=== PATIENT | male | born 1940 | race Caucasian/White ===

== ENCOUNTER 2018-11-29 23:09 | Emergency (ER) | payer MEDICARE, SELFPAY ==
[2018-11-29 23:10] VITALS: BP 179/97; PULSE 87; RESP 17; TEMP 35.8; O2SAT 96; BMI 23.9
--- NOTE | 2018-11-29 23:14 | CT_ITS ---
We are attempting to reach an attending provider to discuss findings. An addendum with communication details will be sent when the communication is complete. STUDY: CT BRAIN WITHOUT CONTRAST REASON FOR EXAM: Male, 78 years old. Stroke, headache, unresponsive RADIATION DOSAGE (If Supplied By Facility): CTDIvol = ( 44.99 ) mGy, DLP = ( 832.67 ) mGycm TECHNIQUE: Transaxial CT imaging of the brain was performed without administration of intravenous contrast material. Individualized dose optimization techniques were used for this CT. COMPARISON: No relevant priors. FINDINGS: Normal soft tissue structures. Normal calvarium. Normal size ventricles and extra-axial spaces for the patient's age. There are areas of decreased attenuation within the white matter tracts of the supratentorial brain, consistent with microvascular disease changes. Normal age-related changes of the basal ganglia. Normal brainstem. Normal cerebellum. There is no intracranial hemorrhage. There are no findings of an acute ischemic infarction. Normal visualized paranasal sinuses. CT/Brain/Head without Contrast IMPRESSION: No CT evidence of acute infarct or hemorrhage. If there is clinical concern for hyperacute ischemia that is not evident by CT, MRI should be considered if possible. Electronically Signed: Patricio Hickman MD at 23:30 EDT Tel , Service support ,
--- NOTE | 2018-11-29 23:14 | EKG12_ITS ---
Test Reason : Blood Pressure : / mmHG Vent. Rate : 079 BPM Atrial Rate : 079 BPM P-R Int : 260 ms QRS Dur : 094 ms QT Int : 398 ms P-R-T Axes : 059 -24 043 degrees QTc Int : 456 ms Sinus rhythm with 1st degree A-V block Otherwise normal ECG Confirmed by GENNY BACH, MAX ([id number]), writer editor JOSTIN OATES ([id number]) on 12/06/2018 11:09:18 AM Referred By: Confirmed By:FOUZIA ROYAL MD
--- NOTE | 2018-11-29 23:18 | ED.RN ---
NO OLD EKG
[2018-11-29 23:25] VITALS: BP 177/115; PULSE 88; RESP 18; O2SAT 95
[2018-11-29 23:30] VITALS: BP 194/78; PULSE 83; PULSE 87; RESP 19; RESP 21; O2SAT 96
[2018-11-29 23:32] LABS: Prothrombin Time (Protime)PT. 13.1 SECONDS (11.7-14.9)
[2018-11-29 23:33] LABS: Partial Thromboplast Time 28.4 Seconds (24.1-36.2)
[2018-11-29 23:34] VITALS: O2SAT 96
[2018-11-29 23:35] LABS: Absolute Lymphocyte Count 1.83 X10^3/uL (0.83-4.51); Absolute Neutrophil Count 3.9 X10^3/uL (2.0-7.7); Basophil# 0.03 X10^3/uL; Basophil% 0.5 % (0-1); Eosinophil# 0.16 X10^3/uL; Eosinophils% 2.4 % (0-5); Hematocrit 40.4 % (40-54); Hemoglobin 14.1 g/dL (13.0-16.5); Lymphocyte # 1.83 X10^3/ul (4.0); Lymphocyte % 27.6 % (19-41); Mean Corp Hgb Conc 34.9 g/dL (32-36); Mean Corpuscular Hgb 31.7 pg (27.0-32.0); Mean Corpuscular Volume 90.8 fL (80-94); Mean Platelet Vol. 9.6 fl (6.2-12.0); Monocyte% 10.5 % (0-10); NRBC Flagged by Analyzer 0 % (0-5); Neutrophil # 3.86 X10^3/uL (2.7-7.7); Neutrophil % 58.1 % (47-70); Platelet Count 180 K/mm3 (150-450); RBC Distribution Width CV 12.4 % (11.6-14.6); RBC Distribution Width SD 40.7 fl (35.1-43.9); Red Blood Count 4.45 M/mm3 (4.6-6.2); White Blood Count 6.6 K/mm3 (4.4-11.0)
--- NOTE | 2018-11-29 23:35 | CT_ITS ---
We are attempting to reach an attending provider to discuss findings. An addendum with communication details will be sent when the communication is complete. HISTORY: CVA, ALTERED LOC, WENT TO BED AT 10PM AND WOKE UP WITH MARTINEZ AND WENT UNRESPONSIVE TECHNIQUE: Routine carotid CT angiogram protocol was performed without and with IV contrast. In addition, images were obtained of the [place] of [place]. Nascet criteria using the distal ICAs for comparison were used for evaluation of stenoses. 3D reconstructions were reviewed. A radiation dose optimization technique was used for this scan. IV Contrast dosage and agent: 100mL Isovue-370 IV COMPARISON: Noncontrast cranial CT 2317 hrs. FINDINGS: --NECK: AORTIC ARCH AND BRANCHES: Normal anatomy, patent. RIGHT CCA/ICA: No occlusion, significant stenosis or dissection. Mild calcified plaque with 20% luminal narrowing of the right CCA bifurcation. The right ICA is widely patent LEFT CCA/ICA: No occlusion, significant stenosis or dissection. Focal calcified plaque with 30% short length narrowing of the left CCA bifurcation. The left ICA remains widely patent. RIGHT VERTEBRAL ARTERY: Dominant right vertebral artery. No occlusion, significant stenosis or dissection. 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 NECK SOFT TISSUES: Negative. No significant findings --HEAD: Hypoplastic left vertebral artery and dominant right vertebral artery. Right vertebral artery mild calcified plaque without significant stenosis. The posterior cerebral arteries fill via the basilar artery. No circulation. Mild calcified plaque of the cavernous internal carotid arteries bilaterally. No significant stenosis. Normal contrast filling and flow of the anterior, middle, and posterior cerebral arteries bilaterally. No evidence of intracranial aneurysm or vascular malformation. CT/CTA Head AND Neck W/ Contrast IMPRESSION: 1. No evidence of hemodynamically significant carotid stenosis. 2. 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 3. CTA brain and [place] is currently negative. No vascular occlusion or acute disease is seen. Individualized dose optimization techniques were used for this CT. at 0012 Reported and signed by: David Arora MD Electronically Signed: David Arora, at 0:11 EDT Tel , Service support ,
[2018-11-29 23:42] VITALS: BP 177/99; PULSE 85; RESP 17
[2018-11-29 23:42] LABS: Anion Gap 7 (5-15); BUN 16 mg/dL (7-18); BUN/Creat Ratio 18.1 RATIO (10-20); Calcium,Total 8.9 mg/dL (8.5-10.1); Chloride 103 mmol/L (98-107); Creatinine, Serum 0.88 mg/dL (0.70-1.30); EST Glomerular Filtration Rate 88 mL/min (>60); Est Glom Filt Rate - Afr Amer 107 mL/min (>60); Estimated Creatinine Clearance 74.71 ml/min; Glucose 135 mg/dL (74-106); Potassium 3.3 mmol/L (3.5-5.1); Sodium Level 138 mmol/L (136-145)
[2018-11-29 23:45] VITALS: BP 188/149; PULSE 85; RESP 14; O2SAT 98
[2018-11-29] MEDS: 0.9% Normal Saline 1,000 ML 100 ML IV (23:55)
--- NOTE | 2018-11-29 23:55 | ED.VISSUMM ---
- ER Visit Summary Date of Service: 11/29/18 Chief Complaint: Headache, dizzy, unresponsive History of Present Illness: The patient is a 78 M presenting per EMS after being found unresponsive. At 10 PM, 1 hour prior to arrival, patient started to complain of headache and dizziness. states he went to lay down. She checked on him and he was unresponsive. EMS was called. Per EMS he initially had snoring respirations. He became more alert en route to the hospital. He is now answering questions. He has slurred speech, right-sided deficit, confusion. BGT per EMS was 132. Physical Examination: Blood pressure 177/115. Patient is afebrile. Alert no acute distress. HEENT exam eyes deviated to right pupil equal round reactive to light, extraocular muscles intact Neck is supple. Lungs are clear and equal bilaterally. Heart is regular rate and rhythm. Abdomen is soft nontender nondistended. Extremities are unremarkable. Skin is warm and dry. And oriented x1, right arm and leg weakness, slurred speech, expressive aphasia Remainder of exam is unremarkable. Emergency Department Course and Treatment: Patient went taken directly to CT scan. CT head without contrast shows no evidence of bleed. [facility] neurology was consulted. Recommend TPA. He was given labetalol IV. TPA was administered. CTA head and neck were obtained and showed no large vessel occlusion. CBC, chemistries unremarkable other than potassium 3.3, glucose 135. INR 1.0. Troponin is negative. EKG is sinus rhythm rate of 79 with no acute ischemic changes. Patient and family would prefer to stay at [facility]. Discussed with the hospitalist for admission. Disposition: Admission Impression: CVA This note was generated with [employer] dictation software. It may contain incorrect words, spelling, and punctuation that were not noted in review of the chart prior to signing ED Disposition - Plan for ED Patient:
--- NOTE | 2018-11-29 23:57 | ED.RN ---
states pt takes supplements and vitamins. ED RN not able to verify meds and doses.
[2018-11-30] VITALS (23 sets, daily range): BP systolic 124–196; BP diastolic 65–122; PULSE 30–110; RESP 12–99; TEMP 36.3–36.5; O2SAT 80–100; BMI 23.9
--- NOTE | 2018-11-30 00:05 | PCM.HP.STD ---
History of Present Illness Date of Admission: 11/30/18 Chief Complaint: Altered status, R sided hemiplegia, facial droop, disconjugate gaze. The patient is a 78 y/o Catholic M w/ no PMHx on no medications who presents to the [facility] ED on 11/30/18 with history of ongoing diffuse headache starting at ~ 10 am with patient planned nap and attempted awakening per his just before 11 pm with onset decreased level of alertness noted to be only alert to self as well as slurred speech with concurrent right-sided facial paralysis, droop and right-sided hemiplegia who was found per his upon awakening with a right gaze deviation and abnormal eye movements as well as weakness with last known normal at 2200. Given patient presentation [facility] telemetry stroke consult was immediately requested and patient following evaluation was requested to be administered TPA at 2332 on day of ED presentation initially 11/29/2018. Patient upon ED presentation with noted initial NIH 14 noted to be poorly alert, forced deviation with partial hemianopsia with partial facial paralysis, right upper extremity drift, bilateral lower extremity drift, with severe aphasia and dysarthria present--> repeat NIH scoring improving level 9 with improvement of visualization, still forced deviation, minor facial paralysis, drift to the left upper extremity as well as left lower extremity with ongoing severe aphasia and improving mild to moderate dysarthria. Work-up in the ED included T 96.5, heart rate 87, BP initially 177/115 with increased 194/78, respiratory rate 18, 95% on room air, CBC with WBC 6.6, hemoglobin 14.1, platelet 180 with increased monocytes, unremarkable coags, BMP potassium 3.3, glucose 135, troponin less than 0.015, CT head with no acute evidence of infarct or hemorrhage, CTA Head and Neck with no occlusion nor acute findings per preliminary read from radiologist, EKG with sinus rhythm with no acute evidence of ischemia. In the ED patient administered labetolol 20 mg IV x 2. Past Medical History Allergies cyclobenzaprine [From Flexeril] Adverse Reaction (Verified 11/29/18 23:14) Rash Smoking Status: Unknown if ever smoked - Physical Exam Vital Signs Temp Pulse Resp BP Pulse Ox 97.4 F L 81 15 164/82 H 99 11/30/18 00:00 11/30/18 00:00 11/30/18 00:00 11/30/18 00:00 11/30/18 00:00 Oxygen Flow Rate (L/min) 2 Oxygen Delivery Method Nasal Cannula Weight: 176 lb 5.917 oz Body Mass Index (BMI) 23.9 Finger Stick Blood Glucose 132 Laboratory Tests Past 24 Hrs 11/29/18 11/29/18 11/29/18 23:15 23:15 23:15 WBC 6.6 RBC 4.45 L Hgb 14.1 Hct 40.4 MCV 90.8 MCH 31.7 MCHC 34.9 RDW Std Deviation 40.7 RDW Coeff of Dereck 12.4 Plt Count 180 MPV 9.6 Immature Gran % (Auto) 0.900 Neut % (Auto) 58.1 Lymph % (Auto) 27.6 Coos % (Auto) 10.5 H Eos % (Auto) 2.4 Baso % (Auto) 0.5 Absolute Neuts (auto) 3.9 Absolute Lymphs (auto) 1.83 Nucleated RBC % 0 PT 13.1 INR 1.0 APTT 28.4 Sodium 138 Potassium 3.3 L Chloride 103 Carbon Dioxide 28.0 Anion Gap 7 BUN 16 Creatinine 0.88 Estim Creat Clear Calc 74.71 Est GFR (MDRD) Af Amer 107 Est GFR (MDRD) Non-Af 88 BUN/Creatinine Ratio 18.1 Glucose 135 H Calcium 8.9 Troponin I < 0.015 Assessment/Plan The patient is a 78 y/o Catholic M w/ no PMHx on no medications who presents to the [facility] ED initially on 11/29/18, evaluated on 11/30/18 with history of ongoing diffuse headache starting at ~ 10 am with patient planned nap and attempted awakening per his just before 11 pm with onset decreased level of alertness noted to be only alert to self as well as slurred speech with concurrent right-sided facial paralysis, droop and right-sided hemiplegia who was found per his upon awakening with a right gaze deviation and abnormal eye movements as well as weakness with last known normal aside headache 10:30 pm 11/29/18. (1) Aphasia, dysarthria, right-sided hemiplegia, right facial droop w/ disconjugate gaze concerning for CVA status post TPA initiation in the ED: Given patient initiation of TPA following stroke alert with tele-radiology [facility] evaluation and patient decline to transfer to [facility] which was recommended per the Neurologist secondary to Catholic status and difficulty for family to travel to [facility], will proceed with admission to the ICU, Will allow permissive HTN, will plan on repeat CT head in 24 hours and if no acute findings at that time would plan on initiating aspirin therapy, will initiate statin therapy if patient passes swallow evaluation, FLP in a.m., mag pending, TSH pending, fall precautions, aspiration precautions, will obtain MRI Brain, ECHO, PT/OT/Speech/Nutrition evaluation per protocol. Will consult Neurology for evaluation. Will consult ICU physician per protocol. (2) Elevated BP with unclear HTN Dx: As noted above will maintain on permissive hypertension with initiation of regimen per protocol. (3) Hypokalemia: Admission K+ 3.3, supplementation given, repeat level in AM. Magnesium pending. (4) Hyperglycemia: Admission glucose 135, given acute presentation as noted #1, hemoglobin A1c pending. (5) DVT prophylaxis: SCDs, given recent TPA deferring chemoprophylaxis.
[2018-11-30] MEDS: Ondansetron 4 MG/2 ML Vial IV (00:25)
[2018-11-30] MEDS: Atropine Sulfate 1 MG/10 ML Syringe IV (00:28)
--- NOTE | 2018-11-30 00:51 | RAD_ITS ---
HISTORY: ET AND OG TUBE PLACEMENTS mental status change EXAMINATION/TECHNIQUE: XR Chest 1 View: Portable supine COMPARISON: None FINDINGS: EKG leads in place. LINES/DEVICES: The endotracheal tube is in good position with the tube tip 3 cm above the lenny. Enteric tube in place with the tube tip well below the GE junction and the tube tip not visualized. Normal heart size. Mild pulmonary venous congestion. No focal infiltrate. No pleural effusion or pneumothorax. RAD/Chest 1 View (Portable) IMPRESSION: 1. Good position of the endotracheal and enteric tubes. 2. Mild pulmonary venous congestion. at 0258 Reported and signed by: David Arora MD Electronically Signed: David Arora, at 2:57 EDT Tel , Service support ,
[2018-11-30] MEDS: Propofol 10MG/Ml 1,000 MG/100 ML Bottle 2.4 MG CONT INF (00:53)
[2018-11-30] MEDS: Etomidate 20 MG/10 ML Vial IV (00:56)
--- NOTE | 2018-11-30 00:56 | CT_ITS ---
We are attempting to reach an attending provider to discuss findings. An addendum with communication details will be sent when the communication is complete. HISTORY: MENTAL STATUS CHANGES, TPA RUNNING, CONCERN FOR BLEED, PT WAS INJECTED WITH 100ML ISOVUE 370 AT 2338 FOR CTA STUDY EXAMINATION: CT Head or Brain W/O IV Contrast 0106 hrs. TECHNIQUE: Multiple axial images were obtained of the head without intravenous contrast. A radiation dose optimization technique was used for this scan. IV Contrast dosage and agent: None. COMPARISON: Noncontrast cranial CT 11/29/2018 FINDINGS: Intravascular contrast related to previous CTA administration . Normal ventricles. No intracerebral hemorrhage or intraventricular hemorrhage. With comparison to previous, question of subtle low-density edema at the left centrum semiovale and subcortical left parietal lobe. No significant mass-effect. The right cerebral hemisphere appears stable. Posterior fossa structures are stable. Carotid and vertebral basilar atherosclerotic calcifications. No suspicious extra-axial fluid collection. CT/Brain/Head without Contrast IMPRESSION: 1. No intracerebral hemorrhage or significant mass-effect. 2. Question of subtle edema left centrum semiovale and adjacent subcortical left parietal lobe. Possible early, evolving nonhemorrhagic infarct. 3. If the patient is a candidate, suggest further correlation with MRI. Individualized dose optimization techniques were used for this CT. at 0210 Reported and signed by: David Arora MD Electronically Signed: David Arora, at 2:09 EDT Tel , Service support ,
--- NOTE | 2018-11-30 01:07 | PCM.HOSP.N ---
Hospitalist Note The patient is a 78 y/o Judaism M w/ no PMHx on no medications who presents to the [facility] ED on 11/30/18 with history of ongoing diffuse headache starting at ~ 10 am with patient then noted to have laid down and near immediately following was difficulty to awaken, not alert with notably decreased level of alertness, at that time only alert to self as well as slurred speech with concurrent right-sided facial paralysis, droop and right-sided hemiplegia per EMS upon arrival. Given patient presentation [facility] telemetry stroke consult was immediately requested and patient following evaluation was requested to be administered TPA at 2332 on day of ED presentation initially 11/29/2018. Patient upon ED presentation with noted initial NIH 14 noted to be poorly alert, forced deviation with partial hemianopsia with partial facial paralysis, right upper extremity drift, bilateral lower extremity drift, with severe aphasia and dysarthria present--> repeat NIH scoring improving level 9 with improvement of visualization, still forced deviation, minor facial paralysis, drift to the left upper extremity as well as left lower extremity with ongoing severe aphasia and improving mild to moderate dysarthria. Work-up in the ED included T 96.5, heart rate 87, BP initially 177/115 with increased 194/78, respiratory rate 18, 95% on room air, CBC with WBC 6.6, hemoglobin 14.1, platelet 180 with increased monocytes, unremarkable coags, BMP potassium 3.3, glucose 135, troponin less than 0.015, CT head with no acute evidence of infarct or hemorrhage, CTA Head and Neck with no occlusion nor acute findings per preliminary read from radiologist, EKG with sinus rhythm with no acute evidence of ischemia. In the ED patient administered labetolol 20 mg IV x 2. Patient evaluated in the emergency room as family had declined transfer to tertiary care facility despite recommendation from [facility] neurology however they strongly recommended that if echo demonstrated any findings in need of operative intervention that patient be transition to tertiary facility to which family and patient at that time are amenable. Patient with 8 minutes remaining on TPA began to have immediate mental status declined again as well as return to initial prior state upon presentation with elevated NIH scoring, became bradycardic initially thought secondary to labetalol administered however the heart rate then became tachycardic with respiratory decline, unable to manage airway with intubation per ED physician successfully. TPA was held at the 8-minute deyvi and [facility] neurology was re-contacted with recommendation for repeat CT of head. Family at this time requested and amenable to transition to [facility] given declining state therefore admission to the [facility] deferred. CODE status: Given patient presentation and initial plan for admission discussed CODE status with patient family given patient decline including son and as well as other family members at length including difference between FULL code, DNR-CCA and DNR-CC status. Following discussions about the differences in these status, requested full code status. Advanced Care Planning Face to Face Time: 17 minutes. Code Visit Procedures: 75909 Advncd Care Plan 30 Min
--- NOTE | 2018-11-30 01:16 | ED.RN ---
soft restraints placed. order to follow from dr. smith.
--- NOTE | 2018-11-30 01:17 | ED.RN ---
tpa in MAR not scanning. Pops up with white screen asking for infusion rate. MAR shows infused, completed, at 2252. This should be the started time. tPA was stopped at 0044, 8 minutes early as ordered from Dr. Patrick and Dr. Tirado. Tamir PharmD aware.
[2018-11-30] MEDS: fentaNYL drip 100 ML 5 MCG IV (01:42)
--- NOTE | 2018-11-30 01:50 | ED.RN ---
dr. amaury nieves started at 2.5ml/hr. titration med order placed and meds started.
[2018-11-30] MEDS: TITRATION PARAMETER CHANGE 1 EACH IV (01:53)
[2018-11-30 02:36] LABS: Base Excess 0 mmol/L (-2 to +2); Bicarbonate 25.4 mmol/L (22-26); Blood Gas Specimen Type ART; FI02 50; Mode A-C; O2 Delivery Device Vent; PEEP 5; PO2 58 mmHG (75-100); RR 24; SITE R Radial; SO2 89 % (95-99); Total Carbon Dioxide 27 mmol/L; Vt 714; pCO2 43.4 mmHg (35-45); pH 7.38 (7.35-7.45)
--- NOTE | 2018-11-30 03:31 | ED.RN ---
REPORT GIVEN TO [facility]. PT LOADED ONTO [facility] CART AND [facility] HAS HANDED OFF. PT GOING TO [facility]. FAMILY MEMBERS GIVEN DIRECTIONS TO [facility]. ALL QUESTIONS WERE ANSWERED NO FURTHER CONCERNS. DELAY IN CARE: PT HAD EPISODE OF UNRESPONSIVE, PT WAS INTUBATED WITH DR. ALEX AND DR. MURGUIA AT BEDSIDE. PT TAKEN BACK TO CT FOR 3RD SCAN. ED STAFF AND TIN ROOFER CALLED TO INQUIRE ON RESULTS, 3RD READ TOOK OVER AN HR FOR RESULTS. [facility] ETA WAS 20 MIN, ENDED UP TAKING NEARLY AN HOUR. FAMILY UPDATED AND AT BEDSIDE.
== END 2018-11-30 03:30 | disposition short-term general hospital (02) ==
LOC: ED 23:25 → ICU 11-30 01:36
PROVIDERS: Emergency Provider Emergency Medicine; Family Provider Family Medicine; PCP Family Medicine; Visit Provider Family Medicine
DX: I63.9 Cerebral infarction, unspecified (principal); G81.91 Hemiplegia, unspecified affecting right dominant side; R47.1 Dysarthria and anarthria; R47.81 Slurred speech; R29.810 Facial weakness; R47.01 Aphasia; R29.714 NIHSS score 14
CPT/HCPCS: 31500; 36600; 51702; 70450; 70496; 70498; 71045; 80048; 82803; 84484; 85025; 85610; 85730; 93005; 94002; 96365; 96367; 96375; 96376; 99251; 99285; J2997; J7030; J7050; Q9967; A4216; G0463; J2405

== ENCOUNTER 2019-01-31 15:57 | Inpatient (IN) | payer MEDICARE, SELFPAY ==
[2018-11-30 00:05] VITALS: BMI 23.9
[2019-01-31 16:01] VITALS: BP 113/67; PULSE 68; RESP 20; TEMP 36.6; O2SAT 92
[2019-01-31 18:04] VITALS: BMI 25.0
[2019-01-31 18:18] VITALS: BMI 22.3
--- NOTE | 2019-01-31 20:35 | HP.PCM_ITS ---
Problem List (1) Debility Status: Acute (2) Cerebellar stroke Status: Acute (3) Left acute arterial ischemic stroke, GEOLOGY PROFESSOR (posterior cerebral artery) Status: Acute (4) Hemorrhagic stroke Status: Acute (5) Dissecting hemorrhage of left vertebral artery Status: Acute (6) Hypertension Status: Chronic (7) Hyperlipidemia Status: Chronic (8) Muscle spasm Status: Chronic (9) Hospital-acquired pneumonia Status: Acute History of Present Illness Date of Admission: 01/31/19 Chief Complaint: Here for rehabilitation, strengthening, prior to discharge home with . The patient is a 78 year old Male with below past medical history presented to [facility] 11/29/2018 with headache, dizzy, unresponsiveness. 11/29/2018 EKG sinus rhythm with first degree AV block, otherwise normal EKG. 11/29/2018 CTA head/neck CTA head negative, Carotid negative, Dominant right vertebral artery, hypoplastic left vertebral artery. 11/30/2018 Chest X-ray ET tube, enteric tube in place. 11/30/2018 CT brain suspicious for left sided stroke. Headache, dizzy, unresponsive, snoring respirations. Slurred speech, right sided deficit, confusion. Glucose 132. [facility] recommended TPA. Labetalol IV given, TPA given. CBC okay, BMP showed K 3.3, INR 1.0. Troponin negative. Mental status improved, then declined with 8 minutes of TPA infusion remaining. Unable to maintain airway. Patient intubated. Patient helicoptered to [facility] for further care. 11/30/2018 Admit to [facility]. Bilateral cerebellar, left posterior cerebral artery stroke. Neurosurgery consulted for suboccipital craniectomy for decompression. Hemorrhagic conversion in cerebellar hemispheres left greater than right. 12/04/2018 Tracheostomy. 12/22/2018 Admit to [facility] ([facility]) in [place], [place]. Intermittent low grade fevers. Sputum grew Group F strep, Proteus Mirabilis, Enterobacter, Staph Aureus. Blood cultures negative growth to date. Meropenem, Vancomycin for hospital acquired pneumonia. 01/31/2019 Admit to TCU with debility, here for rehabilitation, strengthening, weaning of trach, weaning of tube feeding, prior to discharge home with family. Past Medical History Past Medical History (Chronic Problems): Chronic Problems Hypertension (Chronic) Hyperlipidemia (Chronic) Muscle spasm (Chronic) Allergies Penicillins Allergy (Unknown, Verified 01/31/19 16:04) Unknown cyclobenzaprine [From Flexeril] Adverse Reaction (Verified 11/29/18 23:14) Rash Home Medications: Ambulatory Orders Medication Instructions Recorded Acetaminophen Liquid [Tylenol 160 mg GT Q6H PRN PRN 01/31/19 Liquid] Amino Acids/Protein Hydrolys 30 ml GT DAILY 01/31/19 [Pro-Stat Sugar Free Liquid] Amlodipine Besylate 5 mg GT DAILY 01/31/19 Aspirin [Aspir 81] 81 mg GT DAILY 01/31/19 Atorvastatin Calcium 40 mg GT QHS 01/31/19 Bisacodyl 10 mg CO DAILY PRN 01/31/19 Carvedilol 6.25 mg GT BID 01/31/19 Docusate Sodium [Docu Liquid] 50 mg GT BID PRN PRN 01/31/19 Enoxaparin [Lovenox] 40 mg SUBCUT DAILY@0600 01/31/19 Famotidine [Pepcid] 20 mg GT BID 01/31/19 Guaifenesin/Dextromethorphan 10 ml GT Q4H PRN PRN 01/31/19 [Guaifenesin Dm Syrup] Ipratropium/Albuterol Sulfate 3 ml INHALATION Q4H PRN PRN 01/31/19 [Iprat-Albut 0.5-3(2.5) mg/3 ml] Jevity 1.5 300 ml GT Q6H 01/31/19 Melatonin 5 mg GT QHS 01/31/19 Meropenem 1 gm IV Q8 01/31/19 [place]-3 Fatty Acids/Fish Oil [Fish 1 ea GT BID 01/31/19 Oil 1,000 mg Capsule] Polyethylene Glycol 3350 [Miralax] 17 gm GT DAILY PRN 01/31/19 Quetiapine Fumarate [Seroquel] 25 mg GT BID 01/31/19 Sodium Chloride 3% 3 ml INHALATION Q4H PRN PRN 01/31/19 Terazosin HCl 2 mg GT QHS 01/31/19 Vitamin E 400 unit GT DAILY 01/31/19 Surgical History: appendectomy, herniorrhaphy, - - Tracheostomy, PEG tube, Suboccipital craniectomy, Cervical discectomy, carpal tunnel, shoulder surgery. Psychiatric History: No pertinent psych hx Lives: Spouse/ Significant Other Smoking Status: Unknown if ever smoked Tobacco Use: Non-smoker Alcohol: None Drugs: None - *Family History Maternal History Items: No pertinent history Paternal History Items: No pertinent history Review of Systems Constitutional: Denies: Chills, Fever, Weight Change HEENT: Denies: Head Aches, Sinus Congestion, Sinus Drainage Cardiovascular: Denies: Chest Pain, Palpitations Respiratory: Denies: Cough, Shortness of breath at rest, Sputum production Gastrointestinal: Denies: Abdominal Pain, Nausea, Vomiting Genitourinary: Denies: Dysuria Musculoskeletal: Denies: Joint Pain, Joint Tenderness Skin: Denies: Rash, Wounds Neurological: Denies: Numbness, Tingling, Focal weakness Psychiatric: Denies: Anxiety, Depression, Homicidal Ideations, Suicidal Id eations Hematologic/ Lymphatic: Denies: Easy Bruising, Easy Bleeding VTE Information - Inpt Only VTE Present on Admission: No VTE Mechan Device Prophylaxis: Knee High JENNIFER Hose VTE Pharm Prophylaxis ordered?: Yes Patient Problems: Active and Suspected Problems Debility (Acute) Cerebellar stroke (Acute) Left acute arterial ischemic stroke, GEOLOGY PROFESSOR (posterior cerebral artery) (Acute) Hemorrhagic stroke (Acute) Dissecting hemorrhage of left vertebral artery (Acute) Hospital-acquired pneumonia (Acute) - Physical Exam Vitals/I&O's: Vital Signs Temp Pulse Resp BP Pulse Ox 97.8 F 68 20 H 113/67 92 01/31/19 16:01 01/31/19 16:01 01/31/19 16:01 01/31/19 16:01 01/31/19 16:01 Oxygen Flow Rate (L/min) 1 Oxygen Delivery Method Nasal Cannula Weight: 64.637 kg Body Mass Index (BMI) 22.3 Finger Stick Blood Glucose 132 Intake and Output for Last 24 Hours 01/29/19 01/30/19 01/31/19 23:59 23:59 23:59 Output Total 480 / 480 Balance -480 / -480 General: Alert, Oriented x3, Cooperative HEENT: Atraumatic, PERRLA, EOMI, Normocephalic Neck: Supple, No JVD, Negative Carotid Bruits, - - Tracheostomy capped. Lungs: Clear to auscultation, Normal air movement Cardiovascular: Regular rate, No murmurs Abdomen: Bowel Sounds Present, Soft, Non Tender, - - PEG tube. Extremities: No edema, Capillary Refill Less than 3 Seconds Skin: No rashes, No breakdown Musculoskeletal: No Tenderness to Palpation of Joints or Extremities Neurological: Cranial nerves II-XII grossly intact, - - Right hemiparesis. Psych/Mental Status: Normal Affect, Appropriate Current Medications Acetaminophen (Tylenol Liquid) 160 mg GT Q6H PRN PRN PRN Reason: Pain Score 1-10/10 OR FEVER Albuterol/Ipratropium (Duoneb) 3 ml INHALATION Q4H.RT [facility] Amlodipine Besylate (Norvasc) 5 mg GT DAILY [facility] Atorvastatin Calcium (Lipitor) 40 mg GT QHS [facility] Bisacodyl (Dulcolax) 10 mg RECTAL DAILY PRN PRN Reason: Constipation Calamine/Phenol (Calmoseptine Ointment) 1 applic TOPICAL 0600,2200 [facility]; Protocol Carvedilol (Coreg) 6.25 mg GT BID [facility] Docusate Sodium (Colace Syrup) 50 mg GT BID PRN PRN PRN Reason: Constipation Doxazosin Mesylate (Cardura) 2 mg GT QHS [facility] Enoxaparin Sodium (Lovenox) 40 mg SC DAILY@0600 [facility] Enteral Nutritional Formula (Jevity 1.5) 300 ml GT Q6 [facility] Famotidine (Pepcid) 20 mg GT BID [facility] Guaifenesin (Robitussin Dm) 10 ml GT Q4H PRN PRN PRN Reason: COUGH Sodium Chloride () 250 mls @ 15 mls/hr IV .[id number] PRN PRN Reason: Saline Flush Meropenem 1 gm/ Sodium (Chloride) 120 mls @ 33 mls/hr IV Q8 [facility] Stop: 02/03/19 22:01 Melatonin (Melatonin) 5 mg GT QHS [facility] Polyethylene Glycol (Miralax) 17 gm GT DAILY PRN PRN Reason: Constipation Quetiapine Fumarate (Seroquel) 25 mg GT BID [facility] Sodium Chloride () 10 - 40 ml IV UD PRN PRN Reason: SALINE FLUSH Sodium Chloride (Sodium Chloride 3%) 3 ml INHALATION Q4H.RT [facility] Tuberculin PPD (Tubersol, Aplisol, Ppd) 5 tu ID [id number] ONE Stop: 02/01/19 10:01 Tuberculin PPD (Tubersol, Aplisol, Ppd) 5 tu ID [id number] ONE Stop: 02/08/19 10:01 Assessment/Plan All Active Problems Debility (Acute) Cerebellar stroke (Acute) Left acute arterial ischemic stroke, GEOLOGY PROFESSOR (posterior cerebral artery) (Acute) Hemorrhagic stroke (Acute) Dissecting hemorrhage of left vertebral artery (Acute) Hospital-acquired pneumonia (Acute) 78 year old male with below past medical history hospitalized for bilateral cerebellar stroke, left posterior cerebral artery stroke with hemorrhagic conversion, resulted in tracheostomy, PEG tube, complicated by hospital acquired pneumonia, admitted to TCU with debility, here for rehabilitation, strengthening, tracheostomy weaning, PEG tube feeding weaning, prior to discharge home with family. * Debility - PT/OT. * Cognition - ST. * Tracheostomy - ST, Consult Dr. Chowdhury with downsizing, discontinuation. * Dysphagia - ST, Jevity 1.5 300ML Q6H. * Pain - Tylenol 650MG Q4H Pain (1-10). * Bowel - Miralax 17GM daily PRN, Colace 50MG BID PRN, Dulcolax 10MG CO daily PRN. * Adult immunization - Administer Prevnar 13, Pneumovax 23, Fluzone as n ecessary. * DVT prophylaxis - Lovenox 40MG SC daily. * Hypertension - Coreg 6.25MG BID, Cardura 2MG QHS, Amlodipine 5MG daily. * Hyperlipidemia - Atorvastatin 40MG. * GERD - Famotidine 20MG BID. * Cough - Robitussin DM 10ML Q4H PRN. * Shortness of breath - Duoneb 3ML Q4H, Sodium Chloride 3% 3ML Q4H. * Insomnia - Melatonin 5MG QHS. * Skin irritation - Calmoseptine BID. * Hospital acquired pneumonia - Meropenem 1GM IV Q8H thru 02/03/2019, notes resident more confused after Meropenem infusion. * Behavioral disturbance - Seroquel 25MG twice daily.
[2019-01-31] MEDS: 0.9% Saline Lock 10 ML Syringe IV (20:59)
[2019-01-31 21:37] VITALS: PULSE 78; RESP 20
[2019-01-31] MEDS: Ipratropium/Albuterol Sulfate 3 ML AMPUL.NEB INHALATION (21:40)
[2019-01-31] MEDS: QUEtiapine 25 MG Tablet GT (22:59)
[2019-01-31] MEDS: Atorvastatin Calcium 40 MG Tablet GT (22:59)
[2019-01-31] MEDS: Doxazosin 1 MG Tablet 2 MG GT (22:59)
[2019-01-31] MEDS: Famotidine 20 MG Tablet GT (22:59)
[2019-01-31] MEDS: Carvedilol 6.25 MG Tablet GT (22:59)
[2019-01-31] MEDS: Menthol/Lanolin/Calamine/Znox 113 GM Tube 1 APPLIC TOPICAL (23:00)
[2019-01-31] MEDS: MELATONIN 10 MG TABLET 5 MG GT (23:01)
[2019-01-31] MEDS: Jevity 1.5. 1,000 ML Bottle 300 ML GT (23:05)
[2019-01-31 23:20] VITALS: PULSE 78; RESP 18
[2019-02-01] VITALS (8 sets, daily range): BP systolic 97–114; BP diastolic 52–63; PULSE 55–81; RESP 16–21; TEMP 37.1; O2SAT 93–96
[2019-02-01] MEDS: Ipratropium/Albuterol Sulfate 3 ML AMPUL.NEB INHALATION ×5 (02:51→20:20)
[2019-02-01] MEDS: Sodium Chloride 3% 500 ML IV.SOLN. INHALATION ×5 (02:52→20:20)
[2019-02-01 06:04] LABS: Absolute Lymphocyte Count 0.98 X10^3/uL (0.83-4.51); Absolute Neutrophil Count 3.3 X10^3/uL (2.0-7.7); Basophil# 0.03 X10^3/uL; Basophil% 0.5 % (0-1); Eosinophil# 0.63 X10^3/uL; Eosinophils% 11.5 % (0-5); Hematocrit 33.1 % (40-54); Hemoglobin 10.8 g/dL (13.0-16.5); Lymphocyte # 0.98 X10^3/ul (4.0); Lymphocyte % 17.8 % (19-41); Mean Corp Hgb Conc 32.6 g/dL (32-36); Mean Corpuscular Hgb 30.3 pg (27.0-32.0); Mean Corpuscular Volume 92.7 fL (80-94); Mean Platelet Vol. 9.4 fl (6.2-12.0); Monocyte# 0.56 X10^3/uL; Monocyte% 10.2 % (0-10); NRBC Flagged by Analyzer 0 % (0-5); Neutrophil # 3.29 X10^3/uL (2.7-7.7); Neutrophil % 59.8 % (47-70); Platelet Count 181 K/mm3 (150-450); RBC Distribution Width SD 47.7 fl (35.1-43.9); Red Blood Count 3.57 M/mm3 (4.6-6.2); White Blood Count 5.5 K/mm3 (4.4-11.0)
[2019-02-01 06:30] LABS: Anion Gap 5 (5-15); BUN 17 mg/dL (7-18); BUN/Creat Ratio 28.6 RATIO (10-20); Calcium,Total 8.2 mg/dL (8.5-10.1); Chloride 104 mmol/L (98-107); EST Glomerular Filtration Rate 139 mL/min (>60); Est Glom Filt Rate - Afr Amer 168 mL/min (>60); Estimated Creatinine Clearance 54.76 ml/min; Glucose 95 mg/dL (74-106); Potassium 3.9 mmol/L (3.5-5.1); Sodium Level 140 mmol/L (136-145)
[2019-02-01] MEDS: Enoxaparin 40 MG/0.4 ML Syringe SC (06:38)
[2019-02-01] MEDS: amLODIPine 5 MG Tablet GT (06:39)
[2019-02-01] MEDS: QUEtiapine 25 MG Tablet GT ×2 (06:39→18:36)
[2019-02-01] MEDS: Carvedilol 6.25 MG Tablet GT ×2 (06:39→18:36)
[2019-02-01] MEDS: Famotidine 20 MG Tablet GT ×2 (06:39→18:36)
[2019-02-01] MEDS: 0.9% Saline Lock 10 ML Syringe IV ×2 (06:42→13:52)
[2019-02-01] MEDS: Menthol/Lanolin/Calamine/Znox 113 GM Tube 1 APPLIC TOPICAL ×2 (06:45→22:13)
[2019-02-01] MEDS: Jevity 1.5. 1,000 ML Bottle 300 ML GT ×4 (06:59→23:05)
--- NOTE | 2019-02-01 07:02 | NURSING ---
All care provided in pt room due to being on isolation precaution.Peg tube remains patent and no residual p. Peg placement verified by auscultation. HOB at 30 degree. Pt given 300ml of jevity 1.5 bolus and 240ml of sterile water flushed after bolus. All meds received via peg tube without difficulty. Pt tolerated well.
[2019-02-01] MEDS: Tuberculin,Purif.prot.deriv. 50 TU/ML Vial 5 ML ID (10:11)
--- NOTE | 2019-02-01 14:11 | NURSING ---
PT COMPLAINED OF INSIDE MOUTH HURTING,TONGUE CODED WHITE. PT DOES NOT HAVE SCHEDULED STOOL SOFTENERS,ONLY PRN WILL GIVE PRN TODAY DUE TO NO BM IN 3 DAYS. REPORTED TO DOYLE GALLARDO
--- NOTE | 2019-02-01 14:15 | NURSING ---
THIS NURSE CLEANED AND CHANGED PT DRESSING TO TRAK AREA AND CHANGED PT INTER CANULA. WHITE CAP ON AT THIS TIME AND PT ON 2L OF O2. PT TURNED TO LEFT SIDE,IV RUNNING.
--- NOTE | 2019-02-01 15:59 | NURSING ---
ALL CARE GIVEN IN ROOM DUE TO PT IN PRECAUTIONS FOR ESBL.
[2019-02-01] MEDS: Polyethylene Glycol 3350 17 GM PACKET GT (18:50)
[2019-02-01] MEDS: Nystatin Powder 15gm Bottle 1 APPLIC TOPICAL (22:15)
[2019-02-01] MEDS: NYSTATIN 500,000 UNIT/5 ML UDC 500000 UNIT PO (22:16)
[2019-02-01] MEDS: Doxazosin 1 MG Tablet 2 MG GT (22:17)
[2019-02-01] MEDS: MELATONIN 10 MG TABLET 5 MG GT (22:17)
[2019-02-01] MEDS: Atorvastatin Calcium 40 MG Tablet GT (22:18)
--- NOTE | 2019-02-02 00:42 | NURSING ---
Patient very restless tonight. Patient crawling out of bed. Dr. Fierro notified. New order given
[2019-02-02] MEDS: LORazepam 1 MG Tablet GT (01:03)
[2019-02-02] MEDS: Carvedilol 6.25 MG Tablet GT ×2 (05:15→17:05)
[2019-02-02] MEDS: NYSTATIN 500,000 UNIT/5 ML UDC 500000 UNIT PO ×4 (05:15→22:06)
[2019-02-02] MEDS: Famotidine 20 MG Tablet GT ×2 (05:15→17:05)
[2019-02-02] MEDS: amLODIPine 5 MG Tablet GT (05:15)
[2019-02-02] MEDS: Enoxaparin 40 MG/0.4 ML Syringe SC (05:15)
[2019-02-02] MEDS: QUEtiapine 25 MG Tablet GT ×2 (05:15→17:05)
[2019-02-02] MEDS: Menthol/Lanolin/Calamine/Znox 113 GM Tube 1 APPLIC TOPICAL ×2 (05:30→22:03)
[2019-02-02] MEDS: Nystatin Powder 15gm Bottle 1 APPLIC TOPICAL ×2 (05:31→22:03)
[2019-02-02] MEDS: Jevity 1.5. 1,000 ML Bottle 300 ML GT ×3 (05:35→17:06)
[2019-02-02] MEDS: Docusate Sodium 100 MG/10 ML UDC 50 MG GT (05:37)
[2019-02-02 06:37] VITALS: PULSE 85; RESP 20
[2019-02-02] MEDS: Sodium Chloride 3% 500 ML IV.SOLN. INHALATION ×3 (06:37→23:20)
[2019-02-02] MEDS: Ipratropium/Albuterol Sulfate 3 ML AMPUL.NEB INHALATION ×3 (06:37→23:20)
--- NOTE | 2019-02-02 07:31 | NURSING ---
All care provided in pt room on isolation precaution for ESBL in sputum. Peg tube remains patent and no residual. Peg placement verified by auscultation and HOB at 30 degree. Pt given 300ml of jevity 1.5 bolus and 240ml of sterile water flushed after bolus. All meds received via peg tube without difficulty. Pt tolerated well.
--- NOTE | 2019-02-02 13:04 | NURSING ---
Resident in contact precautions. All care provided in room.
--- NOTE | 2019-02-02 13:15 | CON.PCM_ITS ---
Problem List (1) Status post emergency tracheotomy for assistance in breathing Status: Acute (2) Hospital-acquired pneumonia Status: Acute Reason for Consult Date of Consultation: 02/02/19 Reason for Consultation: Tracheostomy evaluation for downsizing or decannulation History of Present Illness: The patient is a 78 year old M who was transferred for rehabilitation after a hemorrhagic stroke requiring tracheostomy. The patient is minimally responsive to questioning at the bedside and most of the history is obtained through his who reports that he is currently recovering from a multidrug-resistant pneumonia but that his current tracheostomy has predominantly been capped which is allowed him to phonate but until recently had been used for pulmonary toilet and suctioning. She reports that he is less alert today which she attributes to his treatment for his pneumonia. He denies any pain and exhibits normal vocal quality without wheezing, stridor, or hoarseness. His prior medical records and history and physical on intake performed by Dr. Fierro was additionally reviewed. [] Past Medical History Past Medical History (Chronic Problems): Chronic Problems Hypertension (Chronic) Hyperlipidemia (Chronic) Muscle spasm (Chronic) Allergies Penicillins Allergy (Unknown, Verified 01/31/19 16:04) Unknown cyclobenzaprine [From Flexeril] Adverse Reaction (Verified 11/29/18 23:14) Rash Home Medications: Ambulatory Orders Medication Instructions Recorded Acetaminophen Liquid [Tylenol 160 mg GT Q6H PRN PRN 01/31/19 Liquid] Amino Acids/Protein Hydrolys 30 ml GT DAILY 01/31/19 [Pro-Stat Sugar Free Liquid] Amlodipine Besylate 5 mg GT DAILY 01/31/19 Aspirin [Aspir 81] 81 mg GT DAILY 01/31/19 Atorvastatin Calcium 40 mg GT QHS 01/31/19 Bisacodyl 10 mg [place] DAILY PRN 01/31/19 Carvedilol 6.25 mg GT BID 01/31/19 Docusate Sodium [Docu Liquid] 50 mg GT BID PRN PRN 01/31/19 Enoxaparin [Lovenox] 40 mg SUBCUT DAILY@0600 01/31/19 Famotidine [Pepcid] 20 mg GT BID 01/31/19 Guaifenesin/Dextromethorphan 10 ml GT Q4H PRN PRN 01/31/19 [Guaifenesin Dm Syrup] Ipratropium/Albuterol Sulfate 3 ml INHALATION Q4H PRN PRN 01/31/19 [Iprat-Albut 0.5-3(2.5) mg/3 ml] Jevity 1.5 300 ml GT Q6H 01/31/19 Melatonin 5 mg GT QHS 01/31/19 Meropenem 1 gm IV Q8 01/31/19 [place]-3 Fatty Acids/Fish Oil [Fish 1 ea GT BID 01/31/19 Oil 1,000 mg Capsule] Polyethylene Glycol 3350 [Miralax] 17 gm GT DAILY PRN 01/31/19 Quetiapine Fumarate [Seroquel] 25 mg GT BID 01/31/19 Sodium Chloride 3% 3 ml INHALATION Q4H PRN PRN 01/31/19 Terazosin HCl 2 mg GT QHS 01/31/19 Vitamin E 400 unit GT DAILY 01/31/19 Surgical History: appendectomy, herniorrhaphy, - - Tracheostomy, PEG tube, Suboccipital craniectomy, Cervical discectomy, carpal tunnel, shoulder surgery. Psychiatric History: No pertinent psych hx Lives: Spouse/ Significant Other Smoking Status: Unknown if ever smoked Tobacco Use: Non-smoker Alcohol: None Drugs: None - *Family History Maternal History Items: No pertinent history Paternal History Items: No pertinent history Review of Systems Unable to obtain accurate/complete ROS d/t: Patient with very limited responses on questioning Patient Problems: Active and Suspected Problems Debility (Acute) Cerebellar stroke (Acute) Left acute arterial ischemic stroke, RIVET MAKER (posterior cerebral artery) (Acute) Hemorrhagic stroke (Acute) Dissecting hemorrhage of left vertebral artery (Acute) Hospital-acquired pneumonia (Acute) Status post emergency tracheotomy for assistance in breathing (Acute) Subjective: Elderly male in no acute distress with minimal responsiveness to bedside conversation but does alert to spoken voice and answer yes or no although attention is very limited. Objective: Elderly male with tracheostomy as noted with limited attention and responsiveness. He is breathing easily without stridor with a capped #6 Shiley the ostomy tube. Neck is supple without adenopathy and there is no excess granuloma or exudates around the tracheostomy site. - Physical Exam Vitals/I&O's: Vital Signs Temp Pulse Resp BP Pulse Ox 98.8 F 85 20 H 114/63 96 02/01/19 16:00 02/02/19 06:37 02/02/19 06:37 02/01/19 18:34 02/01/19 20:20 Oxygen Flow Rate (L/min) 6 Oxygen Delivery Method Trach Collar Weight: 64.637 kg Body Mass Index (BMI) 22.3 Finger Stick Blood Glucose 132 Intake and Output for Last 24 Hours 01/31/19 02/01/19 02/02/19 23:59 23:59 23:59 Intake Total 0 / 0 2102.5 / 2102.5 1909.58 / 190.58 Output Total 480 / 480 400 / 400 Balance -480 / -480 1702.5 / 1702.5 1909.58 / 190.58 General: No apparent distress, Lethargic HEENT: Atraumatic, PERRLA Oral: Moist Mucosa, No Gingival or Mucosal Lesions/ Ulcerations Neck: Supple, No Nodes, - - Limited cervical extension due to previous injury Lungs: No rhonchi, No wheeze Cardiovascular: Regular rate, Regular Rhythm Abdomen: Non Tender, Non-Distended Extremities: No cyanosis, No edema Skin: No rashes, No breakdown Neurological: - - Very limited speech with impaired attention and alertness Current Medications Acetaminophen (Tylenol Liquid) 650 mg PO Q4H PRN PRN Albuterol/Ipratropium (Duoneb) 3 ml INHALATION Q4H.RT [facility] Last Admin: 02/02/19 10:58 Dose: Not Given Documented by: Amlodipine Besylate (Norvasc) 5 mg GT DAILY [facility] Last Admin: 02/02/19 05:15 Dose: 5 mg Documented by: Atorvastatin Calcium (Lipitor) 40 mg GT QHS [facility] Last Admin: 02/01/19 22:18 Dose: 40 mg Documented by: Bisacodyl (Dulcolax) 10 mg RECTAL DAILY PRN PRN Reason: Constipation Calamine/Phenol (Calmoseptine Ointment) 1 applic TOPICAL 0600,2200 [facility]; Protocol Last Admin: 02/02/19 05:30 Dose: 1 applicatio Documented by: Carvedilol (Coreg) 6.25 mg GT BID [facility] Last Admin: 02/02/19 05:15 Dose: 6.25 mg Documented by: Docusate Sodium (Colace Syrup) 50 mg GT BID PRN PRN PRN Reason: Constipation Last Admin: 02/02/19 05:37 Dose: 50 mg Documented by: Doxazosin Mesylate (Cardura) 2 mg GT QHS [facility] Last Admin: 02/01/19 22:17 Dose: 2 mg Documented by: Enoxaparin Sodium (Lovenox) 40 mg SC DAILY@0600 [facility] Last Admin: 02/02/19 05:15 Dose: 40 mg Documented by: Enteral Nutritional Formula (Jevity 1.5) 300 ml GT Q6 [facility] Last Admin: 02/02/19 12:12 Dose: 300 ml Documented by: Famotidine (Pepcid) 20 mg GT BID [facility] Last Admin: 02/02/19 05:15 Dose: 20 mg Documented by: Guaifenesin (Robitussin Dm) 10 ml GT Q4H PRN PRN PRN Reason: COUGH Sodium Chloride () 250 mls @ 15 mls/hr IV .[id number] PRN PRN Reason: Saline Flush Last Infusion: 02/02/19 10:00 Dose: 0 mls/hr Documented by: Meropenem 1 gm/ Sodium (Chloride) 120 mls @ 33 mls/hr IV Q8 [facility] Stop: 02/03/19 22:01 Last Infusion: 02/02/19 10:00 Dose: Infused Documented by: Lorazepam (Ativan) 1 mg GT QHS PRN PRN Reason: ANXIETY Melatonin (Melatonin) 5 mg GT QHS [facility] Last Admin: 02/01/19 22:17 Dose: 5 mg Documented by: Multi-Ingredient Cream (Eucerin) 1 applic TOPICAL 0600,2200 [facility]; Protocol Last Admin: 02/02/19 05:30 Dose: 1 applicatio Documented by: Nystatin (Mycostatin Powder) 1 applic TOPICAL 0600,2200 [facility]; Protocol Last Admin: 02/02/19 05:31 Dose: 1 applicatio Documented by: Nystatin (Nystatin) 500,000 unit PO 4X/DAY [facility] Stop: 02/11/19 22:01 Last Admin: 02/02/19 12:12 Dose: 500,000 unit Documented by: Polyethylene Glycol (Miralax) 17 gm GT DAILY PRN PRN Reason: Constipation Last Admin: 02/01/19 18:50 Dose: 17 gm Documented by: Quetiapine Fumarate (Seroquel) 25 mg GT BID [facility] Last Admin: 02/02/19 05:15 Dose: 25 mg Documented by: Sodium Chloride () 10 - 40 ml IV UD PRN PRN Reason: SALINE FLUSH Last Admin: 02/01/19 13:52 Dose: 20 ml Documented by: Sodium Chloride (Sodium Chloride 3%) 3 ml INHALATION Q4H.RT [facility] Last Admin: 02/02/19 10:58 Dose: Not Given Documented by: Tuberculin PPD (Tubersol, Aplisol, Ppd) 5 tu ID [id number] ONE Stop: 02/08/19 10:01 Assessment/Plan All Active Problems Debility (Acute) Cerebellar stroke (Acute) Left acute arterial ischemic stroke, RIVET MAKER (posterior cerebral artery) (Acute) Hemorrhagic stroke (Acute) Dissecting hemorrhage of left vertebral artery (Acute) Hospital-acquired pneumonia (Acute) Status post emergency tracheotomy for assistance in breathing (Acute) Mr. Pardo is a 78-year-old male who suffered a cerebrovascular accident and subsequently required tracheotomy and developed hospital-acquired pneumonia. He recently has had reduced alertness after previously being more awake and conversant with a capped tracheostomy tube. His reports that until recently the tracheotomy was used for suctioning. He appears to be doing well with the tracheostomy capped and if this continues and he shows ongoing resolution of his acute pulmonary disease then decannulation would be very reasonable to consider. I do not feel that it would be beneficial to downsize to a number for tracheotomy at this time as this would limit its use for the ventilation and decannulation from a #6 tube is usually well-tolerated and the male patient. We have discussed that if he continues to do well with continued capping of the tracheostomy over the next week that we will attempt bedside decannulation. We discussed that manual pressure with coughing or speaking over the tracheostomy site would be ideal to allow for healing of the fistula tract and given his current reduced level of alertness I would hope to see this improved prior to attempts at decannulation and his is agreeable to a course of short waiting in the hopes that his level of alertness will improve to previous levels.
--- NOTE | 2019-02-02 14:23 | PCM.PN.RX ---
<GeenaCandelaria M - Last Filed: 02/02/19 14:23> Progress Note - Pharmacy Subjective: TCU ADMISSION Objective: Allergies Penicillins Allergy (Unknown, Verified 01/31/19 16:04) Unknown cyclobenzaprine [From Flexeril] Adverse Reaction (Verified 11/29/18 23:14) Rash Current Medications Generic Name Dose Route Start Last Admin Trade Name Freq PRN Reason Stop Dose Admin Acetaminophen 650 mg 01/31/19 21:26 Tylenol Liquid PO Q4H PRN PRN Albuterol/Ipratropium 3 ml 01/31/19 16:45 02/02/19 10:58 Duoneb INHALATION Not Given Q4H.RT HARIS Amlodipine Besylate 5 mg 02/01/19 06:00 02/02/19 05:15 Norvasc GT 5 mg DAILY HARIS Administration Atorvastatin Calcium 40 mg 01/31/19 22:00 02/01/19 22:18 Lipitor GT 40 mg QHS HARIS Administration Bisacodyl 10 mg 01/31/19 16:40 Dulcolax RECTAL DAILY PRN Constipation Calamine/Phenol 1 applic 01/31/19 22:00 02/02/19 05:30 Calmoseptine Ointment TOPICAL 1 applicatio 0600,2200 HARIS Administration Protocol Carvedilol 6.25 mg 01/31/19 18:00 02/02/19 05:15 Coreg GT 6.25 mg BID HARIS Administration Docusate Sodium 50 mg 01/31/19 16:40 02/02/19 05:37 Colace Syrup GT 50 mg BID PRN PRN Administration Constipation Doxazosin Mesylate 2 mg 01/31/19 22:00 02/01/19 22:17 Cardura GT 2 mg QHS HARIS Administration Enoxaparin Sodium 40 mg 02/01/19 06:00 02/02/19 05:15 Lovenox SC 40 mg DAILY@0600 HARIS Administration Enteral Nutritional Formula 300 ml 02/01/19 00:00 02/02/19 12:12 Jevity 1.5 GT 300 ml Q6 HARIS Administration Famotidine 20 mg 01/31/19 18:00 02/02/19 05:15 Pepcid GT 20 mg BID HARIS Administration Guaifenesin 10 ml 01/31/19 16:40 Robitussin Dm GT Q4H PRN PRN COUGH Sodium Chloride 250 mls @ 15 mls/hr 01/31/19 16:54 02/02/19 10:00 IV 0 mls/hr .[id number] PRN Infusion Saline Flush Meropenem 1 gm/ Sodium 120 mls @ 33 mls/hr 01/31/19 22:00 02/02/19 10:00 Chloride IV 02/03/19 22:01 Infused Q8 HARIS Infusion Lorazepam 1 mg 02/02/19 07:57 Ativan GT QHS PRN ANXIETY Melatonin 5 mg 01/31/19 22:00 02/01/19 22:17 Melatonin GT 5 mg QHS HARIS Administration Multi-Ingredient Cream 1 applic 02/01/19 22:00 02/02/19 05:30 Eucerin TOPICAL 1 applicatio 0600,2200 [facility] Administration Protocol Nystatin 1 applic 02/01/19 22:00 02/02/19 05:31 Mycostatin Powder TOPICAL 1 applicatio 0600,2200 [facility] Administration Protocol Nystatin 500,000 unit 02/01/19 22:00 02/02/19 12:12 Nystatin PO 02/11/19 22:01 500,000 unit 4X/DAY HARIS Administration Polyethylene Glycol 17 gm 01/31/19 16:40 02/01/19 18:50 Miralax GT 17 gm DAILY PRN Administration Constipation Quetiapine Fumarate 25 mg 01/31/19 18:00 02/02/19 05:15 Seroquel GT 25 mg BID HARIS Administration Sodium Chloride 10 - 40 ml 01/31/19 16:54 02/01/19 13:52 IV 20 ml UD PRN Administration SALINE FLUSH Sodium Chloride 3 ml 01/31/19 20:20 02/02/19 10:58 Sodium Chloride 3% INHALATION Not Given Q4H.RT HARIS Tuberculin PPD 5 tu 02/08/19 10:00 Tubersol, Aplisol, Ppd ID 02/08/19 10:01 X1 ONE Problem List Debility (Acute) Cerebellar stroke (Acute) Left acute arterial ischemic stroke, ENDODONTICS DENTIST (posterior cerebral artery) (Acute) Hemorrhagic stroke (Acute) Dissecting hemorrhage of left vertebral artery (Acute) Hypertension (Chronic) Hyperlipidemia (Chronic) Muscle spasm (Chronic) Hospital-acquired pneumonia (Acute) Status post emergency tracheotomy for assistance in breathing (Acute) Vital Signs Temp Pulse Resp BP Pulse Ox 98.8 F 85 20 H 114/63 96 02/01/19 16:00 02/02/19 06:37 02/02/19 06:37 02/01/19 18:34 02/01/19 20:20 Oxygen Flow Rate (L/min) 6 Oxygen Delivery Method Trach Collar Weight: 64.637 kg Body Mass Index (BMI) 22.3 Finger Stick Blood Glucose 132 Sodium 140 mmol/L (136-145) 02/01/19 05:05 Potassium 3.9 mmol/L (3.5-5.1) 02/01/19 05:05 Chloride 104 mmol/L (98-107) 02/01/19 05:05 Carbon Dioxide 31.0 mmol/L (21.0-32.0) 02/01/19 05:05 Anion Gap 5 (5-15) 02/01/19 05:05 BUN 17 mg/dL (7-18) 02/01/19 05:05 Creatinine 0.60 mg/dL (0.70-1.30) L 02/01/19 05:05 Est GFR (MDRD) Af Amer 168 mL/min (>60) 02/01/19 05:05 Est GFR (MDRD) Non-Af 139 mL/min (>60) 02/01/19 05:05 BUN/Creatinine Ratio 28.6 RATIO (10-20) H 02/01/19 05:05 Glucose 95 mg/dL (74-106) 02/01/19 05:05 Assessment/Plan: 1. Hospital acquired pneumonia: Meropenem 1g IV Q8H thru 02/03/2019. Please continue to monitor renal function, resolution of infection 2. Pain: Tylenol 650mg PO Q4H Pain (1-10). Please continue to monitor PRN usage, increased/decreased S/S pain 3. DVT prophylaxis: Lovenox 40mg SC daily. Please continue to monitor renal function, S/S bleeding 4. Hypertension: Coreg 6.25mg PO BID, Cardura 2mg PO QHS, Amlodipine 5mg PO daily. Please continue to monitor BP, pulse 5. Hyperlipidemia: Atorvastatin 40mg PO QHS. Please continue to check lipid panels at least annually or earlier if clinically indicated 6. GERD: Famotidine 20mg PO BID. Please continue to monitor for improvement in GERD symptoms, renal function 7. Cough: Robitussin DM 10mL PO Q4H PRN. Please continue to monitor medication effectiveness, PRN usage 8. Shortness of breath: Duoneb 3mL INH Q4H, Sodium Chloride 3% 3mL INH Q4H. Please continue to monitor for improvement in symptoms 9. Insomnia: Melatonin 5mg PO QHS. Please continue to monitor for medication effectiveness. If medication 10. Oral Candidiasis: Nystatin 500,000 units PO 4x/day thru 02/11/19. Please continue to monitor for resolution of symptoms Psychotropic Medications: 11. Behavioral disturbance: Seroquel 25MG twice daily, Lorazepam 1mg PO QHS PRN. Please consider a GDR by 06/2019 if clinically appropriate. Unnecessary Medications: None Bowel Regimen: Miralax 17GM daily PRN, Colace 50MG BID PRN, Dulcolax 10MG MD daily PRN. Date of Note:: 02/02/19 - Provider Comments Provider responsibility: Provider responsible to enter orders to implement recommendations <Gordon Fierro Chi - Last Filed: 02/02/19 15:25> Progress Note - Pharmacy Subjective: [] Objective: Allergies Penicillins Allergy (Unknown, Verified 01/31/19 16:04) Unknown cyclobenzaprine [From Flexeril] Adverse Reaction (Verified 11/29/18 23:14) Rash Current Medications Generic Name Dose Route Start Last Admin Trade Name Freq PRN Reason Stop Dose Admin Acetaminophen 650 mg 01/31/19 21:26 Tylenol Liquid PO Q4H PRN PRN Albuterol/Ipratropium 3 ml 01/31/19 16:45 02/02/19 10:58 Duoneb INHALATION Not Given Q4H.RT HARIS Amlodipine Besylate 5 mg 02/01/19 06:00 02/02/19 05:15 Norvasc GT 5 mg DAILY HARIS Administration Atorvastatin Calcium 40 mg 01/31/19 22:00 02/01/19 22:18 Lipitor GT 40 mg QHS HARIS Administration Bisacodyl 10 mg 01/31/19 16:40 Dulcolax RECTAL DAILY PRN Constipation Calamine/Phenol 1 applic 01/31/19 22:00 02/02/19 05:30 Calmoseptine Ointment TOPICAL 1 applicatio 0600,2200 [facility] Administration Protocol Carvedilol 6.25 mg 01/31/19 18:00 02/02/19 05:15 Coreg GT 6.25 mg BID HARIS Administration Docusate Sodium 50 mg 01/31/19 16:40 02/02/19 05:37 Colace Syrup GT 50 mg BID PRN PRN Administration Constipation Doxazosin Mesylate 2 mg 01/31/19 22:00 02/01/19 22:17 Cardura GT 2 mg QHS HARIS Administration Enoxaparin Sodium 40 mg 02/01/19 06:00 02/02/19 05:15 Lovenox SC 40 mg DAILY@0600 HARIS Administration Enteral Nutritional Formula 300 ml 02/01/19 00:00 02/02/19 12:12 Jevity 1.5 GT 300 ml Q6 HARIS Administration Famotidine 20 mg 01/31/19 18:00 02/02/19 05:15 Pepcid GT 20 mg BID HARIS Administration Guaifenesin 10 ml 01/31/19 16:40 Robitussin Dm GT Q4H PRN PRN COUGH Sodium Chloride 250 mls @ 15 mls/hr 01/31/19 16:54 02/02/19 10:00 IV 0 mls/hr .[id number] PRN Infusion Saline Flush Meropenem 1 gm/ Sodium 120 mls @ 33 mls/hr 01/31/19 22:00 02/02/19 14:26 Chloride IV 02/03/19 22:01 33 mls/hr Q8 HARIS Administration Lorazepam 1 mg 02/02/19 07:57 Ativan GT QHS PRN ANXIETY Melatonin 5 mg 01/31/19 22:00 02/01/19 22:17 Melatonin GT 5 mg QHS HARIS Administration Multi-Ingredient Cream 1 applic 02/01/19 22:00 02/02/19 05:30 Eucerin TOPICAL 1 applicatio 06,2200 [facility] Administration Protocol Nystatin 1 applic 02/01/19 22:00 02/02/19 05:31 Mycostatin Powder TOPICAL 1 applicatio 0600,2200 [facility] Administration Protocol Nystatin 500,000 unit 02/01/19 22:00 02/02/19 12:12 Nystatin PO 02/11/19 22:01 500,000 unit 4X/DAY HARIS Administration Polyethylene Glycol 17 gm 01/31/19 16:40 02/01/19 18:50 Miralax GT 17 gm DAILY PRN Administration Constipation Quetiapine Fumarate 25 mg 01/31/19 18:00 02/02/19 05:15 Seroquel GT 25 mg BID HARIS Administration Sodium Chloride 10 - 40 ml 01/31/19 16:54 02/02/19 14:27 IV 20 ml UD PRN Administration SALINE FLUSH Sodium Chloride 3 ml 01/31/19 20:20 02/02/19 10:58 Sodium Chloride 3% INHALATION Not Given Q4H.RT HARIS Tuberculin PPD 5 tu 02/08/19 10:00 Tubersol, Aplisol, Ppd ID 02/08/19 10:01 X1 ONE Problem List Debility (Acute) Cerebellar stroke (Acute) Left acute arterial ischemic stroke, ENDODONTICS DENTIST (posterior cerebral artery) (Acute) Hemorrhagic stroke (Acute) Dissecting hemorrhage of left vertebral artery (Acute) Hypertension (Chronic) Hyperlipidemia (Chronic) Muscle spasm (Chronic) Hospital-acquired pneumonia (Acute) Status post emergency tracheotomy for assistance in breathing (Acute) Vital Signs Temp Pulse Resp BP Pulse Ox 98.8 F 85 20 H 114/63 96 02/01/19 16:00 02/02/19 06:37 02/02/19 06:37 02/01/19 18:34 02/01/19 20:20 Oxygen Flow Rate (L/min) 4 Oxygen Delivery Method Trach Collar Weight: 64.637 kg Body Mass Index (BMI) 22.3 Finger Stick Blood Glucose 132 Sodium 140 mmol/L (136-145) 02/01/19 05:05 Potassium 3.9 mmol/L (3.5-5.1) 02/01/19 05:05 Chloride 104 mmol/L (98-107) 02/01/19 05:05 Carbon Dioxide 31.0 mmol/L (21.0-32.0) 02/01/19 05:05 Anion Gap 5 (5-15) 02/01/19 05:05 BUN 17 mg/dL (7-18) 02/01/19 05:05 Creatinine 0.60 mg/dL (0.70-1.30) L 02/01/19 05:05 Est GFR (MDRD) Af Amer 168 mL/min (>60) 02/01/19 05:05 Est GFR (MDRD) Non-Af 139 mL/min (>60) 02/01/19 05:05 BUN/Creatinine Ratio 28.6 RATIO (10-20) H 02/01/19 05:05 Glucose 95 mg/dL (74-106) 02/01/19 05:05 Assessment/Plan: Psychotropic Medications: Unnecessary Medications: Bowel Regimen: - Provider Comments Provider responsibility: Provider responsible to enter orders to implement recommendations Provider Comments to Recommendations by Pharmacy: Agree
[2019-02-02] MEDS: 0.9% Saline Lock 10 ML Syringe IV ×2 (14:27→22:05)
[2019-02-02 15:58] VITALS: BP 116/67; PULSE 75; RESP 16; TEMP 36.9; O2SAT 96
[2019-02-02 18:53] VITALS: PULSE 83; RESP 18
[2019-02-02] MEDS: Doxazosin 1 MG Tablet 2 MG GT (21:53)
[2019-02-02] MEDS: MELATONIN 10 MG TABLET 5 MG GT (21:54)
[2019-02-02] MEDS: Atorvastatin Calcium 40 MG Tablet GT (21:54)
[2019-02-02 23:20] VITALS: PULSE 78; RESP 18
[2019-02-03] VITALS (7 sets, daily range): BP systolic 127–140; BP diastolic 69–87; PULSE 66–95; RESP 16–22; TEMP 36.7; O2SAT 92–98
[2019-02-03] MEDS: Jevity 1.5. 1,000 ML Bottle 300 ML GT ×3 (00:16→18:45)
[2019-02-03] MEDS: LORazepam 1 MG Tablet GT ×2 (00:16→21:15)
[2019-02-03] MEDS: Menthol/Lanolin/Calamine/Znox 113 GM Tube 1 APPLIC TOPICAL (05:02)
[2019-02-03] MEDS: NYSTATIN 500,000 UNIT/5 ML UDC 500000 UNIT PO ×4 (05:03→20:57)
[2019-02-03] MEDS: Famotidine 20 MG Tablet GT ×2 (05:03→18:43)
[2019-02-03] MEDS: QUEtiapine 25 MG Tablet GT ×2 (05:03→18:44)
[2019-02-03] MEDS: Docusate Sodium 100 MG/10 ML UDC 50 MG GT (05:04)
[2019-02-03] MEDS: Carvedilol 6.25 MG Tablet GT ×2 (05:04→18:43)
[2019-02-03] MEDS: amLODIPine 5 MG Tablet GT (05:04)
[2019-02-03] MEDS: Enoxaparin 40 MG/0.4 ML Syringe SC (05:06)
[2019-02-03] MEDS: Bisacodyl 10 MG Suppository RECTAL (05:06)
[2019-02-03] MEDS: Polyethylene Glycol 3350 17 GM PACKET GT (05:07)
[2019-02-03] MEDS: Nystatin Powder 15gm Bottle 1 APPLIC TOPICAL (05:09)
--- NOTE | 2019-02-03 05:40 | NURSING ---
Addendum entered by Columba Bennett 02/03/19 07:05: Soap suds enema given per order. Patient tolerated well. Large pasty BM. Patient resting in bed. Call light within reach. 2L via nasal cannula pa on. Original Note: Dr. Fierro updated on residual from PEG being 150ml. No BM since 01/29. Bowel sounds hypoactive. New order for KUB and soap suds enema. Hold 0600 jevity dose.
--- NOTE | 2019-02-03 06:15 | RAD_ITS ---
STUDY: X-RAY - ABDOMEN/PELVIS REASON FOR EXAM: Male, 78 years old. CONSTIPATION, BEST POSSIBLE IMAGES, PT WAS VERY UNCOOPERATIVE TECHNIQUE: AP supine and decubitus COMPARISON: None. FINDINGS: Normal visualized lung bases. There is an unremarkable bowel gas pattern. There is a large amount of retained stool throughout the colon. Correlate for constipation. No evidence for free air on decubitus image. The visualized liver, spleen and kidneys are grossly normal in size and morphology. Normal soft tissue structures. There are diffuse degenerative changes of the visualized lumbar spine. RAD/Abd Inc Decub and/or Erect IMPRESSION: Large amount of retained stool throughout the colon. Correlate for constipation. Electronically Signed: Franky Franco, at 7:11 EST Tel , Service support ,
[2019-02-03] MEDS: Sodium Chloride 3% 500 ML IV.SOLN. INHALATION ×3 (06:35→15:20)
[2019-02-03] MEDS: Ipratropium/Albuterol Sulfate 3 ML AMPUL.NEB INHALATION ×4 (06:35→18:01)
--- NOTE | 2019-02-03 08:30 | NURSING ---
PT IN PRECAUTIONS FOR ESBL IN SPUTUM. ALL CARE GIVEN IN ROOM.
--- NOTE | 2019-02-03 09:47 | NURSING ---
Dr holland added mag citrate via GT tube d/t KUB results. family at bedside. Will monitor for effectiveness. pt in hi/low bed, alarms intact. call light in reach.
[2019-02-03] MEDS: Magnesium Citrate 300 ML GT (09:49)
--- NOTE | 2019-02-03 10:13 | NURSING ---
Addendum entered by Cris Delacruz 02/03/19 15:41: pt had lg soft results during therapy session. Original Note: MAG CITRATE GIVEN PER DR. JOHNSON.
--- NOTE | 2019-02-03 10:30 | NURSING ---
BEHIND PT LEFT EAR IS RED. APPLIED EAR CUSHIONS. REPORTED TO DOYLE SARABIA
--- NOTE | 2019-02-03 12:25 | NURSING ---
TRAK CLEANED AND PT SUCTIONED. DRESSING CHANGED AND CLEANED AREA. AREA AROUND TRAC SITE IS RED. O RESIDUAL AT PEG AND DRESSING CHANGED. JEVITY 1.5 300 ML AND FLUSHED 240 ML. PT TOLERATED WELL WITH EVERY THING. REPORTED TO DOYLE SARABIA
[2019-02-03] MEDS: 0.9% Saline Lock 10 ML Syringe IV (13:38)
--- NOTE | 2019-02-03 17:53 | NURSING ---
AT 1640 PT VERY RESTLESS AND STATING HE WAS HOT AND HARD TO BREATH, O2 98% ON 2L. PT COUGHING, REMOVED CAP TO TRAK AND PT COUGHED OUT A LOT OF SPUTUM. ASKED PT IF HE FELT BETTER PT STATED YES AND WAS TRYING TO TAKE HIS PAINTS OFF AND GETTING RESTLESS AGAIN. PT STATED SHE THINKS HIS PANTS ARE TO TIGHT CALLED AID TO ROOM TO HELP GET PT FROM THE RECLINER TO THE BED. REMOVED PANTS AND TIGHT SHIRT APPLIED GOWN. PT STATED STILL HOT BUT FELT BETTER WITH CHANGE OF CLOTHES. HAD FAN BROUGHT TO ROOM AND ROOM TEMP TURNED DOWN. PT COUGHING A LITTLE BUT ASKED IF HE WAS OK,PT STATED YES. REPOSITION PT AND LEFT ROOM.
--- NOTE | 2019-02-03 18:18 | NURSING ---
pt w/harsh cough, sat 90% on 2liters NC, suctioned Trach with little mucus or effect. Resp notified, aerosal treatment given, pt able to cough up some thick, yellow sputum. vitals stable. Trach capped & removed, applied trach collar at 30%. sat increased to 97%. aerosal tx effective. pt resting more comfortable. Going to keep Trach uncapped for night with humidified collar. may have been to dry for pt. mouth care provided. at bedside.
--- NOTE | 2019-02-03 18:18 | CPS ---
Patient had coughing episode. Cap removed, inner cannula changed, lavaged, and suctioned x3. Still no relief, patient given Duoneb x1 and symptoms improved. Placed patient on high humidity 30% for the remainder of the evening.
[2019-02-03] MEDS: Senna/Docusate Sodium 1 Tablet GT (18:42)
[2019-02-03] MEDS: MELATONIN 10 MG TABLET 5 MG GT (20:55)
[2019-02-03] MEDS: Doxazosin 1 MG Tablet 2 MG GT (20:56)
[2019-02-03] MEDS: Atorvastatin Calcium 40 MG Tablet GT (20:56)
[2019-02-03] MEDS: guaiFENesin Dm 10 ML UDC GT (20:57)
--- NOTE | 2019-02-03 22:57 | NURSING ---
Addendum entered by Jazmin Grissom 02/04/19 03:16: Call from DOYLE Culver in ER stating pt is being admitted to PCU. Family updated. Original Note: Around 1999 pt was suctioned by RT per the wifes request. Pt continuously coughing and bring up think yellow sputum from trach. Pt swinging legs out of the bed and restless. PRN Ativan with Robitussin given via PEG. 35ml of yellow residual noted. Meds Ineffective. Family at bedside. Pt trying to talk, removing trach mask, pulling at trach. Attempted to cap trach so pt could talk and pt only able to state name. Pt attempting to speak but making no sense. Adjusted in bed. Oral care provided. Lots of 1:1 provided but that was ineffective. Abd still noted to be distended. O2 89-90% on RA. BP 123/63 HR 90 Temp [address] Fierro updated and new order to send pt to ER for full workup. Pt family updated and report called to DOYLE Turcios in ER.
--- NOTE | 2019-02-04 11:49 | DCINST_ITS ---
- Discharge Diagnoses Current Active Problems: Current Active and Chronic Problems Psychosis (Acute) You will use the following diet at home:: Other - NPO. Discharge Activity: Use Walker Weight Bearing Status: Weight bearing as tolerated Call your doctor if you observe: Fever of 101 or Higher, Inability to urinate, Inability to have a bowel movement, Shortness of breath, Chest pain, Uncontrolled pain Allergies/Adverse Reactions: Allergies Penicillins Allergy (Unknown, Verified 01/31/19 16:04) Unknown cyclobenzaprine [From Flexeril] Adverse Reaction (Verified 11/29/18 23:14) Rash Medications to take at Discharge Acetaminophen Liquid [Tylenol Liquid] 160 mg GT Q6H PRN PRN 01/31/19 Amlodipine Besylate 5 mg GT DAILY 01/31/19 Atorvastatin Calcium 40 mg GT QHS 01/31/19 Bisacodyl 10 mg [place] DAILY PRN 01/31/19 Carvedilol 6.25 mg GT BID 01/31/19 Docusate Sodium [Docu Liquid] 50 mg GT BID PRN PRN 01/31/19 Enoxaparin [Lovenox] 40 mg SUBCUT DAILY@0600 01/31/19 Famotidine [Pepcid] 20 mg GT BID 01/31/19 Guaifenesin/Dextromethorphan [Guaifenesin Dm Syrup] 10 ml GT Q4H PRN PRN 01/31/19 Ipratropium/Albuterol Sulfate [Iprat-Albut 0.5-3(2.5) mg/3 ml] 3 ml INHALATION Q4H PRN PRN 01/31/19 Jevity 1.5 300 ml GT Q6H 01/31/19 Melatonin 5 mg GT QHS 01/31/19 Meropenem 1 gm IV Q8 01/31/19 Polyethylene Glycol 3350 [Miralax] 17 gm GT DAILY PRN 01/31/19 Quetiapine Fumarate [Seroquel] 25 mg GT BID 01/31/19 Sodium Chloride 3% 3 ml INHALATION Q4H PRN PRN 01/31/19 Doxazosin Mesylate [Cardura] 2 mg PO QHS 02/03/19 Lorazepam 1 mg PO QHS 02/03/19 Menthol/Zinc Oxide [Calmoseptine Ointment] 113 gm TP BID 02/04/19 Nystatin 15 gm TP BID 02/04/19 Nystatin 500,000U/5ML [Mycostatin] 5 ml PO 4X/DAY 02/04/19 Primary Care Physician: Alvarado Dunlap MD [Primary Care Provider] - Please follow up with your Primary Care Physician in: 1 week. Test Results: Test results from this visit will be discussed in further detail at your follow- up appointment, if applicable. Proposed Discharge Date: 02/04/19
--- NOTE | 2019-02-04 11:51 | DS.PCM_ITS ---
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) Hemorrhagic stroke (Chronic) Hypertension (Chronic) Hyperlipidemia (Chronic) Muscle spasm (Chronic) Hospital Course and Treatment Operations: None Procedures: None Summary of Care Provided: The patient is a 78 year old Male with below past medical history hospitalized for bilateral cerebellar stroke, left posterior cerebral artery stroke with hemorrhagic conversion, resulted in tracheostomy, PEG tube, complicated by hospital acquired pneumonia, admitted to TCU with debility, here for rehabilitation, strengthening, tracheostomy weaning, PEG tube feeding weaning, prior to discharge home with family. 02/04/2019 Resident with increasing agitation, cough, tachycardia. Discharge to [facility] Emergency Department for evaluation, admission to hospital. Patient Problems: Active and Suspected Problems Psychosis (Acute) - Physical Exam Vitals/I&O's: Vital Signs Temp Pulse Resp BP Pulse Ox 98.1 F 79 22 H 140/87 H 98 02/03/19 16:00 02/03/19 18:17 02/03/19 18:17 02/03/19 18:17 02/03/19 18:17 Oxygen Flow Rate (L/min) 2 Oxygen Delivery Method Nasal Cannula Weight: 64.637 kg Body Mass Index (BMI) 22.3 Finger Stick Blood Glucose 132 Intake and Output for Last 24 Hours 02/02/19 02/03/19 02/04/19 23:59 23:59 23:59 Intake Total 2189.58 / 2189.58 2520.25 / 2520.25 Balance 2189.58 / 2189.58 2520.25 / 2520.25 Discharge Diet: - - NPO. Discharge Activity: Use Walker Weight Bearing Status: Weight bearing as tolerated Call your doctor if you observe: Fever of 101 or Higher, Inability to urinate, Inability to have a bowel movement, Shortness of breath, Chest pain, Uncontrolled pain Home Medications: Medications to take at Discharge Acetaminophen Liquid [Tylenol Liquid] 160 mg GT Q6H PRN PRN 01/31/19 Amlodipine Besylate 5 mg GT DAILY 01/31/19 Atorvastatin Calcium 40 mg GT QHS 01/31/19 Bisacodyl 10 mg [place] DAILY PRN 01/31/19 Carvedilol 6.25 mg GT BID 01/31/19 Docusate Sodium [Docu Liquid] 50 mg GT BID PRN PRN 01/31/19 Enoxaparin [Lovenox] 40 mg SUBCUT DAILY@0600 01/31/19 Famotidine [Pepcid] 20 mg GT BID 01/31/19 Guaifenesin/Dextromethorphan [Guaifenesin Dm Syrup] 10 ml GT Q4H PRN PRN 01/31/19 Ipratropium/Albuterol Sulfate [Iprat-Albut 0.5-3(2.5) mg/3 ml] 3 ml INHALATION Q4H PRN PRN 01/31/19 Jevity 1.5 300 ml GT Q6H 01/31/19 Melatonin 5 mg GT QHS 01/31/19 Meropenem 1 gm IV Q8 01/31/19 Polyethylene Glycol 3350 [Miralax] 17 gm GT DAILY PRN 01/31/19 Quetiapine Fumarate [Seroquel] 25 mg GT BID 01/31/19 Sodium Chloride 3% 3 ml INHALATION Q4H PRN PRN 01/31/19 Doxazosin Mesylate [Cardura] 2 mg PO QHS 02/03/19 Lorazepam 1 mg PO QHS 02/03/19 Menthol/Zinc Oxide [Calmoseptine Ointment] 113 gm TP BID 02/04/19 Nystatin 15 gm TP BID 02/04/19 Nystatin 500,000U/5ML [Mycostatin] 5 ml PO 4X/DAY 02/04/19 Primary Care Physician: Alvarado Dunlap MD [Primary Care Provider] - Please follow up with your Primary Care Physician in: 1 week. Disposition: Acute care Hospital Minutes spent on discharge:: 30 Patient Condition:: Guarded Medical Necessity - Tobacco Use Smoking Status: Former smoker Tobacco Use: Non-smoker Meaningful Use Info Meaningful Use Diagnoses (Choose all that apply): None applicable
--- NOTE | 2019-02-12 08:03 | MDS.RN ---
Information for the mds was obtained from review of the clinical record, interview of resident, staff, and direct observation of resident's care.
== END 2019-02-04 03:43 | disposition short-term general hospital (02) | DRG 56 ==
PROVIDERS: Admitting Provider Family Medicine Geriatric Medicine; Family Provider Family Medicine; PCP Family Medicine; Referring Provider Family Medicine Geriatric Medicine; Visit Provider Family Medicine Geriatric Medicine
DX: I69.351 Hemiplegia and hemiparesis following cerebral infarction affecting right dominant side (principal); J18.9 Pneumonia, unspecified organism; I69.328 Other speech and language deficits following cerebral infarction; E78.5 Hyperlipidemia, unspecified; I10 Essential (primary) hypertension; Y95 Nosocomial condition; Z93.0 Tracheostomy status; M62.838 Other muscle spasm; K21.9 Gastro-esophageal reflux disease without esophagitis; F91.9 Conduct disorder, unspecified; R13.10 Dysphagia, unspecified; F29 Unspecified psychosis not due to a substance or known physiological condition; Z93.1 Gastrostomy status; Z87.891 Personal history of nicotine dependence
CPT/HCPCS: 31720; 36415; 74019; 80048; 85025; 92507; 92523; 92526; 92610; 94640; 97110; 97162; 97166; 97530; 97535; 97802; J2185; J7050; A4216

== ENCOUNTER 2019-02-03 23:02 | Inpatient (IN) | payer MEDICARE, SELFPAY ==
--- NOTE | 2019-02-03 01:05 | RAD_ITS ---
STUDY: X-RAY CHEST REASON FOR EXAM: Male, 78 years old. COUGH TECHNIQUE: AP portable COMPARISON: 11/30/2018 FINDINGS: Tracheostomy tube is present with tip in the mid trachea. Interval removal of gastric tube and endotracheal tube. The lungs are clear. There is no demonstrated pleural abnormality. Normal size heart. Normal mediastinum and zainab. Normal visualized pulmonary arteries. Normal visualized aortic arch and descending thoracic aorta. There are diffuse degenerative changes of the visualized thoracic spine. There is degenerative osteoarthritis of the bilateral shoulders. There is no demonstrated abnormality of the visualized soft tissue structures of the upper abdomen. RAD/Chest 1 View (Portable) IMPRESSION: Interval placement of tracheostomy tube. Interval resolution of interstitial lung opacities without focal lung consolidation. Electronically Signed: Franky Franco, at 1:42 EST Tel , Service support ,
[2019-02-03 23:03] VITALS: O2SAT 86
[2019-02-03 23:04] VITALS: BP 134/73; PULSE 89; RESP 24; TEMP 37.4; O2SAT 86; BMI 25.4
[2019-02-03 23:30] VITALS: O2SAT 94
[2019-02-03 23:32] VITALS: PULSE 76; RESP 24; TEMP 36.9; O2SAT 94
--- NOTE | 2019-02-03 23:32 | EKG12_ITS ---
Test Reason : Blood Pressure : / mmHG Vent. Rate : 089 BPM Atrial Rate : 089 BPM P-R Int : 194 ms QRS Dur : 072 ms QT Int : 370 ms P-R-T Axes : 039 -14 021 degrees QTc Int : 450 ms Sinus rhythm with occasional Premature ventricular complexes Otherwise normal ECG Confirmed by LAI BACH, DALI ([id number]), video effects editor RAHEEM CORONEL ([id number]) on 02/05/2019 1:50:16 PM Referred By: DC Confirmed By:DALI HOYT MD
[2019-02-03 23:46] LABS: Absolute Lymphocyte Count 0.73 X10^3/uL (0.83-4.51); Basophil# 0.03 X10^3/uL; Basophil% 0.3 % (0-1); Eosinophil# 0.57 X10^3/uL; Eosinophils% 6.3 % (0-5); Hematocrit 37.4 % (40-54); Hemoglobin 12.3 g/dL (13.0-16.5); Lymphocyte # 0.73 X10^3/ul (4.0); Lymphocyte % 8.1 % (19-41); Mean Corp Hgb Conc 32.9 g/dL (32-36); Mean Corpuscular Hgb 30.5 pg (27.0-32.0); Mean Corpuscular Volume 92.8 fL (80-94); Mean Platelet Vol. 9.3 fl (6.2-12.0); Monocyte# 0.58 X10^3/uL; Monocyte% 6.5 % (0-10); NRBC Flagged by Analyzer 0 % (0-5); Neutrophil # 7.04 X10^3/uL (2.7-7.7); Neutrophil % 78.4 % (47-70); Platelet Count 206 K/mm3 (150-450); RBC Distribution Width CV 14.1 % (11.6-14.6); RBC Distribution Width SD 47.6 fl (35.1-43.9); Red Blood Count 4.03 M/mm3 (4.6-6.2)
[2019-02-04] VITALS (19 sets, daily range): BP systolic 111–137; BP diastolic 66–78; PULSE 66–91; RESP 13–24; TEMP 36.6–37.6; O2SAT 91–100; BMI 24.3
[2019-02-04] MEDS: Ipratropium/Albuterol Sulfate 3 ML AMPUL.NEB INHALATION
[2019-02-04 00:03] LABS: International Normalized Ratio 1.2; Prothrombin Time (Protime)PT. 14.6 SECONDS (11.7-14.9)
[2019-02-04 00:07] LABS: ALB/GLOB Ratio 0.7 RATIO (0.9-2.4); AST(SGOT) 24 U/L (15-37); Alanine Aminotransfer ALT/SGPT 25 U/L (16-61); Albumin, Serum 3.1 g/dL (3.2-5.0); Alkaline Phosphatase 122 U/L (45-117); Anion Gap 4 (5-15); BUN 15 mg/dL (7-18); BUN/Creat Ratio 23.7 RATIO (10-20); Calcium,Total 8.5 mg/dL (8.5-10.1); Chloride 100 mmol/L (98-107); Creatinine, Serum 0.63 mg/dL (0.70-1.30); EST Glomerular Filtration Rate 130 mL/min (>60); Est Glom Filt Rate - Afr Amer 157 mL/min (>60); Globulin 4.3 g/dL (2.2-4.2); Glucose 119 mg/dL (74-106); Potassium 4.1 mmol/L (3.5-5.1); Protein, Total 7.4 g/dL (6.4-8.2); Sodium Level 138 mmol/L (136-145)
[2019-02-04 00:11] LABS: Base Excess 11 mmol/L (-2 to +2); Bicarbonate 34.4 mmol/L (22-26); Blood Gas Specimen Type ART; FI02 40; PO2 86 mmHG (75-100); SITE L Radial; SO2 97 % (95-99); Total Carbon Dioxide 36 mmol/L; pCO2 48.3 mmHg (35-45); pH 7.46 (7.35-7.45)
[2019-02-04 00:12] LABS: Lactic Acid 1.7 mmol/L (0.4-1.9)
[2019-02-04] MEDS: LORazepam 2 MG/ML Syringe 1 MG IV (00:16)
[2019-02-04 01:32] LABS: Bacteria 0 SEEN /hpf (None Seen); Mucous, Urine 0 SEEN /hpf (<or=2+); Red Blood Cells-Urine 0 SEEN /hpf (0-5); Squamous Epithelial Cells - UA 0 SEEN /hpf (0-5); White Blood Cells 0 SEEN /hpf (0-5)
[2019-02-04 01:50] LABS: Color, Urine Yellow (Yellow); Glucose, Dipstick Normal (Normal); Ketone-Dipstick Negative (Negative); Leukocyte Esterase-Dipstick Negative /ul (Negative); Nitrite-Dipstick Negative (Negative); Occult Blood-Urine Negative /ul (Negative); Protein-Dipstick Negative (Negative); Specific Gravity, Urine 1.015 (1.002-1.030); Urine Bilirubin Dipstick Negative (Negative); Urine Clarity Cloudy (Clear); Urine Urobilinogen Normal (Normal)
[2019-02-04 02:06] LABS: Amorphous Sediment 3+
--- NOTE | 2019-02-04 02:16 | PCM.HP.STD ---
Problem List (1) Psychosis Status: Acute (2) Cerebellar stroke Status: Chronic (3) Debility Status: Chronic (4) Hemorrhagic stroke Status: Chronic (5) Left acute arterial ischemic stroke, [employer] (posterior cerebral artery) Status: Chronic (6) Hyperlipidemia Status: Chronic (7) Hypertension Status: Chronic (8) Muscle spasm Status: Chronic History of Present Illness Date of Admission: 02/04/19 Chief Complaint: AGITATION The patient is a 78 year old M with a significant history of a bilateral cerebellar stroke, left posterior cerebral artery with hemorrhagic conversion with subsequent tracheostomy and PEG tube, recent hospital-acquired pneumonia was transferred from the transitional care unit because of agitation. Also reportedly patient was having a productive cough. However reportedly and respiratory therapist could not suction any sputum. Of note patient was hospital where he was diagnosed with stroke could not tolerate a TPA and was transferred to [facility]. He was transferred from [facility] to [facility] in [facility]. Over there sputum grew Sputum grew Group F strep, Proteus Mirabilis, Enterobacter, Staph Aureus. He was treated with meropenem and Vancomycin for hospital acquired pneumonia. It appears the patient has completed vancomycin therapy. Last meropenem was given on 02/03/2019 at the TCU. At the emergency department patient was noted to be agitated and was trying to remove essentially medical equipment. Patient received Ativan and also to he was placed in four-points soft restraints. History was taken from Emergency department doctor and son in patient room because at the time of examination patient had received Ativan and he was obtunded. 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, [employer] (posterior cerebral artery) (Chronic) Hemorrhagic stroke (Chronic) Hypertension (Chronic) Hyperlipidemia (Chronic) Muscle spasm (Chronic) Allergies Penicillins Allergy (Unknown, Verified 01/31/19 16:04) Unknown cyclobenzaprine [From Flexeril] Adverse Reaction (Verified 11/29/18 23:14) Rash Home Medications: Ambulatory Orders Medication Instructions Recorded Acetaminophen Liquid [Tylenol 160 mg GT Q6H PRN PRN 01/31/19 Liquid] Amino Acids/Protein Hydrolys 30 ml GT DAILY 01/31/19 [Pro-Stat Sugar Free Liquid] Amlodipine Besylate 5 mg GT DAILY 01/31/19 Aspirin [Aspir 81] 81 mg GT DAILY 01/31/19 Atorvastatin Calcium 40 mg GT QHS 01/31/19 Bisacodyl 10 mg HI DAILY PRN 01/31/19 Carvedilol 6.25 mg GT BID 01/31/19 Docusate Sodium [Docu Liquid] 50 mg GT BID PRN PRN 01/31/19 Enoxaparin [Lovenox] 40 mg SUBCUT DAILY@0600 01/31/19 Famotidine [Pepcid] 20 mg GT BID 01/31/19 Guaifenesin/Dextromethorphan 10 ml GT Q4H PRN PRN 01/31/19 [Guaifenesin Dm Syrup] Ipratropium/Albuterol Sulfate 3 ml INHALATION Q4H PRN PRN 01/31/19 [Iprat-Albut 0.5-3(2.5) mg/3 ml] Jevity 1.5 300 ml GT Q6H 01/31/19 Melatonin 5 mg GT QHS 01/31/19 Meropenem 1 gm IV Q8 01/31/19 [place]-3 Fatty Acids/Fish Oil [Fish 1 ea GT BID 01/31/19 Oil 1,000 mg Capsule] Polyethylene Glycol 3350 [Miralax] 17 gm GT DAILY PRN 01/31/19 Quetiapine Fumarate [Seroquel] 25 mg GT BID 01/31/19 Sodium Chloride 3% 3 ml INHALATION Q4H PRN PRN 01/31/19 Terazosin HCl 2 mg GT QHS 01/31/19 Vitamin E 400 unit GT DAILY 01/31/19 Doxazosin Mesylate [Cardura] 2 mg PO QHS 02/03/19 Lorazepam 1 mg PO DAILY 02/03/19 Surgical History: appendectomy, herniorrhaphy, - - Tracheostomy, PEG tube, Suboccipital craniectomy, Cervical discectomy, carpal tunnel, shoulder surgery. Psychiatric History: No pertinent psych hx Smoking Status: Former smoker - *Family History Maternal History Items: - - History was taken from patient son who denies any disease in any of his siblings (children of patient). Patient son did not know maternal or paternal medical history. Paternal History Items: - - History was taken from patient son who denies any disease in any of his siblings (children of patient). Patient son did not know maternal or paternal medical history. Review of Systems Constitutional: Denies: Chills, Fever, Weight Change HEENT: Denies: Head Aches, Sinus Congestion, Sinus Drainage Cardiovascular: Denies: Chest Pain, Palpitations Respiratory: Reports: Cough, Sputum production Gastrointestinal: Denies: Abdominal Pain, Nausea, Vomiting Genitourinary: Denies: Dysuria Musculoskeletal: Denies: Joint Pain, Joint Tenderness Skin: Denies: Rash, Wounds Neurological: Reports: Confusion. Denies: Focal weakness, Numbness, Tingling Psychiatric: Denies: Anxiety, Depression, Homicidal Ideations, Suicidal Ideations Hematologic/ Lymphatic: Denies: Easy Bruising, Easy Bleeding VTE Information - Inpt Only VTE Present on Admission: No VTE Mechan Device Prophylaxis: None VTE Pharm Prophylaxis ordered?: Yes Patient Problems: Active and Suspected Problems Psychosis (Acute) - Physical Exam Vitals/I&O's: Vital Signs Temp Pulse Resp BP Pulse Ox 98.4 F 85 18 129/73 H 96 02/04/19 01:33 02/04/19 01:33 02/04/19 01:33 02/04/19 01:33 02/04/19 01:33 Oxygen Delivery Method Trach Collar Weight: 73.8 kg Body Mass Index (BMI) 25.4 Finger Stick Blood Glucose 132 General: - - Obtunded (patient had received Ativan at the time of examination) HEENT: Atraumatic, Normocephalic, - - Pupils were sluggish to light; posterior neck with healed incision. Oral: Dry Mucosa Neck: Trachea Midline, - - Mild rigidity to neck (history of cervical fusion); trach in place and with trach collar hooked to oxygen. Lungs: Clear to auscultation, Normal air movement Cardiovascular: Regular rate, Regular Rhythm, Normal S1, Normal S2, No murmurs Abdomen: Bowel Sounds Present, Soft, Non Tender, - - PEG tube in place Extremities: No edema, Capillary Refill Less than 3 Seconds Skin: No rashes, No breakdown Musculoskeletal: No Muscle Wasting Neurological: - - Patient received Ativan at the time of examination and he was obtunded. Psych/Mental Status: - - Patient received Ativan at the time of examination and he was obtunded. Laboratory Results 02/03/19 23:30: WBC 9.0, RBC 4.03 L, Hgb 12.3 L, Hct 37.4 L, MCV 92.8, MCH 30.5, MCHC 32.9, RDW Std Deviation 47.6 H, RDW Coeff of Dereck 14.1, Plt Count 206, MPV 9.3, Immature Gran % (Auto) 0.400, Neut % (Auto) 78.4 H, Lymph % (Auto) 8.1 L, [place] % (Auto) 6.5, Eos % (Auto) 6.3 H, Baso % (Auto) 0.3, Absolute Neuts (auto) 7.0, Absolute Lymphs (auto) 0.73 L, Nucleated RBC % 0 02/03/19 23:30: PT 14.6, INR 1.2, APTT 33.0 02/03/19 23:30: Sodium 138, Potassium 4.1, Chloride 100, Carbon Dioxide 34.0 H, Anion Gap 4 L, BUN 15, Creatinine 0.63 L, Estim Creat Clear Calc 56.00, Est GFR (MDRD) Af Amer 157, Est GFR (MDRD) Non-Af 130, BUN/Creatinine Ratio 23.7 H, Glucose 119 H, Calcium 8.5, Total Bilirubin 0.60, AST 24, ALT 25, Alkaline Phosphatase 122 H, Troponin I < 0.015, Total Protein 7.4, Albumin 3.1 L, Globulin 4.3 H, Albumin/Globulin Ratio 0.7 L 02/03/19 23:30: Lactic Acid 1.7 02/04/19 00:00: Specimen Type ART, Sample Site L Radial, pH 7.46 H, Bicarbonate Actual 34.4 H, POC Total CO2 36, Base Excess 11 H, O2 Saturation 97, O2 % 40, ABG pCO2 48.3 H, ABG pO2 86, O2 Delivery Device T-Collar, Blood Gas Notified Whom ED 02/04/19 01:25: Urine Color Yellow, Urine Clarity Cloudy, Urine pH 8.0, Ur Specific [place] 1.015, Urine Protein Negative, Urine Glucose (UA) Normal, Urine Ketones Negative, Urine Occult Blood Negative, Urine Nitrite Negative, Urine Bilirubin Negative, Urine Urobilinogen Normal, Ur Leukocyte Esterase Negative, Urine RBC 0 SEEN, Urine WBC 0 SEEN, Ur Squamous Epith Cells 0 SEEN, Amorphous Sediment 3+, Urine Bacteria 0 SEEN, Urine Mucus 0 SEEN Assessment/Plan All Active Problems Dissecting hemorrhage of left vertebral artery (Resolved) Hospital-acquired pneumonia (Resolved) Status post emergency tracheotomy for assistance in breathing (Ruled-out) Psychosis (Acute) The patient is a 78 year old M with a significant history of a bilateral cerebellar stroke, 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 Acute Psychosis Likely secondary to derangement of his brain. CT of his brain to emergency department showed encephalomalacia likely secondary to recent stroke. We will continue Seroquel. Was on Ativan 1 mg nightly at TCU. At the emergency department received Ativan 1 mg IV and also was placed in restraint for acute agitation. We will continue patient on Ativan 0.5 mg IV every 4 hours as needed for now. Adjust medication as necessary. Hold seroquel if sedated Debility:PT and OT to work with patient Tracheostomy: Dr. Chowdhury saw patient on 02/02/2019 and felt that patient is not ready for decannulation. If issues with trach consider consulting Dr. Chowdhury, ENT. Scheduled DuoNeb continued. Continue sodium chloride inhalation as needed Peg Tube: Continue tube feeding and flushes as he was at the TCU. Hypertension On presentation his blood pressure was not within goal but acceptable. Amlodipine and carvedilol continued. Trend blood pressure and adjust bp meds Insomnia Melatonin nightly DVT prophylaxis Subcutaneous Lovenox Code Visit Inpatient E&M: 28060 Init Hosp L3
--- NOTE | 2019-02-04 02:40 | ED.DCSUM_ITS ---
- ER Visit Summary Date of Service: 02/04/19 Chief Complaint: Agitation and cough History of Present Illness: The patient is a 78 M who presents from the TCU. He has been hospitalized for the last 9 weeks. He had a hemorrhagic stroke, craniotomy, and tracheostomy. He has been in the TCU for 3 days. He seems to be having increasing agitation today which seems to stem from a cough. It sounded like he needed suctioning, but respiratory therapy said that nothing came out when they suctioned him. The trach seems to bother him at times and he has difficulty because he is unable to talk. He was treated with Robitussin and Ativan, and that seemed to help somewhat. History is limited because the mitul ent cannot talk, but he did denies pain or any specific complaints. Physical Examination: Afebrile and vital signs unremarkable except for respiratory rate of 24. He is 86% on trach collar. Trach appears intact. Lungs clear bilaterally. Heart regular. Abdomen soft. Extremities nontender with no edema. Skin normal color. Alert. No apparent distress. Test Results: EKG showed sinus rhythm at a rate of 89 with PVCs. Hemoglobin 12.3, glucose 119, troponin normal. Lactate 1.7. pH 7.46, O2 97, CO2 48. Chest x-ray shows postoperative changes and chronic changes. CT brain shows his prior infarct and status post craniotomy. Cultures pending. Emergency Department Course and Treatment: Patient was evaluated by respiratory therapy. He was placed on a trach mask 40% and seemed to do well. Treated with DuoNeb and Ativan for agitation. Patient continued to be agitated and grabbing things. He also received soft restraints with Ativan. On reevaluation, he seems to be more calm. He is resting. EKG, labs, x-ray, CT all fairly unremarkable. Patient has a cough. His respiratory rate is 24, but otherwise his vitals are reassuring. White count is normal. Respiratory therapy attempted to suction him here, but they did not suction out any sputum. Sounds like he has difficulty with his tracheostomy and trouble because he cannot speak with that. I believe this causes his agitation. There is no evidence of pneumonia or other respiratory pathology. I believe the patient will need further hospital care for this. He is not appropriate for [facility] psych given his trach issues and coughing. I contacted the hospitalist. Treatment Plan: As above Disposition: Admission Impression: 1. Agitation 2. Cough This note was generated with [employer] dictation software. It may contain incorrect words, spelling, and punctuation that were not noted in review of the chart prior to signing ED Disposition - Plan for ED Patient: Referrals: Alvarado Dunlap MD [Primary Care Provider] -
--- NOTE | 2019-02-04 02:51 | ED.RN ---
PT WAS PULLING AT CORDS, TRACH COLLAR AND TUBING, PEG TUBE ECT. AND WAS WRAPPING HIS LEGS SIDEWAYS AROUND THE BED RAILS TO GET OUT OF BED. ORIENTATION, EXPLANATION, COMFORT MEASURES ATTEMPTED. PT WAS STILL VERY AGITATED AND ATTEMPTING TO GET OUT OF BED. PT WAS PLACED IN FOUR POINT SOFT RESTRAINTS FOR HIS SAFETY.
--- NOTE | 2019-02-04 03:07 | ED.RN ---
REMOVED ANKLE RESTRAINTS.
[2019-02-04] MEDS: Jevity 1.5. 1,000 ML Bottle 300 ML GT ×4 (05:51→21:54)
--- NOTE | 2019-02-04 05:55 | MRI_ITS ---
We are attempting to reach an attending provider to discuss findings. An addendum with communication details will be sent when the communication is complete. STUDY: MRI BRAIN WITHOUT CONTRAST REASON FOR EXAM: Male, 78 years old. Increased confusion, prev. stroke in November, craniotomy, concern for new stroke. -- LIMITED SCAN D/T PATIENT CONDITION, PATIENT HR DECREASED. TECHNIQUE: Standardized multiplanar fat and water weighted pulse sequences were obtained. COMPARISON: CT February 04, 2019. FINDINGS: There is moderate cerebral atrophy with widening of the extra-axial spaces and ventricular dilatation. There are a limited number of small white matter hyperintensities, distributed throughout the deep white matter tracts of the cerebral hemispheres, consistent with mild chronic white matter ischemic changes. There is left occipital volume loss with encephalomalacia. There is punctate focus of restricted diffusion of the left occipital lobe with acute or subacute infarct. There are regions of restricted diffusion of the right cerebellum consistent with a recent, acute or subacute, infarct, series 3 images through . Normal bilateral basal ganglia. Normal thalami. There is no extra-axial fluid accumulation. Normal flow voids within the major intracranial circulation suggesting patency by spin echo criteria. Normal sella turcica, pituitary gland, infundibular stalk, optic chiasm and hypothalamus. Normal tectal plate and pineal gland. There are chronic white matter ischemic changes of the maciel. There is occipital craniotomy. There are regions of volume loss and encephalomalacia of the cerebellum. Normal basal cisterns. 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 Normal bilateral internal auditory canals. No demonstrated orbital abnormality, within the constraints of a routine brain study. Normal visualized paranasal sinuses. Normal calvarium and skull base. Normal visualized soft tissue structures. There are degenerative changes of the anterior atlantoaxial articulation. MRI/Brain without Contrast IMPRESSION: Involutional and postoperative changes of the brain, as described above. 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 No acute hemorrhage. Electronically Signed: Kody Linder MD at 12:01 EST , Service support ,
--- NOTE | 2019-02-04 07:59 | CPS ---
Removed pillow from underneath pt's head, pt had his head scrunched down shortening his neck which affected his airway/ trach as well as SpO2. SpO2 was 87-88% on 35% cool aerosol with the pillow, SpO2 increased to 93% with the pillow removed. Pt coughing up tons of secretions at this moment, this RT suctioned his trach and got small amounts of creamy thick secretions. Pt still continues to cough.
--- NOTE | 2019-02-04 08:36 | NURSING ---
Attempted to contact patient's to go over MRI questionnaire. No answer and unable to leave message as the voicemail box has not been set up.
--- NOTE | 2019-02-04 08:45 | NURSING ---
phones and RN is able to complete MRI questionnaire.
--- NOTE | 2019-02-04 08:46 | PN_ITS ---
<Nuha Engel - Last Filed: 02/04/19 09:39> Patient Problems: Active and Suspected Problems Psychosis (Acute) Subjective: Patient seen and examined. Admitted early this morning due to agitation. Patient noted to have copious amount of sputum, requiring increased O2 requirements. - Physical Exam Vitals/I&O's: Vital Signs Temp Pulse Resp BP Pulse Ox 98 F 66 14 120/76 93 02/04/19 03:50 02/04/19 07:36 02/04/19 03:50 02/04/19 03:50 02/04/19 07:20 Oxygen Delivery Method Trach Collar Weight: 155 lb 3.287 oz Body Mass Index (BMI) 24.3 Finger Stick Blood Glucose 132 Intake and Output for Last 24 Hours 02/02/19 02/03/19 02/04/19 23:59 23:59 23:59 Intake Total 540 / 540 Balance 540 / 540 General: Alert, Confused, - - Intermittent agitation HEENT: Atraumatic, PERRLA, EOMI, Normocephalic Oral: Dry Mucosa Neck: Supple, No JVD, Negative Carotid Bruits Lungs: Diminished, Rhonchi Cardiovascular: Regular rate, Regular Rhythm, Normal S1, Normal S2, No murmurs Abdomen: Bowel Sounds Present, Soft, Non Tender, Non-Distended, - - PEG tube in place Extremities: No clubbing, No cyanosis, No edema, Capillary Refill Less than 3 Seconds Skin: No rashes, No breakdown Musculoskeletal: No Tenderness to Palpation of Joints or Extremities Neurological: Cranial nerves II-XII grossly intact Psych/Mental Status: Agitated Laboratory Results 02/03/19 23:30: WBC 9.0, RBC 4.03 L, Hgb 12.3 L, Hct 37.4 L, MCV 92.8, MCH 30.5, MCHC 32.9, RDW Std Deviation 47.6 H, RDW Coeff of Dereck 14.1, Plt Count 206, MPV 9.3, Immature Gran % (Auto) 0.400, Neut % (Auto) 78.4 H, Lymph % (Auto) 8.1 L, Bell % (Auto) 6.5, Eos % (Auto) 6.3 H, Baso % (Auto) 0.3, Absolute Neuts (auto) 7.0, Absolute Lymphs (auto) 0.73 L, Nucleated RBC % 0 02/03/19 23:30: PT 14.6, INR 1.2, APTT 33.0 02/03/19 23:30: Sodium 138, Potassium 4.1, Chloride 100, Carbon Dioxide 34.0 H, Anion Gap 4 L, BUN 15, Creatinine 0.63 L, Estim Creat Clear Calc 56.00, Est GFR (MDRD) Af Amer 157, Est GFR (MDRD) Non-Af 130, BUN/Creatinine Ratio 23.7 H, Glucose 119 H, Calcium 8.5, Total Bilirubin 0.60, AST 24, ALT 25, Alkaline Phosphatase 122 H, Troponin I < 0.015, Total Protein 7.4, Albumin 3.1 L, Globulin 4.3 H, Albumin/Globulin Ratio 0.7 L 02/03/19 23:30: Lactic Acid 1.7 02/04/19 00:00: Specimen Type ART, Sample Site L Radial, pH 7.46 H, Bicarbonate Actual 34.4 H, POC Total CO2 36, Base Excess 11 H, O2 Saturation 97, O2 % 40, ABG pCO2 48.3 H, ABG pO2 86, O2 Delivery Device T-Collar, Blood Gas Notified Whom ED 02/04/19 01:25: Urine Color Yellow, Urine Clarity Cloudy, Urine pH 8.0, Ur Specific Redfield 1.015, Urine Protein Negative, Urine Glucose (UA) Normal, Urine Ketones Negative, Urine Occult Blood Negative, Urine Nitrite Negative, Urine Bilirubin Negative, Urine Urobilinogen Normal, Ur Leukocyte Esterase Negative, Urine RBC 0 SEEN, Urine WBC 0 SEEN, Ur Squamous Epith Cells 0 SEEN, Amorphous Sediment 3+, Urine Bacteria 0 SEEN, Urine Mucus 0 SEEN Current Medications Acetaminophen (Tylenol Liquid) 160 mg GT Q6H PRN PRN PRN Reason: Pain Score 1-10/10/FEVER Albuterol/Ipratropium (Duoneb) 3 ml INHALATION Q4H PRN PRN PRN Reason: Breathing Amlodipine Besylate (Norvasc) 5 mg GT DAILY [facility] Aspirin (Aspirin, Baby) 81 mg GT DAILY [facility] Atorvastatin Calcium (Lipitor) 40 mg GT QHS [facility] Bisacodyl (Dulcolax) 10 mg RECTAL DAILY PRN PRN Reason: Constipation Carvedilol (Coreg) 6.25 mg GT BID [facility] Docusate Sodium (Colace Syrup) 50 mg GT BID PRN PRN PRN Reason: Constipation Doxazosin Mesylate (Cardura) 2 mg GT QHS [facility] Enoxaparin Sodium (Lovenox) 40 mg SC DAILY [facility] Enteral Nutritional Formula (Jevity 1.5) 300 ml GT Q6H [facility] Last Admin: 02/04/19 05:51 Dose: 300 ml Documented by: Famotidine (Pepcid) 20 mg GT BID [facility] Glucagon () 1 mg IM .X1 PRN PRN Reason: Hypoglycemia Guaifenesin (Robitussin) 10 ml GT Q4H PRN PRN PRN Reason: COUGH Dextrose (Dextrose 10%-Water) 250 mls @ 999 mls/hr IV .Q16M PRN; Protocol PRN Reason: HYPOGLYCEMIA Sodium Chloride () 250 mls @ 15 mls/hr IV .[id number] PRN PRN Reason: Saline Flush Sodium Chloride () 250 mls @ 15 mls/hr IV .[id number] PRN PRN Reason: Additional IVPB Infusion Lorazepam (Ativan) 0.5 mg IV Q4 PRN PRN Reason: AGITATION Melatonin (Melatonin) 5 mg GT QHS [facility] Polyethylene Glycol (Miralax) 17 gm GT DAILY PRN PRN Reason: Constipation Quetiapine Fumarate (Seroquel) 25 mg GT BID [facility] Sodium Chloride (Sodium Chloride 3%) 3 ml INHALATION Q4H PRN PRN PRN Reason: Breathing treatment Sodium Chloride () 10 - 40 ml IV UD PRN PRN Reason: SALINE FLUSH Vitamin E (Vitamin E) 400 units GT DAILY [facility] Medical Necessity - Tobacco Use Smoking Status: Former smoker Assessment/Plan All Active Problems Dissecting hemorrhage of left vertebral artery (Resolved) Hospital-acquired pneumonia (Resolved) Status post emergency tracheotomy for assistance in breathing (Ruled-out) Psychosis (Acute) 1. Acute encephalopathy, worsening agitation- unclear etiology. Patient previously on Seroquel and Ativan. DC Ativan. Continue twice daily Seroquel regimen. Begin PRN Haldol. MRI of brain ordered. CT of brain in ER showed encephalomalacia. 2. Recent CVA resulting in respiratory failure status post tracheostomy and PEG tube placement-patient underwent decompression craniectomy for cerebral infarcts with peripheral hemorrhage transformation at [facility]. Following with Dr. Chowdhury for trach. Continue supplement oxygen to maintain O2 at or above 90%. PT/OT/ST. 3. Cough with copious amount of sputum production- recent hospital-acquired pneumonia, completed meropenem 02/03/2019. Chest x-ray admission shows interval resolution of the interstitial lung opacities without focal consolidation. Patient reported to have ESBL in sputum recently. Afebrile, no leukocytosis. Obtain repeat sputum sample. Frequent suctioning and trach care. Consult pulmonary medicine. 4. Hypertension- stable, continue carvedilol, amlodipine. DVT prophylaxis- Lovenox sc This patient was seen by Nuha Engel NP-C under the supervision of Dr. Johnson. <Evelyne Johnson - Last Filed: 02/04/19 13:12> - Physical Exam Vitals/I&O's: Vital Signs Temp Pulse Resp BP Pulse Ox 99.1 F 82 24 H 131/74 H 96 02/04/19 09:50 02/04/19 09:50 02/04/19 09:50 02/04/19 09:50 02/04/19 11:45 Oxygen Flow Rate (L/min) 12 Oxygen Delivery Method Trach Collar Weight: 70.4 kg Body Mass Index (BMI) 24.3 Finger Stick Blood Glucose 132 Intake and Output for Last 24 Hours 02/02/19 02/03/19 02/04/19 23:59 23:59 23:59 Intake Total 540 / 540 Balance 540 / 540 Laboratory Results 02/03/19 23:30: WBC 9.0, RBC 4.03 L, Hgb 12.3 L, Hct 37.4 L, MCV 92.8, MCH 30.5, MCHC 32.9, RDW Std Deviation 47.6 H, RDW Coeff of Dereck 14.1, Plt Count 206, MPV 9.3, Immature Gran % (Auto) 0.400, Neut % (Auto) 78.4 H, Lymph % (Auto) 8.1 L, Bell % (Auto) 6.5, Eos % (Auto) 6.3 H, Baso % (Auto) 0.3, Absolute Neuts (auto) 7.0, Absolute Lymphs (auto) 0.73 L, Nucleated RBC % 0 02/03/19 23:30: PT 14.6, INR 1.2, APTT 33.0 02/03/19 23:30: Sodium 138, Potassium 4.1, Chloride 100, Carbon Dioxide 34.0 H, Anion Gap 4 L, BUN 15, Creatinine 0.63 L, Estim Creat Clear Calc 56.00, Est GFR (MDRD) Af Amer 157, Est GFR (MDRD) Non-Af 130, BUN/Creatinine Ratio 23.7 H, Glucose 119 H, Calcium 8.5, Total Bilirubin 0.60, AST 24, ALT 25, Alkaline Phosphatase 122 H, Troponin I < 0.015, Total Protein 7.4, Albumin 3.1 L, Globulin 4.3 H, Albumin/Globulin Ratio 0.7 L 02/03/19 23:30: Lactic Acid 1.7 02/04/19 00:00: Specimen Type ART, Sample Site L Radial, pH 7.46 H, Bicarbonate Actual 34.4 H, POC Total CO2 36, Base Excess 11 H, O2 Saturation 97, O2 % 40, ABG pCO2 48.3 H, ABG pO2 86, O2 Delivery Device T-Collar, Blood Gas Notified Whom ED 02/04/19 01:25: Urine Color Yellow, Urine Clarity Cloudy, Urine pH 8.0, Ur Specific [place]field 1.015, Urine Protein Negative, Urine Glucose (UA) Normal, Urine Ketones Negative, Urine Occult Blood Negative, Urine Nitrite Negative, Urine Bilirubin Negative, Urine Urobilinogen Normal, Ur Leukocyte Esterase Negative, Urine RBC 0 SEEN, Urine WBC 0 SEEN, Ur Squamous Epith Cells 0 SEEN, Amorphous Sediment 3+, Urine Bacteria 0 SEEN, Urine Mucus 0 SEEN Current Medications Acetaminophen (Tylenol Liquid) 160 mg GT Q6H PRN PRN PRN Reason: Pain Score 1-10/10/FEVER Albuterol/Ipratropium (Duoneb) 3 ml INHALATION Q4H PRN PRN PRN Reason: Breathing Aspirin (Aspirin, Baby) 81 mg GT DAILY [facility] Atorvastatin Calcium (Lipitor) 40 mg GT QHS [facility] Bisacodyl (Dulcolax) 10 mg RECTAL DAILY PRN PRN Reason: Constipation Carvedilol (Coreg) 6.25 mg GT BID [facility] Clopidogrel Bisulfate (Plavix) 75 mg GT DAILY [facility] Docusate Sodium (Colace Syrup) 50 mg GT BID PRN PRN PRN Reason: Constipation Enoxaparin Sodium (Lovenox) 40 mg SC DAILY [facility] Enteral Nutritional Formula (Jevity 1.5) 300 ml GT Q6H [facility] Last Admin: 02/04/19 05:51 Dose: 300 ml Documented by: Famotidine (Pepcid) 20 mg GT BID [facility] Glucagon () 1 mg IM .X1 PRN PRN Reason: Hypoglycemia Guaifenesin (Robitussin) 10 ml GT Q4H PRN PRN PRN Reason: COUGH Haloperidol Lactate (Haldol) 2 mg IV Q6H PRN PRN PRN Reason: AGITATION Last Admin: 02/04/19 09:33 Dose: 2 mg Documented by: Dextrose (Dextrose 10%-Water) 250 mls @ 999 mls/hr IV .Q16M PRN; Protocol PRN Reason: HYPOGLYCEMIA Sodium Chloride () 250 mls @ 15 mls/hr IV .[id number] PRN PRN Reason: Saline Flush Sodium Chloride () 250 mls @ 15 mls/hr IV .[id number] PRN PRN Reason: Additional IVPB Infusion Meropenem 1 gm/ Sodium (Chloride) 120 mls @ 33 mls/hr IV Q8 [facility] Vancomycin IV Pharmacy to Dose (1 ea/ Sodium Chloride) 500 mls @ 250 mls/hr IV X1 PRN; Protocol PRN Reason: Rx to Dose Melatonin (Melatonin) 5 mg GT QHS [facility] Polyethylene Glycol (Miralax) 17 gm GT DAILY PRN PRN Reason: Constipation Quetiapine Fumarate (Seroquel) 25 mg GT BID [facility] Sodium Chloride (Sodium Chloride 3%) 3 ml INHALATION Q4H PRN PRN PRN Reason: Breathing treatment Sodium Chloride () 10 - 40 ml IV UD PRN PRN Reason: SALINE FLUSH Last Admin: 02/04/19 10:10 Dose: 10 ml Documented by: Assessment/Plan This patient was seen in conjunction with Nuha Engel SENIOR UI UX DESIGNER. I have independently interviewed and examined the patient and reviewed pertinent historical, laboratory, and other data. Please refer to her note for patient's presentation, findings, and recommendations. Patient was seen and examined. Was admitted last night with acute delirium. Noted this morning to have copious purulent trachea discharge after moist inhalation was started. Patient's tracheostomy apparently was capped for the most part of his stay in TCU. He remains confused, attempting to remove lines. Given total of 6 mg IV Haldol for agitation. MRI of the brain is positive for acute left occipital and cerebellar stroke. Telemetry neurology consulted Vitals were reviewed -stable Physical Exam: Gen: Confused, agitated, restrained with 2 point soft restraints, not pale, not jaundiced CVS:HS I +II, regular, no murmurs RESP: Diminished at lung bases, tracheostomy has copious purulent GI: BS present and normal, nontender, no palpable organs, PEG tube in situ EXT:No edema PHYSICAL EDUCATION DEPARTMENT CHAIR: Confused, moves all extremities agitation, unable to answer questions Labs reviewed: ASSESSMENT: 1. Acute delirium 2. Recent CVA 3. Copious sputum, likely from pneumonia, negative Chest X-ray on admission 4. Hypertension Meds reviewed Plan: Start on IV meropenem and Vancomycin Pulmonology consult Teleneurology consult Stroke protocol Add plavix, Hold on antihypertensives to allow for permissive hypertension 2D echo, lipid profile, carotid ultrasound in a.m. Code Visit Inpatient E&M: [id number] [facility] Hosp L3
[2019-02-04] MEDS: Haloperidol Lactate 5 MG/ML Vial 2 MG IV ×4 (09:33→20:31)
[2019-02-04] MEDS: 0.9% Saline Lock 10 ML Syringe IV ×3 (09:34→15:12)
--- NOTE | 2019-02-04 12:05 | NURSING ---
Facility calls with MRI results of new infarct Right cerebellum.
--- NOTE | 2019-02-04 12:54 | CDU_ITS ---
Reason For Study: CVA Rt. Velocities/BP Lt. Velocities/BP Dist CCA 95/16 cm/sec. Dist CCA 74.7/13.4 cm/sec. Prox ICA 59.7/13.5 cm/sec. Prox ICA 130.1/27 cm/sec. Mid ICA 72.8/16.8 cm/sec. Mid ICA 70.9/16 cm/sec. Dist ICA 76.1/15.7 cm/sec. Dist ICA 79.7/22.6 cm/sec. Rt. ICA/CCA = 0.80. Lt. ICA/CCA = 1.74. Prox ECA 88.2/9.7 cm/sec. Prox ECA 134.5/7.2 cm/sec. Right Extracranial There is intimal thickening but no significant atherosclerotic plaque noted in the right common carotid artery. The right common carotid artery is not well visualized. There is homogeneous, irregular atherosclerotic plaque noted in the right internal carotid artery. There is intimal thickening but no significant atherosclerotic plaque noted in the right external carotid artery. Antegrade flow is noted in the right vertebral artery. Left Extracranial There is intimal thickening but no significant atherosclerotic plaque noted in the left common carotid artery. The left common carotid artery is not well visualized. There is homogeneous, smooth atherosclerotic plaque noted in the left internal carotid artery. There is intimal thickening but no significant atherosclerotic plaque noted in the left external carotid artery. Antegrade flow is noted in the left vertebral artery. Procedure Carotid Duplex [id number]. Technically difficult and limited study due to trach cover and pt positioning. Bilateral vertebral arteries not visualized. Left side done first. Exam performed portable in patient room. Interpretation Summary Right common carotid artery not well visualized Irregular plaque within the right internal carotid with<50% stenosis <50% stenosis right external carotid Left common carotid artery not well visualized Smooth plaque located within the proximal left internal carotid artery with 50-69% stenosis, likely closer to 50% <50% stenosis left external carotid Bilateral vertebral arteries could not be visualized Ordering Physician: Evelyne Johnson Referring Physician: Alvarado Dunlap Performed By: Anju Connolly RVT
--- NOTE | 2019-02-04 12:55 | ECHOD_ITS ---
Reason For Study: TIA/CVA Procedure This was a 2D Doppler, Color Flow transthoracic echocardiogram. Technically difficult study, patient scanned supine due to condition. No SSN due to Trach, Limited Subcostal due to Peg Tube. Exam performed portable in patient room. Left Ventricle Normal LV size. Left ventricular systolic function is normal. The estimated ejection fraction is 65 %. Stage 1 diastolic dysfunction. No regional wall motion abnormalities noted. Right Ventricle Normal RV size. Normal systolic function. Atria Normal left atrium. Normal right atrium. Bubble contrast study negative for right to left interatrial shunt. Mitral Valve Normal mitral valve. Tricuspid Valve Normal tricuspid valve. Aortic Valve Normal aortic valve. Pulmonic Valve The pulmonic valve is not well visualized. Great Vessels Normal aortic root. The pulmonary artery is normal size. Normal inferior vena cava. Pericardium/Pleural No pericardial effusion. Medication Performed a rapid injection of agitated mix of 9 cc saline and 1cc air to assess for atrial septal defect. MMode/2D Measurements & Calculations LVIDd: 3.9 cm IVSd: 0.94 cm Ao root diam: 3.4 cm LVIDs: 2.6 cm LVPWd: 0.94 cm LA dimension: 3.0 cm RVDd: 4.0 cm FS: 32.3 % LAV(MOD-bp): 37.9 ml LA A4 area: 18.0 cm2 LAV(MOD-bp) Indexed: 20.9 ml/m2 LAV(MOD-sp2): 29.4 ml LAV(MOD-sp4): 41.3 ml Time Measurements MV dec time: 0.15 sec Doppler Measurements & Calculations MV E max reece: 64.9 cm/sec Lat Peak E' Reece: 11.0 cm/sec Med Peak E' Reece: 7.2 cm/sec MV A max reece: 98.0 cm/sec E/E' lat: 5.9 E/E' med: 9.0 MV E/A: 0.66 MV V2 max: 131.0 cm/sec MV P1/2t max reece: 104.0 cm/sec Ao V2 max: 151.2 cm/sec MV max P.9 mmHg MV P1/2t: 79.2 msec Ao max P.1 mmHg MV V2 mean: 75.5 cm/sec MV dec slope: 384.8 cm/sec2 MV mean P.7 mmHg MV V2 VTI: 28.1 cm MVA(P1/2t): 2.8 cm2 LV V1 max: 116.3 cm/sec PA V2 max: 132.9 cm/sec LV V1 max P.4 mmHg Interpretation Summary Normal LV size. Left ventricular systolic function is normal. The estimated ejection fraction is 65 %. Stage 1 diastolic dysfunction. Bubble contrast study negative for right to left interatrial shunt. Ordering Physician: Evelyne Johnson Performed By: Manpreet Godoy RCS
[2019-02-04] MEDS: Aspirin 81 MG TAB.CHEW GT (15:09)
[2019-02-04] MEDS: Enoxaparin 40 MG/0.4 ML Syringe SC (15:10)
[2019-02-04] MEDS: Famotidine 20 MG Tablet GT ×2 (15:10→21:53)
[2019-02-04] MEDS: QUEtiapine 25 MG Tablet GT ×2 (15:10→21:54)
[2019-02-04] MEDS: Vancomycin IV 1,000 MG/200 ML BAG 200 MG IV (15:11)
[2019-02-04] MEDS: 0.9% Normal Saline 1,000 ML 100 ML IV (15:21)
--- NOTE | 2019-02-04 16:40 | PCM.RX.CS ---
Consult Pharmacy has been consulted to manage selected antiobiotic: Vancomycin Type of Consult: New start Suspected Infection: Other Labs: Sodium 138 mmol/L (136-145) 02/03/19 23:30 Potassium 4.1 mmol/L (3.5-5.1) 02/03/19 23:30 Chloride 100 mmol/L (98-107) 02/03/19 23:30 Carbon Dioxide 34.0 mmol/L (21.0-32.0) H 02/03/19 23:30 Anion Gap 4 (5-15) L 02/03/19 23:30 BUN 15 mg/dL (7-18) 02/03/19 23:30 Creatinine 0.63 mg/dL (0.70-1.30) L 02/03/19 23:30 Est GFR (MDRD) Af Amer 157 mL/min (>60) 02/03/19 23:30 Est GFR (MDRD) Non-Af 130 mL/min (>60) 02/03/19 23:30 BUN/Creatinine Ratio 23.7 RATIO (10-20) H 02/03/19 23:30 Glucose 119 mg/dL (74-106) H 02/03/19 23:30 Weight used for dosin.4 kg Estimated Creatinine Clearance: 56 ML/MIN Goal Trough: 10-15 mcg/mL Pharmacy Plan for Drug Dosing: Give initial dose of 1000mg IV x1, then continue with 500mg IV q12h. Obtain a trough level before the 4th dose. Pharmacy Service will continue to monitor and adjust dosing as required. Follow-Up Labs: Trough Vancomycin Labs to be done on [date and time ordered]: 02/06/19 02:30
[2019-02-04] MEDS: MELATONIN 10 MG TABLET 5 MG GT (21:54)
[2019-02-04] MEDS: Atorvastatin Calcium 40 MG Tablet GT (21:54)
--- NOTE | 2019-02-04 23:32 | CT_ITS ---
STUDY: CT BRAIN WITHOUT CONTRAST REASON FOR EXAM: Male, 78 years old. ALTERED MENTAL STATUS,INCREASED AGITATION -- BUGGY ACCIDENT IN NOV -- HX:HTN RADIATION DOSAGE (If Supplied By Facility): CTDIvol = ( 44.99 ) mGy, DLP = ( 829.85 ) mGycm TECHNIQUE: Transaxial CT imaging of the brain was performed without administration of intravenous contrast material. Individualized dose optimization techniques were used for this CT. COMPARISON: Head CT from 11/30/2018 FINDINGS: Normal soft tissue structures. There has been interval craniotomy involving the posterior fossa with formation of a large CSF density posteriorly involving the posterior fossa. Interval development of encephalomalacic changes within the left parieto-occipital region with ex vacuo dilatation of the left occipital horn. There has also been interval development of hypodensity within the bilateral cerebellar hemispheres with ex vacuo enlargement of the fourth ventricle. There is also new small round hypodensity in the left maciel. There is no intracranial hemorrhage. There are no definite findings of an acute territorial ischemic infarction. Normal visualized paranasal sinuses. There is a left mastoid effusion. CT/Brain/Head without Contrast IMPRESSION: Interval development of encephalomalacic changes within the left parietal-occipital region, and bilateral cerebellar hemispheres. Also likely prior infarct in the left maciel. No definite territorial infarct however evaluation is limited due to encephalomalacic changes. If clinical symptomatology persists consider further evaluation with MRI brain.. Interval left posterior fossa craniotomy. Electronically Signed: Franky Salvador, at 1:38 EST Tel , Service support ,
[2019-02-05] VITALS (20 sets, daily range): BP systolic 99–156; BP diastolic 62–79; PULSE 63–89; RESP 10–18; TEMP 36.8–37.3; O2SAT 93–100
[2019-02-05] MEDS: Vancomycin IV 500 MG/100 ML BAG 100 MG IV ×2 (03:44→14:43)
[2019-02-05] MEDS: 0.9% Normal Saline 1,000 ML 100 ML IV (05:31)
--- NOTE | 2019-02-05 05:55 | EKG12_ITS ---
Test Reason : AM EKG Blood Pressure : / mmHG Vent. Rate : 080 BPM Atrial Rate : 080 BPM P-R Int : 186 ms QRS Dur : 072 ms QT Int : 378 ms P-R-T Axes : 046 -24 012 degrees QTc Int : 435 ms Normal sinus rhythm Normal ECG No previous ECGs available Confirmed by GENNY BACH, MAX ([id number]), film editor RAHEEM CORONEL ([id number]) on 02/09/2019 11:15:50 AM Referred By: SANTOSH Confirmed By:FOUZIA ROYAL MD
[2019-02-05 06:39] LABS: Hematocrit 31.5 % (40-54); Hemoglobin 10.2 g/dL (13.0-16.5); Mean Corp Hgb Conc 32.4 g/dL (32-36); Mean Corpuscular Hgb 30.1 pg (27.0-32.0); Mean Corpuscular Volume 92.9 fL (80-94); Mean Platelet Vol. 9.3 fl (6.2-12.0); Platelet Count 166 K/mm3 (150-450); RBC Distribution Width CV 14.3 % (11.6-14.6); RBC Distribution Width SD 48.6 fl (35.1-43.9); Red Blood Count 3.39 M/mm3 (4.6-6.2); White Blood Count 7.5 K/mm3 (4.4-11.0)
[2019-02-05 07:04] LABS: Anion Gap 2 (5-15); BUN 10 mg/dL (7-18); BUN/Creat Ratio 21.5 RATIO (10-20); Calcium,Total 7.6 mg/dL (8.5-10.1); Chloride 103 mmol/L (98-107); Cholesterol 78 mg/dL (200); Creatinine, Serum 0.47 mg/dL (0.70-1.30); EST Glomerular Filtration Rate 185 mL/min (>60); Est Glom Filt Rate - Afr Amer 223 mL/min (>60); Glucose 111 mg/dL (74-106); High Density Lipoprotein 40 mg/dL; Potassium 3.7 mmol/L (3.5-5.1); Sodium Level 138 mmol/L (136-145); Triglycerides 77 mg/dL; Very Low Density Lipoprotein 15 mg/dL (5-40)
--- NOTE | 2019-02-05 09:34 | PCM.CONS.PUL ---
Reason for Consult Date of Consultation: 02/05/19 Reason for Consultation: Status post trach, copious sputum History of Present Illness: The patient is a 78-year-old male, with a history as outlined below, who presented to the emergency department from the transitional care unit with increasing agitation and productive cough. The patient has a complex medical history including recent stroke with hemorrhagic conversion, requiring tracheostomy and PEG tube placement. The patient was transferred from [facility] to [facility] after he was medically stabilized. The patient apparently grew out several different microbes on a sputum culture there, including Streptococcus, staph aureus and Enterobacter. He was apparently treated with meropenem for hospital-acquired pneumonia. On presentation to the emergency department, the patient was noted to have a low-grade fever of 99.4 ?F. He was hemodynamically stable, nonetheless. Laboratory evaluation revealed no evidence of a leukocytosis. Coagulation profile was within normal limits. Chemistry profile was notable for an elevated bicarbonate to 34. Lactate was within normal limits. Troponin was negative. Plain film chest x-ray revealed no acute cardiopulmonary process. Due to the patient's altered mentation, an MRI was obtained which revealed both acute and chronic cerebellar and left occipital infarcts. No intracranial hemorrhage is noted. The patient was subsequently admitted to the progressive care unit, where he has continued to have copious amounts of sputum production. Therefore, he was placed empirically on broad-spectrum antimicrobials including vancomycin and meropenem. The patient currently has an uncuffed #[address] 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, [employer] SUPER[employer]OR (posterior cerebral artery) (Chronic) Hemorrhagic stroke (Chronic) Hypertension (Chronic) Hyperlipidemia (Chronic) Muscle spasm (Chronic) Allergies Penicillins Allergy (Unknown, Verified 01/31/19 16:04) Unknown cyclobenzaprine [From Flexeril] Adverse Reaction (Verified 11/29/18 23:14) Rash Home Medications: Ambulatory Orders Medication Instructions Recorded Acetaminophen Liquid [Tylenol 160 mg GT Q6H PRN PRN 01/31/19 Liquid] Amlodipine Besylate 5 mg GT DAILY 01/31/19 Atorvastatin Calcium 40 mg GT QHS 01/31/19 Bisacodyl 10 mg ID DAILY PRN 01/31/19 Carvedilol 6.25 mg GT BID 01/31/19 Docusate Sodium [Docu Liquid] 50 mg GT BID PRN PRN 01/31/19 Enoxaparin [Lovenox] 40 mg SUBCUT DAILY@0600 01/31/19 Famotidine [Pepcid] 20 mg GT BID 01/31/19 Guaifenesin/Dextromethorphan 10 ml GT Q4H PRN PRN 01/31/19 [Guaifenesin Dm Syrup] Ipratropium/Albuterol Sulfate 3 ml INHALATION Q4H PRN PRN 01/31/19 [Iprat-Albut 0.5-3(2.5) mg/3 ml] Jevity 1.5 300 ml GT Q6H 01/31/19 Melatonin 5 mg GT QHS 01/31/19 Meropenem 1 gm IV Q8 01/31/19 Polyethylene Glycol 3350 [Miralax] 17 gm GT DAILY PRN 01/31/19 Quetiapine Fumarate [Seroquel] 25 mg GT BID 01/31/19 Sodium Chloride 3% 3 ml INHALATION Q4H PRN PRN 01/31/19 Doxazosin Mesylate [Cardura] 2 mg PO QHS 02/03/19 Lorazepam 1 mg PO QHS 02/03/19 Menthol/Zinc Oxide [Calmoseptine 113 gm TP BID 02/04/19 Ointment] Nystatin 15 gm TP BID 02/04/19 Nystatin 500,000U/5ML [Mycostatin] 5 ml PO 4X/DAY 02/04/19 Surgical History: appendectomy, herniorrhaphy, - - Tracheostomy, PEG tube, Suboccipital craniectomy, Cervical discectomy, carpal tunnel, shoulder surgery. Psychiatric History: No pertinent psych hx Smoking Status: Former smoker - *Family History Maternal History Items: - - History was taken from patient son who denies any disease in any of his siblings (children of patient). Patient son did not know maternal or paternal medical history. Paternal History Items: - - History was taken from patient son who denies any disease in any of his siblings (children of patient). Patient son did not know maternal or paternal medical history. Review of Systems Unable to obtain accurate/complete ROS d/t: Due to degree of encephalopathy Patient Problems: Active and Suspected Problems Psychosis (Acute) Objective: The patient's most recent lab work, culture data and imaging studies have all been personally reviewed. - Physical Exam Vitals/I&O's: Vital Signs Temp Pulse Resp BP Pulse Ox 98.4 F 71 12 99/62 100 02/05/19 05:00 02/05/19 07:29 02/05/19 07:23 02/05/19 07:23 02/05/19 07:23 Oxygen Flow Rate (L/min) 12 Oxygen Delivery Method Trach Collar Weight: 155 lb 3.287 oz Body Mass Index (BMI) 24.3 Finger Stick Blood Glucose 132 Intake and Output for Last 24 Hours 02/03/19 02/04/19 02/05/19 23:59 23:59 23:59 Intake Total 2640 / 3180 1630 / 1630 Balance 2640 / 3180 1630 / 1630 General: Confused, Lethargic, - - Currently in restraints HEENT: Atraumatic, Normocephalic Oral: Dry Mucosa Neck: Supple, No Nodes, Trachea Midline, - - Tracheostomy site intact Lungs: Diminished, Rhonchi, - - Shallow respiratory effort Cardiovascular: Regular rate, Regular Rhythm, Normal S1, Normal S2 Abdomen: Bowel Sounds Present, Soft, Non Tender, - - G-tube in place Extremities: No clubbing, No cyanosis, No edema Skin: No breakdown Musculoskeletal: No Tenderness to Palpation of Joints or Extremities Lymphatic: No Cervical, Supraclavicular, or Inguinal Adenopathy Neurological: - - No focal deficits. Psych/Mental Status: Impulsive, Restless Labs (Last 48 Hours) 02/03/19 02/03/19 02/03/19 23:30 23:30 23:30 WBC 9.0 RBC 4.03 L Hgb 12.3 L Hct 37.4 L MCV 92.8 MCH 30.5 MCHC 32.9 RDW Std Deviation 47.6 H RDW Coeff of Dereck 14.1 Plt Count 206 MPV 9.3 Immature Gran % (Auto) 0.400 Neut % (Auto) 78.4 H Lymph % (Auto) 8.1 L [place] % (Auto) 6.5 Eos % (Auto) 6.3 H Baso % (Auto) 0.3 Absolute Neuts (auto) 7.0 Absolute Lymphs (auto) 0.73 L Nucleated RBC % 0 PT 14.6 INR 1.2 APTT 33.0 Specimen Type Sample Site pH Bicarbonate Actual POC Total CO2 Base Excess O2 Saturation O2 % ABG pCO2 ABG pO2 O2 Delivery Device Blood Gas Notified Whom Sodium 138 Potassium 4.1 Chloride 100 Carbon Dioxide 34.0 H Anion Gap 4 L BUN 15 Creatinine 0.63 L Estim Creat Clear Calc 56.00 Est GFR (MDRD) Af Amer 157 Est GFR (MDRD) Non-Af 130 BUN/Creatinine Ratio 23.7 H Glucose 119 H Lactic Acid Calcium 8.5 Total Bilirubin 0.60 AST 24 ALT 25 Alkaline Phosphatase 122 H Troponin I < 0.015 Total Protein 7.4 Albumin 3.1 L Globulin 4.3 H Albumin/Globulin Ratio 0.7 L Triglycerides Cholesterol LDL Cholesterol VLDL Cholesterol HDL Cholesterol Urine Color Urine Clarity Urine pH Ur Specific [place] Urine Protein Urine Glucose (UA) Urine Ketones Urine Occult Blood Urine Nitrite Urine Bilirubin Urine Urobilinogen Ur Leukocyte Esterase Urine RBC Urine WBC Ur Squamous Epith Cells Amorphous Sediment Urine Bacteria Urine Mucus 02/03/19 02/04/19 02/04/19 23:30 00:00 01:25 WBC RBC Hgb Hct MCV MCH MCHC RDW Std Deviation RDW Coeff of Dereck Plt Count MPV Immature Gran % (Auto) Neut % (Auto) Lymph % (Auto) [place] % (Auto) Eos % (Auto) Baso % (Auto) Absolute Neuts (auto) Absolute Lymphs (auto) Nucleated RBC % PT INR APTT Specimen Type ART Sample Site L Radial pH 7.46 H Bicarbonate Actual 34.4 H POC Total CO2 36 Base Excess 11 H O2 Saturation 97 O2 % 40 ABG pCO2 48.3 H ABG pO2 86 O2 Delivery Device T-Collar Blood Gas Notified Whom ED MD Sodium Potassium Chloride Carbon Dioxide Anion Gap BUN Creatinine Estim Creat Clear Calc Est GFR (MDRD) Af Amer Est GFR (MDRD) Non-Af BUN/Creatinine Ratio Glucose Lactic Acid 1.7 Calcium Total Bilirubin AST ALT Alkaline Phosphatase Troponin I Total Protein Albumin Globulin Albumin/Globulin Ratio Triglycerides Cholesterol LDL Cholesterol VLDL Cholesterol HDL Cholesterol Urine Color Yellow Urine Clarity Cloudy Urine pH 8.0 Ur Specific [place] 1.015 Urine Protein Negative Urine Glucose (UA) Normal Urine Ketones Negative Urine Occult Blood Negative Urine Nitrite Negative Urine Bilirubin Negative Urine Urobilinogen Normal Ur Leukocyte Esterase Negative Urine RBC 0 SEEN Urine WBC 0 SEEN Ur Squamous Epith Cells 0 SEEN Amorphous Sediment 3+ Urine Bacteria 0 SEEN Urine Mucus 0 SEEN 02/05/19 02/05/19 05:45 05:45 WBC 7.5 RBC 3.39 L Hgb 10.2 L Hct 31.5 L MCV 92.9 MCH 30.1 MCHC 32.4 RDW Std Deviation 48.6 H RDW Coeff of Dereck 14.3 Plt Count 166 MPV 9.3 Immature Gran % (Auto) Neut % (Auto) Lymph % (Auto) [place] % (Auto) Eos % (Auto) Baso % (Auto) Absolute Neuts (auto) Absolute Lymphs (auto) Nucleated RBC % PT INR APTT Specimen Type Sample Site pH Bicarbonate Actual POC Total CO2 Base Excess O2 Saturation O2 % ABG pCO2 ABG pO2 O2 Delivery Device Blood Gas Notified Whom Sodium 138 Potassium 3.7 Chloride 103 Carbon Dioxide 33.0 H Anion Gap 2 L BUN 10 Creatinine 0.47 L Estim Creat Clear Calc 56.00 Est GFR (MDRD) Af Amer 223 Est GFR (MDRD) Non-Af 185 BUN/Creatinine Ratio 21.5 H Glucose 111 H Lactic Acid Calcium 7.6 L Total Bilirubin AST ALT Alkaline Phosphatase Troponin I Total Protein Albumin Globulin Albumin/Globulin Ratio Triglycerides 77 Cholesterol 78 LDL Cholesterol 23 VLDL Cholesterol 15 HDL Cholesterol 40 Urine Color Urine Clarity Urine pH Ur Specific [place] Urine Protein Urine Glucose (UA) Urine Ketones Urine Occult Blood Urine Nitrite Urine Bilirubin Urine Urobilinogen Ur Leukocyte Esterase Urine RBC Urine WBC Ur Squamous Epith Cells Amorphous Sediment Urine Bacteria Urine Mucus Clinical Impression(s) from Imaging Studies Chest X-Ray 02/03/19 01:05 IMPRESSION: Interval placement of tracheostomy tube. Interval resolution of interstitial lung opacities without focal lung consolidation. Electronically Signed: Franky Franco at 1:42 EST Tel , Service support , Brain MRI 02/04/19 05:55 IMPRESSION: Involutional and postoperative changes of the brain, as described above. 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 No acute hemorrhage. Electronically Signed: Kody Linder MD at 12:01 EST , Service support , ADDENDUM: 02/04/19 1211 IMPRESSION: Involutional and postoperative changes of the brain, as described above. 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 No acute hemorrhage. N.B. : The above information has been verbally conveyed by Kody Linder MD to Dara Olson RN, on 02/04/2019 12:04:57 (ET). Electronically Signed: Kody Linder MD at 12:01 EST , Service support , Brain CT 02/04/19 23:32 IMPRESSION: Interval development of encephalomalacic changes within the left parietal-occipital region, and bilateral cerebellar hemispheres. Also likely prior infarct in the left maciel. No definite territorial infarct however evaluation is limited due to encephalomalacic changes. If clinical symptomatology persists consider further evaluation with MRI brain.. Interval left posterior fossa craniotomy. Electronically Signed: Frakny Franco, at 1:38 EST Tel , Service support , Current Medications Acetaminophen (Tylenol Liquid) 160 mg GT Q6H PRN PRN PRN Reason: Pain Score 1-10/10/FEVER Albuterol/Ipratropium (Duoneb) 3 ml INHALATION Q4H PRN PRN PRN Reason: Breathing Aspirin (Aspirin, Baby) 81 mg GT DAILY [facility] Last Admin: 02/04/19 15:09 Dose: 81 mg Documented by: Atorvastatin Calcium (Lipitor) 40 mg GT QHS [facility] Last Admin: 02/04/19 21:54 Dose: 40 mg Documented by: Bisacodyl (Dulcolax) 10 mg RECTAL DAILY PRN PRN Reason: Constipation Clopidogrel Bisulfate (Plavix) 75 mg GT DAILY [facility] Docusate Sodium (Colace Syrup) 50 mg GT BID PRN PRN PRN Reason: Constipation Enoxaparin Sodium (Lovenox) 40 mg SC DAILY [facility] Last Admin: 02/04/19 15:10 Dose: 40 mg Documented by: Enteral Nutritional Formula (Jevity 1.5) 300 ml GT Q6H [facility] Last Admin: 02/05/19 05:45 Dose: Not Given Documented by: Famotidine (Pepcid) 20 mg GT BID [facility] Last Admin: 02/04/19 21:53 Dose: 20 mg Documented by: Glucagon () 1 mg IM .X1 PRN PRN Reason: Hypoglycemia Guaifenesin (Robitussin) 10 ml GT Q4H PRN PRN PRN Reason: COUGH Haloperidol Lactate (Haldol) 2 mg IV Q6H PRN PRN PRN Reason: AGITATION Last Admin: 02/04/19 20:31 Dose: 2 mg Documented by: Dextrose (Dextrose 10%-Water) 250 mls @ 999 mls/hr IV .Q16M PRN; Protocol PRN Reason: HYPOGLYCEMIA Sodium Chloride () 250 mls @ 15 mls/hr IV .[id number] PRN PRN Reason: Saline Flush Sodium Chloride () 250 mls @ 15 mls/hr IV .[id number] PRN PRN Reason: Additional IVPB Infusion Meropenem 1 gm/ Sodium (Chloride) 120 mls @ 33 mls/hr IV Q8 [facility] Last Admin: 02/05/19 05:31 Dose: 33 mls/hr Documented by: Vancomycin IV Pharmacy to Dose (1 ea/ Sodium Chloride) 500 mls @ 250 mls/hr IV X1 PRN; Protocol PRN Reason: Rx to Dose Vancomycin HCl () 500 mg in 100 mls @ 100 mls/hr IV Q12H [facility] Last Infusion: 02/05/19 04:45 Dose: Infused Documented by: Melatonin (Melatonin) 5 mg GT QHS [facility] Last Admin: 02/04/19 21:54 Dose: 5 mg Documented by: Polyethylene Glycol (Miralax) 17 gm GT DAILY PRN PRN Reason: Constipation Quetiapine Fumarate (Seroquel) 25 mg GT BID [facility] Last Admin: 02/04/19 21:54 Dose: 25 mg Documented by: Sodium Chloride (Sodium Chloride 3%) 3 ml INHALATION Q4H PRN PRN PRN Reason: Breathing treatment Sodium Chloride () 10 - 40 ml IV UD PRN PRN Reason: SALINE FLUSH Last Admin: 02/04/19 15:12 Dose: 10 ml Documented by: Assessment/Plan All Active Problems Dissecting hemorrhage of left vertebral artery (Resolved) Hospital-acquired pneumonia (Resolved) Status post emergency tracheotomy for assistance in breathing (Ruled-out) Psychosis (Acute) RECOMMENDATIONS: 1. Continue vancomycin and meropenem, pending infectious work-up. 2. Wean supplemental oxygen to maintain saturations at or above 90%. 3. Management of delirium per hospitalist. IMPRESSIONS: 1. Recent CVA with hemorrhagic transformation requiring tracheostomy Initially consulted over concerns for copious sputum production, which appears to have improved as of this morning. Plain film chest x-ray did not reveal an acute cardiopulmonary process to suggest pneumonia. The patient may have underlying tracheobronchitis. Cultures have been obtained. Recommend continuing broad-spectrum antimicrobial coverage for now. Antibiotics can be de-escalated, pending infectious work-up. Wean oxygen as tolerated to maintain saturations at or above 90%. 2. Encephalopathy MRI apparently demonstrated findings of a new infarction. Potential pulmonary infectious process is also likely contributing. Defer management to primary team. This note was generated with [employer] dictation software. It may contain incorrect words, spelling, and punctuation that were not noted in checking the note before signing. Code Visit Inpatient E&M: 66821 Init Hosp L3
[2019-02-05] MEDS: Haloperidol Lactate 5 MG/ML Vial 2 MG IV ×2 (09:37→18:46)
[2019-02-05] MEDS: Enoxaparin 40 MG/0.4 ML Syringe SC (09:54)
[2019-02-05] MEDS: QUEtiapine 25 MG Tablet GT (09:54)
[2019-02-05] MEDS: Famotidine 20 MG Tablet GT ×2 (09:54→23:02)
[2019-02-05] MEDS: Clopidogrel Bisulfate 75 MG Tablet GT (09:54)
[2019-02-05] MEDS: Aspirin 81 MG TAB.CHEW GT (09:54)
[2019-02-05] MEDS: Jevity 1.5. 1,000 ML Bottle 300 ML GT ×3 (09:55→23:03)
--- NOTE | 2019-02-05 10:58 | PN_ITS ---
Patient Problems: Active and Suspected Problems Psychosis (Acute) Reason for Visit: Follow-up for confusion Subjective: Patient was seen and examined. He remains confused. In bilateral wrist soft restraints. Objective: Physical exam: General: Alert, Confused, - - Intermittent agitation HEENT: Atraumatic, PERRLA, EOMI, Normocephalic Oral: Dry Mucosa Neck: Supple, No JVD, Negative Carotid Bruits Lungs: Diminished, Rhonchi Cardiovascular: Regular rate, Regular Rhythm, Normal S1, Normal S2, No murmurs Abdomen: Bowel Sounds Present, Soft, Non Tender, Non-Distended, - - PEG tube in place Extremities: No clubbing, No cyanosis, No edema, Capillary Refill Less than 3 Seconds Skin: No rashes, No breakdown Musculoskeletal: No Tenderness to Palpation of Joints or Extremities Neurological: Cranial nerves II-XII grossly intact Psych/Mental Status: Agitated Vitals/I&O's: Vital Signs Temp Pulse Resp BP Pulse Ox 98.8 F 86 15 132/66 H 93 02/05/19 10:00 02/05/19 10:00 02/05/19 10:00 02/05/19 10:00 02/05/19 10:00 Oxygen Flow Rate (L/min) 12 Oxygen Delivery Method Trach Collar Weight: 70.4 kg Body Mass Index (BMI) 24.3 Finger Stick Blood Glucose 132 Intake and Output for Last 24 Hours 02/03/19 02/04/19 02/05/19 23:59 23:59 23:59 Intake Total 2640 / 3180 2170 / 2170 Balance 2640 / 3180 2170 / 2170 Laboratory Results 02/05/19 05:45: WBC 7.5, RBC 3.39 L, Hgb 10.2 L, Hct 31.5 L, MCV 92.9, MCH 30.1, MCHC 32.4, RDW Std Deviation 48.6 H, RDW Coeff of Dereck 14.3, Plt Count 166, MPV 9.3 02/05/19 05:45: Sodium 138, Potassium 3.7, Chloride 103, Carbon Dioxide 33.0 H, Anion Gap 2 L, BUN 10, Creatinine 0.47 L, Estim Creat Clear Calc 56.00, Est GFR (MDRD) Af Amer 223, Est GFR (MDRD) Non-Af 185, BUN/Creatinine Ratio 21.5 H, Glucose 111 H, Calcium 7.6 L, Triglycerides 77, Cholesterol 78, LDL Cholesterol 23, VLDL Cholesterol 15, HDL Cholesterol 40 Current Medications Acetaminophen (Tylenol Liquid) 160 mg GT Q6H PRN PRN PRN Reason: Pain Score 1-10/10/FEVER Albuterol/Ipratropium (Duoneb) 3 ml INHALATION Q4H PRN PRN PRN Reason: Breathing Aspirin (Aspirin, Baby) 81 mg GT DAILY [facility] Last Admin: 02/05/19 09:54 Dose: 81 mg Documented by: Atorvastatin Calcium (Lipitor) 40 mg GT QHS [facility] Last Admin: 02/04/19 21:54 Dose: 40 mg Documented by: Bisacodyl (Dulcolax) 10 mg RECTAL DAILY PRN PRN Reason: Constipation Clopidogrel Bisulfate (Plavix) 75 mg GT DAILY [facility] Last Admin: 02/05/19 09:54 Dose: 75 mg Documented by: Docusate Sodium (Colace Syrup) 50 mg GT BID PRN PRN PRN Reason: Constipation Enoxaparin Sodium (Lovenox) 40 mg SC DAILY [facility] Last Admin: 02/05/19 09:54 Dose: 40 mg Documented by: Enteral Nutritional Formula (Jevity 1.5) 300 ml GT Q6H [facility] Last Admin: 02/05/19 09:55 Dose: 300 ml Documented by: Famotidine (Pepcid) 20 mg GT BID [facility] Last Admin: 02/05/19 09:54 Dose: 20 mg Documented by: Glucagon () 1 mg IM .X1 PRN PRN Reason: Hypoglycemia Guaifenesin (Robitussin) 10 ml GT Q4H PRN PRN PRN Reason: COUGH Haloperidol Lactate (Haldol) 2 mg IV Q6H PRN PRN PRN Reason: AGITATION Last Admin: 02/05/19 09:37 Dose: 2 mg Documented by: Dextrose (Dextrose 10%-Water) 250 mls @ 999 mls/hr IV .Q16M PRN; Protocol PRN Reason: HYPOGLYCEMIA Sodium Chloride () 250 mls @ 15 mls/hr IV .[id number] PRN PRN Reason: Saline Flush Sodium Chloride () 250 mls @ 15 mls/hr IV .[id number] PRN PRN Reason: Additional IVPB Infusion Meropenem 1 gm/ Sodium (Chloride) 120 mls @ 33 mls/hr IV Q8 [facility] Last Admin: 02/05/19 05:31 Dose: 33 mls/hr Documented by: Vancomycin IV Pharmacy to Dose (1 ea/ Sodium Chloride) 500 mls @ 250 mls/hr IV X1 PRN; Protocol PRN Reason: Rx to Dose Vancomycin HCl () 500 mg in 100 mls @ 100 mls/hr IV Q12H [facility] Last Infusion: 02/05/19 04:45 Dose: Infused Documented by: Melatonin (Melatonin) 5 mg GT QHS [facility] Last Admin: 02/04/19 21:54 Dose: 5 mg Documented by: Polyethylene Glycol (Miralax) 17 gm GT DAILY PRN PRN Reason: Constipation Quetiapine Fumarate (Seroquel) 25 mg GT BID [facility] Last Admin: 02/05/19 09:54 Dose: 25 mg Documented by: Sodium Chloride (Sodium Chloride 3%) 3 ml INHALATION Q4H PRN PRN PRN Reason: Breathing treatment Sodium Chloride () 10 - 40 ml IV UD PRN PRN Reason: SALINE FLUSH Last Admin: 02/04/19 15:12 Dose: 10 ml Documented by: STROKE Vital Signs/Narrative: Vital Signs Temp Pulse Resp BP Pulse Ox 02/05/19 10:00 98.8 F 86 15 132/66 H 93 02/05/19 07:29 71 02/05/19 07:23 71 12 99/62 100 Medical Necessity - Tobacco Use Smoking Status: Former smoker Assessment/Plan All Active Problems Dissecting hemorrhage of left vertebral artery (Resolved) Hospital-acquired pneumonia (Resolved) Status post emergency tracheotomy for assistance in breathing (Ruled-out) Psychosis (Acute) 1. Acute delirium, secondary to acute CVA Patient is intermittently agitated, in soft restraints Will continue on Seroquel and Haldol PRN Will avoid use of Ativan. 2. Acute right cerebellar CVA, history of recent left cerebellar, left [employer] and left pontine infarct Suggestive of vertebrobasilar circulation infarcts. Bilateral carotid Doppler ultrasounds are unremarkable Patient is on aspirin, Plavix, high-dose statin Telemetry shows normal sinus rhythm, no A. fib seen 2D echo showed no valvular lesions, bubble study negative HgbA1c is 5.6, total cholesterol 78, LDL 23, HDL is 40 We will plan for Holter monitor on discharge 3. Gram positive bipin pneumonia, negative chest X-ray on admission Blood cultures are pending, On IV vancomycin and meropenem Pulmonology following 4. Hypertension, controlled, off home Meds allowing for permissive hypertension Will resume meds tomorrow. 5. DVT PPx- Lovenox SC Code Visit Inpatient E&M: 46341 Subs Hosp L2
--- NOTE | 2019-02-05 11:24 | RAD_ITS ---
STUDY: X-RAY CHEST REASON FOR EXAM: Male, 78 years old. Dyspnea. Hypoxia. TECHNIQUE: Single frontal view of the chest. COMPARISON: February 04, 2019 FINDINGS: Stable tracheostomy. Low volume inspiration unchanged. There is no demonstrated pleural abnormality. Normal size heart. Normal mediastinum and zainab. Normal visualized pulmonary arteries. Normal visualized aortic arch and descending thoracic aorta. Normal visualized thoracic spine. Stable findings of rotator cuff tears in both shoulders. There is no demonstrated abnormality of the visualized soft tissue structures of the upper abdomen. RAD/Chest 1 View (Portable) IMPRESSION: Stable chest with no acute superimposed finding. Electronically Signed: Petros Julio MD at 14:00 EST , Service support ,
[2019-02-05 11:33] LABS: Hemoglobin A1c 5.6 % (4.2-6.3)
--- NOTE | 2019-02-05 12:14 | CASEMGMT ---
Patient is from [facility]. However, he cannot return to TCU until he has been free from restraints physical and medicine for 24 hours. Karolina JALLOH MSW
[2019-02-05] MEDS: QUEtiapine 25 MG Tablet PO (12:27)
[2019-02-05 16:14] LABS: M R Staph aureus DNA By PCR Negative (Negative); Probe Check PASS; Specimen Processing Control PASS
[2019-02-05] MEDS: Ipratropium/Albuterol Sulfate 3 ML AMPUL.NEB INHALATION (20:14)
[2019-02-05] MEDS: 0.9% Saline Lock 10 ML Syringe IV (22:01)
[2019-02-05] MEDS: Atorvastatin Calcium 40 MG Tablet GT (23:02)
[2019-02-05] MEDS: MELATONIN 10 MG TABLET 5 MG GT (23:02)
[2019-02-05] MEDS: QUEtiapine 25 MG Tablet 50 MG GT (23:08)
[2019-02-06] VITALS (14 sets, daily range): BP systolic 126–161; BP diastolic 66–133; PULSE 70–93; RESP 13–18; TEMP 36.2–37.2; O2SAT 95–99
[2019-02-06 03:15] LABS: Vancomycin, Trough Level 7.2 ug/mL (5.0-15.0)
[2019-02-06] MEDS: Vancomycin IV 500 MG/100 ML BAG 100 MG IV (03:25)
--- NOTE | 2019-02-06 03:35 | NURSING ---
Pt. trach suctioned with trach cath kit. Pt. tolerated well. Little sputum suctioned.Thick, yellowish.
[2019-02-06] MEDS: Jevity 1.5. 1,000 ML Bottle 300 ML GT ×3 (03:59→16:33)
--- NOTE | 2019-02-06 06:01 | PCM.RX.CS ---
Consult Pharmacy has been consulted to manage selected antiobiotic: Vancomycin Type of Consult: Follow-up Suspected Infection: Pneumonia Labs: Sodium 138 mmol/L (136-145) 02/05/19 05:45 Potassium 3.7 mmol/L (3.5-5.1) 02/05/19 05:45 Chloride 103 mmol/L (98-107) 02/05/19 05:45 Carbon Dioxide 33.0 mmol/L (21.0-32.0) H 02/05/19 05:45 Anion Gap 2 (5-15) L 02/05/19 05:45 BUN 10 mg/dL (7-18) 02/05/19 05:45 Creatinine 0.47 mg/dL (0.70-1.30) L 02/05/19 05:45 Est GFR (MDRD) Af Amer 223 mL/min (>60) 02/05/19 05:45 Est GFR (MDRD) Non-Af 185 mL/min (>60) 02/05/19 05:45 BUN/Creatinine Ratio 21.5 RATIO (10-20) H 02/05/19 05:45 Glucose 111 mg/dL (74-106) H 02/05/19 05:45 Vancomycin Trough 7.2 ug/mL (5.0-15.0) 02/06/19 02:40 Microbiology: Microbiology 02/04/19 09:45 Transtracheal Aspirate Gram Stain - Final 02/04/19 09:45 Transtracheal Aspirate Respiratory Culture - Preliminary Gram positive bipin 02/04/19 01:25 Urine Catheter - Catheter Urine Culture - Preliminary Culture exhibits no growth. Goal Trough: 10-15 mcg/mL Pharmacy Plan for Drug Dosing: Pharmacy Service will continue to monitor and adjust dosing as required. Medications Vancomycin HCl 750 mg/ Sodium (Chloride) 265 mls @ 250 mls/hr IV Q12H AHRIS TROUGH 7.2 INCREASE TO 750 Q12H NEXT TROUGH 02/08 @ 0230 Follow-Up Labs: Trough Vancomycin Labs to be done on [date and time ordered]: 02/08 @ 0230
--- NOTE | 2019-02-06 08:17 | PCM.PN.PUL ---
Patient Problems: Active and Suspected Problems Psychosis (Acute) Subjective: The patient was seen and examined at the bedside this morning. Events from the last 24 hours have been reviewed. The patient is currently afebrile, hemodynamically stable and maintaining appropriate oxygen saturations on 40% trach collar. Some suctioning of trach secretions was required overnight. Objective: The patient's most recent lab work, culture data and imaging studies have all been personally reviewed. Surface echocardiogram revealed normal LV size with an ejection fraction of 65% and stage I diastolic dysfunction. 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 Transtracheal aspirate demonstrated 2+ gram-positive rods. - Physical Exam Vitals/I&O's: Vital Signs Temp Pulse Resp BP Pulse Ox 98.5 F 90 16 149/133 H 97 02/06/19 06:00 02/06/19 07:24 02/06/19 06:00 02/06/19 06:00 02/06/19 06:00 Oxygen Flow Rate (L/min) 12 Oxygen Delivery Method Trach Collar Weight: 155 lb 3.287 oz Body Mass Index (BMI) 24.3 Finger Stick Blood Glucose 132 Intake and Output for Last 24 Hours 02/04/19 02/05/19 02/06/19 23:59 23:59 23:59 Intake Total 2640 / 3180 4050 / 4590 1300 / 1300 Balance 2640 / 3180 4050 / 4590 1300 / 1300 General: Confused, Lethargic HEENT: Atraumatic, PERRLA, Normocephalic Oral: Dry Mucosa Neck: Supple, No Nodes, Trachea Midline Lungs: Diminished, Rhonchi Cardiovascular: Regular rate, Regular Rhythm, Normal S1, Normal S2, No murmurs Abdomen: Bowel Sounds Present, Soft, Non Tender, - - +PEG Extremities: No clubbing, No cyanosis, No edema Skin: - - No significant change from previous Musculoskeletal: No Tenderness to Palpation of Joints or Extremities Lymphatic: No Cervical, Supraclavicular, or Inguinal Adenopathy Neurological: - - No focal deficits. Labs (Last 48 Hours) 02/05/19 02/05/19 02/05/19 05:45 05:45 05:45 WBC 7.5 RBC 3.39 L Hgb 10.2 L Hct 31.5 L MCV 92.9 MCH 30.1 MCHC 32.4 RDW Std Deviation 48.6 H RDW Coeff of Dereck 14.3 Plt Count 166 MPV 9.3 Sodium 138 Potassium 3.7 Chloride 103 Carbon Dioxide 33.0 H Anion Gap 2 L BUN 10 Creatinine 0.47 L Estim Creat Clear Calc 56.00 Est GFR (MDRD) Af Amer 223 Est GFR (MDRD) Non-Af 185 BUN/Creatinine Ratio 21.5 H Glucose 111 H Hemoglobin A1c 5.6 Calcium 7.6 L Triglycerides 77 Cholesterol 78 LDL Cholesterol 23 VLDL Cholesterol 15 HDL Cholesterol 40 Vancomycin Trough MRSA (PCR) 02/05/19 02/06/19 12:10 02:40 WBC RBC Hgb Hct MCV MCH MCHC RDW Std Deviation RDW Coeff of Dereck Plt Count MPV Sodium Potassium Chloride Carbon Dioxide Anion Gap BUN Creatinine Estim Creat Clear Calc Est GFR (MDRD) Af Amer Est GFR (MDRD) Non-Af BUN/Creatinine Ratio Glucose Hemoglobin A1c Calcium Triglycerides Cholesterol LDL Cholesterol VLDL Cholesterol HDL Cholesterol Vancomycin Trough 7.2 MRSA (PCR) Negative Microbiology 02/03/19 23:45 Blood Culture (Wb) - Arm Right Blood Culture - Preliminary No growth in 48 hours. 02/03/19 23:30 Blood Culture (Wb) - Anticubital Left Blood Culture - Preliminary No growth in 48 hours. 02/04/19 09:45 Transtracheal Aspirate Gram Stain - Final 02/04/19 09:45 Transtracheal Aspirate Respiratory Culture - Preliminary Gram positive bipin 02/04/19 01:25 Urine Catheter - Catheter Urine Culture - Preliminary Culture exhibits no growth. Clinical Impression(s) from Imaging Studies Chest X-Ray 02/03/19 01:05 IMPRESSION: Interval placement of tracheostomy tube. Interval resolution of interstitial lung opacities without focal lung consolidation. Electronically Signed: Franky Franco, at 1:42 EST Tel , Service support , Brain MRI 02/04/19 05:55 IMPRESSION: Involutional and postoperative changes of the brain, as described above. 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 No acute hemorrhage. Electronically Signed: Kody Linder MD at 12:01 EST , Service support , ADDENDUM: 02/04/19 1211 IMPRESSION: Involutional and postoperative changes of the brain, as described above. 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 No acute hemorrhage. N.B. : The above information has been verbally conveyed by Kody Linder MD to Dara Olson RN, on 02/04/2019 12:04:57 (ET). Electronically Signed: Kody Linder MD at 12:01 EST , Service support , Brain CT 02/04/19 23:32 IMPRESSION: Interval development of encephalomalacic changes within the left parietal-occipital region, and bilateral cerebellar hemispheres. Also likely prior infarct in the left maciel. No definite territorial infarct however evaluation is limited due to encephalomalacic changes. If clinical symptomatology persists consider further evaluation with MRI brain.. Interval left posterior fossa craniotomy. Electronically Signed: Franky Franco, at 1:38 EST Tel , Service support , Chest X-Ray 02/05/19 11:24 IMPRESSION: Stable chest with no acute superimposed finding. Electronically Signed: Petros Julio MD at 14:00 EST , Service support , Current Medications Acetaminophen (Tylenol Liquid) 160 mg GT Q6H PRN PRN PRN Reason: Pain Score 1-10/10/FEVER Albuterol/Ipratropium (Duoneb) 3 ml INHALATION Q4H PRN PRN PRN Reason: Breathing Last Admin: 02/05/19 20:14 Dose: 3 ml Documented by: Aspirin (Aspirin, Baby) 81 mg GT DAILY [facility] Last Admin: 02/05/19 09:54 Dose: 81 mg Documented by: Atorvastatin Calcium (Lipitor) 40 mg GT QHS [facility] Last Admin: 02/05/19 23:02 Dose: 40 mg Documented by: Bisacodyl (Dulcolax) 10 mg RECTAL DAILY PRN PRN Reason: Constipation Clopidogrel Bisulfate (Plavix) 75 mg GT DAILY [facility] Last Admin: 02/05/19 09:54 Dose: 75 mg Documented by: Docusate Sodium (Colace Syrup) 50 mg GT BID PRN PRN PRN Reason: Constipation Enoxaparin Sodium (Lovenox) 40 mg SC DAILY [facility] Last Admin: 02/05/19 09:54 Dose: 40 mg Documented by: Enteral Nutritional Formula (Jevity 1.5) 300 ml GT Q6H [facility] Last Admin: 02/06/19 03:59 Dose: 300 ml Documented by: Famotidine (Pepcid) 20 mg GT BID [facility] Last Admin: 02/05/19 23:02 Dose: 20 mg Documented by: Glucagon () 1 mg IM .X1 PRN PRN Reason: Hypoglycemia Guaifenesin (Robitussin) 10 ml GT Q4H PRN PRN PRN Reason: COUGH Haloperidol Lactate (Haldol) 2 mg IV Q6H PRN PRN PRN Reason: AGITATION Last Admin: 02/05/19 18:46 Dose: 2 mg Documented by: Dextrose (Dextrose 10%-Water) 250 mls @ 999 mls/hr IV .Q16M PRN; Protocol PRN Reason: HYPOGLYCEMIA Sodium Chloride () 250 mls @ 15 mls/hr IV .[id number] PRN PRN Reason: Saline Flush Sodium Chloride () 250 mls @ 15 mls/hr IV .[id number] PRN PRN Reason: Additional IVPB Infusion Meropenem 1 gm/ Sodium (Chloride) 120 mls @ 33 mls/hr IV Q8 [facility] Last Admin: 02/06/19 06:25 Dose: 33 mls/hr Documented by: Vancomycin IV Pharmacy to Dose (1 ea/ Sodium Chloride) 500 mls @ 250 mls/hr IV X1 PRN; Protocol PRN Reason: Rx to Dose Vancomycin HCl 750 mg/ Sodium (Chloride) 265 mls @ 250 mls/hr IV Q12H [facility] Melatonin (Melatonin) 5 mg GT QHS [facility] Last Admin: 02/05/19 23:02 Dose: 5 mg Documented by: Polyethylene Glycol (Miralax) 17 gm GT DAILY PRN PRN Reason: Constipation Quetiapine Fumarate (Seroquel) 50 mg GT BID [facility] Last Admin: 02/05/19 23:08 Dose: 50 mg Documented by: Sodium Chloride (Sodium Chloride 3%) 3 ml INHALATION Q4H PRN PRN PRN Reason: Breathing treatment Sodium Chloride () 10 - 40 ml IV UD PRN PRN Reason: SALINE FLUSH Last Admin: 02/05/19 22:01 Dose: 10 ml Documented by: Medical Necessity - Tobacco Use Smoking Status: Former smoker Assessment/Plan All Active Problems Dissecting hemorrhage of left vertebral artery (Resolved) Hospital-acquired pneumonia (Resolved) Status post emergency tracheotomy for assistance in breathing (Ruled-out) Psychosis (Acute) RECOMMENDATIONS: 1. Continue vancomycin and meropenem, pending infectious work-up. 2. Wean supplemental oxygen to maintain saturations at or above 90%. 3. Management of delirium per hospitalist. IMPRESSIONS: 1. Recent CVA with hemorrhagic transformation requiring tracheostomy Initially consulted over concerns for copious sputum production, which appears to be improving. Plain film chest x-ray did not reveal an acute cardiopulmonary process to suggest pneumonia. The patient may have underlying tracheobronchitis. Cultures have been obtained. Recommend continuing broad-spectrum antimicrobial coverage for now. Antibiotics can be de-escalated, pending infectious work-up. Wean oxygen as tolerated to maintain saturations at or above 90%. 2. Encephalopathy MRI apparently demonstrated findings of a new infarction. Potential pulmonary infectious process is also likely contributing. Defer management to primary team. This note was generated with [employer] dictation software. It may contain incorrect words, spelling, and punctuation that were not noted in checking the note before signing. Code Visit Inpatient E&M: 82342 Subs Hosp L2
[2019-02-06] MEDS: Clopidogrel Bisulfate 75 MG Tablet GT (08:40)
[2019-02-06] MEDS: QUEtiapine 25 MG Tablet 50 MG GT ×2 (08:40→22:22)
[2019-02-06] MEDS: Famotidine 20 MG Tablet GT ×2 (08:41→22:22)
[2019-02-06] MEDS: Aspirin 81 MG TAB.CHEW GT (08:41)
[2019-02-06] MEDS: Enoxaparin 40 MG/0.4 ML Syringe SC (08:58)
[2019-02-06] MEDS: 0.9% Saline Lock 10 ML Syringe IV ×2 (13:15→22:20)
[2019-02-06] MEDS: Ipratropium/Albuterol Sulfate 3 ML AMPUL.NEB INHALATION (20:06)
--- NOTE | 2019-02-06 21:47 | PCM.PN.HOSP ---
Patient Problems: Active and Suspected Problems Psychosis (Acute) Reason for Visit: Follow-up on Acute CVA Subjective: Patient seen and examined. He remains delirious. Sedated at time of exam. Objective: Physical exam: General: Sedated HEENT: Atraumatic, PERRLA, EOMI, Normocephalic Oral: Dry Mucosa Neck: Supple, No JVD, Negative Carotid Bruits Lungs: Diminished, Rhonchi Cardiovascular: Regular rate, Regular Rhythm, Normal S1, Normal S2, No murmurs Abdomen: Bowel Sounds Present, Soft, Non Tender, Non-Distended, - - PEG tube in place Extremities: No clubbing, No cyanosis, No edema, Capillary Refill Less than 3 Seconds Skin: No rashes, No breakdown Musculoskeletal: No Tenderness to Palpation of Joints or Extremities Neurological: Cranial nerves II-XII grossly intact Psych/Mental Status: Sedated Vitals/I&O's: Vital Signs Temp Pulse Resp BP Pulse Ox 97.4 F L 92 18 139/87 H 97 02/06/19 17:00 02/06/19 20:08 02/06/19 20:08 02/06/19 17:00 02/06/19 17:00 Oxygen Flow Rate (L/min) 12 Oxygen Delivery Method Trach Collar Weight: 70.4 kg Body Mass Index (BMI) 24.3 Finger Stick Blood Glucose 132 Intake and Output for Last 24 Hours 02/04/19 02/05/19 02/06/19 23:59 23:59 23:59 Intake Total 2640 / 3180 4050 / 4590 3406.65 / 3406.65 Balance 2640 / 3180 4050 / 4590 3406.65 / 3406.65 Microbiology Past 72 Hours 02/04/19 09:45 Transtracheal Aspirate Gram Stain - Final 02/04/19 09:45 Transtracheal Aspirate Respiratory Culture - Preliminary Gram positive bipin 02/04/19 01:25 Urine Catheter - Catheter Urine Culture - Final Culture exhibits no growth. 02/03/19 23:45 Blood Culture (Wb) - Arm Right Blood Culture - Preliminary No growth in 48 hours. 02/03/19 23:30 Blood Culture (Wb) - Anticubital Left Blood Culture - Preliminary No growth in 48 hours. Laboratory Results 02/06/19 02:40: Vancomycin Trough 7.2 Current Medications Acetaminophen (Tylenol Liquid) 160 mg GT Q6H PRN PRN PRN Reason: Pain Score 1-10/10/FEVER Albuterol/Ipratropium (Duoneb) 3 ml INHALATION Q4H PRN PRN PRN Reason: Breathing Last Admin: 02/06/19 20:06 Dose: 3 ml Documented by: Aspirin (Aspirin, Baby) 81 mg GT DAILY [facility] Last Admin: 02/06/19 08:41 Dose: 81 mg Documented by: Atorvastatin Calcium (Lipitor) 40 mg GT QHS [facility] Last Admin: 02/05/19 23:02 Dose: 40 mg Documented by: Bisacodyl (Dulcolax) 10 mg RECTAL DAILY PRN PRN Reason: Constipation Clopidogrel Bisulfate (Plavix) 75 mg GT DAILY [facility] Last Admin: 02/06/19 08:40 Dose: 75 mg Documented by: Docusate Sodium (Colace Syrup) 50 mg GT BID PRN PRN PRN Reason: Constipation Enoxaparin Sodium (Lovenox) 40 mg SC DAILY [facility] Last Admin: 02/06/19 08:58 Dose: 40 mg Documented by: Enteral Nutritional Formula (Jevity 1.5) 150 ml GT Q6H [facility] Famotidine (Pepcid) 20 mg GT BID [facility] Last Admin: 02/06/19 08:41 Dose: 20 mg Documented by: Glucagon () 1 mg IM .X1 PRN PRN Reason: Hypoglycemia Guaifenesin (Robitussin) 10 ml GT Q4H PRN PRN PRN Reason: COUGH Haloperidol Lactate (Haldol) 2 mg IV Q6H PRN PRN PRN Reason: AGITATION Last Admin: 02/05/19 18:46 Dose: 2 mg Documented by: Dextrose (Dextrose 10%-Water) 250 mls @ 999 mls/hr IV .Q16M PRN; Protocol PRN Reason: HYPOGLYCEMIA Sodium Chloride () 250 mls @ 15 mls/hr IV .[id number] PRN PRN Reason: Saline Flush Sodium Chloride () 250 mls @ 15 mls/hr IV .[id number] PRN PRN Reason: Additional IVPB Infusion Meropenem 1 gm/ Sodium (Chloride) 120 mls @ 33 mls/hr IV Q8 [facility] Last Infusion: 02/06/19 16:33 Dose: Infused Documented by: Vancomycin IV Pharmacy to Dose (1 ea/ Sodium Chloride) 500 mls @ 250 mls/hr IV X1 PRN; Protocol PRN Reason: Rx to Dose Vancomycin HCl 750 mg/ Sodium (Chloride) 265 mls @ 250 mls/hr IV Q12H [facility] Last Infusion: 02/06/19 17:42 Dose: Infused Documented by: Melatonin (Melatonin) 5 mg GT QHS [facility] Last Admin: 02/05/19 23:02 Dose: 5 mg Documented by: Polyethylene Glycol (Miralax) 17 gm GT DAILY PRN PRN Reason: Constipation Quetiapine Fumarate (Seroquel) 50 mg GT BID [facility] Last Admin: 02/06/19 08:40 Dose: 50 mg Documented by: Sodium Chloride (Sodium Chloride 3%) 3 ml INHALATION Q4H PRN PRN PRN Reason: Breathing treatment Sodium Chloride () 10 - 40 ml IV UD PRN PRN Reason: SALINE FLUSH Last Admin: 02/06/19 13:15 Dose: 10 ml Documented by: STROKE Vital Signs/Narrative: Vital Signs Pulse Resp 02/06/19 20:08 92 18 Medical Necessity - Tobacco Use Smoking Status: Former smoker Assessment/Plan All Active Problems Dissecting hemorrhage of left vertebral artery (Resolved) Hospital-acquired pneumonia (Resolved) Status post emergency tracheotomy for assistance in breathing (Ruled-out) Psychosis (Acute) 1. Acute delirium, secondary to acute CVA Patient is intermittently agitated, in soft restraints Will continue on Seroquel and Haldol PRN 2. 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 Bilateral carotid Doppler ultrasounds are unremarkable Patient is on aspirin, Plavix, high-dose statin Telemetry shows normal sinus rhythm, no A. fib seen 2D echo showed no valvular lesions, bubble study negative HgbA1c is 5.6, total cholesterol 78, LDL 23, HDL is 40 We will plan for Holter monitor on discharge 3. Gram positive bipin pneumonia, negative chest X-ray on admission Blood cultures are negative, On IV vancomycin and meropenem Pulmonology following 4. Hypertension, controlled, off home Meds allowing for permissive hypertension Will resume meds tomorrow. 5. DVT PPx- Lovenox SC Code Visit Inpatient E&M: 23586 Subs Hosp L2
[2019-02-06] MEDS: MELATONIN 10 MG TABLET 5 MG GT (22:22)
[2019-02-06] MEDS: Atorvastatin Calcium 40 MG Tablet GT (22:22)
[2019-02-06] MEDS: Jevity 1.5. 1,000 ML Bottle 150 ML GT (22:50)
[2019-02-07] VITALS (8 sets, daily range): BP systolic 127–145; BP diastolic 61–83; PULSE 79–99; RESP 15–20; TEMP 36.7–37.2; O2SAT 95–99
[2019-02-07] MEDS: Jevity 1.5. 1,000 ML Bottle 150 ML GT ×4 (03:59→22:46)
--- NOTE | 2019-02-07 05:02 | PN_ITS ---
Patient Problems: Active and Suspected Problems Psychosis (Acute) Subjective: The patient was seen and examined at the bedside this morning. Events from the last 24 hours have been reviewed. The patient is currently afebrile, hemodynamically stable and maintaining appropriate oxygen saturations on 40% trach collar. The patient was intermittently agitated overnight and has had a great deal of thick secretions, which he has been able to cough up. Objective: The patient's most recent lab work, culture data and imaging studies have all been personally reviewed. Surface echocardiogram revealed normal LV size with an ejection fraction of 65% and stage I diastolic dysfunction. 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 Transtracheal aspirate demonstrated 2+ gram-positive rods. - Physical Exam Vitals/I&O's: Vital Signs Temp Pulse Resp BP Pulse Ox 98.1 F 87 15 145/79 H 99 02/07/19 01:00 02/07/19 01:00 02/07/19 01:00 02/07/19 01:00 02/07/19 01:00 Oxygen Flow Rate (L/min) 12 Oxygen Delivery Method Trach Collar Weight: 155 lb 3.287 oz Body Mass Index (BMI) 24.3 Finger Stick Blood Glucose 132 Intake and Output for Last 24 Hours 02/05/19 02/06/19 02/07/19 23:59 23:59 23:59 Intake Total 4050 / 4590 3796.65 / 3796.65 120 / 120 Balance 4050 / 4590 3796.65 / 3796.65 120 / 120 General: Alert, Confused, Disoriented HEENT: Atraumatic, Normocephalic Oral: Dry Mucosa Neck: Supple, No Nodes, Trachea Midline Lungs: Diminished, Rhonchi Cardiovascular: Regular rate, Regular Rhythm, Normal S1, Normal S2, No murmurs Abdomen: Bowel Sounds Present, Soft, Non Tender, - - PEG site intact Extremities: No clubbing, No cyanosis, No edema Skin: - - No significant change from previous Musculoskeletal: No Tenderness to Palpation of Joints or Extremities Lymphatic: No Cervical, Supraclavicular, or Inguinal Adenopathy Neurological: Cranial nerves II-XII grossly intact, - - A bit lethargic this morning Psych/Mental Status: Flat Affect Labs (Last 48 Hours) 02/05/19 02/05/19 02/05/19 05:45 05:45 05:45 WBC 7.5 RBC 3.39 L Hgb 10.2 L Hct 31.5 L MCV 92.9 MCH 30.1 MCHC 32.4 RDW Std Deviation 48.6 H RDW Coeff of Dereck 14.3 Plt Count 166 MPV 9.3 Sodium 138 Potassium 3.7 Chloride 103 Carbon Dioxide 33.0 H Anion Gap 2 L BUN 10 Creatinine 0.47 L Estim Creat Clear Calc 56.00 Est GFR (MDRD) Af Amer 223 Est GFR (MDRD) Non-Af 185 BUN/Creatinine Ratio 21.5 H Glucose 111 H Hemoglobin A1c 5.6 Calcium 7.6 L Triglycerides 77 Cholesterol 78 LDL Cholesterol 23 VLDL Cholesterol 15 HDL Cholesterol 40 Vancomycin Trough MRSA (PCR) 02/05/19 02/06/19 12:10 02:40 WBC RBC Hgb Hct MCV MCH MCHC RDW Std Deviation RDW Coeff of Dereck Plt Count MPV Sodium Potassium Chloride Carbon Dioxide Anion Gap BUN Creatinine Estim Creat Clear Calc Est GFR (MDRD) Af Amer Est GFR (MDRD) Non-Af BUN/Creatinine Ratio Glucose Hemoglobin A1c Calcium Triglycerides Cholesterol LDL Cholesterol VLDL Cholesterol HDL Cholesterol Vancomycin Trough 7.2 MRSA (PCR) Negative Microbiology 02/04/19 09:45 Transtracheal Aspirate Gram Stain - Final 02/04/19 09:45 Transtracheal Aspirate Respiratory Culture - Preliminary Gram positive bipin 02/04/19 01:25 Urine Catheter - Catheter Urine Culture - Final Culture exhibits no growth. 02/03/19 23:45 Blood Culture (Wb) - Arm Right Blood Culture - Preliminary No growth in 48 hours. 02/03/19 23:30 Blood Culture (Wb) - Anticubital Left Blood Culture - Prel iminary No growth in 48 hours. Clinical Impression(s) from Imaging Studies Chest X-Ray 02/03/19 01:05 IMPRESSION: Interval placement of tracheostomy tube. Interval resolution of interstitial lung opacities without focal lung consolidation. Electronically Signed: Franky Franco, at 1:42 EST Tel , Service support , Brain MRI 02/04/19 05:55 IMPRESSION: Involutional and postoperative changes of the brain, as described above. 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 No acute hemorrhage. Electronically Signed: Kody Linder MD at 12:01 EST , Service support , ADDENDUM: 02/04/19 1211 IMPRESSION: Involutional and postoperative changes of the brain, as described above. 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 No acute hemorrhage. N.B. : The above information has been verbally conveyed by Kody Linder MD to Dara Olson RN, on 02/04/2019 12:04:57 (ET). Electronically Signed: Kody Linder MD at 12:01 EST , Service support , Brain CT 02/04/19 23:32 IMPRESSION: Interval development of encephalomalacic changes within the left parietal-occipital region, and bilateral cerebellar hemispheres. Also likely prior infarct in the left maciel. No definite territorial infarct however evaluation is limited due to encephalomalacic changes. If clinical symptomatology persists consider further evaluation with MRI brain.. Interval left posterior fossa craniotomy. Electronically Signed: Franky Franco, at 1:38 EST Tel , Service support , Chest X-Ray 02/05/19 11:24 IMPRESSION: Stable chest with no acute superimposed finding. Electronically Signed: Petros Julio MD at 14:00 EST , Service support , Current Medications Acetaminophen (Tylenol Liquid) 160 mg GT Q6H PRN PRN PRN Reason: Pain Score 1-10/10/FEVER Albuterol/Ipratropium (Duoneb) 3 ml INHALATION Q4H PRN PRN PRN Reason: Breathing Last Admin: 02/06/19 20:06 Dose: 3 ml Documented by: Aspirin (Aspirin, Baby) 81 mg GT DAILY [facility] Last Admin: 02/06/19 08:41 Dose: 81 mg Documented by: Atorvastatin Calcium (Lipitor) 40 mg GT QHS [facility] Last Admin: 02/06/19 22:22 Dose: 40 mg Documented by: Bisacodyl (Dulcolax) 10 mg RECTAL DAILY PRN PRN Reason: Constipation Clopidogrel Bisulfate (Plavix) 75 mg GT DAILY [facility] Last Admin: 02/06/19 08:40 Dose: 75 mg Documented by: Docusate Sodium (Colace Syrup) 50 mg GT BID PRN PRN PRN Reason: Constipation Enoxaparin Sodium (Lovenox) 40 mg SC DAILY [facility] Last Admin: 02/06/19 08:58 Dose: 40 mg Documented by: Enteral Nutritional Formula (Jevity 1.5) 150 ml GT Q6H [facility] Last Admin: 02/07/19 03:59 Dose: 150 ml Documented by: Famotidine (Pepcid) 20 mg GT BID [facility] Last Admin: 02/06/19 22:22 Dose: 20 mg Documented by: Glucagon () 1 mg IM .X1 PRN PRN Reason: Hypoglycemia Guaifenesin (Robitussin) 10 ml GT Q4H PRN PRN PRN Reason: COUGH Haloperidol Lactate (Haldol) 2 mg IV Q6H PRN PRN PRN Reason: AGITATION Last Admin: 02/05/19 18:46 Dose: 2 mg Documented by: Dextrose (Dextrose 10%-Water) 250 mls @ 999 mls/hr IV .Q16M PRN; Protocol PRN Reason: HYPOGLYCEMIA Sodium Chloride () 250 mls @ 15 mls/hr IV .[id number] PRN PRN Reason: Saline Flush Sodium Chloride () 250 mls @ 15 mls/hr IV .[id number] PRN PRN Reason: Additional IVPB Infusion Meropenem 1 gm/ Sodium (Chloride) 120 mls @ 33 mls/hr IV Q8 [facility] Last Infusion: 02/07/19 01:48 Dose: Infused Documented by: Vancomycin IV Pharmacy to Dose (1 ea/ Sodium Chloride) 500 mls @ 250 mls/hr IV X1 PRN; Protocol PRN Reason: Rx to Dose Vancomycin HCl 750 mg/ Sodium (Chloride) 265 mls @ 250 mls/hr IV Q12H [facility] Last Admin: 02/07/19 03:48 Dose: 250 mls/hr Documented by: Melatonin (Melatonin) 5 mg GT QHS [facility] Last Admin: 02/06/19 22:22 Dose: 5 mg Documented by: Polyethylene Glycol (Miralax) 17 gm GT DAILY PRN PRN Reason: Constipation Quetiapine Fumarate (Seroquel) 50 mg GT BID [facility] Last Admin: 02/06/19 22:22 Dose: 50 mg Documented by: Sodium Chloride (Sodium Chloride 3%) 3 ml INHALATION Q4H PRN PRN PRN Reason: Breathing treatment Sodium Chloride () 10 - 40 ml IV UD PRN PRN Reason: SALINE FLUSH Last Admin: 02/06/19 22:20 Dose: 10 ml Documented by: Medical Necessity - Tobacco Use Smoking Status: Former smoker Assessment/Plan All Active Problems Dissecting hemorrhage of left vertebral artery (Resolved) Hospital-acquired pneumonia (Resolved) Status post emergency tracheotomy for assistance in breathing (Ruled-out) Psychosis (Acute) RECOMMENDATIONS: 1. Continue vancomycin and meropenem, pending finalized infectious work-up. 2. Wean supplemental oxygen to maintain saturations at or above 90%. 3. Continue aggressive bronchopulmonary hygiene. 4. Management of delirium per hospitalist. IMPRESSIONS: 1. Recent CVA with hemorrhagic transformation requiring tracheostomy Initially consulted over concerns for copious sputum production, which appears to be improving. Plain film chest x-ray did not reveal an acute cardiopulmonary process to suggest pneumonia. The patient may have underlying tracheobronchitis. Cultures have been obtained. Recommend continuing broad- spectrum antimicrobial coverage for now. Antibiotics can be de-escalated, pending infectious work-up. Wean oxygen as tolerated to maintain saturations at or above 90% 2. Encephalopathy MRI apparently demonstrated findings of a new infarction. Potential pulmonary infectious process is also likely contributing. Defer management to primary team. This note was generated with [employer] dictation software. It may contain incorrect words, spelling, and punctuation that were not noted in checking the note before signing. Code Visit Inpatient E&M: 95399 Subs Hosp L2
[2019-02-07 07:05] LABS: ALB/GLOB Ratio 0.6 RATIO (0.9-2.4); AST(SGOT) 21 U/L (15-37); Alanine Aminotransfer ALT/SGPT 23 U/L (16-61); Albumin, Serum 2.5 g/dL (3.2-5.0); Alkaline Phosphatase 103 U/L (45-117); Anion Gap 5 (5-15); BUN 10 mg/dL (7-18); BUN/Creat Ratio 18.2 RATIO (10-20); Chloride 102 mmol/L (98-107); Creatinine, Serum 0.55 mg/dL (0.70-1.30); EST Glomerular Filtration Rate 153 mL/min (>60); Est Glom Filt Rate - Afr Amer 185 mL/min (>60); Globulin 4.3 g/dL (2.2-4.2); Glucose 134 mg/dL (74-106); Potassium 3.8 mmol/L (3.5-5.1); Protein, Total 6.8 g/dL (6.4-8.2); Sodium Level 138 mmol/L (136-145)
[2019-02-07] MEDS: Famotidine 20 MG Tablet GT ×2 (09:28→21:07)
[2019-02-07] MEDS: Clopidogrel Bisulfate 75 MG Tablet GT (09:29)
[2019-02-07] MEDS: QUEtiapine 25 MG Tablet 50 MG GT ×2 (09:29→21:07)
[2019-02-07] MEDS: Enoxaparin 40 MG/0.4 ML Syringe SC (09:29)
[2019-02-07] MEDS: Aspirin 81 MG TAB.CHEW GT (09:29)
[2019-02-07] MEDS: Acetaminophen 160 MG/5 ML UDC GT ×2 (12:20→18:09)
[2019-02-07] MEDS: Haloperidol Lactate 5 MG/ML Vial 2 MG IV ×2 (15:38→23:43)
--- NOTE | 2019-02-07 16:02 | CPS ---
PATIENTS CONCERNED HE HAS BEEN VERY RESTLESS COMPARED TO WHEN HE WAS IN TCU. PATIENTS REQUESTING TO TRY SPEAKING VALVE TO SEE WHAT HE WANTS. VITALS AND SPO2 WERE MONITORED THROUGHOUT WHEN SPEAKING VALVE WAS PLACED. SPEAKING VALVE ON ABOUT 2 MINS BEFORE PATIENTS SATURATIONS BEGAN TO DROP. PATIENT IMMEDIATELY PLACED BACK ON COOL AEROSAL AND INCREASED TO 50%. TRACHEAL SUCTIONING WAS DONE WELL. TOOK PATIENT AWHILE TO RECOVER TO SATURATIONS GREATER THAN 90%.
--- NOTE | 2019-02-07 21:00 | NURSING ---
Trach care provided, inner cannula replaced.
[2019-02-07] MEDS: Atorvastatin Calcium 40 MG Tablet GT (21:07)
[2019-02-07] MEDS: MELATONIN 10 MG TABLET 5 MG GT (21:07)
[2019-02-07] MEDS: 0.9% Saline Lock 10 ML Syringe IV (23:43)
[2019-02-08] VITALS (8 sets, daily range): BP systolic 96–155; BP diastolic 59–92; PULSE 73–100; RESP 14–16; TEMP 36.7–37.1; O2SAT 97–100
--- NOTE | 2019-02-08 02:00 | NURSING ---
Deep suction of trach performed and trach gauze changed d/t audible rhonchi and mucous saturation of old gauze.
--- NOTE | 2019-02-08 04:04 | PCM.RX.CS ---
Consult Pharmacy has been consulted to manage selected antiobiotic: Vancomycin Type of Consult: Follow-up Suspected Infection: Pneumonia Prior Doses of Antibiotics Received/Current Regimen: Medications Vancomycin HCl 750 mg/ Sodium (Chloride) 265 mls @ 250 mls/hr IV Q12H [facility] Last Admin: 02/08/19 03:37 Dose: 250 mls/hr Labs: Sodium 138 mmol/L (136-145) 02/07/19 06:31 Potassium 3.8 mmol/L (3.5-5.1) 02/07/19 06:31 Chloride 102 mmol/L (98-107) 02/07/19 06:31 Carbon Dioxide 31.0 mmol/L (21.0-32.0) 02/07/19 06:31 Anion Gap 5 (5-15) 02/07/19 06:31 BUN 10 mg/dL (7-18) 02/07/19 06:31 Creatinine 0.55 mg/dL (0.70-1.30) L 02/07/19 06:31 Est GFR (MDRD) Af Amer 185 mL/min (>60) 02/07/19 06:31 Est GFR (MDRD) Non-Af 153 mL/min (>60) 02/07/19 06:31 BUN/Creatinine Ratio 18.2 RATIO (10-20) 02/07/19 06:31 Glucose 134 mg/dL (74-106) H 02/07/19 06:31 Vancomycin Trough 13.0 ug/mL (5.0-15.0) 02/08/19 02:30 Microbiology: Microbiology 02/04/19 09:45 Transtracheal Aspirate Gram Stain - Final 02/04/19 09:45 Transtracheal Aspirate Respiratory Culture - Final Corynebacterium striatum 02/04/19 01:25 Urine Catheter - Catheter Urine Culture - Final Culture exhibits no growth. 02/03/19 23:45 Blood Culture (Wb) - Arm Right Blood Culture - Preliminary No growth in 48 hours. 02/03/19 23:30 Blood Culture (Wb) - Anticubital Left Blood Culture - Preliminary No growth in 48 hours. Weight used for dosin.4 kg Estimated Creatinine Clearance: 56 Goal Trough: 10-15 mcg/mL Pharmacy Plan for Drug Dosing: Trough drawn was 13.0, within target range. However, previous dose had been hung almost 3 hours late. The trough reflected an 8.66-hour level, so will re-draw a trough prior to next dose to monitor. Pharmacy Service will continue to monitor and adjust dosing as required. Follow-Up Labs: Trough Vancomycin Labs to be done on [date and time ordered]: 02/08/19 @8815
[2019-02-08] MEDS: Jevity 1.5. 1,000 ML Bottle 150 ML GT ×2 (05:02→10:16)
[2019-02-08] MEDS: Acetaminophen 160 MG/5 ML UDC GT ×2 (05:16→13:10)
--- NOTE | 2019-02-08 06:21 | NURSING ---
Pt had emesis and anxiety, corporate legal assistant's assisted in sitting pt upright at side of bed. This RN deep suctioned trach. Pt now resting comfortably in bed.
[2019-02-08] MEDS: 0.9% Saline Lock 10 ML Syringe IV ×3 (06:54→15:02)
[2019-02-08] MEDS: Ondansetron 4 MG/2 ML Vial IV (06:55)
[2019-02-08] MEDS: Polyethylene Glycol 3350 17 GM PACKET GT (07:54)
--- NOTE | 2019-02-08 09:33 | PCM.PN.PUL ---
Patient Problems: Active and Suspected Problems Psychosis (Acute) Subjective: Patient did okay overnight. Patient did receive Haldol secondary to agitation. Nursing and respiratory are reporting improvement in tracheal secretions. Patient was unable to provide much history at this time. - Physical Exam Vitals/I&O's: Vital Signs Temp Pulse Resp BP Pulse Ox 36.7 C 81 16 123/71 H 99 02/08/19 09:00 02/08/19 09:00 02/08/19 09:00 02/08/19 09:00 02/08/19 09:00 Oxygen Flow Rate (L/min) 12 Oxygen Delivery Method Trach Collar Weight: 70.4 kg Body Mass Index (BMI) 24.3 Finger Stick Blood Glucose 132 Intake and Output for Last 24 Hours 02/06/19 02/07/19 02/08/19 23:59 23:59 23:59 Intake Total 3796.65 / 3796.65 2150 / 2150 805.75 / 805.75 Balance 3796.65 / 3796.65 2150 / 2150 805.75 / 805.75 General: - - Sedated. Not following any commands. No accessory muscle use noted. HEENT: Atraumatic, PERRLA, EOMI, - - Trach is clean, dry and intact Oral: Moist Mucosa, No Gingival or Mucosal Lesions/ Ulcerations Neck: Supple, No JVD, No Nodes, Trachea Midline, - - Trach collar in place Lungs: No wheeze, No rales, Diminished, Rhonchi - Scattered Cardiovascular: Regular rate, Regular Rhythm, Normal S1, Normal S2, No murmurs, No rub noted, No Gallop Abdomen: Bowel Sounds Present, Soft, Non Tender, Non-Distended Extremities: No clubbing, No cyanosis, No edema Skin: No rashes, No breakdown Musculoskeletal: No Tenderness to Palpation of Joints or Extremities Lymphatic: No Cervical, Supraclavicular, or Inguinal Adenopathy Neurological: Neuro grossly intact - Lethargic at this time. Psych/Mental Status: Flat Affect Microbiology Past 72 Hours 02/04/19 09:45 Transtracheal Aspirate Gram Stain - Final 02/04/19 09:45 Transtracheal Aspirate Respiratory Culture - Final Corynebacterium striatum 02/04/19 01:25 Urine Catheter - Catheter Urine Culture - Final Culture exhibits no growth. 02/03/19 23:45 Blood Culture (Wb) - Arm Right Blood Culture - Preliminary No growth in 48 hours. 02/03/19 23:30 Blood Culture (Wb) - Anticubital Left Blood Culture - Preliminary No growth in 48 hours. Laboratory Results 02/08/19 02:30: Vancomycin Trough 13.0 Current Medications Acetaminophen (Tylenol Liquid) 160 mg GT Q6H PRN PRN PRN Reason: Pain Score 1-10/10/FEVER Last Admin: 02/08/19 05:16 Dose: 160 mg Documented by: Albuterol/Ipratropium (Duoneb) 3 ml INHALATION Q4H PRN PRN PRN Reason: Breathing Last Admin: 02/06/19 20:06 Dose: 3 ml Documented by: Aspirin (Aspirin, Baby) 81 mg GT DAILY [facility] Last Admin: 02/07/19 09:29 Dose: 81 mg Documented by: Atorvastatin Calcium (Lipitor) 40 mg GT QHS [facility] Last Admin: 02/07/19 21:07 Dose: 40 mg Documented by: Bisacodyl (Dulcolax) 10 mg RECTAL DAILY PRN PRN Reason: Constipation Clopidogrel Bisulfate (Plavix) 75 mg GT DAILY [facility] Last Admin: 02/07/19 09:29 Dose: 75 mg Documented by: Docusate Sodium (Colace Syrup) 50 mg GT BID PRN PRN PRN Reason: Constipation Enoxaparin Sodium (Lovenox) 40 mg SC DAILY [facility] Last Admin: 02/07/19 09:29 Dose: 40 mg Documented by: Enteral Nutritional Formula (Jevity 1.5) 150 ml GT Q6H [facility] Last Admin: 02/08/19 05:02 Dose: 150 ml Documented by: Famotidine (Pepcid) 20 mg GT BID [facility] Last Admin: 02/07/19 21:07 Dose: 20 mg Documented by: Glucagon () 1 mg IM .X1 PRN PRN Reason: Hypoglycemia Guaifenesin (Robitussin) 10 ml GT Q4H PRN PRN PRN Reason: COUGH Haloperidol Lactate (Haldol) 2 mg IV Q6H PRN PRN PRN Reason: AGITATION Last Admin: 02/07/19 23:43 Dose: 2 mg Documented by: Dextrose (Dextrose 10%-Water) 250 mls @ 999 mls/hr IV .Q16M PRN; Protocol PRN Reason: HYPOGLYCEMIA Sodium Chloride () 250 mls @ 15 mls/hr IV .[id number] PRN PRN Reason: Saline Flush Last Infusion: 02/08/19 06:18 Dose: 0 mls/hr Documented by: Sodium Chloride () 250 mls @ 15 mls/hr IV .[id number] PRN PRN Reason: Additional IVPB Infusion Vancomycin IV Pharmacy to Dose (1 ea/ Sodium Chloride) 500 mls @ 250 mls/hr IV X1 PRN; Protocol PRN Reason: Rx to Dose Vancomycin HCl 750 mg/ Sodium (Chloride) 265 mls @ 250 mls/hr IV Q12H [facility] Last Infusion: 02/08/19 05:11 Dose: Infused Documented by: Melatonin (Melatonin) 5 mg GT QHS [facility] Last Admin: 02/07/19 21:07 Dose: 5 mg Documented by: Ondansetron HCl (Zofran) 4 mg IV Q8H PRN PRN PRN Reason: NAUSEA/VOMITING Last Admin: 02/08/19 06:55 Dose: 4 mg Documented by: Polyethylene Glycol (Miralax) 17 gm GT DAILY PRN PRN Reason: Constipation Last Admin: 02/08/19 07:54 Dose: 17 gm Documented by: Quetiapine Fumarate (Seroquel) 50 mg GT BID [facility] Last Admin: 02/07/19 21:07 Dose: 50 mg Documented by: Sodium Chloride (Sodium Chloride 3%) 3 ml INHALATION Q4H PRN PRN PRN Reason: Breathing treatment Sodium Chloride () 10 - 40 ml IV UD PRN PRN Reason: SALINE FLUSH Last Admin: 02/08/19 06:56 Dose: 10 ml Documented by: Medical Necessity - Tobacco Use Smoking Status: Former smoker Assessment/Plan All Active Problems Dissecting hemorrhage of left vertebral artery (Resolved) Hospital-acquired pneumonia (Resolved) Status post emergency tracheotomy for assistance in breathing (Ruled-out) Psychosis (Acute) RECOMMENDATIONS: 1. Continue vancomycin and meropenem, pending finalized infectious work-up. 2. Wean supplemental oxygen to maintain saturations at or above 90%. 3. Continue aggressive bronchopulmonary hygiene. 4. Management of delirium per hospitalist. IMPRESSIONS: 1. Tracheobronchitis secondary to Corynebacterium Patient is growing Corynebacterium from his sputum. Patient has been on broad-spectrum antibiotics for the last 4 days with improvement in secretions. Given tracheostomy, this likely represents a pathologic organism. Consider evaluation for penicillin susceptibility as patient may be difficult to treat with vancomycin alone. Reasonable to discontinue meropenem in the interim from my perspective. Anticipate 7 to 10 days of antibiotics total. 2. Recent CVA with hemorrhagic transformation requiring tracheostomy Initially consulted over concerns for copious sputum production, which appears to be improving. Plain film chest x-ray did not reveal an acute cardiopulmonary process to suggest pneumonia. The patient may have underlying tracheobronchitis. Cultures are growing Corynebacterium. Antibiotics can be de-escalated, pending infectious work-up. Wean oxygen as tolerated to maintain saturations at or above 90% 3. Encephalopathy MRI apparently demonstrated findings of a new infarction. Potential pulmonary infectious process is also likely contributing. Defer management to primary team. Consider increasing Seroquel as necessary to avoid PRN Haldol. Code Visit Inpatient E&M: 27793 Subs Hosp L2
[2019-02-08] MEDS: Famotidine 20 MG Tablet GT ×2 (10:15→21:10)
[2019-02-08] MEDS: Enoxaparin 40 MG/0.4 ML Syringe SC (10:15)
[2019-02-08] MEDS: Aspirin 81 MG TAB.CHEW GT (10:15)
[2019-02-08] MEDS: Clopidogrel Bisulfate 75 MG Tablet GT (10:15)
[2019-02-08] MEDS: QUEtiapine 25 MG Tablet 50 MG GT ×2 (10:15→21:09)
--- NOTE | 2019-02-08 11:38 | PCM.PN.HOSP ---
Patient Problems: Active and Suspected Problems Psychosis (Acute) Reason for Visit: Follow-up on acute CVA Subjective: Patient was seen and examined. He had an episode of vomiting this morning after being given bolus feeds. KUB is negative. Will switch to continuous tube feeding. Objective: Physical exam: General: Sedated HEENT: Atraumatic, PERRLA, EOMI, Normocephalic Oral: Dry Mucosa Neck: Supple, No JVD, Negative Carotid Bruits Lungs: Diminished, Rhonchi Cardiovascular: Regular rate, Regular Rhythm, Normal S1, Normal S2, No murmurs Abdomen: Bowel Sounds Present, Soft, Non Tender, Non-Distended, - - PEG tube in place Extremities: No clubbing, No cyanosis, No edema, Capillary Refill Less than 3 Seconds Skin: No rashes, No breakdown Musculoskeletal: No Tenderness to Palpation of Joints or Extremities Neurological: Cranial nerves II-XII grossly intact Psych/Mental Status: Sedated Vitals/I&O's: Vital Signs Temp Pulse Resp BP Pulse Ox 98.0 F 81 16 123/71 H 99 02/08/19 09:00 02/08/19 09:00 02/08/19 09:00 02/08/19 09:00 02/08/19 09:00 Oxygen Flow Rate (L/min) 12 Oxygen Delivery Method Trach Collar Weight: 70.4 kg Body Mass Index (BMI) 24.3 Finger Stick Blood Glucose 132 Intake and Output for Last 24 Hours 02/06/19 02/07/19 02/08/19 23:59 23:59 23:59 Intake Total 3796.65 / 3796.65 2150 / 2150 1315.75 / 1315.75 Balance 3796.65 / 3796.65 2150 / 2150 1315.75 / 1315.75 Microbiology Past 72 Hours 02/04/19 09:45 Transtracheal Aspirate Gram Stain - Final 02/04/19 09:45 Transtracheal Aspirate Respiratory Culture - Final Corynebacterium striatum 02/04/19 01:25 Urine Catheter - Catheter Urine Culture - Final Culture exhibits no growth. 02/03/19 23:45 Blood Culture (Wb) - Arm Right Blood Culture - Preliminary No growth in 48 hours. 02/03/19 23:30 Blood Culture (Wb) - Anticubital Left Blood Culture - Preliminary No growth in 48 hours. Laboratory Results 02/08/19 02:30: Vancomycin Trough 13.0 Current Medications Acetaminophen (Tylenol Liquid) 160 mg GT Q6H PRN PRN PRN Reason: Pain Score 1-10/10/FEVER Last Admin: 02/08/19 05:16 Dose: 160 mg Documented by: Albuterol/Ipratropium (Duoneb) 3 ml INHALATION Q4H PRN PRN PRN Reason: Breathing Last Admin: 02/06/19 20:06 Dose: 3 ml Documented by: Aspirin (Aspirin, Baby) 81 mg GT DAILY [facility] Last Admin: 02/08/19 10:15 Dose: 81 mg Documented by: Atorvastatin Calcium (Lipitor) 40 mg GT QHS [facility] Last Admin: 02/07/19 21:07 Dose: 40 mg Documented by: Bisacodyl (Dulcolax) 10 mg RECTAL DAILY PRN PRN Reason: Constipation Clopidogrel Bisulfate (Plavix) 75 mg GT DAILY [facility] Last Admin: 02/08/19 10:15 Dose: 75 mg Documented by: Docusate Sodium (Colace Syrup) 50 mg GT BID PRN PRN PRN Reason: Constipation Enoxaparin Sodium (Lovenox) 40 mg SC DAILY [facility] Last Admin: 02/08/19 10:15 Dose: 40 mg Documented by: Enteral Nutritional Formula (Jevity 1.5) 150 ml GT Q6H [facility] Last Admin: 02/08/19 10:16 Dose: 150 ml Documented by: Famotidine (Pepcid) 20 mg GT BID [facility] Last Admin: 02/08/19 10:15 Dose: 20 mg Documented by: Glucagon () 1 mg IM .X1 PRN PRN Reason: Hypoglycemia Guaifenesin (Robitussin) 10 ml GT Q4H PRN PRN PRN Reason: COUGH Haloperidol Lactate (Haldol) 2 mg IV Q6H PRN PRN PRN Reason: AGITATION Last Admin: 02/07/19 23:43 Dose: 2 mg Documented by: Dextrose (Dextrose 10%-Water) 250 mls @ 999 mls/hr IV .Q16M PRN; Protocol PRN Reason: HYPOGLYCEMIA Sodium Chloride () 250 mls @ 15 mls/hr IV .[id number] PRN PRN Reason: Saline Flush Last Infusion: 02/08/19 06:18 Dose: 0 mls/hr Documented by: Sodium Chloride () 250 mls @ 15 mls/hr IV .[id number] PRN PRN Reason: Additional IVPB Infusion Vancomycin IV Pharmacy to Dose (1 ea/ Sodium Chloride) 500 mls @ 250 mls/hr IV X1 PRN; Protocol PRN Reason: Rx to Dose Vancomycin HCl 750 mg/ Sodium (Chloride) 265 mls @ 250 mls/hr IV Q12H [facility] Last Infusion: 02/08/19 05:11 Dose: Infused Documented by: Melatonin (Melatonin) 5 mg GT QHS [facility] Last Admin: 02/07/19 21:07 Dose: 5 mg Documented by: Ondansetron HCl (Zofran) 4 mg IV Q8H PRN PRN PRN Reason: NAUSEA/VOMITING Last Admin: 02/08/19 06:55 Dose: 4 mg Documented by: Polyethylene Glycol (Miralax) 17 gm GT DAILY PRN PRN Reason: Constipation Last Admin: 02/08/19 07:54 Dose: 17 gm Documented by: Quetiapine Fumarate (Seroquel) 50 mg GT BID [facility] Last Admin: 02/08/19 10:15 Dose: 50 mg Documented by: Sodium Chloride (Sodium Chloride 3%) 3 ml INHALATION Q4H PRN PRN PRN Reason: Breathing treatment Sodium Chloride () 10 - 40 ml IV UD PRN PRN Reason: SALINE FLUSH Last Admin: 02/08/19 06:56 Dose: 10 ml Documented by: STROKE Vital Signs/Narrative: Vital Signs Temp Pulse Resp BP Pulse Ox 02/08/19 09:00 98.0 F 81 16 123/71 H 99 Medical Necessity - Tobacco Use Smoking Status: Former smoker Assessment/Plan All Active Problems Dissecting hemorrhage of left vertebral artery (Resolved) Hospital-acquired pneumonia (Resolved) Status post emergency tracheotomy for assistance in breathing (Ruled-out) Psychosis (Acute) 1. Acute delirium/encephalopathy, secondary to acute CVA Patient is intermittently agitated, in soft restraints Will continue on Seroquel and Haldol PRN 2. 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 Bilateral carotid Doppler ultrasounds are unremarkable Patient is on aspirin, Plavix, high-dose statin Telemetry shows normal sinus rhythm, no A. fib seen 2D echo showed no valvular lesions, bubble study negative HgbA1c is 5.6, total cholesterol 78, LDL 23, HDL is 40 We will plan for Holter monitor on discharge 3. Corynebacterium tracheobronchitis, negative chest X-ray on admission Pneumonia ruled out with 2 negative chest X-ray Blood cultures are negative, On IV vancomycin Pulmonology consulted 4. Hypertension, blood pressure remains low Will continue to monitor off antihypertensives 5. DVT PPx- Lovenox SC Code Visit Inpatient E&M: 92960 Subs Hosp L2
--- NOTE | 2019-02-08 11:45 | RAD_ITS ---
STUDY: X-RAY - ABDOMEN/PELVIS REASON FOR EXAM: Male, 78 years old. VOMITING, S/P PEG TUBE. TECHNIQUE: AP supine and upright views of the abdomen and pelvis. COMPARISON: None. FINDINGS: PEG tube is seen in good position. Normal visualized lung bases. There is an unremarkable bowel gas pattern. There is no demonstrated free abdominal air. The visualized liver, spleen and kidneys are grossly normal in size and morphology. Normal soft tissue structures. There are diffuse degenerative changes of the visualized lumbar spine. RAD/Abdomen Single View (Portable) IMPRESSION: No acute abnormality of the abdomen and pelvis. Electronically Signed: Tony Encarnacion, at 12:42 EST Tel , Service support ,
[2019-02-08 15:19] LABS: Vancomycin, Trough Level 12.6 ug/mL (5.0-15.0)
--- NOTE | 2019-02-08 17:04 | PCM.RX.CS ---
Consult Pharmacy has been consulted to manage selected antiobiotic: Vancomycin Type of Consult: Follow-up Suspected Infection: Pneumonia Prior Doses of Antibiotics Received/Current Regimen: VANCOMYCIN IV 750MG 02/08 @ 0337 AND 02/07 @ 3447 Labs: Sodium 138 mmol/L (136-145) 02/07/19 06:31 Potassium 3.8 mmol/L (3.5-5.1) 02/07/19 06:31 Chloride 102 mmol/L (98-107) 02/07/19 06:31 Carbon Dioxide 31.0 mmol/L (21.0-32.0) 02/07/19 06:31 Anion Gap 5 (5-15) 02/07/19 06:31 BUN 10 mg/dL (7-18) 02/07/19 06:31 Creatinine 0.55 mg/dL (0.70-1.30) L 02/07/19 06:31 Est GFR (MDRD) Af Amer 185 mL/min (>60) 02/07/19 06:31 Est GFR (MDRD) Non-Af 153 mL/min (>60) 02/07/19 06:31 BUN/Creatinine Ratio 18.2 RATIO (10-20) 02/07/19 06:31 Glucose 134 mg/dL (74-106) H 02/07/19 06:31 Vancomycin Trough 12.6 ug/mL (5.0-15.0) 02/08/19 14:15 Microbiology: Microbiology 02/04/19 09:45 Transtracheal Aspirate Gram Stain - Final 02/04/19 09:45 Transtracheal Aspirate Respiratory Culture - Final Corynebacterium striatum 02/04/19 01:25 Urine Catheter - Catheter Urine Culture - Final Culture exhibits no growth. 02/03/19 23:45 Blood Culture (Wb) - Arm Right Blood Culture - Preliminary No growth in 48 hours. 02/03/19 23:30 Blood Culture (Wb) - Anticubital Left Blood Culture - Preliminary No growth in 48 hours. Weight used for dosin.4 kg Estimated Creatinine Clearance: 93 Goal Trough: 10-15 mcg/mL Pharmacy Plan for Drug Dosin. 11 hour trough of 12.6mg/dL within therapeutic range of 10-15 mg/dL 2. Will continue 750mg Q12H 3. Trough scheduled in 4 days Pharmacy Service will continue to monitor and adjust dosing as required. Labs to be done on [date and time ordered]: 02/12/19 @ 7888
[2019-02-08] MEDS: Jevity 1.5 1,000 ML 25 ML GT (17:21)
[2019-02-08] MEDS: MELATONIN 10 MG TABLET 5 MG GT (21:09)
[2019-02-08] MEDS: Atorvastatin Calcium 40 MG Tablet GT (21:10)
[2019-02-08] MEDS: Docusate Sodium 100 MG/10 ML UDC 50 MG GT (23:38)
[2019-02-09] VITALS (10 sets, daily range): BP systolic 113–147; BP diastolic 60–106; PULSE 78–99; RESP 16–18; TEMP 36.6–37.4; O2SAT 94–98
[2019-02-09] MEDS: 0.9% Saline Lock 10 ML Syringe IV ×3 (03:03→22:00)
[2019-02-09] MEDS: Polyethylene Glycol 3350 17 GM PACKET GT (05:25)
--- NOTE | 2019-02-09 08:44 | PCM.PN.PUL ---
Patient Problems: Active and Suspected Problems Psychosis (Acute) Subjective: Patient did okay overnight. Bedside sitter reports behavior much improved compared to previous. Coughing is also reported to be decreasing in frequency. Patient was sedated during my evaluation and was unable to discuss any complaints. - Physical Exam Vitals/I&O's: Vital Signs Temp Pulse Resp BP Pulse Ox 36.9 C 79 16 113/60 98 02/09/19 03:00 02/09/19 06:47 02/09/19 03:00 02/09/19 03:00 02/09/19 03:00 Oxygen Flow Rate (L/min) 12 Oxygen Delivery Method Trach Collar Weight: 70.4 kg Body Mass Index (BMI) 24.3 Finger Stick Blood Glucose 132 Intake and Output for Last 24 Hours 02/07/19 02/08/19 02/09/19 23:59 23:59 23:59 Intake Total 2150 / 2150 3008.75 / 3008.75 1120 / 1120 Balance 2150 / 2150 3008.75 / 3008.75 1120 / 1120 General: Confused, Disoriented, Lethargic HEENT: Atraumatic, PERRLA, EOMI, Normocephalic, - - No scleral icterus or injection noted Oral: Moist Mucosa, No Gingival or Mucosal Lesions/ Ulcerations Neck: Supple, No JVD, No Nodes, Trachea Midline, - - Trach is clean, dry and intact. Lungs: No rhonchi, No wheeze, No rales, Diminished Cardiovascular: Regular rate, Regular Rhythm, Normal S1, Normal S2, No murmurs, No rub noted, No Gallop Abdomen: Bowel Sounds Present, Soft, Non Tender Extremities: No clubbing, No cyanosis, No edema, Capillary Refill Less than 3 Seconds Skin: No rashes, No breakdown Musculoskeletal: No Tenderness to Palpation of Joints or Extremities Lymphatic: No Cervical, Supraclavicular, or Inguinal Adenopathy Neurological: - - Not cooperative with exam. Lethargic. Psych/Mental Status: Flat Affect Microbiology Past 72 Hours 02/04/19 09:45 Transtracheal Aspirate Gram Stain - Final 02/04/19 09:45 Transtracheal Aspirate Respiratory Culture - Final Corynebacterium striatum 02/04/19 01:25 Urine Catheter - Catheter Urine Culture - Final Culture exhibits no growth. 02/03/19 23:45 Blood Culture (Wb) - Arm Right Blood Culture - Preliminary No growth in 48 hours. 02/03/19 23:30 Blood Culture (Wb) - Anticubital Left Blood Culture - Preliminary No growth in 48 hours. Laboratory Results 02/08/19 14:15: Vancomycin Trough 12.6 Current Medications Acetaminophen (Tylenol Liquid) 160 mg GT Q6H PRN PRN PRN Reason: Pain Score 1-10/10/FEVER Last Admin: 02/08/19 13:10 Dose: 160 mg Documented by: Albuterol/Ipratropium (Duoneb) 3 ml INHALATION Q4H PRN PRN PRN Reason: Breathing Last Admin: 02/06/19 20:06 Dose: 3 ml Documented by: Aspirin (Aspirin, Baby) 81 mg GT DAILY [facility] Last Admin: 02/08/19 10:15 Dose: 81 mg Documented by: Atorvastatin Calcium (Lipitor) 40 mg GT QHS [facility] Last Admin: 02/08/19 21:10 Dose: 40 mg Documented by: Bisacodyl (Dulcolax) 10 mg RECTAL DAILY PRN PRN Reason: Constipation Clopidogrel Bisulfate (Plavix) 75 mg GT DAILY [facility] Last Admin: 02/08/19 10:15 Dose: 75 mg Documented by: Docusate Sodium (Colace Syrup) 50 mg GT BID PRN PRN PRN Reason: Constipation Last Admin: 02/08/19 23:38 Dose: 50 mg Documented by: Enoxaparin Sodium (Lovenox) 40 mg SC DAILY [facility] Last Admin: 02/08/19 10:15 Dose: 40 mg Documented by: Famotidine (Pepcid) 20 mg GT BID [facility] Last Admin: 02/08/19 21:10 Dose: 20 mg Documented by: Glucagon () 1 mg IM .X1 PRN PRN Reason: Hypoglycemia Guaifenesin (Robitussin) 10 ml GT Q4H PRN PRN PRN Reason: COUGH Haloperidol Lactate (Haldol) 2 mg IV Q6H PRN PRN PRN Reason: AGITATION Last Admin: 02/07/19 23:43 Dose: 2 mg Documented by: Dextrose (Dextrose 10%-Water) 250 mls @ 999 mls/hr IV .Q16M PRN; Protocol PRN Reason: HYPOGLYCEMIA Sodium Chloride () 250 mls @ 15 mls/hr IV .[id number] PRN PRN Reason: Saline Flush Last Infusion: 02/09/19 05:30 Dose: 0 mls/hr Documented by: Sodium Chloride () 250 mls @ 15 mls/hr IV .[id number] PRN PRN Reason: Additional IVPB Infusion Enteral Nutritional Formula (Jevity 1.5) 1,000 mls @ 25 mls/hr GT .Q40H [facility] Last Admin: 02/08/19 17:21 Dose: 25 mls/hr Documented by: Doxycycline Hyclate 100 mg/ (Dextrose) 260 mls @ 250 mls/hr IV Q12 [facility] Melatonin (Melatonin) 5 mg GT QHS [facility] Last Admin: 02/08/19 21:09 Dose: 5 mg Documented by: Ondansetron HCl (Zofran) 4 mg IV Q8H PRN PRN PRN Reason: NAUSEA/VOMITING Last Admin: 02/08/19 06:55 Dose: 4 mg Documented by: Polyethylene Glycol (Miralax) 17 gm GT DAILY PRN PRN Reason: Constipation Last Admin: 02/09/19 05:25 Dose: 17 gm Documented by: Quetiapine Fumarate (Seroquel) 50 mg GT BID [facility] Last Admin: 02/08/19 21:09 Dose: 50 mg Documented by: Sodium Chloride (Sodium Chloride 3%) 3 ml INHALATION Q4H PRN PRN PRN Reason: Breathing treatment Sodium Chloride () 10 - 40 ml IV UD PRN PRN Reason: SALINE FLUSH Last Admin: 02/09/19 03:03 Dose: 10 ml Documented by: Clinical Impression(s) from Imaging Studies KUB X-Ray 02/08/19 11:45 IMPRESSION: No acute abnormality of the abdomen and pelvis. Electronically Signed: Tony Encarnacion, at 12:42 EST Tel , Service support , Medical Necessity - Tobacco Use Smoking Status: Former smoker Assessment/Plan All Active Problems Dissecting hemorrhage of left vertebral artery (Resolved) Hospital-acquired pneumonia (Resolved) Status post emergency tracheotomy for assistance in breathing (Ruled-out) Psychosis (Acute) RECOMMENDATIONS: 1. Transition to doxycycline given sensitivities 2. Continue to wean supplemental oxygen to maintain saturations at or above 90%. 3. Continue aggressive bronchopulmonary hygiene. 4. Management of delirium per hospitalist. IMPRESSIONS: 1. Tracheobronchitis secondary to Corynebacterium Patient is growing Corynebacterium from his sputum. Patient has been on broad-spectrum antibiotics for the last 5 days with improvement in secretions. Given tracheostomy, this likely represents a pathologic organism. Patient can likely be transitioned over to doxycycline given susceptibility and treated for a total of 10 days. 2. Recent CVA with hemorrhagic transformation requiring tracheostomy Initially consulted over concerns for copious sputum production, which appears to be improving. Plain film chest x-ray did not reveal an acute cardiopulmonary process to suggest pneumonia. The patient may have underlying tracheobronchitis. Cultures are growing Corynebacterium. Patient remains on a 50% Ventimask, but saturations have been at 98%. Wean oxygen as tolerated to maintain saturations at or above 90% 3. Encephalopathy MRI apparently demonstrated findings of a new infarction. Potential pulmonary infectious process is also likely contributing. Defer management to primary team. Consider increasing Seroquel as necessary to attempt to discontinue sitter. Code Visit Inpatient E&M: 81407 Subs Hosp L2
[2019-02-09] MEDS: Famotidine 20 MG Tablet GT ×2 (09:03→20:14)
[2019-02-09] MEDS: Clopidogrel Bisulfate 75 MG Tablet GT (09:03)
[2019-02-09] MEDS: QUEtiapine 25 MG Tablet 50 MG GT ×2 (09:03→20:14)
[2019-02-09] MEDS: Aspirin 81 MG TAB.CHEW GT (09:04)
[2019-02-09] MEDS: Enoxaparin 40 MG/0.4 ML Syringe SC (09:04)
[2019-02-09] MEDS: Docusate Sodium 100 MG/10 ML UDC 50 MG GT (13:57)
[2019-02-09] MEDS: Acetaminophen 160 MG/5 ML UDC GT (13:58)
--- NOTE | 2019-02-09 15:30 | NURSING ---
humbertoter removed from room at 0945 this AM 02/09
[2019-02-09] MEDS: Jevity 1.5 1,000 ML 25 ML GT (16:15)
--- NOTE | 2019-02-09 18:10 | PCM.PN.HOSP ---
Patient Problems: Active and Suspected Problems Psychosis (Acute) Reason for Visit: Follow-up on acute encephalopathy Subjective: Patient was seen and examined. Remains confused. Per at the bedside and staff, confusion is getting improved. Sitter was discontinued this morning. Objective: Physical exam: General: Sedated HEENT: Atraumatic, PERRLA, EOMI, Normocephalic Oral: Dry Mucosa Neck: Supple, No JVD, Negative Carotid Bruits Lungs: Diminished, Rhonchi Cardiovascular: Regular rate, Regular Rhythm, Normal S1, Normal S2, No murmurs Abdomen: Bowel Sounds Present, Soft, Non Tender, Non-Distended, - - PEG tube in place Extremities: No clubbing, No cyanosis, No edema, Capillary Refill Less than 3 Seconds Skin: No rashes, No breakdown Musculoskeletal: No Tenderness to Palpation of Joints or Extremities Neurological: Cranial nerves II-XII grossly intact Psych/Mental Status: Sedated Vitals/I&O's: Vital Signs Temp Pulse Resp BP Pulse Ox 98.6 F 96 16 121/72 H 96 02/09/19 15:00 02/09/19 15:00 02/09/19 15:00 02/09/19 15:00 02/09/19 15:00 Oxygen Flow Rate (L/min) 12 Oxygen Delivery Method Trach Collar Weight: 70.4 kg Body Mass Index (BMI) 24.3 Finger Stick Blood Glucose 132 Intake and Output for Last 24 Hours 02/07/19 02/08/19 02/09/19 23:59 23:59 23:59 Intake Total 2150 / 2150 3008.75 / 3008.75 2799.5 / 2799.5 Balance 2150 / 2150 3008.75 / 3008.75 2799.5 / 2799.5 Microbiology Past 72 Hours 02/03/19 23:45 Blood Culture (Wb) - Arm Right Blood Culture - Final No growth in 5 days. 02/03/19 23:30 Blood Culture (Wb) - Anticubital Left Blood Culture - Final No growth in 5 days. 02/04/19 09:45 Transtracheal Aspirate Gram Stain - Final 02/04/19 09:45 Transtracheal Aspirate Respiratory Culture - Final Corynebacterium striatum Current Medications Acetaminophen (Tylenol Liquid) 160 mg GT Q6H PRN PRN PRN Reason: Pain Score 1-10/10/FEVER Last Admin: 02/09/19 13:58 Dose: 160 mg Documented by: Albuterol/Ipratropium (Duoneb) 3 ml INHALATION Q4H PRN PRN PRN Reason: Breathing Last Admin: 02/06/19 20:06 Dose: 3 ml Documented by: Aspirin (Aspirin, Baby) 81 mg GT DAILY [facility] Last Admin: 02/09/19 09:04 Dose: 81 mg Documented by: Atorvastatin Calcium (Lipitor) 40 mg GT QHS [facility] Last Admin: 02/08/19 21:10 Dose: 40 mg Documented by: Bisacodyl (Dulcolax) 10 mg RECTAL DAILY PRN PRN Reason: Constipation Clopidogrel Bisulfate (Plavix) 75 mg GT DAILY [facility] Last Admin: 02/09/19 09:03 Dose: 75 mg Documented by: Docusate Sodium (Colace Syrup) 50 mg GT BID PRN PRN PRN Reason: Constipation Last Admin: 02/09/19 13:57 Dose: 50 mg Documented by: Enoxaparin Sodium (Lovenox) 40 mg SC DAILY [facility] Last Admin: 02/09/19 09:04 Dose: 40 mg Documented by: Famotidine (Pepcid) 20 mg GT BID [facility] Last Admin: 02/09/19 09:03 Dose: 20 mg Documented by: Glucagon () 1 mg IM .X1 PRN PRN Reason: Hypoglycemia Guaifenesin (Robitussin) 10 ml GT Q4H PRN PRN PRN Reason: COUGH Dextrose (Dextrose 10%-Water) 250 mls @ 999 mls/hr IV .Q16M PRN; Protocol PRN Reason: HYPOGLYCEMIA Sodium Chloride () 250 mls @ 15 mls/hr IV .[id number] PRN PRN Reason: Saline Flush Last Infusion: 02/09/19 12:00 Dose: 0 mls/hr Documented by: Sodium Chloride () 250 mls @ 15 mls/hr IV .[id number] PRN PRN Reason: Additional IVPB Infusion Enteral Nutritional Formula (Jevity 1.5) 1,000 mls @ 25 mls/hr GT .Q40H [facility] Last Admin: 02/09/19 16:15 Dose: 25 mls/hr Documented by: Doxycycline Hyclate 100 mg/ (Dextrose) 260 mls @ 250 mls/hr IV Q12 [facility] Last Infusion: 02/09/19 11:10 Dose: Infused Documented by: Melatonin (Melatonin) 5 mg GT QHS [facility] Last Admin: 02/08/19 21:09 Dose: 5 mg Documented by: Ondansetron HCl (Zofran) 4 mg IV Q8H PRN PRN PRN Reason: NAUSEA/VOMITING Last Admin: 02/08/19 06:55 Dose: 4 mg Documented by: Polyethylene Glycol (Miralax) 17 gm GT DAILY PRN PRN Reason: Constipation Last Admin: 02/09/19 05:25 Dose: 17 gm Documented by: Quetiapine Fumarate (Seroquel) 50 mg GT BID [facility] Sodium Chloride (Sodium Chloride 3%) 3 ml INHALATION Q4H PRN PRN PRN Reason: Breathing treatment Sodium Chloride () 10 - 40 ml IV UD PRN PRN Reason: SALINE FLUSH Last Admin: 02/09/19 10:06 Dose: 10 ml Documented by: STROKE Vital Signs/Narrative: Vital Signs Temp Pulse Resp BP Pulse Ox 02/09/19 15:00 98.6 F 96 16 121/72 H 96 02/09/19 14:45 94 02/09/19 14:30 94 Medical Necessity - Tobacco Use Smoking Status: Former smoker Assessment/Plan All Active Problems Dissecting hemorrhage of left vertebral artery (Resolved) Hospital-acquired pneumonia (Resolved) Status post emergency tracheotomy for assistance in breathing (Ruled-out) Psychosis (Acute) 1. Acute delirium/encephalopathy, secondary to acute CVA Patient is intermittently agitated, in soft restraints Will continue on Seroquel and Haldol PRN 2. 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 Bilateral carotid Doppler ultrasounds are unremarkable Patient is on aspirin, Plavix, high-dose statin Telemetry shows normal sinus rhythm, no A. fib seen 2D echo showed no valvular lesions, bubble study negative HgbA1c is 5.6, total cholesterol 78, LDL 23, HDL is 40 We will plan for Holter monitor on discharge 3. Corynebacterium tracheobronchitis, negative chest X-ray on admission Pneumonia ruled out with 2 negative chest X-ray Blood cultures are negative, On doxycycline Pulmonology consulted 4. Hypertension, blood pressure remains low Will continue to monitor off antihypertensives 5. DVT PPx- Lovenox SC Code Visit Inpatient E&M: 92885 Subs Hosp L2
[2019-02-09] MEDS: Atorvastatin Calcium 40 MG Tablet GT (20:14)
[2019-02-09] MEDS: MELATONIN 10 MG TABLET 5 MG GT (20:14)
--- NOTE | 2019-02-09 21:30 | NURSING ---
Soft arm pads loosely placed on pt at this time to help alleviate pt from pulling at trach. Pt still able to move arms.
[2019-02-10] VITALS (7 sets, daily range): BP systolic 135–139; BP diastolic 76–84; PULSE 87–98; RESP 18; TEMP 37–37.6; O2SAT 94–96
[2019-02-10] MEDS: Bisacodyl 10 MG Suppository RECTAL (04:23)
[2019-02-10] MEDS: QUEtiapine 25 MG Tablet 50 MG GT (08:02)
[2019-02-10] MEDS: Clopidogrel Bisulfate 75 MG Tablet GT (08:02)
[2019-02-10] MEDS: Enoxaparin 40 MG/0.4 ML Syringe SC (08:02)
[2019-02-10] MEDS: Aspirin 81 MG TAB.CHEW GT (08:02)
[2019-02-10] MEDS: Famotidine 20 MG Tablet GT (08:02)
[2019-02-10] MEDS: Acetaminophen 160 MG/5 ML UDC GT (08:03)
--- NOTE | 2019-02-10 09:44 | PN_ITS ---
Patient Problems: Active and Suspected Problems Psychosis (Acute) Subjective: Patient did well overnight from a respiratory status. Has been weaned to 35% trach collar and tolerating well. Patient's eyes are open and he is calm on my evaluation. No sitter at the bedside. - Physical Exam Vitals/I&O's: Vital Signs Temp Pulse Resp BP Pulse Ox 37.0 C 87 18 139/84 H 96 02/10/19 04:25 02/10/19 07:00 02/10/19 04:25 02/10/19 04:25 02/10/19 07:30 Oxygen Flow Rate (L/min) 12 Oxygen Delivery Method Trach Collar Weight: 70.4 kg Body Mass Index (BMI) 24.3 Finger Stick Blood Glucose 132 Intake and Output for Last 24 Hours 02/08/19 02/09/19 02/10/19 23:59 23:59 23:59 Intake Total 3008.75 / 3008.75 3212.5 / 3384.5 946 / 946 Balance 3008.75 / 3008.75 3212.5 / 3384.5 946 / 946 General: Alert, Confused, Disoriented, Non-Cooperative, - - Appears comfortable HEENT: Atraumatic, PERRLA, EOMI, Normocephalic, - - No scleral icterus or injection noted Oral: Moist Mucosa, No Gingival or Mucosal Lesions/ Ulcerations Neck: Supple, No JVD, No Nodes, - - Tracheostomy is clean, dry and intact. No secretions are noted. Lungs: No rhonchi, No wheeze, No rales, Diminished Cardiovascular: Regular rate, Regular Rhythm, Normal S1, Normal S2, No murmurs, No rub noted, No Gallop Abdomen: Bowel Sounds Present, Soft, Non Tender, Distended - Slightly Extremities: No clubbing, No cyanosis, Capillary Refill Less than 3 Seconds, Edema Skin: - - No change from previous Musculoskeletal: No Tenderness to Palpation of Joints or Extremities Lymphatic: No Cervical, Supraclavicular, or Inguinal Adenopathy Neurological: - - No change from previous examination, but more alert today Psych/Mental Status: Flat Affect Microbiology Past 72 Hours 02/03/19 23:45 Blood Culture (Wb) - Arm Right Blood Culture - Final No growth in 5 days. 02/03/19 23:30 Blood Culture (Wb) - Anticubital Left Blood Culture - Final No growth in 5 days. 02/04/19 09:45 Transtracheal Aspirate Gram Stain - Final 02/04/19 09:45 Transtracheal Aspirate Respiratory Culture - Final Corynebacterium striatum Current Medications Acetaminophen (Tylenol Liquid) 160 mg GT Q6H PRN PRN PRN Reason: Pain Score 1-10/10/FEVER Last Admin: 02/10/19 08:03 Dose: 160 mg Documented by: Albuterol/Ipratropium (Duoneb) 3 ml INHALATION Q4H PRN PRN PRN Reason: Breathing Last Admin: 02/06/19 20:06 Dose: 3 ml Documented by: Aspirin (Aspirin, Baby) 81 mg GT DAILY [facility] Last Admin: 02/10/19 08:02 Dose: 81 mg Documented by: Atorvastatin Calcium (Lipitor) 40 mg GT QHS [facility] Last Admin: 02/09/19 20:14 Dose: 40 mg Documented by: Bisacodyl (Dulcolax) 10 mg RECTAL DAILY PRN PRN Reason: Constipation Last Admin: 02/10/19 04:23 Dose: 10 mg Documented by: Clopidogrel Bisulfate (Plavix) 75 mg GT DAILY [facility] Last Admin: 02/10/19 08:02 Dose: 75 mg Documented by: Docusate Sodium (Colace Syrup) 50 mg GT BID PRN PRN PRN Reason: Constipation Last Admin: 02/09/19 13:57 Dose: 50 mg Documented by: Enoxaparin Sodium (Lovenox) 40 mg SC DAILY [facility] Last Admin: 02/10/19 08:02 Dose: 40 mg Documented by: Famotidine (Pepcid) 20 mg GT BID [facility] Last Admin: 02/10/19 08:02 Dose: 20 mg Documented by: Glucagon () 1 mg IM .X1 PRN PRN Reason: Hypoglycemia Guaifenesin (Robitussin) 10 ml GT Q4H PRN PRN PRN Reason: COUGH Dextrose (Dextrose 10%-Water) 250 mls @ 999 mls/hr IV .Q16M PRN; Protocol PRN Reason: HYPOGLYCEMIA Sodium Chloride () 250 mls @ 15 mls/hr IV .[id number] PRN PRN Reason: Saline Flush Last Infusion: 02/09/19 22:00 Dose: 0 mls/hr Documented by: Sodium Chloride () 250 mls @ 15 mls/hr IV .[id number] PRN PRN Reason: Additional IVPB Infusion Enteral Nutritional Formula (Jevity 1.5) 1,000 mls @ 25 mls/hr GT .Q40H [facility] Last Admin: 02/09/19 16:15 Dose: 25 mls/hr Documented by: Doxycycline Hyclate 100 mg/ (Dextrose) 260 mls @ 250 mls/hr IV Q12 [facility] Last Infusion: 02/09/19 21:47 Dose: Infused Documented by: Melatonin (Melatonin) 5 mg GT QHS [facility] Last Admin: 02/09/19 20:14 Dose: 5 mg Documented by: Ondansetron HCl (Zofran) 4 mg IV Q8H PRN PRN PRN Reason: NAUSEA/VOMITING Last Admin: 02/08/19 06:55 Dose: 4 mg Documented by: Polyethylene Glycol (Miralax) 17 gm GT DAILY PRN PRN Reason: Constipation Last Admin: 02/09/19 05:25 Dose: 17 gm Documented by: Quetiapine Fumarate (Seroquel) 50 mg GT BID [facility] Last Admin: 02/10/19 08:02 Dose: 50 mg Documented by: Sodium Chloride (Sodium Chloride 3%) 3 ml INHALATION Q4H PRN PRN PRN Reason: Breathing treatment Sodium Chloride () 10 - 40 ml IV UD PRN PRN Reason: SALINE FLUSH Last Admin: 02/09/19 22:00 Dose: 10 ml Documented by: Medical Necessity - Tobacco Use Smoking Status: Former smoker Assessment/Plan All Active Problems Dissecting hemorrhage of left vertebral artery (Resolved) Hospital-acquired pneumonia (Resolved) Status post emergency tracheotomy for assistance in breathing (Ruled-out) Psychosis (Acute) RECOMMENDATIONS: 1. Transition to doxycycline given sensitivities to complete 10 days 2. Continue to wean supplemental oxygen to maintain saturations at or above 90%. 3. Continue aggressive bronchopulmonary hygiene. 4. Management of delirium per hospitalist. 5. Okay to discharge to [facility] from a pulmonary perspective IMPRESSIONS: 1. Tracheobronchitis secondary to Corynebacterium Patient is growing Corynebacterium from his sputum. Patient has been on broad-spectrum antibiotics for the last 6 days with improvement in secretions. Given tracheostomy, this likely represents a pathologic organism. Patient can likely be transitioned over to doxycycline given susceptibility and treated for a total of 10 days. Continue to wean oxygen as tolerated. Likely stable from a respiratory standpoint to go to a lower level of care. 2. Recent CVA with hemorrhagic transformation requiring tracheostomy Initially consulted over concerns for copious sputum production, which appears to be improving. Plain film chest x-ray did not reveal an acute cardiopulmonary process to suggest pneumonia. The patient with probable underlying tracheobronchitis. Cultures are growing Corynebacterium. Patient remains on a 35% Ventimask, but saturations have been at 95%. Wean oxygen as tolerated to maintain saturations at or above 90% 3. Encephalopathy MRI apparently demonstrated findings of a new infarction. Potential pulmonary infectious process is also likely contributing. Defer management to primary team. Patient's mentation appears to be improving at this time. Code Visit Inpatient E&M: 07974 Subs Hosp L2
--- NOTE | 2019-02-10 11:32 | PCM.TXEXTCAR ---
- Diet 02/04/19 04:07 Diet: Nothing Per Oral Diet Comments: GT only Tube Feed: Jevity 1.5 25mls /hr, Increase to goal of 50mls/hr afer 8 hours if patient - Routine Orders/Code Status O2 Liters per Minute: Fi02 35% trach collar O2 Frequency: Continuous Keep PO Greater than or Equal to (%): 90 Routine Lab Work: CBC - within 3 days, BMP - within 3 days - Therapies Weight Bearing: Weight bearing as tolerated Physical Therapy: Eval and Treat Occupational Therapy: Eval and Treat Speech Therapy: Eval and Treat - Allergies/Procedures Done in Hospital Allergies/Adverse Reactions: Allergies Penicillins Allergy (Unknown, Verified 01/31/19 16:04) Unknown cyclobenzaprine [From Flexeril] Adverse Reaction (Verified 11/29/18 23:14) Rash Procedures: None - Type of Care/Length of Stay Estimated LOS: Convalescent Care Less Than 30 days Type of Care Needed: Skilled Rehab Potential: Fair Prognosis: Fair - Additional Orders/Day of Discharge Additional Orders: Patient needs a 30 day holter monitor. Day of Discharge: 02/10/19 - Dietary and Speech Recommendations Dietitian Recommendations/Changes: Rec consider change to continuous enteral feeding with hope of better tolerance - rec Jevity 1.5 at goal rate 50 cc/hr with 150 cc H2O flush every 4 hours to provide ~ 1800 gerhard/ 76 gm pro/ 1812 cc free water/day - would start tf at 25 cc/hr and increase to goal rate after 6-8 hrs as pt tolerates. - Follow Up Care Primary Care Physician: Alvarado Dunlap MD [Primary Care Provider] - Please follow up with your Primary Care Physician in: within 1-2 weeks of discharge Please Follow Up With: Babak Chamberlain MD When: within 2-4 weeks
--- NOTE | 2019-02-10 11:36 | PCM.DC.SUM ---
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 Interval resolution of interstitial lung opacities without focal lung consolidation. Electronically Signed: Franky Franco at 1:42 EST Tel , Service support , Brain MRI 02/04/19 05:55 IMPRESSION: Involutional and postoperative changes of the brain, as described above. 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 No acute hemorrhage. Electronically Signed: Kody Linder MD at 12:01 EST , Service support , ADDENDUM: 02/04/19 1211 IMPRESSION: Involutional and postoperative changes of the brain, as described above. 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 No acute hemorrhage. N.B. : The above information has been verbally conveyed by Kody Linder MD to Dara Olson RN, on 02/04/2019 12:04:57 (ET). Electronically Signed: Kody Linder MD at 12:01 EST , Service support , Brain CT 02/04/19 23:32 IMPRESSION: Interval development of encephalomalacic changes within the left parietal-occipital region, and bilateral cerebellar hemispheres. Also likely prior infarct in the left maciel. No definite territorial infarct however evaluation is limited due to encephalomalacic changes. If clinical symptomatology persists consider further evaluation with MRI brain.. Interval left posterior fossa craniotomy. Electronically Signed: Franky Franco, at 1:38 EST Tel , Service support , Chest X-Ray 02/05/19 11:24 IMPRESSION: Stable chest with no acute superimposed finding. Electronically Signed: Petros Julio MD at 14:00 EST , Service support , KUB X-Ray 02/08/19 11:45 IMPRESSION: No acute abnormality of the abdomen and pelvis. Electronically Signed: Tony Encarnacion, at 12:42 EST Tel , Service support , Teleneurology Pulmonology Operations: None Procedures: 2-D Echocardiogram Summary of Care Provided: The patient is a 78 year old M with recent past medical history of bilateral cerebellar stroke, with hemorrhagic conversion after receiving IV TPA. Patient was transferred for posterior fossa craniectomy because of significant postinfarction edema. After his acute hospitalization, he was discharged to LTAC and subsequently admitted to the TCU. Patient was seen by ENT in TCU and his tracheostomy was capped. He was admitted to the hospital through the ED with altered mental status, progressive copious draining from his tracheostomy. CT scan of the brain in the ED showed encephalomalacia. He had an MRI of the brain done that was positive for acute on chronic cerebellar and left occipital infarct. Tele-neurology was consulted. Patient had a repeat 2D echo that did not show any PFO or valvular lesions. His lipids were controlled, was continued on moderate-dose statins. Telemetry did not reveal reveal any infarcts. Carotid ultrasound 50% stenosis in the right internal carotid and less than 50% in his right external carotid, less than 50% stenosis in his left external carotid and 50 to 69% stenosis in the left internal carotid. He was continued on aspirin and Plavix. Patient's during his hospital stay was delirious. He required a sitter at bedside as well as restraints. His Seroquel was increased and he received Haldol PRN. Patient was said and as needed sedative-free more than 24 hours prior to his discharge. Of note is that on arrival of the patient to the floor, he was found to have copious purulent discharge from his tracheostomy. Chest x-ray x2 was negative for acute pneumonia. Patient was started empirically on vancomycin and meropenem. Tracheal aspirate cultures were positive for Corynebacterium. Patient was transitioned to IV doxycycline. He was eventually discharged on 3 extra days of cefdinir as doxycycline could not be given through his PEG tube. There was an episode of vomiting with possible regurgitation after being given to feed boluses. Tube feeds were changed to continuous infusion via his PEG tube. No more vomiting was seen. Patient will follow-up with pulmonology in the outpatient within 2 weeks. Patient Problems: Active and Suspected Problems Agitation (Acute) Tracheobronchitis (Acute) Subjective: On the day of discharge, patient has been sitter free for more than 24 hours, no restraints, no use of sedatives other than scheduled Seroquel. Objective: Physical exam: General: Sedated HEENT: Atraumatic, PERRLA, EOMI, Normocephalic Oral: Dry Mucosa Neck: Supple, No JVD, Negative Carotid Bruits Lungs: Diminished, Rhonchi Cardiovascular: Regular rate, Regular Rhythm, Normal S1, Normal S2, No murmurs Abdomen: Bowel Sounds Present, Soft, Non Tender, Non-Distended, - - PEG tube in place Extremities: No clubbing, No cyanosis, No edema, Capillary Refill Less than 3 Seconds Skin: No rashes, No breakdown Musculoskeletal: No Tenderness to Palpation of Joints or Extremities Neurological: Cranial nerves II-XII grossly intact Psych/Mental Status: Sedated - Physical Exam Vitals/I&O's: Vital Signs Temp Pulse Resp BP Pulse Ox 99.6 F H 98 18 135/77 H 95 02/10/19 10:24 02/10/19 10:24 02/10/19 10:24 02/10/19 10:24 02/10/19 10:24 Oxygen Flow Rate (L/min) 35 Oxygen Delivery Method Trach Collar Weight: 70.4 kg Body Mass Index (BMI) 24.3 Finger Stick Blood Glucose 132 Intake and Output for Last 24 Hours 02/08/19 02/09/19 02/10/19 23:59 23:59 23:59 Intake Total 3008.75 / 3008.75 3212.5 / 3384.5 946 / 946 Balance 3008.75 / 3008.75 3212.5 / 3384.5 946 / 946 Microbiology Past 72 Hours 02/03/19 23:45 Blood Culture (Wb) - Arm Right Blood Culture - Final No growth in 5 days. 02/03/19 23:30 Blood Culture (Wb) - Anticubital Left Blood Culture - Final No growth in 5 days. 02/04/19 09:45 Transtracheal Aspirate Gram Stain - Final 02/04/19 09:45 Transtracheal Aspirate Respiratory Culture - Final Corynebacterium striatum Current Medications Acetaminophen (Tylenol Liquid) 160 mg GT Q6H PRN PRN PRN Reason: Pain Score 1-10/10/FEVER Last Admin: 02/10/19 08:03 Dose: 160 mg Documented by: Albuterol/Ipratropium (Duoneb) 3 ml INHALATION Q4H PRN PRN PRN Reason: Breathing Last Admin: 02/06/19 20:06 Dose: 3 ml Documented by: Aspirin (Aspirin, Baby) 81 mg GT DAILY [facility] Last Admin: 02/10/19 08:02 Dose: 81 mg Documented by: Atorvastatin Calcium (Lipitor) 40 mg GT QHS [facility] Last Admin: 02/09/19 20:14 Dose: 40 mg Documented by: Bisacodyl (Dulcolax) 10 mg RECTAL DAILY PRN PRN Reason: Constipation Last Admin: 02/10/19 04:23 Dose: 10 mg Documented by: Clopidogrel Bisulfate (Plavix) 75 mg GT DAILY [facility] Last Admin: 02/10/19 08:02 Dose: 75 mg Documented by: Docusate Sodium (Colace Syrup) 50 mg GT BID PRN PRN PRN Reason: Constipation Last Admin: 02/09/19 13:57 Dose: 50 mg Documented by: Enoxaparin Sodium (Lovenox) 40 mg SC DAILY [facility] Last Admin: 02/10/19 08:02 Dose: 40 mg Documented by: Famotidine (Pepcid) 20 mg GT BID [facility] Last Admin: 02/10/19 08:02 Dose: 20 mg Documented by: Glucagon () 1 mg IM .X1 PRN PRN Reason: Hypoglycemia Guaifenesin (Robitussin) 10 ml GT Q4H PRN PRN PRN Reason: COUGH Dextrose (Dextrose 10%-Water) 250 mls @ 999 mls/hr IV .Q16M PRN; Protocol PRN Reason: HYPOGLYCEMIA Sodium Chloride () 250 mls @ 15 mls/hr IV .[id number] PRN PRN Reason: Saline Flush Last Infusion: 02/09/19 22:00 Dose: 0 mls/hr Documented by: Sodium Chloride () 250 mls @ 15 mls/hr IV .[id number] PRN PRN Reason: Additional IVPB Infusion Enteral Nutritional Formula (Jevity 1.5) 1,000 mls @ 25 mls/hr GT .Q40H [facility] Last Admin: 02/09/19 16:15 Dose: 25 mls/hr Documented by: Doxycycline Hyclate 100 mg/ (Dextrose) 260 mls @ 250 mls/hr IV Q12 [facility] Last Infusion: 02/09/19 21:47 Dose: Infused Documented by: Lidocaine (Lidoderm Patch) 2 patch TOPICAL DAILY [facility]; Protocol Melatonin (Melatonin) 5 mg GT QHS [facility] Last Admin: 02/09/19 20:14 Dose: 5 mg Documented by: Ondansetron HCl (Zofran) 4 mg IV Q8H PRN PRN PRN Reason: NAUSEA/VOMITING Last Admin: 02/08/19 06:55 Dose: 4 mg Documented by: Polyethylene Glycol (Miralax) 17 gm GT DAILY PRN PRN Reason: Constipation Last Admin: 02/09/19 05:25 Dose: 17 gm Documented by: Quetiapine Fumarate (Seroquel) 50 mg GT BID [facility] Last Admin: 02/10/19 08:02 Dose: 50 mg Documented by: Sodium Chloride (Sodium Chloride 3%) 3 ml INHALATION Q4H PRN PRN PRN Reason: Breathing treatment Sodium Chloride () 10 - 40 ml IV UD PRN PRN Reason: SALINE FLUSH Last Admin: 02/09/19 22:00 Dose: 10 ml Documented by: Discharge Diet: Low fat/ Low Cholesterol, 2000 mg Sodium Diet Discharge Activity: Return to Normal Activity Home Medications: Medications to take at Discharge Acetaminophen Liquid [Tylenol Liquid] 160 mg GT Q6H PRN PRN 01/31/19 Atorvastatin Calcium 40 mg GT QHS 01/31/19 Bisacodyl 10 mg NC DAILY PRN 01/31/19 Docusate Sodium [Docu Liquid] 50 mg GT BID PRN PRN 01/31/19 Enoxaparin [Lovenox] 40 mg SUBCUT DAILY@0600 01/31/19 Famotidine [Pepcid] 20 mg GT BID 01/31/19 Ipratropium/Albuterol Sulfate [Iprat-Albut 0.5-3(2.5) mg/3 ml] 3 ml INHALATION Q4H PRN PRN 01/31/19 Melatonin 5 mg GT QHS 01/31/19 Polyethylene Glycol 3350 [Miralax] 17 gm GT DAILY PRN 01/31/19 Sodium Chloride 3% 3 ml INHALATION Q4H PRN PRN 01/31/19 Aspirin [Aspirin, Baby] 81 mg GT DAILY 02/10/19 Cefdinir Susp [Omnicef Susp] 300 mg PO Q12 02/10/19 Clopidogrel Bisulfate [Plavix] 75 mg GT DAILY 02/10/19 Lidocaine [Lidoderm Patch] 2 patch TOPICAL DAILY 02/10/19 Quetiapine Fumarate [Seroquel] 50 mg GT BID 02/10/19 Other Amb Orders: 30-Day Event Recorder [[facility]] Location: None Selected Primary Care Physician: Alvarado Dunlap MD [Primary Care Provider] - Please follow up with your Primary Care Physician in: within 1-2 weeks of discharge Please Follow Up With: Babak Chamberlain MD When: within 2-4 weeks Disposition: [facility] facility Minutes spent on discharge:: 50 Patient Condition:: Guarded Medical Necessity - Tobacco Use Smoking Status: Former smoker Tobacco Use: Non-smoker Meaningful Use Info Meaningful Use Diagnoses (Choose all that apply): Ischemic CVA - CVA Therapy Assessed for PT,OT and/or ST?: Yes - Ischemic Stroke Antithrombotic order at d/c?: Yes Dx of Atrial fib/flutter?: No Anticoagulant at discharge?: No Reason anticoagulant not ordered: Treatment not Indicated Statins at discharge?: Yes Primary Dx Acute Ischemic CVA?: Yes IV tPA ordered during stay?: No Reason IV t-PA not ordered: Treatment not Indicated Code Visit Inpatient E&M: [id number] Disch Hosp
[2019-02-10] MEDS: Lidocaine 5% Patch 2 PATCH TOPICAL (12:44)
[2019-02-10] MEDS: Jevity 1.5 1,000 ML 25 ML GT (13:16)
== END 2019-02-10 13:40 | disposition skilled nursing facility (03) | DRG 65 ==
LOC: ED 23:23 → PCU 02-04 07:23
PROVIDERS: Internal Medicine Critical Care Medicine; Nurse Practitioner Family; Admitting Provider Hospitalist; Emergency Provider Emergency Medicine; Family Provider Family Medicine; PCP Family Medicine; Visit Provider Internal Medicine
DX: I63.9 Cerebral infarction, unspecified (principal); G93.49 Other encephalopathy; Z93.0 Tracheostomy status; J40 Bronchitis, not specified as acute or chronic; Z93.1 Gastrostomy status; Z78.1 Physical restraint status; Z87.891 Personal history of nicotine dependence; I10 Essential (primary) hypertension; G47.00 Insomnia, unspecified; Z86.73 Personal history of transient ischemic attack (TIA), and cerebral infarction without residual deficits; R53.81 Other malaise; E78.5 Hyperlipidemia, unspecified; Z79.02 Long term (current) use of antithrombotics/antiplatelets; Z79.82 Long term (current) use of aspirin; M62.838 Other muscle spasm
CPT/HCPCS: 31720; 36415; 36600; 70450; 70551; 71045; 74018; 80048; 80053; 80061; 80202; 81001; 82803; 83036; 83605; 84484; 85025; 85027; 85610; 85730; 87040; 87070; 87077; 87086; 87205; 87641; 93005; 93306; 93880; 94640; 94762; 97110; 97112; 97162; 97166; 97530; 97803; 99285; J2185; J7030; J7050; P9612; Q9957; A4216; J2405

== ENCOUNTER 2019-02-10 13:45 | Inpatient (IN) | payer MEDICARE, SELFPAY ==
[2019-02-04 04:15] VITALS: BMI 24.3
[2019-02-10 14:10] VITALS: BP 130/69; PULSE 87; RESP 22; TEMP 37; O2SAT 94
[2019-02-10 14:16] VITALS: BMI 24.3
[2019-02-10 14:28] VITALS: BMI 24.3
--- NOTE | 2019-02-10 14:54 | HP.PCM_ITS ---
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 The patient is a 78 year old Male with below past medical history with followin11/29/2018 Stroke. 12/04/2018 Tracheostomy. 12/22/2018 [facility] ([facility]) [place], [place]. 01/31/2019 TCU. 02/02/2019 Dr. Chowdhury noted resident not ready for decannulation. 02/04/2019 [facility] Department agitation, cough, tachycardia. Ativan given, 4 point restraints for trying to remove essential medical equipment. 02/04/2019 Admit to [facility]. Suctioning of trach per RT, no sputum. Ativan, Seroquel for agitation. TF via PEG. 02/04/2019 MRI brain showed acute & chronic cerebellar, left occipital infarcts. 02/04/2019 Carotid doppler ultrasound right < 50%, Left < 50%. 02/04/2019 Echo Normal Left Ventricle Size. Left ventricular systolic function normal. Stage 1 diastolic dysfunction. Buble study negative for shunt. 02/04/2019 CT brain encephalomalacia, left parietal-occipital, bilateral cerebellar hemispheres. 02/05/2019 Dr. Aleman recommended broad spectrum antibiotics for tracheobronchitis, cultures pending. 02/05/2019 Seroquel, Haldol, soft restraints, sitter for delirium. Vancomycin, Meropenem for gram negative bipin pneumonia. 02/05/2019 Chest X-ray negative. 02/08/2019 Aspirin, Plavix, high dose statin to decrease risk of recurrent stroke. Seroquel, Haldol, soft restraints, sitter for delirium. Pneumonia ruled out, Vancomycin IV. 02/09/2019 Corynebacterium tracheobronchitis, transition IV antibiotics to oral doxycycline. Consider increase Seroquel dose to discontinue sitter. 35% Ventimask to maintain pulsox 90%. Wean oxygen as tolerated. 02/10/2019 Admit to TCU with debility, here for rehabilitation, strengthening, prior to discharge home with . 02/12/2019 Resident fell out of bed, holding left side of head, sent to [facility] ED, CT head negative. Resident pulled PEG partially out, consult Dr. Servin for PEG replacement. Past Medical History Past Medical History (Chronic Problems): Chronic Problems Hemorrhagic stroke (Chronic) Dissecting hemorrhage of left vertebral artery (Chronic) Hypertension (Chronic) Hyperlipidemia (Chronic) Muscle spasm (Chronic) Allergies Penicillins Allergy (Unknown, Verified 01/31/19 16:04) Unknown cyclobenzaprine [From Flexeril] Adverse Reaction (Verified 11/29/18 23:14) Rash Home Medications: Ambulatory Orders Medication Instructions Recorded Acetaminophen Liquid [Tylenol 160 mg GT Q6H PRN PRN 01/31/19 Liquid] Atorvastatin Calcium 40 mg GT QHS 01/31/19 Bisacodyl 10 mg OR DAILY PRN 01/31/19 Docusate Sodium [Docu Liquid] 50 mg GT BID PRN PRN 01/31/19 Enoxaparin [Lovenox] 40 mg SUBCUT DAILY@0600 01/31/19 Famotidine [Pepcid] 20 mg GT BID 01/31/19 Ipratropium/Albuterol Sulfate 3 ml INHALATION Q4H PRN PRN 01/31/19 [Iprat-Albut 0.5-3(2.5) mg/3 ml] Melatonin 5 mg GT QHS 01/31/19 Polyethylene Glycol 3350 [Miralax] 17 gm GT DAILY PRN 01/31/19 Sodium Chloride 3% 3 ml INHALATION Q4H PRN PRN 01/31/19 Aspirin [Aspirin, Baby] 81 mg GT DAILY 02/10/19 Cefdinir Susp [Omnicef Susp] 300 mg PO Q12 02/10/19 Clopidogrel Bisulfate [Plavix] 75 mg GT DAILY 02/10/19 Lidocaine [Lidoderm Patch] 2 patch TOPICAL DAILY 02/10/19 Quetiapine Fumarate [Seroquel] 50 mg GT BID 02/10/19 Surgical History: appendectomy, herniorrhaphy, - - Tracheostomy, PEG tube, Suboccipital craniectomy, Cervical discectomy, carpal tunnel, shoulder surgery. Psychiatric History: No pertinent psych hx Lives: Spouse/ Significant Other Smoking Status: Former smoker Tobacco Use: Non-smoker Alcohol: None Drugs: None - *Family History Maternal History Items: - - History was taken from patient son who denies any disease in any of his siblings (children of patient). Patient son did not know maternal or paternal medical history. Paternal History Items: - - History was taken from patient son who denies any disease in any of his siblings (children of patient). Patient son did not know maternal or paternal medical history. Review of Systems Constitutional: Denies: Chills, Fever, Weight Change HEENT: Denies: Head Aches, Sinus Congestion, Sinus Drainage Cardiovascular: Denies: Chest Pain, Palpitations Respiratory: Denies: Cough, Shortness of breath at rest, Sputum production Gastrointestinal: Denies: Abdominal Pain, Nausea, Vomiting Genitourinary: Denies: Dysuria Musculoskeletal: Denies: Joint Pain, Joint Tenderness Skin: Denies: Rash, Wounds Neurological: Denies: Numbness, Tingling, Focal weakness Psychiatric: Denies: Anxiety, Depression, Homicidal Ideations, Suicidal Ideations Hematologic/ Lymphatic: Denies: Easy Bruising, Easy Bleeding VTE Information - Inpt Only VTE Present on Admission: No VTE Mechan Device Prophylaxis: Knee High JENNIFER Hose VTE Pharm Prophylaxis ordered?: Yes Patient Problems: Active and Suspected Problems Agitation (Acute) Tracheobronchitis (Acute) - Physical Exam Vitals/I&O's: Weight: 70.4 kg Body Mass Index (BMI) 24.3 Finger Stick Blood Glucose 132 General: Alert, Oriented x3, Cooperative HEENT: Atraumatic, PERRLA, EOMI, Normocephalic Neck: Supple, No JVD, Negative Carotid Bruits Lungs: Clear to auscultation, Normal air movement Cardiovascular: Regular rate, No murmurs Abdomen: Bowel Sounds Present, Soft, Non Tender, - - PEG. Extremities: No edema, Capillary Refill Less than 3 Seconds Skin: No rashes, No breakdown Musculoskeletal: No Tenderness to Palpation of Joints or Extremities Neurological: Cranial nerves II-XII grossly intact, - - Right hemiparesis. Psych/Mental Status: Normal Affect, Appropriate Current Medications Acetaminophen (Tylenol Liquid) 160 mg GT Q6H PRN PRN PRN Reason: Pain or Fever Albuterol/Ipratropium (Duoneb) 3 ml INHALATION Q4H PRN PRN PRN Reason: SHORTNESS OF BREATH Aspirin (Aspirin, Baby) 81 mg GT DAILYCM [facility] Atorvastatin Calcium (Lipitor) 40 mg GT QHS [facility] Bisacodyl (Dulcolax) 10 mg RECTAL DAILY PRN PRN Reason: Constipation Cefdinir (Omnicef Susp) 300 mg PO Q12 HARIS Stop: 02/14/19 18:01 Clopidogrel Bisulfate (Plavix) 75 mg GT DAILY [facility] Docusate Sodium (Colace Syrup) 50 mg GT BID PRN PRN PRN Reason: Constipation Enoxaparin Sodium (Lovenox) 40 mg SC DAILY@0600 [facility] Famotidine (Pepcid) 20 mg GT BID [facility] Enteral Nutritional Formula (Jevity 1.5) 1,000 mls @ 50 mls/hr GT .Q20H [facility] Lidocaine (Lidoderm Patch) 2 patch TOPICAL DAILY HARIS; Protocol Melatonin (Melatonin) 5 mg GT QHS [facility] Polyethylene Glycol (Miralax) 17 gm GT DAILY PRN PRN Reason: Constipation Quetiapine Fumarate (Seroquel) 50 mg GT BID [facility] Sodium Chloride (Sodium Chloride 3%) 3 ml INHALATION Q4H PRN PRN PRN Reason: Breathing treatment Tuberculin PPD (Tubersol, Aplisol, Ppd) 5 tu ID X1 ONE Stop: 02/11/19 10:01 Tuberculin PPD (Tubersol, Aplisol, Ppd) 5 tu ID X1 ONE Stop: 02/18/19 10:01 Assessment/Plan All Active Problems Debility (Acute) Cerebellar stroke (Acute) Left acute arterial ischemic stroke, 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 * Debility - PT/OT. * Dysphagia - ST. * Pain - Tylenol 1000MG Q6H PRN pain (1-10) * Bowel - Miralax 17GM daily, Senna/colace 2 tablets BID, Dulcolax 10MG OR daily PRN. * Adult immunization - Administer Prevnar 13, Pneumovax 23, Fluzone as appropriate. * DVT prophylaxis - Lovenox 40MG SC daily. * Stroke - Aspirin 81MG daily, Plavix 75MG daily. * Hyperlipidemia - Atorvastatin 40MG QHS. * Corynebacterium tracheobronchitis - Cefdinir 300MG Q12H thru 02/14/2019. * GERD - Famotidine 20MG BID. * Shortness of breath - Sodium Chloride 3% 3ML Q4H PRN, Duoneb nebulized Q4H PRN. * Nutrition - Jevity 1.5 50ML/hour. * Neck pain - Lidoderm patch 2 patches topical daily. * Insomnia - Melatonin 5MG QHS. * Agitated delirium - Seroquel 50MG twice daily, GDR when appropriate.
[2019-02-10] MEDS: Acetaminophen 650 MG/20 ML UDC 1000 MG PO (17:26)
[2019-02-10] MEDS: Famotidine 20 MG Tablet GT (17:26)
[2019-02-10] MEDS: QUEtiapine 25 MG Tablet 50 MG GT (17:26)
[2019-02-10] MEDS: Cefdinir Susp 125 MG/5 ML PO.SYRINGE 300 MG PO (17:26)
[2019-02-10 21:00] VITALS: O2SAT 92
[2019-02-10] MEDS: Atorvastatin Calcium 40 MG Tablet GT (22:08)
[2019-02-10] MEDS: MELATONIN 10 MG TABLET 5 MG GT (22:09)
[2019-02-11] MEDS: Senna/Docusate Sodium 1 Tablet 2 TABLET GT ×2 (04:30→16:23)
[2019-02-11] MEDS: Clopidogrel Bisulfate 75 MG Tablet GT (04:30)
[2019-02-11] MEDS: QUEtiapine 25 MG Tablet 50 MG GT ×2 (04:31→16:23)
[2019-02-11] MEDS: Famotidine 20 MG Tablet GT ×2 (04:31→16:23)
[2019-02-11] MEDS: Polyethylene Glycol 3350 17 GM PACKET GT (04:31)
[2019-02-11] MEDS: Enoxaparin 40 MG/0.4 ML Syringe SC (04:31)
[2019-02-11] MEDS: Lidocaine 5% Patch 2 PATCH TOPICAL (04:32)
[2019-02-11] MEDS: Menthol/Lanolin/Calamine/Znox 113 GM Tube 1 APPLIC TOPICAL ×2 (04:32→16:31)
[2019-02-11] MEDS: Cefdinir Susp 125 MG/5 ML PO.SYRINGE 300 MG PO ×2 (04:37→16:23)
[2019-02-11] MEDS: Acetaminophen 650 MG/20 ML UDC 1000 MG PO ×3 (04:50→22:23)
[2019-02-11 07:32] LABS: Absolute Lymphocyte Count 0.91 X10^3/uL (0.83-4.51); Absolute Neutrophil Count 3.6 X10^3/uL (2.0-7.7); Basophil# 0.05 X10^3/uL; Basophil% 0.8 % (0-1); Eosinophil# 0.75 X10^3/uL; Eosinophils% 12.5 % (0-5); Hematocrit 35.5 % (40-54); Hemoglobin 11.5 g/dL (13.0-16.5); Lymphocyte # 0.91 X10^3/ul (4.0); Lymphocyte % 15.1 % (19-41); Mean Corp Hgb Conc 32.4 g/dL (32-36); Mean Corpuscular Hgb 29.7 pg (27.0-32.0); Mean Corpuscular Volume 91.7 fL (80-94); Monocyte% 11.6 % (0-10); NRBC Flagged by Analyzer 0 % (0-5); Neutrophil % 59.8 % (47-70); Platelet Count 198 K/mm3 (150-450); RBC Distribution Width CV 13.7 % (11.6-14.6); RBC Distribution Width SD 46.3 fl (35.1-43.9); Red Blood Count 3.87 M/mm3 (4.6-6.2)
[2019-02-11] MEDS: Aspirin 81 MG TAB.CHEW GT (07:36)
[2019-02-11 07:44] LABS: Anion Gap 4 (5-15); BUN 16 mg/dL (7-18); BUN/Creat Ratio 25.1 RATIO (10-20); Calcium,Total 8.6 mg/dL (8.5-10.1); Chloride 101 mmol/L (98-107); Creatinine, Serum 0.64 mg/dL (0.70-1.30); EST Glomerular Filtration Rate 128 mL/min (>60); Est Glom Filt Rate - Afr Amer 155 mL/min (>60); Glucose 126 mg/dL (74-106); Potassium 3.5 mmol/L (3.5-5.1); Sodium Level 139 mmol/L (136-145)
[2019-02-11 07:50] VITALS: O2SAT 94
--- NOTE | 2019-02-11 09:35 | NURSING ---
Trach care completed and dressing changed. Pt tolerated well.
[2019-02-11] MEDS: Tuberculin,Purif.prot.deriv. 50 TU/ML Vial 5 ML ID (10:36)
--- NOTE | 2019-02-11 13:20 | NURSING ---
Trach care completed. Dressing changed an pt suctioned. Pt tolerated well.
[2019-02-11] MEDS: Jevity 1.5 1,000 ML 50 ML GT (14:20)
[2019-02-11 15:47] VITALS: BP 133/77; PULSE 84; RESP 22; TEMP 36.8; O2SAT 93
--- NOTE | 2019-02-11 17:49 | NURSING ---
Pt suctioned and trach care done. Dressing changed. Pt tolerated well.
--- NOTE | 2019-02-11 20:29 | NURSING ---
Patient suctioned at this time Trache care done, Dressing changed to trache. Patient tolerated procedure well.
[2019-02-11 20:45] VITALS: BP 135/76; PULSE 79; RESP 20; TEMP 36.9; O2SAT 97
[2019-02-11] MEDS: MELATONIN 10 MG TABLET 5 MG GT (21:25)
[2019-02-11] MEDS: Atorvastatin Calcium 40 MG Tablet GT (21:26)
--- NOTE | 2019-02-12 00:48 | NURSING ---
Patient suctioned at this time Trache care done, Dressing changed to trache. Patient tolerated procedure well.
--- NOTE | 2019-02-12 03:05 | NURSING ---
Addendum entered by Barbie Salguero 02/12/19 04:40: DOYLE Franklin from ER called. Patient's Brain CT and Rt. Hip xray that were done were normal and patient is being sent back to TCU. Paula notified of this. appreciative of the call. Addendum entered by Baribe Salguero 02/12/19 03:58: Report given to DOYLE Young down in ER. Paula called and updated, facilities supervisor updated. Addendum entered by Barbie Salguero 02/12/19 03:33: Dr. Fierro notified of patient complaining of left side of head hurting and of patient pulling on PEG Tube, orders given to send patient down to ER Original Note: Dr. Fierro notified of patient falling out of bed and of patient being restless. Orders given for Ativan 0.5 mg x 1 and for neurochecks.
[2019-02-12 03:15] VITALS: BP 150/79; PULSE 70; RESP 22; O2SAT 98
--- NOTE | 2019-02-12 03:51 | NURSING ---
0200 during pt rounding pt was found by finish cleaner to be sitting on the edge of the bed with head hanging down. with 2 assists pt was repositioned back in the bed and was noted to incontinent of urine and stool. staff cleansed pt and offered the bsc and pt indicated that he did not need to go any more , by saying no when he was asked if he needed to have a bowel movement. bed alarm had not gone off, and call light was within pt reach 0215 pt face is noted to red and he is pulling at his trach collar. pt asked if he he was having trouble breathing and shook his head no, but continued to pull at collar. staff to suction pt and again asked pt if he was breathing better and p shook his head in an affirmative manor. staff cleansed around trach and changed dressing. pt face remained reddened, staff at this point changed pt inner cannula and was noted to have a minor amt of mucus in it. SPO2 was taken and was 91% of 35% trach collar and respirations were 20. respiratory called to check pt . 0220 respiratory to see pt and deep suctioned x's 2 and pts SPO2 came up to 97%. pt facial color improved and was less restless. pt reposition for comfort, call light in reach with bed alarm on and tested to see if it was working, and was. 0300 staff heard a thump and then the bed alarm going off. staff ran into the room, on the floor pt was found with his head on his shoe boot on his left side. pt had been incontinent of a lg amt of stool and urine. peg tube was stretched and puling on site, trach collar was off. pt returned to bed with 3 assists and examined, no bruising or bumps noted pt head although to was holding the lt side of his head above his ear going ow, ow, ow. a mild abrasion was noted to the lt hip and bruising with a skin tear noted to the rt elbow. elbow cleaned with ns and dsd applied . pt cleansed and positioned for comfort in the be and neuro checks started rn notified the doctor and new orders received. rn informed that pt was holding head and making ow sound. ice was applied to the area . reexamination of pt head done and no bruising or bumps were noted. pupils reactive to light and were equal. 0315 vs obtained at this time and were as follows bp 150/79 ap 70 and spo2 was 98%. pt continued to be restless trying to get oob. reassurance to pt that he was ok. rn called the doctor that pt peg tube had been stretched and that he was holding the left side of his head. orders received to send pt to ed for evaluation, ativan not given as per previous order. 0330 pt to er via bed per staff assistance, verbal report given to ed staff.
[2019-02-12 05:15] VITALS: BP 119/86; PULSE 87; RESP 18; O2SAT 94
[2019-02-12] MEDS: Lidocaine 5% Patch 2 PATCH TOPICAL (05:24)
[2019-02-12] MEDS: Menthol/Lanolin/Calamine/Znox 113 GM Tube 1 APPLIC TOPICAL ×2 (05:25→18:53)
[2019-02-12] MEDS: QUEtiapine 25 MG Tablet 50 MG GT ×2 (05:25→18:33)
[2019-02-12] MEDS: Famotidine 20 MG Tablet GT ×2 (05:25→18:53)
[2019-02-12] MEDS: Enoxaparin 40 MG/0.4 ML Syringe SC (05:25)
[2019-02-12] MEDS: Clopidogrel Bisulfate 75 MG Tablet GT (05:25)
[2019-02-12] MEDS: Cefdinir Susp 125 MG/5 ML PO.SYRINGE 300 MG PO ×2 (05:27→18:45)
[2019-02-12 06:15] VITALS: BP 128/73; PULSE 85; RESP 16; O2SAT 96
[2019-02-12 07:25] VITALS: O2SAT 97
--- NOTE | 2019-02-12 08:24 | NURSING ---
THIS NURSE WALKED PASSED PT ROOM AND SEEN PT BINDER OFF AND PT PULLING ON PEG TUBE. PT TOOK CLOTHES AND SHEET OFF AND HAD ON FLOOR. PEG TUBE PULLED OUT ABOUT 4 IN. CALLED FOR DOYLE GALLARDO. DOYLE GALLARDO AND DR. RIVAS CAME TO ROOM.
--- NOTE | 2019-02-12 08:52 | RAD_ITS ---
STUDY: X-RAY - ABDOMEN/PELVIS REASON FOR EXAM: Male, 78 years old. PEG tube placement -- 60 cc of contrast solution (30cc of water and 30 cc gastrografin) TECHNIQUE: 2, supine, frontal projections of the abdomen/pelvis. COMPARISON: None. FINDINGS: Normal visualized lung bases. There is an unremarkable bowel gas pattern. There is no gross free air on these supine images. There is no plain film evident intra-abdominal mass or mass effect. Normal soft tissue structures. Normal visualized osseous structures. Contrast gently instilled into the PEG tube demonstrate normal opacified proximal loops of small bowel and unremarkable appearing nondistended small stomach. RAD/Abdomen Single View IMPRESSION: Contrast instilled within the PEG tube demonstrates unremarkable appearing, nondistended loops of proximal small bowel and nondistended grossly unremarkable appearing stomach. No free contrast identified. Electronically Signed: Juan Raymundo MD at 9:31 EST , Service support ,
--- NOTE | 2019-02-12 09:30 | NURSING ---
[facility] CALLED THIS NURSE TO ROOM. PT THROWING HIS LEGS AND ARMS OUT OF CHAIR AND NOT COOPERATING. WILL NOT LEAVE TRAK COLLAR ON. ASKED PT IF HE COULD BREATH PT SHOOK HEAD NO. ASKED DOYLE GALLARDO TO HELP WITH PT. THIS NURSE SUCTIONED PT OUT AND PT CAME IN. PT SETTLED DOWN A LITTLE AND LET US PUT HIS TRAK COLLAR ON. DOYLE GALLARDO IN ROOM TALKING TO PT .
--- NOTE | 2019-02-12 09:36 | NURSING ---
Spoke with Dr. Lomeli's office, they reported they will add order for Event monitor for patient.
--- NOTE | 2019-02-12 09:42 | PN_ITS ---
Progress Note I was consulted for possible dislodgment of the PEG tube. I inspected the PEG tube and it appeared that the bumper had moved back but it was still in place. I snugged the bumper back down to 2 cm and ordered a gastric contrast study. The contrast study showed the PEG tube is in place in the stomach and the KUB was normal. The patient can resume tube feeds. Bon Servin MD Pager: [facility] [address] [place] [address] [address] [place] [address] Office: [facility] Vital Signs/Narrative: Vital Signs Pulse Resp BP Pulse Ox 02/12/19 07:25 97 02/12/19 06:15 85 16 128/73 H 96
[2019-02-12] MEDS: Aspirin 81 MG TAB.CHEW GT (10:23)
[2019-02-12] MEDS: LORazepam 0.5 MG Tablet PO ×2 (10:26→18:31)
--- NOTE | 2019-02-12 10:38 | NURSING ---
OK PER DOYLE GALLARDO TO RESTART TUBE FEED. HIS NURSE ALSO GAVE PT PRN ATIVAN DUE TO STILL BEING RESTLESS. PT OK WITH IT.
[2019-02-12] MEDS: NYSTATIN 500,000 UNIT/5 ML UDC 500000 UNIT PO ×3 (11:45→20:02)
--- NOTE | 2019-02-12 13:14 | NURSING ---
Left message for [facility], explaining that the patient has an order for a Event Monitor. Waiting for return call.
--- NOTE | 2019-02-12 13:50 | NURSING ---
THIS NURSE CHANGED OUT INTER CANNULA,SUCTION TRAK OUT,CLEANED AND CHANGED DRESSING TO TRAK AREA. FI02 35% AND ON PT. PT STILL A LITTLE RESTLESS, IN ROOM.
--- NOTE | 2019-02-12 13:54 | NURSING ---
Faxed order for 30-Day Event Recorder from Dr. Holt to [facility] per their request.
[2019-02-12 15:25] VITALS: BP 133/79; PULSE 94; RESP 24; TEMP 37.1; O2SAT 97
[2019-02-12] MEDS: Acetaminophen 650 MG/20 ML UDC 1000 MG PO (16:41)
[2019-02-12] MEDS: Jevity 1.5 1,000 ML 50 ML GT (16:51)
--- NOTE | 2019-02-12 17:10 | NURSING ---
PT BED CHANGED OUT TO A HIGH LOW BED WITH MATS TO FLOOR. HEAD OF BED 30 DEGREES. PT SUCTIONED OUT AND DRESSING CHANGED TO TRAK AREA. PLACEMENT OF PEG VERIFIED, 0 RESIDUAL, PRN TYLENOL GIVEN DUE TO PT STATING THAT PT WAS IN PAIN WHEN HE IS RESTLESS AND KEEPS SHAKING HIS HEAD BACK AND FORWARD. NEW BOTTLE OF JEVITY 1.5 HUNG,50 ML AN HOUR WITH STERILE WATER FLUSH AT 150 ML EVERY 4 HOURS. PT STILL RESTLESS, STATED HE DONT LIKE THE PANTS. REMOVED PT PANTS AND CLEANED/ CHANGED PT ATTENDS,APPLIED JÚNIOR TO BOTTOM. REPOSITIONED PT. PT NOW RESTING COMFORTABLY. IN ROOM.
--- NOTE | 2019-02-12 17:25 | NURSING ---
PT HAD 30 DAY EVENT RECORDER APPLIED TO CHEST TODAY. MONITOR IS ON AND RECORDING AT 97% BATTERY LIFE. CHANGE BATTERY EVERY DAY AND STRIPS EVERY 7 DAYS PER ORDER.
[2019-02-12] MEDS: MELATONIN 10 MG TABLET 5 MG GT (20:00)
[2019-02-12] MEDS: Atorvastatin Calcium 40 MG Tablet GT (20:00)
[2019-02-12 20:25] VITALS: PULSE 78; RESP 18; O2SAT 95
[2019-02-13] MEDS: Acetaminophen 650 MG/20 ML UDC 1000 MG PO ×3 (01:44→21:50)
[2019-02-13 06:45] VITALS: O2SAT 95
[2019-02-13] MEDS: Menthol/Lanolin/Calamine/Znox 113 GM Tube 1 APPLIC TOPICAL ×2 (06:57→16:42)
[2019-02-13] MEDS: Enoxaparin 40 MG/0.4 ML Syringe SC (06:58)
[2019-02-13] MEDS: Lidocaine 5% Patch 2 PATCH TOPICAL (06:58)
[2019-02-13] MEDS: Senna/Docusate Sodium 1 Tablet 2 TABLET GT ×2 (06:59→17:00)
[2019-02-13] MEDS: QUEtiapine 25 MG Tablet 50 MG GT ×2 (06:59→17:00)
[2019-02-13] MEDS: Famotidine 20 MG Tablet GT ×2 (06:59→17:00)
[2019-02-13] MEDS: Clopidogrel Bisulfate 75 MG Tablet GT (06:59)
[2019-02-13] MEDS: NYSTATIN 500,000 UNIT/5 ML UDC 500000 UNIT PO ×4 (06:59→21:50)
[2019-02-13] MEDS: Cefdinir Susp 125 MG/5 ML PO.SYRINGE 300 MG GT ×2 (06:59→17:01)
--- NOTE | 2019-02-13 08:13 | PN_ITS ---
Subjective: Resident seen along with , daughter in law, we discussed code status, I explained the differences between Full Code, DNRCC-A, DNRCC, after explaining and answering questions, family decided on DNRCC-A, Discussion took 16 minutes. 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) Hypertension (Chronic) Hyperlipidemia (Chronic) Muscle spasm (Chronic) Allergies Penicillins Allergy (Unknown, Verified 02/12/19 03:39) Unknown cyclobenzaprine [From Flexeril] Adverse Reaction (Verified 02/12/19 03:39) Rash Home Medications: Ambulatory Orders Medication Instructions Recorded Acetaminophen Liquid [Tylenol 160 mg GT Q6H PRN PRN 01/31/19 Liquid] Atorvastatin Calcium 40 mg GT QHS 01/31/19 Bisacodyl 10 mg MA DAILY PRN 01/31/19 Docusate Sodium [Docu Liquid] 50 mg GT BID PRN PRN 01/31/19 Enoxaparin [Lovenox] 40 mg SUBCUT DAILY@0600 01/31/19 Famotidine [Pepcid] 20 mg GT BID 01/31/19 Ipratropium/Albuterol Sulfate 3 ml INHALATION Q4H PRN PRN 01/31/19 [Iprat-Albut 0.5-3(2.5) mg/3 ml] Melatonin 5 mg GT QHS 01/31/19 Polyethylene Glycol 3350 [Miralax] 17 gm GT DAILY PRN 01/31/19 Sodium Chloride 3% 3 ml INHALATION Q4H PRN PRN 01/31/19 Aspirin [Aspirin, Baby] 81 mg GT DAILY 02/10/19 Cefdinir Susp [Omnicef Susp] 300 mg PO Q12 02/10/19 Clopidogrel Bisulfate [Plavix] 75 mg GT DAILY 02/10/19 Lidocaine [Lidoderm Patch] 2 patch TOPICAL DAILY 02/10/19 Quetiapine Fumarate [Seroquel] 50 mg GT BID 02/10/19 Surgical History: appendectomy, herniorrhaphy, - - Tracheostomy, PEG tube, Suboccipital craniectomy, Cervical discectomy, carpal tunnel, shoulder surgery. Psychiatric History: No pertinent psych hx Lives: Spouse/ Significant Other Smoking Status: Former smoker Tobacco Use: Non-smoker Alcohol: None Drugs: None - *Family History Maternal History Items: - - History was taken from patient son who denies any disease in any of his siblings (children of patient). Patient son did not know maternal or paternal medical history. Paternal History Items: - - History was taken from patient son who denies any disease in any of his siblings (children of patient). Patient son did not know maternal or paternal medical history. Capacity - Capacity Assessment Tool Can the patient make a choice & communicate that choice?: No Can the patient understand benefits, risks and alternatives?: No Can the patient make a logical, rational choice?: No Is the choice the patient makes consistent w/ their values?: No Is there an impending, emergent risk to the patient?: Yes Does the patient have an Advance Directive?: Yes Is there a Surrogate Available?: Yes i.e. HCPOA: No i.e. close relative (spouse, child, parent, sibling)?: Yes Review of Systems Constitutional: Denies: Chills, Fever, Weight Change HEENT: Denies: Head Aches, Sinus Congestion, Sinus Drainage Cardiovascular: Denies: Chest Pain, Palpitations Respiratory: Denies: Cough, Shortness of breath at rest, Sputum production Gastrointestinal: Denies: Abdominal Pain, Nausea, Vomiting Genitourinary: Denies: Dysuria Musculoskeletal: Denies: Joint Pain, Joint Tenderness Skin: Denies: Rash, Wounds Neurological: Denies: Numbness, Tingling, Focal weakness Psychiatric: Denies: Anxiety, Depression, Homicidal Ideations, Suicidal Ideations Hematologic/ Lymphatic: Denies: Easy Bruising, Easy Bleeding Patient Problems: Active and Suspected Problems Agitation (Acute) Tracheobronchitis (Acute) - Physical Exam Vitals/I&O's: Vital Signs Temp Pulse Resp BP Pulse Ox 98.7 F 78 18 133/79 H 95 02/12/19 15:25 02/12/19 20:25 02/12/19 20:25 02/12/19 15:25 02/12/19 20:25 Oxygen Flow Rate (L/min) 10 Oxygen Delivery Method Trach Collar Weight: 70.4 kg Body Mass Index (BMI) 24.3 Finger Stick Blood Glucose 132 Intake and Output for Last 24 Hours 02/11/19 02/12/19 02/13/19 23:59 23:59 23:59 Intake Total 1034 / 1034 1272 / 1272 1056 / 1056 Balance 1034 / 1034 1272 / 1272 1056 / 1056 General: Alert, Oriented x3, Cooperative HEENT: Atraumatic, PERRLA, EOMI, Normocephalic Neck: Supple, No JVD, Negative Carotid Bruits, - - Tracheostomy. Lungs: Clear to auscultation, Normal air movement Cardiovascular: Regular rate, No murmurs Abdomen: Bowel Sounds Present, Soft, Non Tender, - - PEG. Extremities: No edema, Capillary Refill Less than 3 Seconds Skin: No rashes, No breakdown Musculoskeletal: No Tenderness to Palpation of Joints or Extremities Neurological: Cranial nerves II-XII grossly intact Psych/Mental Status: Normal Affect, Appropriate Current Medications Acetaminophen (Tylenol Liquid) 1,000 mg PO Q6H PRN PRN PRN Reason: Pain Score 1-10/10 Last Admin: 02/13/19 01:44 Dose: 1,000 mg Documented by: Albuterol/Ipratropium (Duoneb) 3 ml INHALATION Q4H PRN PRN PRN Reason: SHORTNESS OF BREATH [facility] Admin: 02/12/19 10:23 Dose: 81 mg Documented by: Atorvastatin Calcium (Lipitor) 40 mg GT QHS [facility] Last Admin: 02/12/19 20:00 Dose: 40 mg Documented by: Bisacodyl (Dulcolax) 10 mg RECTAL DAILY PRN PRN Reason: Constipation Calamine/Phenol (Calmoseptine Ointment) 1 applic TOPICAL BID [facility]; Protocol Last Admin: 02/13/19 06:57 Dose: 1 applicatio Documented by: Cefdinir (Omnicef Susp) 300 mg GT Q12 [facility] Stop: 02/14/19 18:01 Last Admin: 02/13/19 06:59 Dose: 300 mg Documented by: Clopidogrel Bisulfate (Plavix) 75 mg GT DAILY [facility] Last Admin: 02/13/19 06:59 Dose: 75 mg Documented by: Enoxaparin Sodium (Lovenox) 40 mg SC DAILY@0600 [facility] Last Admin: 02/13/19 06:58 Dose: 40 mg Documented by: Famotidine (Pepcid) 20 mg GT BID [facility] Last Admin: 02/13/19 06:59 Dose: 20 mg Documented by: Enteral Nutritional Formula (Jevity 1.5) 1,000 mls @ 50 mls/hr GT .Q20H [facility] Last Admin: 02/12/19 16:51 Dose: 50 mls/hr Documented by: Lidocaine (Lidoderm Patch) 2 patch TOPICAL DAILY [facility]; Protocol Last Admin: 02/13/19 06:58 Dose: 2 patch Documented by: Lorazepam (Ativan) 0.5 mg PO Q8H PRN PRN PRN Reason: ANXIETY Last Admin: 02/12/19 18:31 Dose: 0.5 mg Documented by: Melatonin (Melatonin) 5 mg GT QHS [facility] Last Admin: 02/12/19 20:00 Dose: 5 mg Documented by: Nystatin (Nystatin) 500,000 unit PO 4X/DAY [facility] Stop: 02/22/19 12:01 Last Admin: 02/13/19 06:59 Dose: 500,000 unit Documented by: Polyethylene Glycol (Miralax) 17 gm GT DAILY [facility] Last Admin: 02/13/19 06:59 Dose: Not Given Documented by: Quetiapine Fumarate (Seroquel) 50 mg GT BID [facility] Last Admin: 02/13/19 06:59 Dose: 50 mg Documented by: Senna/Docusate Sodium (Senokot-S, Christen-Colace) 2 tablet GT BID [facility] Last Admin: 02/13/19 06:59 Dose: 2 tablet Documented by: Sodium Chloride (Sodium Chloride 3%) 3 ml INHALATION Q4H PRN PRN PRN Reason: Breathing treatment Tuberculin PPD (Tubersol, Aplisol, Ppd) 5 tu ID [id number] Stop: 02/18/19 10:01 Assessment/Plan All Active Problems Debility (Acute) Cerebellar stroke (Acute) Left acute arterial ischemic stroke, SMOKE JUMPER (posterior cerebral artery) (Acute) Hospital-acquired pneumonia (Resolved) Status post emergency tracheotomy for assistance in breathing (Ruled-out) Psychosis (Acute) Agitation (Acute) Tracheobronchitis (Acute) 78 year old male with below past medical history hospitalized for agitated delirium secondary to acute cerebellar, left occipital stroke, complicated by Corynebacterium tracheobronchitis, admitted to TCU with debility, here for rehabilitation, strengthening, prior to discharge home with . * Code Status - 16 minute discussion spent on differences between Full Code, DNRCC-A, DNRCC, , daughter in law chose DNRCC-A.
[2019-02-13 09:45] VITALS: PULSE 80; RESP 18; O2SAT 97
[2019-02-13] MEDS: Aspirin 81 MG TAB.CHEW GT (09:46)
--- NOTE | 2019-02-13 10:27 | PCM.PN.RX ---
<AlconJason cisnerosi - Last Filed: 02/13/19 10:27> Progress Note - Pharmacy Subjective: TCU Admission Objective: Allergies Penicillins Allergy (Unknown, Verified 02/12/19 03:39) Unknown cyclobenzaprine [From Flexeril] Adverse Reaction (Verified 02/12/19 03:39) Rash Current Medications Generic Name Dose Route Start Last Admin Trade Name Freq PRN Reason Stop Dose Admin Acetaminophen 1,000 mg 02/10/19 15:16 02/13/19 01:44 Tylenol Liquid PO 1,000 mg Q6H PRN PRN Administration Pain Score 1-10/10 Albuterol/Ipratropium 3 ml 02/10/19 14:19 Duoneb INHALATION Q4H PRN PRN SHORTNESS OF BREATH Aspirin 81 mg 02/11/19 08:00 02/13/19 09:46 Aspirin, Baby GT 81 mg DAILYCM HARIS Administration Atorvastatin Calcium 40 mg 02/10/19 22:00 02/12/19 20:00 Lipitor GT 40 mg QHS [facility]IS Administration Bisacodyl 10 mg 02/10/19 14:19 Dulcolax RECTAL DAILY PRN Constipation Calamine/Phenol 1 applic 02/11/19 06:00 02/13/19 06:57 Calmoseptine Ointment TOPICAL 1 applicatio BID [facility]IS Administration Protocol Cefdinir 300 mg 02/13/19 06:00 02/13/19 06:59 Omnicef Susp GT 02/14/19 18:01 300 mg Q12 HARIS Administration Clopidogrel Bisulfate 75 mg 02/11/19 06:00 02/13/19 06:59 Plavix GT 75 mg DAILY [facility]IS Administration Enoxaparin Sodium 40 mg 02/11/19 06:00 02/13/19 06:58 Lovenox SC 40 mg DAILY@0600 [facility]IS Administration Famotidine 20 mg 02/10/19 18:00 02/13/19 06:59 Pepcid GT 20 mg BID HARIS Administration Enteral Nutritional Formula 1,000 mls @ 50 mls/hr 02/10/19 14:25 02/12/19 16:51 Jevity 1.5 GT 50 mls/hr .Q20H [facility]IS Administration Lidocaine 2 patch 02/11/19 06:00 02/13/19 06:58 Lidoderm Patch TOPICAL 2 patch DAILY [facility]IS Administration Protocol Lorazepam 0.5 mg 02/12/19 08:39 02/12/19 18:31 Ativan PO 0.5 mg Q8H PRN PRN Administration ANXIETY Melatonin 5 mg 02/10/19 22:00 02/12/19 20:00 Melatonin GT 5 mg QHS HARIS Administration Nystatin 500,000 unit 02/12/19 12:00 02/13/19 06:59 Nystatin PO 02/22/19 12:01 500,000 unit 4X/DAY [facility]IS Administration Polyethylene Glycol 17 gm 02/11/19 06:00 02/13/19 06:59 Miralax GT Not Given DAILY [facility] Quetiapine Fumarate 50 mg 02/10/19 18:00 02/13/19 06:59 Seroquel GT 50 mg BID [facility]IS Administration Senna/Docusate Sodium 2 tablet 02/10/19 18:00 02/13/19 06:59 Senokot-S, Christen-Colace GT 2 tablet BID [facility]IS Administration Sodium Chloride 3 ml 02/10/19 14:19 Sodium Chloride 3% INHALATION Q4H PRN PRN Breathing treatment Tuberculin PPD 5 tu 02/18/19 10:00 Tubersol, Aplisol, Ppd ID 02/18/19 10:01 X1 ONE Problem List Agitation (Acute) Tracheobronchitis (Acute) Vital Signs Temp Pulse Resp BP Pulse Ox 98.7 F 78 18 133/79 H 95 02/12/19 15:25 02/12/19 20:25 02/12/19 20:25 02/12/19 15:25 02/13/19 06:45 Oxygen Flow Rate (L/min) 10 Oxygen Delivery Method Trach Collar Weight: 70.4 kg Body Mass Index (BMI) 24.3 Finger Stick Blood Glucose 132 Sodium 139 mmol/L (136-145) 02/11/19 07:11 Potassium 3.5 mmol/L (3.5-5.1) 02/11/19 07:11 Chloride 101 mmol/L (98-107) 02/11/19 07:11 Carbon Dioxide 34.0 mmol/L (21.0-32.0) H 02/11/19 07:11 Anion Gap 4 (5-15) L 02/11/19 07:11 BUN 16 mg/dL (7-18) 02/11/19 07:11 Creatinine 0.64 mg/dL (0.70-1.30) L 02/11/19 07:11 Est GFR (MDRD) Af Amer 155 mL/min (>60) 02/11/19 07:11 Est GFR (MDRD) Non-Af 128 mL/min (>60) 02/11/19 07:11 BUN/Creatinine Ratio 25.1 RATIO (10-20) H 02/11/19 07:11 Glucose 126 mg/dL (74-106) H 02/11/19 07:11 Assessment/Plan: 1. Pain: acetaminophen liquid 1000mg PO Q6H PRN pain (-11/23). Please continue to monitor for increased pain and PRN usage. 2. Corynebacterium tracheobronchitis: cefdinir suspension 300mg GT Q12H thru 02/14/19. Please continue to monitor for S/S of infection and renal function. 3. DVT prophylaxis: enoxaparin 40mg SC daily. Please continue to monitor for S/S of bleeding, platelets and renal function. 4. Stroke: aspirin 81mg GT DAILYCM and clopidogrel 75mg GT daily. Please continue to monitor for S/S of bleeding. 5. Hyperlipidemia: atorvastatin 40mg GT QHS. Please continue to monitor lipid panel, LFTs and for muscle pain. 6. GERD: famotidine 20mg GT BID. Please continue to monitor for S/S of GERD. *7. Shortness of breath: sodium chloride 3% inhalation 3mL Q4H PRN breathing treatment and ipratropium/albuterol inhalation 3mL Q4H PRN shortness of breath. Please delineate when the 3% sodium chloride should be use. Thanks. 8. Neck pain: lidocaine 5% topical patch - 2 patches topically to the neck daily. Please continue to monitor for pain. 9. Insomnia: melatonin 5mg GT QHS. Please continue to monitor for insomnia. 10. Thrush: nystatin 500,000units PO 4x/day thru 02/22/19. Please continue to monitor for worsening thrush. Psychotropic Medications: *1. Agitated delirium: quetiapine 50mg GT BID. Please consider GDR by 07/2019 if clinically appropriate. *2. Anxiety: lorazepam 0.5mg PO Q6H PRN anxiety. Please consider GDR by 07/2019 if clinically appropriate. Unnecessary Medications: None *Bowel Regimen: Miralax 17gm GT daily, senna/docusate 2T GT BID, bisacodyl 10mg MS daily PRN constipation. Please consider changing Miralax and senna/docusate to PRN constipation. Patient has been experiencing loose stools. Thanks. Date of Note:: 02/13/19 - Provider Comments Provider responsibility: Provider responsible to enter orders to implement recommendations <Gordon Fierro Chi - Last Filed: 02/13/19 21:55> Progress Note - Pharmacy Subjective: [] Objective: Allergies Penicillins Allergy (Unknown, Verified 02/12/19 03:39) Unknown cyclobenzaprine [From Flexeril] Adverse Reaction (Verified 02/12/19 03:39) Rash Current Medications Generic Name Dose Route Start Last Admin Trade Name Freq PRN Reason Stop Dose Admin Acetaminophen 1,000 mg 02/10/19 15:16 02/13/19 21:50 Tylenol Liquid PO 1,000 mg Q6H PRN PRN Administration Pain Score 1-10/10 Albuterol/Ipratropium 3 ml 02/10/19 14:19 Duoneb INHALATION Q4H PRN PRN SHORTNESS OF BREATH Aspirin 81 mg 02/11/19 08:00 02/13/19 09:46 Aspirin, Baby GT 81 mg DAILYCM [facility]IS Administration Atorvastatin Calcium 40 mg 02/10/19 22:00 02/13/19 21:52 Lipitor GT 40 mg QHS HARIS Administration Bisacodyl 10 mg 02/10/19 14:19 Dulcolax RECTAL DAILY PRN Constipation Calamine/Phenol 1 applic 02/11/19 06:00 02/13/19 16:42 Calmoseptine Ointment TOPICAL 1 applicatio BID [facility]IS Administration Protocol Cefdinir 300 mg 02/13/19 06:00 02/13/19 17:01 Omnicef Susp GT 02/14/19 18:01 300 mg Q12 [facility]IS Administration Clopidogrel Bisulfate 75 mg 02/11/19 06:00 02/13/19 06:59 Plavix GT 75 mg DAILY [facility]IS Administration Enoxaparin Sodium 40 mg 02/11/19 06:00 02/13/19 06:58 Lovenox SC 40 mg DAILY@0600 [facility]IS Administration Famotidine 20 mg 02/10/19 18:00 02/13/19 17:00 Pepcid GT 20 mg BID [facility]IS Administration Enteral Nutritional Formula 1,000 mls @ 50 mls/hr 02/10/19 14:25 02/13/19 16:59 Jevity 1.5 GT 02/14/19 09:00 50 mls/hr .Q20H [facility] Administration Enteral Nutritional Formula 1,000 mls @ 50 mls/hr 02/14/19 17:00 Jevity 1.5 GT .Q20H [facility] Lidocaine 2 patch 02/11/19 06:00 02/13/19 06:58 Lidoderm Patch TOPICAL 2 patch DAILY [facility]IS Administration Protocol Lorazepam 0.5 mg 02/12/19 08:39 02/12/19 18:31 Ativan PO 0.5 mg Q8H PRN PRN Administration ANXIETY Melatonin 5 mg 02/10/19 22:00 02/13/19 21:51 Melatonin GT 5 mg QHS [facility]IS Administration Nystatin 500,000 unit 02/12/19 12:00 02/13/19 21:50 Nystatin PO 02/22/19 12:01 500,000 unit 4X/DAY [facility] Administration Polyethylene Glycol 17 gm 02/11/19 06:00 02/13/19 06:59 Miralax GT Not Given DAILY [facility] Quetiapine Fumarate 50 mg 02/10/19 18:00 02/13/19 17:00 Seroquel GT 50 mg BID [facility] Administration Senna/Docusate Sodium 2 tablet 02/10/19 18:00 02/13/19 17:00 Senokot-S, Christen-Colace GT 2 tablet BID [facility] Administration Sodium Chloride 3 ml 02/10/19 14:19 Sodium Chloride 3% INHALATION Q4H PRN PRN Breathing treatment Tuberculin PPD 5 tu 02/18/19 10:00 Tubersol, Aplisol, Ppd ID 02/18/19 10:01 X1 ONE Problem List Agitation (Acute) Tracheobronchitis (Acute) Vital Signs Temp Pulse Resp BP Pulse Ox 98 F 82 22 H 133/57 H 96 02/13/19 16:00 02/13/19 16:00 02/13/19 16:00 02/13/19 16:00 02/13/19 16:00 Oxygen Flow Rate (L/min) 9 Oxygen Delivery Method Trach Collar Weight: 68.209 kg Body Mass Index (BMI) 24.3 Finger Stick Blood Glucose 132 Sodium 139 mmol/L (136-145) 02/11/19 07:11 Potassium 3.5 mmol/L (3.5-5.1) 02/11/19 07:11 Chloride 101 mmol/L (98-107) 02/11/19 07:11 Carbon Dioxide 34.0 mmol/L (21.0-32.0) H 02/11/19 07:11 Anion Gap 4 (5-15) L 02/11/19 07:11 BUN 16 mg/dL (7-18) 02/11/19 07:11 Creatinine 0.64 mg/dL (0.70-1.30) L 02/11/19 07:11 Est GFR (MDRD) Af Amer 155 mL/min (>60) 02/11/19 07:11 Est GFR (MDRD) Non-Af 128 mL/min (>60) 02/11/19 07:11 BUN/Creatinine Ratio 25.1 RATIO (10-20) H 02/11/19 07:11 Glucose 126 mg/dL (74-106) H 02/11/19 07:11 Assessment/Plan: Psychotropic Medications: Unnecessary Medications: Bowel Regimen: - Provider Comments Provider responsibility: Provider responsible to enter orders to implement recommendations Provider Comments to Recommendations by Pharmacy: Agree
--- NOTE | 2019-02-13 10:47 | NURSING ---
PT CONTINUES TO REST COMFORTABLY,IN NO DISTRESS OR RESTLESSNESS. ASSESSMENT DONE, JEVITY 1.5 RUNNING AT 50 ML AN HOUR. HEAD OF BED 30 DEGREES,BED IN LOW POSITION. ALARM ON,MATS ON FLOOR. HEART MONITOR ON AND MONITORING. FI02 AT 35%. PT ATTENDS CHANGED,PT TURNED ON RIGHT SIDE AND HEELS FLOATED.
--- NOTE | 2019-02-13 12:40 | NURSING ---
Addendum entered by Cris Delacruz 02/13/19 13:38: Mahi, foreign car mechanic returned call and ok to have nocturnal feeds, starting tomorrow evening at 5p and run until 0900 at 75 ml/hr. start at 50 ml/hr and increase by 10ml q4h as tolerated. Original Note: Unhooked pt Tube feed at this time for 45 minutes of therapy. Spoke with foreign car mechanic and she will review records to see if pt can be night feeds only. awaiting return call.
--- NOTE | 2019-02-13 13:44 | NS ---
To allow pt to participate in therapy w/o disruption of nutrition support, recommend adjust Jevity 1.5 to goal rate of 75mL/hour for 16 hours/day. Continue w/ 150mL H2O flush every 4 hours. As ordered, will provide 1800 calories, 76 grams protein, and 1812mL total fluid per day. Recommend start tube feeds at 50mL/hour and increase by 10mL every 4 to 6 hours as pt tolerates until goal rate achieved on first night of adjusted rate
--- NOTE | 2019-02-13 13:47 | NURSING ---
PT GETTING RESTLESS AFTER THERAPY. ASKED PT IF HE HAD PAIN,PT SHOOK HEAD YES AND POINTED TO NECK. PEG PLACEMENT VERIFIED,0 RESIDUAL, HEAD OF BED 30 DEGREES. PRN TYLENOL GIVEN. TRAK SUCTIONED OUT DO TO PT COUGHING UP A LOT OF SPUTUM AREA CLEANED AND NEW DRESSING APPLIED. FI02 AT 35%. JEVITY 1.5 RUNNING AT 50 ML AN HOUR,FLUSH 150 Q 4 HOURS. HEEL BOOTS ON. BED IN LOW POSITION WITH MATS TO FLOOR. BED ALARM ON. MOUTH CARE GIVEN. PT RESTING AT THIS TIME. WILL CONTINUE TO MONITOR. REPORTED TO DOYLE SARABIA
[2019-02-13 16:00] VITALS: BP 133/57; PULSE 82; RESP 22; TEMP 36.6; O2SAT 96
--- NOTE | 2019-02-13 16:18 | NURSING ---
PT RESTLESS,REPOSITION/AND TURN PT IN BED. ASKED PT IF HE WAS COMFORTABLE,PT NODDED HIS HEAD YES.
[2019-02-13] MEDS: Jevity 1.5 1,000 ML 50 ML GT (16:59)
--- NOTE | 2019-02-13 18:25 | NURSING ---
Addendum entered by Darren Carlson 02/13/19 18:43: BED IN LOWEST POSITION WITH MATTS ON FLOOR. ALARM ON. Original Note: AT 1700, PT SUCTIONED,TRAK AREA CLEANED AND NEW DRESSING. FI02 AT 35%. MOUTH CARE GIVEN. HEAD OF BED 30 DEGREES, PEG PLACEMENT VERIFIED, 0 RESIDUAL. MEDS GIVEN WITH 60CC STERIL WATER FLUSH. NEW BOTTLE OF JEVITY 1.5 AT 50 ML AN HOUR AND 150 STERIL WATER FLUSH/NEW TUBING STARTED. PLUGGED IN HEART MONITOR TO CHARGE,MONITOR PLACEMENT VERIFIED AND RETRIEVING INFORMATION AT THIS TIME. AB BINDER ON. REPOSITIONED PT. PT TOLERATED WELL, NO COMPLAINTS,RESTING COMFORTABLE AT THIS TIME.
[2019-02-13] MEDS: MELATONIN 10 MG TABLET 5 MG GT (21:51)
[2019-02-13] MEDS: Atorvastatin Calcium 40 MG Tablet GT (21:52)
[2019-02-14] MEDS: Famotidine 20 MG Tablet GT ×2 (05:31→17:17)
[2019-02-14] MEDS: Clopidogrel Bisulfate 75 MG Tablet GT (05:31)
[2019-02-14] MEDS: QUEtiapine 25 MG Tablet 50 MG GT ×2 (05:31→17:17)
[2019-02-14] MEDS: Enoxaparin 40 MG/0.4 ML Syringe SC (05:31)
[2019-02-14] MEDS: Menthol/Lanolin/Calamine/Znox 113 GM Tube 1 APPLIC TOPICAL ×2 (05:32→17:37)
[2019-02-14] MEDS: NYSTATIN 500,000 UNIT/5 ML UDC 500000 UNIT PO ×4 (05:32→21:27)
[2019-02-14] MEDS: Cefdinir Susp 125 MG/5 ML PO.SYRINGE 300 MG GT ×2 (05:35→17:17)
[2019-02-14] MEDS: Lidocaine 5% Patch 2 PATCH TOPICAL (06:20)
[2019-02-14 07:58] VITALS: O2SAT 95
[2019-02-14] MEDS: Aspirin 81 MG TAB.CHEW GT (12:01)
[2019-02-14 15:14] VITALS: BP 137/75; PULSE 80; RESP 24; TEMP 36.4; O2SAT 92
[2019-02-14] MEDS: Jevity 1.5 1,000 ML 50 ML GT (17:04)
[2019-02-14] MEDS: Acetaminophen 650 MG/20 ML UDC 1000 MG PO ×2 (17:16→23:19)
[2019-02-14] MEDS: MELATONIN 10 MG TABLET 5 MG GT (21:27)
[2019-02-14] MEDS: Atorvastatin Calcium 40 MG Tablet GT (21:28)
[2019-02-14 23:17] VITALS: BP 142/88; PULSE 104; RESP 24; TEMP 36.7; O2SAT 98
[2019-02-14] MEDS: LORazepam 0.5 MG Tablet PO (23:19)
--- NOTE | 2019-02-14 23:42 | NURSING ---
At 2320 pt bed alarm going off. Staff promptly to room. Pt found on mat, on floor laying on his right side. Pt unable to state name or which is baseline. When asking pt if he had pain pt stated No. A thorough skin assessment was completed and no redness or bruising was noted. Pt was a total assist back to bed x4 staffing. PEG intact under abd binder. Vitals completed, see worklist. Bilateral eyes PERRLA. When asking pt if he was having any pain pt stated No. Dr. Fierro updated. New order for neuro checks per hospital policy. Notify him if pt shows any signs of pain or bruising. gang supervisor notified.
[2019-02-15] MEDS: Lidocaine 5% Patch 2 PATCH TOPICAL (05:12)
[2019-02-15] MEDS: NYSTATIN 500,000 UNIT/5 ML UDC 500000 UNIT PO ×4 (05:13→20:21)
[2019-02-15] MEDS: Enoxaparin 40 MG/0.4 ML Syringe SC (05:13)
[2019-02-15] MEDS: Menthol/Lanolin/Calamine/Znox 113 GM Tube 1 APPLIC TOPICAL ×2 (05:13→17:59)
[2019-02-15] MEDS: Polyethylene Glycol 3350 17 GM PACKET GT (05:14)
[2019-02-15] MEDS: Nystatin Powder 15gm Bottle 1 APPLIC TOPICAL ×2 (05:14→20:20)
[2019-02-15] MEDS: Clopidogrel Bisulfate 75 MG Tablet GT (05:15)
[2019-02-15] MEDS: Famotidine 20 MG Tablet GT ×2 (05:15→17:58)
[2019-02-15] MEDS: QUEtiapine 25 MG Tablet 50 MG GT ×2 (05:15→17:58)
[2019-02-15] MEDS: Senna/Docusate Sodium 1 Tablet 2 TABLET GT ×2 (05:15→17:59)
[2019-02-15] MEDS: Acetaminophen 650 MG/20 ML UDC 1000 MG PO ×2 (05:24→14:38)
--- NOTE | 2019-02-15 07:07 | NURSING ---
Patients was notified that patient fell through the night. gave permission for camera to be used on patient. said son Juan was to be first to be notified so didn't have to be woken up during the night. Registration was called to change house attendant to notify first to son Juan. Juan son was called and notified that patient fell.
[2019-02-15 07:40] VITALS: O2SAT 94
--- NOTE | 2019-02-15 09:00 | NURSING ---
0800-pt resting comfortably in bed with room darkened.bed in lowest position with mats and rails up x2 with bed exit
[2019-02-15] MEDS: Aspirin 81 MG TAB.CHEW GT (09:02)
--- NOTE | 2019-02-15 13:45 | MDS.RN ---
Pain interview for maria de jesus 02/17/2019 completed.
--- NOTE | 2019-02-15 14:04 | NURSING ---
pt up to chair and to therapy room with pt/ot. pt doing well. rubbing neck slightly when got up. will give tylenol when gets done and to room. pt scanning for nurse when talked to and smiled when joked with pt even. at side observing therapy
[2019-02-15 14:25] VITALS: O2SAT 97
[2019-02-15 15:27] VITALS: BP 117/86; PULSE 81; RESP 22; TEMP 36.6; O2SAT 90
[2019-02-15] MEDS: Jevity 1.5 1,000 ML 75 ML GT (17:59)
[2019-02-15 18:14] VITALS: O2SAT 90
[2019-02-15] MEDS: LORazepam 0.5 MG Tablet PO (19:24)
[2019-02-15] MEDS: Atorvastatin Calcium 40 MG Tablet GT (20:14)
[2019-02-15] MEDS: MELATONIN 10 MG TABLET 5 MG GT (20:14)
--- NOTE | 2019-02-15 22:31 | NURSING ---
Patient very restless at this time. Patient suctioned at this time. Area to trache cleaned, new dressing placed. Patient now resting quietly in bed, eyes closed.
[2019-02-16] MEDS: Acetaminophen 650 MG/20 ML UDC 1000 MG PO ×2 (03:35→09:44)
[2019-02-16] MEDS: LORazepam 0.5 MG Tablet PO ×3 (03:40→22:17)
[2019-02-16] MEDS: Menthol/Lanolin/Calamine/Znox 113 GM Tube 1 APPLIC TOPICAL ×2 (05:19→17:12)
[2019-02-16] MEDS: Nystatin Powder 15gm Bottle 1 APPLIC TOPICAL ×2 (05:19→21:03)
[2019-02-16] MEDS: Lidocaine 5% Patch 2 PATCH TOPICAL (05:21)
[2019-02-16] MEDS: NYSTATIN 500,000 UNIT/5 ML UDC 500000 UNIT PO ×4 (05:21→21:02)
[2019-02-16] MEDS: Clopidogrel Bisulfate 75 MG Tablet GT (05:22)
[2019-02-16] MEDS: Famotidine 20 MG Tablet GT ×2 (05:22→17:08)
[2019-02-16] MEDS: Enoxaparin 40 MG/0.4 ML Syringe SC (05:22)
[2019-02-16] MEDS: QUEtiapine 25 MG Tablet 50 MG GT ×2 (05:22→17:11)
[2019-02-16] MEDS: Aspirin 81 MG TAB.CHEW GT (09:13)
--- NOTE | 2019-02-16 09:32 | NURSING ---
AT 0800 PT VERY RESTLESS TRYING TO GET OUT OF BED,PULLING EVERY THING OFF. REFUSED NAYELI WRAPS AND TO GET UP IN CHAIR. PT DID NOT COMPLANE OF ANY PAIN AT THAT TIME. SUCTIONED AND CHANGED OUT TRAK. REPOSITION TRAK. CHECKED HEART MONITOR,NOT MONITORING AT THIS TIME. CHANGED OUT BATTERY AND MADE SURE EVERY THING WAS CONNECTED. GOT MONITOR GOING AGAIN. MOUTH CARE DONE. ANDERS WALL IN ROOM SITTING WITH PT. FAMILY CALLED BY DOYLE SARABIA. THIS NURSE ASKED PT WHAT HE NEEDED,PT STATED HE WANTED TO GO HOME. DOYLE SARABIA IN ROOM. ALL PRN MEDS UP TO DATE AT THIS TIME. AT 0940 FAMILY HERE. FAMILY UP DATED. DOYLE SARABIA IS AWARE.
--- NOTE | 2019-02-16 09:52 | NURSING ---
PT COMPLANE OF NECK HURTING,PRN TYLENOL GIVEN.
--- NOTE | 2019-02-16 10:29 | CASEMGMT ---
Social Work BIMS and PHQ-9 completed for MDS assessment. Kelly Olivas, FIELD APPLICATION ENGINEER GEOPOLITICS TEACHER
--- NOTE | 2019-02-16 11:34 | NURSING ---
TRAK SITE CLEANED AND NEW DRESSING,PT ATTENDS CHANGED. REPOSITIONED PT,MOUTH CARE GIVEN. FI02 AT 35%. HEART MONITOR MONITORING. PT LEAVING EVERY THING ON BUT GOWN. BED AT LOWEST POSITION,2 RAILS UP,MATTS ON FLOOR. IN ROOM. PT RESTING AT THIS TIME.
--- NOTE | 2019-02-16 13:25 | NURSING ---
PT SLEEPING COMFORTABLY AT THIS TIME. IN ROOM. FI02 AT 35%,BED LOWEST POSITION,2 SIDE RAILS AND MATTS TO THE FLOOR. BED ALARM ON.
[2019-02-16 16:00] VITALS: BP 151/89; PULSE 109; RESP 23; O2SAT 90
[2019-02-16] MEDS: oxyCODONE 5 MG Tablet 2.5 MG PO ×2 (17:08→21:02)
[2019-02-16] MEDS: Jevity 1.5 1,000 ML 75 ML GT (17:18)
--- NOTE | 2019-02-16 18:17 | NURSING ---
Dr Tran in to see pt regarding C3,4, 7 & T 1 radiculopathy. new order to hold lovenox Tues and Wed for steroid injection on Tue.
[2019-02-16 21:00] VITALS: RESP 18
[2019-02-16] MEDS: Atorvastatin Calcium 40 MG Tablet GT (21:03)
[2019-02-16] MEDS: MELATONIN 10 MG TABLET 5 MG GT (21:03)
--- NOTE | 2019-02-17 01:00 | NURSING ---
Pt agitated, attempting to swing legs out of bed and pulling self to side of bed. Pt reaching for objects in the air, unable to verbalize needs. Christen care and mouth care provided, trach suctioned, and pt positioned for comfort. When asking pt if he is in pain, pt shakes head no. Ativan 0.5mg last given at [address] Fierro notified of ongoing agitation and ordered additional 1mg Ativan x1. Bed in low posiiton with camera on and pressure sensitive alarm in place.
[2019-02-17] MEDS: LORazepam 1 MG Tablet GT (01:12)
[2019-02-17] MEDS: Acetaminophen 650 MG/20 ML UDC 1000 MG PO ×3 (01:15→23:48)
[2019-02-17] MEDS: Menthol/Lanolin/Calamine/Znox 113 GM Tube 1 APPLIC TOPICAL ×2 (06:18→16:55)
[2019-02-17] MEDS: Enoxaparin 40 MG/0.4 ML Syringe SC (06:19)
[2019-02-17] MEDS: QUEtiapine 25 MG Tablet 50 MG GT ×2 (06:19→16:54)
[2019-02-17] MEDS: NYSTATIN 500,000 UNIT/5 ML UDC 500000 UNIT PO ×4 (06:19→22:09)
[2019-02-17] MEDS: Lidocaine 5% Patch 2 PATCH TOPICAL (06:19)
[2019-02-17] MEDS: Famotidine 20 MG Tablet GT ×2 (06:19→16:54)
[2019-02-17] MEDS: Clopidogrel Bisulfate 75 MG Tablet GT (06:19)
[2019-02-17] MEDS: Nystatin Powder 15gm Bottle 1 APPLIC TOPICAL ×2 (06:21→22:14)
[2019-02-17] MEDS: Aspirin 81 MG TAB.CHEW GT (10:24)
[2019-02-17 10:30] VITALS: PULSE 100; RESP 20
[2019-02-17] MEDS: oxyCODONE 5 MG Tablet 2.5 MG PO (15:00)
[2019-02-17] MEDS: LORazepam 0.5 MG Tablet 1 MG GT ×2 (15:01→23:04)
[2019-02-17 15:36] VITALS: BP 112/56; PULSE 83; RESP 19; TEMP 37; O2SAT 91
[2019-02-17 17:20] VITALS: RESP 20
[2019-02-17] MEDS: Jevity 1.5 1,000 ML 75 ML GT (17:20)
[2019-02-17] MEDS: Atorvastatin Calcium 40 MG Tablet GT (22:09)
[2019-02-17] MEDS: MELATONIN 10 MG TABLET 5 MG GT (22:09)
[2019-02-18] MEDS: Famotidine 20 MG Tablet GT ×2 (05:09→17:53)
[2019-02-18 05:10] VITALS: PULSE 88; RESP 16; O2SAT 96
[2019-02-18] MEDS: NYSTATIN 500,000 UNIT/5 ML UDC 500000 UNIT PO ×4 (05:10→22:28)
[2019-02-18] MEDS: Clopidogrel Bisulfate 75 MG Tablet GT (05:10)
[2019-02-18] MEDS: QUEtiapine 25 MG Tablet 50 MG GT ×2 (05:10→17:52)
[2019-02-18] MEDS: Menthol/Lanolin/Calamine/Znox 113 GM Tube 1 APPLIC TOPICAL ×2 (05:10→17:53)
[2019-02-18] MEDS: Nystatin Powder 15gm Bottle 1 APPLIC TOPICAL ×2 (05:11→22:31)
[2019-02-18] MEDS: Enoxaparin 40 MG/0.4 ML Syringe SC (05:15)
[2019-02-18 06:05] LABS: Absolute Lymphocyte Count 1.05 X10^3/uL (0.83-4.51); Absolute Neutrophil Count 3.4 X10^3/uL (2.0-7.7); Basophil# 0.04 X10^3/uL; Basophil% 0.7 % (0-1); Eosinophil# 0.39 X10^3/uL; Eosinophils% 7.1 % (0-5); Hematocrit 33.6 % (40-54); Lymphocyte # 1.05 X10^3/ul (4.0); Lymphocyte % 19.2 % (19-41); Mean Corp Hgb Conc 32.7 g/dL (32-36); Mean Corpuscular Hgb 30.3 pg (27.0-32.0); Mean Corpuscular Volume 92.6 fL (80-94); Mean Platelet Vol. 9.5 fl (6.2-12.0); Monocyte# 0.56 X10^3/uL; Monocyte% 10.2 % (0-10); NRBC Flagged by Analyzer 0 % (0-5); Neutrophil # 3.42 X10^3/uL (2.7-7.7); Neutrophil % 62.6 % (47-70); Platelet Count 210 K/mm3 (150-450); RBC Distribution Width CV 13.9 % (11.6-14.6); RBC Distribution Width SD 46.9 fl (35.1-43.9); Red Blood Count 3.63 M/mm3 (4.6-6.2); White Blood Count 5.5 K/mm3 (4.4-11.0)
[2019-02-18 06:44] LABS: Anion Gap 4 (5-15); BUN 14 mg/dL (7-18); BUN/Creat Ratio 21.6 RATIO (10-20); Chloride 104 mmol/L (98-107); Creatinine, Serum 0.65 mg/dL (0.70-1.30); EST Glomerular Filtration Rate 126 mL/min (>60); Est Glom Filt Rate - Afr Amer 153 mL/min (>60); Glucose 115 mg/dL (74-106); Potassium 3.6 mmol/L (3.5-5.1); Sodium Level 140 mmol/L (136-145)
--- NOTE | 2019-02-18 06:49 | NURSING ---
HOB at 30 degree. Pt jevity 1.5 bolus running at 75ml/hr and 150cc of sterile water flushed q4 hr. All meds received via peg tube without difficulty. Removed inner cannula and cleansed tracheostomy area and applied new dressing. Peg tube area cleansed and dressing also changed this AM. Heart monitor battery changed this AM. Pt tolerated well.
[2019-02-18 07:08] VITALS: O2SAT 98
[2019-02-18] MEDS: Lidocaine 5% Patch 2 PATCH TOPICAL (09:05)
[2019-02-18] MEDS: Aspirin 81 MG TAB.CHEW GT (09:05)
[2019-02-18] MEDS: Acetaminophen 650 MG/20 ML UDC 1000 MG PO ×2 (09:06→17:51)
[2019-02-18] MEDS: oxyCODONE 5 MG Tablet 2.5 MG PO (11:16)
[2019-02-18] MEDS: Tuberculin,Purif.prot.deriv. 50 TU/ML Vial 5 ML ID (15:06)
[2019-02-18 16:00] VITALS: BP 138/72; PULSE 74; RESP 20; TEMP 36.2; O2SAT 96
[2019-02-18] MEDS: Senna/Docusate Sodium 1 Tablet 2 TABLET GT (17:52)
[2019-02-18] MEDS: Jevity 1.5 1,000 ML 75 ML GT (18:10)
[2019-02-18] MEDS: LORazepam 0.5 MG Tablet 1 MG GT (19:19)
[2019-02-18] MEDS: Atorvastatin Calcium 40 MG Tablet GT (22:29)
[2019-02-18] MEDS: MELATONIN 10 MG TABLET 5 MG GT (22:29)
[2019-02-18 23:04] VITALS: O2SAT 97
[2019-02-19 04:45] VITALS: O2SAT 97
[2019-02-19] MEDS: Famotidine 20 MG Tablet GT ×2 (05:06→17:13)
[2019-02-19] MEDS: QUEtiapine 25 MG Tablet 50 MG GT ×2 (05:06→17:14)
[2019-02-19] MEDS: Clopidogrel Bisulfate 75 MG Tablet GT (05:06)
[2019-02-19] MEDS: NYSTATIN 500,000 UNIT/5 ML UDC 500000 UNIT PO ×4 (05:06→20:40)
[2019-02-19] MEDS: Acetaminophen 650 MG/20 ML UDC 1000 MG PO ×3 (05:07→18:19)
[2019-02-19] MEDS: Menthol/Lanolin/Calamine/Znox 113 GM Tube 1 APPLIC TOPICAL ×2 (05:08→17:13)
[2019-02-19] MEDS: Enoxaparin 40 MG/0.4 ML Syringe SC (05:13)
[2019-02-19] MEDS: Nystatin Powder 15gm Bottle 1 APPLIC TOPICAL ×2 (05:14→20:44)
[2019-02-19] MEDS: LORazepam 0.5 MG Tablet 1 MG GT ×2 (06:21→17:12)
[2019-02-19 07:43] VITALS: O2SAT 87; O2SAT 95
[2019-02-19] MEDS: Aspirin 81 MG TAB.CHEW GT (09:21)
--- NOTE | 2019-02-19 09:30 | NURSING ---
Tracheostomy care completed. Inner cannula changedand dressing changed. Small amount of sputum suctioned. Pt tolerated well. HOB at 40 degrees.
[2019-02-19] MEDS: Lidocaine 5% Patch 2 PATCH TOPICAL (09:32)
[2019-02-19 10:00] VITALS: PULSE 88; RESP 16; O2SAT 97
--- NOTE | 2019-02-19 13:31 | NURSING ---
Patients requesting to SPECIAL EVENTS DRIVER and ST that we schedule his OXYIR. This nurse has repeatedly asked her if she would like me to give him the OxyIR but she opted to wait at every offering. Pts is concerned we are not keeping up on his pain. This nurse offered OxyIR when lidocaine patches were applied and stated I would like you to wait about a hour and we will go from there. I then gave him his scheduled Tylenol and she again wanted me to wait to give him the oxyir.
[2019-02-19] MEDS: oxyCODONE 5 MG Tablet 2.5 MG PO (13:38)
--- NOTE | 2019-02-19 13:52 | NURSING ---
Pt medicated with 2.5 mg of OxyIR and PEG tube flushed with 150 ml of H20. Pt tolerated well.
[2019-02-19 15:33] VITALS: BP 140/90; PULSE 86; RESP 20; TEMP 36.7; O2SAT 95
[2019-02-19] MEDS: Senna/Docusate Sodium 1 Tablet 2 TABLET GT (17:13)
[2019-02-19] MEDS: Jevity 1.5 1,000 ML 75 ML GT (17:35)
[2019-02-19] MEDS: Atorvastatin Calcium 40 MG Tablet GT (20:39)
[2019-02-19] MEDS: MELATONIN 10 MG TABLET 5 MG GT (20:40)
[2019-02-19 21:05] VITALS: O2SAT 95
[2019-02-20] MEDS: Acetaminophen 650 MG/20 ML UDC 1000 MG PO ×4 (00:03→17:06)
[2019-02-20] MEDS: NYSTATIN 500,000 UNIT/5 ML UDC 500000 UNIT PO ×4 (04:52→21:20)
[2019-02-20] MEDS: Famotidine 20 MG Tablet GT ×2 (04:53→17:06)
[2019-02-20] MEDS: Nystatin Powder 15gm Bottle 1 APPLIC TOPICAL (04:53)
[2019-02-20] MEDS: Clopidogrel Bisulfate 75 MG Tablet GT (04:53)
[2019-02-20] MEDS: QUEtiapine 25 MG Tablet 50 MG GT ×2 (04:53→17:06)
[2019-02-20] MEDS: Menthol/Lanolin/Calamine/Znox 113 GM Tube 1 APPLIC TOPICAL ×2 (04:54→17:26)
[2019-02-20] MEDS: LORazepam 0.5 MG Tablet 1 MG GT ×2 (07:00→21:10)
[2019-02-20 08:28] VITALS: O2SAT 90
[2019-02-20] MEDS: Aspirin 81 MG TAB.CHEW GT (08:59)
[2019-02-20] MEDS: Lidocaine 5% Patch 2 PATCH TOPICAL (08:59)
--- NOTE | 2019-02-20 11:18 | NURSING ---
THIS NURSE SUCTIONED PT OUT,GAVE SCHEDULED MEDS HOB 30 DEGREES. FI02 AT 30% OXYGEN 94%. MOUTH CARE GIVEN. PT TOLERATED WELL AND RESTING COMFORTABLY. TALKED TO RESPIRATORY AND FI02 OK AT 30%. REPORTED TO DOYLE SARABIA
--- NOTE | 2019-02-20 11:36 | NURSING ---
BREAKFAST AND LUNCH TIMES 0 RESIDUAL.
[2019-02-20] MEDS: oxyCODONE 5 MG Tablet 2.5 MG PO ×3 (12:54→21:11)
[2019-02-20 16:00] VITALS: BP 143/88; PULSE 93; RESP 20; TEMP 36.6; O2SAT 93
[2019-02-20] MEDS: Senna/Docusate Sodium 1 Tablet 2 TABLET GT (17:06)
[2019-02-20] MEDS: Jevity 1.5 1,000 ML 75 ML GT (17:20)
--- NOTE | 2019-02-20 17:52 | NURSING ---
PT IN BED.PEG PLACEMENT VERIFIED,0 RESIDUAL. MEDS/PAIN MEDS GIVEN WITH 60CC FLUSH. JEVITY 1.5 STARTED AT 75 CC AN HOUR,FLUSH 150 EVERY 4 HOURS. HEART MONITOR FULLY CHARGED AND MONITORING. MOUTH CARE GIVEN,TRAK AREA CLEANED AND DRESSING CHANGED. FI02 AT 30%/8L. BED IN LOWEST POSITION X2 RAILS,ALARM ON. CALL LIGHT IN REACH. IN ROOM. PT TOLERATED WELL AND IS RESTING.
[2019-02-20] MEDS: Atorvastatin Calcium 40 MG Tablet GT (21:12)
[2019-02-20] MEDS: MELATONIN 10 MG TABLET 5 MG GT (21:12)
[2019-02-21] VITALS: PULSE 76; RESP 24; O2SAT 96
[2019-02-21] MEDS: Acetaminophen 650 MG/20 ML UDC 1000 MG PO ×3 (00:21→16:44)
[2019-02-21] MEDS: oxyCODONE 5 MG Tablet 2.5 MG PO (03:31)
[2019-02-21] MEDS: QUEtiapine 25 MG Tablet 50 MG GT ×2 (06:38→16:43)
[2019-02-21] MEDS: Famotidine 20 MG Tablet GT ×2 (06:38→16:43)
[2019-02-21] MEDS: Lidocaine 5% Patch 2 PATCH TOPICAL (07:01)
[2019-02-21 09:30] VITALS: PULSE 94; RESP 18; O2SAT 94
--- NOTE | 2019-02-21 11:01 | NURSING ---
AT 0930 AM THIS NURSE SHAVED PT CHEST AREA WERE MONITOR STRIP IS TO GO,WITH THE PERMISSION FROM THE . NEW STRIP APPLIED,NEW BATTERY AND HEART MONITOR PLUGGED IN TO CHARGE. MONITORING AT THIS TIME. HELPED THERAPY WITH PT TO CHAIR.
--- NOTE | 2019-02-21 11:04 | CASEMGMT ---
Social Work IDT met with patient, and family for care plan meeting. Discussed patient's progress in therapy. Pt is dependent with all ADLs, mod assist x2 for transfers and has walked 20ft at the wall rail.. ST has trialed ice chips and pt aspirates on them, not tolerating speaking valve, having issues staying alert at times, but is impulsive and can't follow directions. Pt has peg and trach and going for procedure to assist with neck pain on this date. Explained Medicare benefit and PFS spoke on [employer] assistance. Pt still requiring further nursing and therapy needs. Will continue to follow. MAK HillW
--- NOTE | 2019-02-21 11:09 | NURSING ---
PT TRANSFER TO [facility] APPOINTMENT BY BED AT 1045 AM. AIDS TRANSFERRED,FAMILY WITH THEM.
--- NOTE | 2019-02-21 14:39 | MDS.RN ---
Information for the mds was obtained from review of the clinical record, interview of resident, staff, and direct observation of resident's care.
[2019-02-21 16:00] VITALS: BP 141/75; PULSE 78; RESP 18; TEMP 36.6; O2SAT 97
--- NOTE | 2019-02-21 16:01 | NURSING ---
PT RETURNED TO FLOOR AT 1600 BY BED FROM PROCEDURE BY BASALIS.
[2019-02-21] MEDS: Polyethylene Glycol 3350 17 GM PACKET GT (16:42)
[2019-02-21] MEDS: Aspirin 81 MG TAB.CHEW GT (16:42)
[2019-02-21] MEDS: Senna/Docusate Sodium 1 Tablet 2 TABLET GT (16:43)
[2019-02-21] MEDS: Jevity 1.5 1,000 ML 75 ML GT (16:57)
--- NOTE | 2019-02-21 17:08 | NURSING ---
THIS NURSE CHANGED INTER CANNULA, CLEANED TRAK AREA AND APPLIED NEW DRESSING. FI02 @30%/8L. HOB 30 DEGREES, PEG PLACEMENT VERIFIED, 0 RESIDUAL, MEDS GIVEN WITH 100 FLUSH. JEVITY 1.5 STARTED @ 75 ML/AN HOUR,150 FLUSH Q 4 HOURS WITH STERILE WATER. BED AT LOWEST POSITION,MATTS TO FLOOR,ALARM ON. FAMILY IN ROOM.PT TOLERATED WELL. RESTING COMFORTABLY. PT CAME UP FROM PROCEDURE WITH IV IN LEFT HAND. NO FLUIDS RUNNING AT THIS TIME. VITALS WERE DONE AND WNL. WILL CONTINUE TO MONITOR. REPORTED TO DOYLE GALLARDO
[2019-02-21] MEDS: Menthol/Lanolin/Calamine/Znox 113 GM Tube 1 APPLIC TOPICAL (18:25)
[2019-02-21 18:34] VITALS: BP 122/70; PULSE 80; RESP 16; TEMP 36.7; O2SAT 95
--- NOTE | 2019-02-21 18:38 | NURSING ---
PT STILL RESTING COMFORTABLY. VITALS DONE,WNL. IN ROOM.
[2019-02-21] MEDS: Nystatin Powder 15gm Bottle 1 APPLIC TOPICAL (21:41)
[2019-02-21] MEDS: NYSTATIN 500,000 UNIT/5 ML UDC 500000 UNIT PO (21:41)
[2019-02-21] MEDS: MELATONIN 10 MG TABLET 5 MG GT (21:42)
[2019-02-21] MEDS: Atorvastatin Calcium 40 MG Tablet GT (21:43)
[2019-02-22] MEDS: Acetaminophen 650 MG/20 ML UDC 1000 MG PO ×4 (00:08→16:53)
[2019-02-22 02:25] VITALS: O2SAT 97
[2019-02-22] MEDS: LORazepam 0.5 MG Tablet 1 MG GT (02:46)
--- NOTE | 2019-02-22 03:02 | NURSING ---
Pt agitated, attempting to swing legs out of bed and pulling self to side of bed. Pt reaching for objects in the air, unable to verbalize needs. Christen care and mouth care provided, trach suctioned, and pt positioned for comfort. When asking pt if he is in pain, pt shakes head no. Ativan 1 mg last given at 2:46 am with minimal effect.
[2019-02-22] MEDS: oxyCODONE 5 MG Tablet 2.5 MG PO ×3 (03:06→16:51)
[2019-02-22] MEDS: Clopidogrel Bisulfate 75 MG Tablet GT (04:36)
[2019-02-22] MEDS: QUEtiapine 25 MG Tablet 50 MG GT ×2 (04:36→16:52)
[2019-02-22] MEDS: Senna/Docusate Sodium 1 Tablet 2 TABLET GT ×2 (04:36→16:52)
[2019-02-22] MEDS: Famotidine 20 MG Tablet GT ×2 (04:36→16:52)
[2019-02-22] MEDS: Polyethylene Glycol 3350 17 GM PACKET GT (04:46)
[2019-02-22] MEDS: Menthol/Lanolin/Calamine/Znox 113 GM Tube 1 APPLIC TOPICAL ×2 (05:03→16:53)
[2019-02-22] MEDS: Nystatin Powder 15gm Bottle 1 APPLIC TOPICAL ×2 (05:04→21:42)
[2019-02-22] MEDS: Enoxaparin 40 MG/0.4 ML Syringe SC (05:04)
[2019-02-22] MEDS: NYSTATIN 500,000 UNIT/5 ML UDC 500000 UNIT PO ×2 (05:08→11:49)
--- NOTE | 2019-02-22 05:09 | NURSING ---
Pt agitated, attempting to swing legs out of bed, pulling self to side of bed, and hitting at staff when trying to get back in bed. Jevity off at this time because pt pulled the feed line out and trach collar off at this time. This nurse, rn, and merchandise coordinator washed patient up for the morning. MODEL MAKER SCALE sitting with patient at this time. Floor mat, PA, and call light within reach. Pt was given all that could be given throughout the night. Staff did one on one with throughout the night.
--- NOTE | 2019-02-22 06:47 | NURSING ---
0630- pt pulled out IV causing blood saturation to chest, trach dressing, abdominal binder, heart monitor strip. Pt pulled down depend and urinated towards RN during care. Bed bath given and linens changed. Heart monitor strip changed. Inner cannula changed and new dressing applied to site. Pt coughing up thick/gardner sputum. Pt repositioned in bed and alarm/video monitor on for patient safety. Pt continues to be combative with care.
[2019-02-22] MEDS: LORazepam 0.5 MG Tablet 2 MG GT ×2 (08:40→16:51)
[2019-02-22] MEDS: Aspirin 81 MG TAB.CHEW GT (08:40)
[2019-02-22] MEDS: Lidocaine 5% Patch 2 PATCH TOPICAL (08:41)
--- NOTE | 2019-02-22 10:28 | NURSING ---
Notified [employer] that patient is in need of more heart monitor strips. Their company will send more strips to the patient's home. His spouse is aware and will bring them in when she receives them.
--- NOTE | 2019-02-22 15:16 | NURSING ---
trach dressing and inner cannula changed, deep suctioned for scant white thick sputum.
[2019-02-22 15:42] VITALS: BP 137/84; PULSE 86; RESP 20; TEMP 36.7; O2SAT 94
[2019-02-22] MEDS: Jevity 1.5 1,000 ML 75 ML GT (19:18)
[2019-02-22] MEDS: Atorvastatin Calcium 40 MG Tablet GT (21:43)
[2019-02-22] MEDS: MELATONIN 10 MG TABLET 5 MG GT (21:44)
[2019-02-22 22:00] VITALS: PULSE 96; RESP 28
--- NOTE | 2019-02-22 22:00 | CPS ---
pt in significant respiratory distress d/t copious amounts of sputum/secretions, possibly aspiration of tube feed. Pt was sent to ER.
--- NOTE | 2019-02-22 22:33 | NURSING ---
Patient is having copious sputum coming from trache this evening. Patient suctioned by staff multple times. Patient lung sounds diminished and wheezy. Dr. Fierro notified of this. New orders given.
[2019-02-22] MEDS: Ipratropium/Albuterol Sulfate 3 ML AMPUL.NEB INHALATION (22:45)
--- NOTE | 2019-02-22 22:54 | NURSING ---
Addendum entered by Keyla Gavin 02/23/19 00:10: Total time spent with pt suctioning between this nurse and respiratory staff was 1.5hrs Original Note: Pt asleep on entering room. Noticed pt had scooted down the bed. This nurse and SKILLED LABORER pulled pt up bed to maintain HOB elevation of 30 degrees. Pt awoke when pulled up the bed and started coughing and having copious thick secretions from tracheostomy. Pt was having difficulty clearing secretions. This nurse used yankeur sucker and tracheal suctioning multiple times with copious amounts of yellow sputum lightening to light yellow/clear secretions. Pt still trying to cough and clear secretions. This nurse spent 30 minutes in pt's room suctioning. Aspirated PEG tube also and obtained yellow aspirate. Checked pt's oxygen saturations. HR 103, 02 sats 98%. Pt breathing hard. Called respiratory and primary nurse Nanette. Respiratory suctioned pt further. Dr Fierro called. Explained above to Dr Fierro and asked if pt would benefit from review in ER in addition to sputum culture and CXR. Dr Fierro advised to send pt to ER. ER called and report given to charge nurse Hector. Pt transferred to Room 2 in ER.
--- NOTE | 2019-02-22 23:00 | RAD_ITS ---
STUDY: X-RAY CHEST REASON FOR EXAM: Male, 78 years old. Shortness of breath TECHNIQUE: PA and lateral views of the chest. COMPARISON: 02/05/2019 FINDINGS: Tracheostomy device is in place. Patchy airspace opacification at the left midlung base with correlate seen at the mid lung base on lateral view, increased in prominence compared to prior imaging. No pleural effusion or pneumothorax. Borderline cardiomegaly, unchanged. Normal mediastinum and zainab. Normal visualized pulmonary arteries. Normal visualized aortic arch and descending thoracic aorta. There are diffuse degenerative changes of the visualized thoracic spine. Normal visualized ribs, clavicles, and shoulders. There is no demonstrated abnormality of the visualized soft tissue structures of the upper abdomen. RAD/Chest PA and Lateral IMPRESSION: Left midlung base pneumonia Electronically Signed: Allan White MD at 1:26 EST Tel , Service support ,
--- NOTE | 2019-02-22 23:11 | NURSING ---
Notified David Pardo that the pt had a large amount of secretions coming from his trach tube. was notified and agreed to have him sent down to the Emergency Room. David said to keep him updated.
--- NOTE | 2019-02-23 04:35 | NURSING ---
Patient sent down to ER. Patient to be admitted to [facility].
--- NOTE | 2019-02-23 08:21 | DCINST_ITS ---
You will use the following diet at home:: Other - NPO. Discharge Activity: Return to Normal Activity, Use Walker Weight Bearing Status: Weight bearing as tolerated Call your doctor if you observe: Fever of 101 or Higher, Inability to urinate, Inability to have a bowel movement, Shortness of breath, Chest pain, Uncontrolled pain Allergies/Adverse Reactions: Allergies Penicillins Allergy (Unknown, Verified 02/22/19 23:19) Unknown cyclobenzaprine [From Flexeril] Adverse Reaction (Verified 02/22/19 23:19) Rash Medications to take at Discharge Acetaminophen Liquid [Tylenol Liquid] 160 mg GT Q6H PRN PRN 01/31/19 Atorvastatin Calcium 40 mg GT QHS 01/31/19 Bisacodyl 10 mg MS DAILY PRN 01/31/19 Docusate Sodium [Docu Liquid] 50 mg GT BID PRN PRN 01/31/19 Enoxaparin [Lovenox] 40 mg SUBCUT DAILY@0600 01/31/19 Famotidine [Pepcid] 20 mg GT BID 01/31/19 Ipratropium/Albuterol Sulfate [Iprat-Albut 0.5-3(2.5) mg/3 ml] 3 ml INHALATION Q4H PRN PRN 01/31/19 Melatonin 5 mg GT QHS 01/31/19 Polyethylene Glycol 3350 [Miralax] 17 gm GT DAILY PRN 01/31/19 Sodium Chloride 3% 3 ml INHALATION Q4H PRN PRN 01/31/19 Aspirin [Aspirin, Baby] 81 mg GT DAILY 02/10/19 Cefdinir Susp [Omnicef Susp] 300 mg PO Q12 02/10/19 Clopidogrel Bisulfate [Plavix] 75 mg GT DAILY 02/10/19 Lidocaine [Lidoderm Patch] 2 patch TOPICAL DAILY 02/10/19 Quetiapine Fumarate [Seroquel] 50 mg GT BID 02/10/19 Primary Care Physician: Alvarado Dunlap MD [Primary Care Provider] - Please follow up with your Primary Care Physician in: 1 week. Test Results: Test results from this visit will be discussed in further detail at your follow- up appointment, if applicable. Please Follow Up With: Babak Chamberlain MD When: 2-4 weeks Please Follow Up With: Lobo Tran MD When: 1 month after D/C Proposed Discharge Date: 02/23/19
--- NOTE | 2019-02-23 08:23 | DS.PCM_ITS ---
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 02/22/2019 Resident required increased suctioning, large amounts of tube feed like secretions suctioned. Tachycardia. Resident agitated. Discharge to [facility] Emergency Department for evaluation, admission to hospital. - Physical Exam Vitals/I&O's: Vital Signs Temp Pulse Resp BP Pulse Ox 98.0 F 96 28 H 137/84 H 94 02/22/19 15:42 02/22/19 22:00 02/22/19 22:00 02/22/19 15:42 02/22/19 15:42 Oxygen Flow Rate (L/min) 9 Oxygen Delivery Method Nasal Cannula Weight: 68.209 kg Body Mass Index (BMI) 24.3 Finger Stick Blood Glucose 132 Intake and Output for Last 24 Hours 02/21/19 02/22/19 02/23/19 23:59 23:59 23:59 Intake Total 1161 / 1161 100 / 100 Balance 1161 / 1161 100 / 100 Discharge Diet: - - NPO. Discharge Activity: Return to Normal Activity, Use Walker Weight Bearing Status: Weight bearing as tolerated Call your doctor if you observe: Fever of 101 or Higher, Inability to urinate, Inability to have a bowel movement, Shortness of breath, Chest pain, Uncontrolled pain Home Medications: Medications to take at Discharge Acetaminophen Liquid [Tylenol Liquid] 160 mg GT Q6H PRN PRN 01/31/19 Atorvastatin Calcium 40 mg GT QHS 01/31/19 Bisacodyl 10 mg CA DAILY PRN 01/31/19 Docusate Sodium [Docu Liquid] 50 mg GT BID PRN PRN 01/31/19 Enoxaparin [Lovenox] 40 mg SUBCUT DAILY@0600 01/31/19 Famotidine [Pepcid] 20 mg GT BID 01/31/19 Ipratropium/Albuterol Sulfate [Iprat-Albut 0.5-3(2.5) mg/3 ml] 3 ml INHALATION Q4H PRN PRN 01/31/19 Melatonin 5 mg GT QHS 01/31/19 Polyethylene Glycol 3350 [Miralax] 17 gm GT DAILY PRN 01/31/19 Sodium Chloride 3% 3 ml INHALATION Q4H PRN PRN 01/31/19 Aspirin [Aspirin, Baby] 81 mg GT DAILY 02/10/19 Cefdinir Susp [Omnicef Susp] 300 mg PO Q12 02/10/19 Clopidogrel Bisulfate [Plavix] 75 mg GT DAILY 02/10/19 Lidocaine [Lidoderm Patch] 2 patch TOPICAL DAILY 02/10/19 Quetiapine Fumarate [Seroquel] 50 mg GT BID 02/10/19 Primary Care Physician: Alvarado Dunlap MD [Primary Care Provider] - Please follow up with your Primary Care Physician in: 1 week. Please Follow Up With: Babak Chamberlain MD When: 2-4 weeks Please Follow Up With: Lobo Tran MD When: 1 month after D/C Disposition: Acute care Hospital Minutes spent on discharge:: 30 Patient Condition:: Critical Medical Necessity - Tobacco Use Smoking Status: Former smoker Tobacco Use: Non-smoker Meaningful Use Info Meaningful Use Diagnoses (Choose all that apply): None applicable
== END 2019-02-23 04:36 | disposition short-term general hospital (02) | DRG 57 ==
PROVIDERS: Admitting Provider Family Medicine Geriatric Medicine; Family Provider Family Medicine; PCP Family Medicine; Referring Provider Family Medicine Geriatric Medicine; Visit Provider Family Medicine Geriatric Medicine
DX: I69.398 Other sequelae of cerebral infarction (principal); J20.9 Acute bronchitis, unspecified; K21.9 Gastro-esophageal reflux disease without esophagitis; E78.5 Hyperlipidemia, unspecified; R41.0 Disorientation, unspecified; I10 Essential (primary) hypertension; Z93.0 Tracheostomy status; Z87.891 Personal history of nicotine dependence; B37.9 Candidiasis, unspecified; F41.9 Anxiety disorder, unspecified; Z93.1 Gastrostomy status; R00.0 Tachycardia, unspecified
CPT/HCPCS: 31720; 36415; 71046; 74018; 80048; 85025; 87070; 87077; 87186; 87205; 92507; 92523; 92526; 92610; 94640; 97110; 97116; 97162; 97165; 97530; 97535; 97802; 97803; J7120

== ENCOUNTER 2019-02-12 03:38 | Emergency (ER) | payer MEDICARE, SELFPAY ==
[2019-02-12 03:39] VITALS: BP 139/71; PULSE 87; RESP 18; TEMP 36.3; O2SAT 92; BMI 22.2
--- NOTE | 2019-02-12 03:46 | CT_ITS ---
HISTORY: S/P FALL WHILE TRYING TO USE THE RESTROOM, PT HAS HAD MULTIPLE HEMORRHAGIC STROKES, PEG TUBE, TRACH ADDITIONAL HISTORY: None provided. COMPARISON: 02/04/2019, MRI brain 02/04/2019 TECHNIQUE: Axial, coronal and sagittal CT images were obtained of the brain without intravenous contrast. Number of images including paperwork: 259. A radiation dose optimization technique was used for this scan. FINDINGS: BRAIN PARENCHYMA: Old bilateral cerebellar and left occipital infarcts appear similar. Old left pontine lacunar infarct. Decreased density is seen in region of recent right cerebellar infarct noted on previous MRI. No definite new infarct. No acute hemorrhage. Chronic ischemic changes and generalized atrophy. EXTRA-AXIAL SPACES: No acute hemorrhage. VENTRICULAR SYSTEM: No hydrocephalus. PARANASAL SINUSES AND MASTOIDS: Bilateral mastoid fluid again seen. Minimal paranasal sinus mucosal thickening. ORBITS: Unremarkable imaged extent. SKELETON AND SOFT TISSUES: Suboccipital craniotomy changes appear similar. ASPECTS score: Not applicable. CT/Brain/Head without Contrast IMPRESSION: No acute intracranial abnormality. Left occipital and bilateral cerebellar infarcts appear grossly similar to previous exams. Individualized dose optimization techniques were used for this CT. at 0430 Reported and signed by: Barbie Phelan MD Electronically Signed: Barbie Phelan MD at 4:30 EST Tel , Service support ,
--- NOTE | 2019-02-12 03:47 | RAD_ITS ---
HISTORY: PT FELL ATTEMPTING TO GET UP TO GO TO THE BATHROOM ON TCU. CONCERN PEG TUBE WAS PULLED OUT SOME POSSIBLY AND CONCERNED PT MAY HAVE HIT HIS HEAD. PT NODS HEAD THAT HIP AND HEAD HURT ADDITIONAL HISTORY: None provided. TECHNIQUE: Right hip 2 views with AP pelvis Number of images including paperwork: 3 COMPARISON: None FINDINGS: BONES: No acute fracture. JOINTS: No subluxation. Degenerative changes of the visualized spine. Degenerative changes of the sacroiliac joints, symphysis pubis and hips also noted. SOFT TISSUES: No distinct foreign body. RAD/HIP, UNI W/ Pelvis 2-3 Views IMPRESSION: Degenerative changes without acute osseous abnormality. at 0422 Reported and signed by: Barbie Phelan MD Electronically Signed: Barbie Phelan MD at 4:22 EST Tel , Service support ,
--- NOTE | 2019-02-12 03:47 | ED.VIS.GEN ---
History of Present Illness Chief Complaint: Fall Informant: Patient Narrative: Patient presents from our transitional care unit. He fell getting out of bed this evening. Suffered a small skin tear to his right elbow. He stated he has some mild pain to his forehead. No evidence of head injury. He has a PEG tube that they were concerned about but it appears normal. He also stated he has some soreness in his right hip. Denies any other injuries. 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 (8) Hemorrhagic stroke Status: Chronic (9) Hyperlipidemia Status: Chronic (10) Hypertension Status: Chronic (11) Muscle spasm Status: Chronic (12) Hospital-acquired pneumonia Status: Resolved (13) Status post emergency tracheotomy for assistance in breathing Status: Ruled-out Past Medical History - Allergies and Home Meds Allergies/Adverse Reactions: Allergies Penicillins Allergy (Unknown, Verified 02/12/19 03:39) Unknown cyclobenzaprine [From Flexeril] Adverse Reaction (Verified 02/12/19 03:39) Rash Primary Care Physician: Alvarado Dunlap MD [Primary Care Provider] - Prior records reviewed: Yes Past Medical History: - - See problem list Surgical History: appendectomy, herniorrhaphy, - - Tracheostomy, PEG tube, Suboccipital craniectomy, Cervical discectomy, carpal tunnel, shoulder surgery. Lives: [facility] Smoking Status: Former smoker Alcohol: None Drugs: None - Family History Maternal Family History: Reports: - - History was taken from patient son who denies any disease in any of his siblings (children of patient). Patient son did not know maternal or paternal medical history. Paternal Family History: Reports: - - History was taken from patient son who denies any disease in any of his siblings (children of patient). Patient son did not know maternal or paternal medical history. Review of Systems General: Denies: Chills, Fever, Sweats Eyes: Denies: Visual changes - bilaterally, Diplopia ENT: Denies: Rhinorrhea, Sore throat Cardiovascular: Denies: Chest pain, Palpitations Respiratory: Denies: Dyspnea, Cough, Dyspnea on exertion Gastrointestinal: Denies: Abdominal pain, Nausea, Vomiting, Diarrhea, Melena, Hematochezia Genitourinary: Denies: Dysuria, Hematuria, Frequency Musculoskeletal: Reports: Extremity Pain. Denies: Back pain Skin: Denies: Rash, Wounds Neurological: Reports: Headache. Denies: Weakness, Numbness Physical Exam Vital Signs/Narrative: Vital Signs Temp Pulse Resp BP Pulse Ox 02/12/19 03:39 97.4 F L 87 18 139/71 H 92 General: Well nourished, Well developed, No Acute Distress Head: Normocephalic, Atraumatic Eyes: Perrl, EOMI ENT: Moist mucous membranes, No rhinorrhea Neck: Supple, Nontender Cardiovascular: Regular rate, Regular rhythm, No murmurs Respiratory: No distress, CTA bilaterally, Chest nontender Abdomen: Soft, Nontender, Nondistended, Normal bowel sounds, - - G-tube is intact Back: Nontender, Normal Inspection Extremities: Nontender, No edema, - - Her size skin tear to the right elbow without tenderness Skin: Normal color, No rash Neurological: Alert, Oriented x3, Cranial nerves II-XII grossly intact, Normal Strength, Normal Sensation Psychological: Normal affect, Normal Mood Diagnostic/Tx/Re-eval - Medical Decision Making CT head and right hip x-ray obtained. Hip shows degenerative changes without fracture. CT head shows degenerative changes without acute abnormality patient reassured and will be discharged back to TCU ED Disposition - Plan for ED Patient: Disposition: Home or Assisted Living Diagnosis: Fall, Skin tear, Hip pain Instructions: FALL, Mechanical Referrals: Alvarado Dunlap MD [Primary Care Provider] -
[2019-02-12 04:43] VITALS: RESP 18
== END 2019-02-12 05:08 | disposition home or self-care (01) ==
PROVIDERS: Emergency Provider Emergency Medicine; Family Provider Family Medicine; PCP Family Medicine
DX: S51.011A Laceration without foreign body of right elbow, initial encounter (principal); W06.XXXA Fall from bed, initial encounter; Y93.89 Activity, other specified; Y92.230 Patient room in hospital as the place of occurrence of the external cause; M16.11 Unilateral primary osteoarthritis, right hip; I10 Essential (primary) hypertension; E78.5 Hyperlipidemia, unspecified; Z93.0 Tracheostomy status; Z93.1 Gastrostomy status; Z87.891 Personal history of nicotine dependence; Z86.73 Personal history of transient ischemic attack (TIA), and cerebral infarction without residual deficits
CPT/HCPCS: 70450; 73502; 99282

== ENCOUNTER 2019-02-21 10:58 | Day surgery (SDC) | payer MEDICARE, SELFPAY ==
[2019-02-21] VITALS (12 sets, daily range): BP systolic 126–227; BP diastolic 75–197; PULSE 80–101; RESP 16–17; TEMP 36.3–36.6; O2SAT 98–100; BMI 23.5
[2019-02-21] MEDS: Lactated Ringers 1,000 ML 75 ML IV (12:35)
--- NOTE | 2019-02-21 13:15 | RAD_ITS ---
STUDY: X-RAY - CERVICAL SPINE REASON FOR EXAM: Male, 78 years old. BILAT CERVICAL FACET BLOCK C3-C5 -- ONLY 1 FLUORO IMAGE SAVED, 10 FLUORO SEC, 1.05mGy TECHNIQUE: Single frontal intraoperative view(s) of the cervical spine were obtained. COMPARISON: None FINDINGS: Single coned down view was obtained intraoperatively for bilateral C3-C5 facet joint injection. RAD/Cerv Spine 4 or 5 Views IMPRESSION: Intraoperative images are provided for bilateral C3-C5 facet joint injection. Electronically Signed: Rubén Ibrahim, at 8:08 EST , Service support ,
[2019-02-21] MEDS: Bupivacaine 0.25% 30 ML Vial (13:28)
[2019-02-21] MEDS: 0.9% Normal Saline (Pres. free 10 ML Vial (13:35)
[2019-02-21] MEDS: Triamcinolone Acetonide 40 MG/ML Vial (13:35)
== END 2019-02-21 15:51 ==
LOC: SDC 10:59 → AC 11:00
PROVIDERS: Family Provider Family Medicine; PCP Family Medicine; Referring Provider Anesthesiology Pain Medicine; Visit Provider Anesthesiology Pain Medicine
PROC: 3E0U3BZ Introduction of Anesthetic Agent into Joints, Percutaneous Approach (ICD-10-PCS; CPT 64490; principal; 2019-02-21 12:15)
DX: M96.1 Postlaminectomy syndrome, not elsewhere classified (principal); M53.82 Other specified dorsopathies, cervical region; M47.812 Spondylosis without myelopathy or radiculopathy, cervical region; M48.02 Spinal stenosis, cervical region; G89.29 Other chronic pain; E78.00 Pure hypercholesterolemia, unspecified; K21.9 Gastro-esophageal reflux disease without esophagitis; F41.9 Anxiety disorder, unspecified; Z79.82 Long term (current) use of aspirin; Z93.1 Gastrostomy status; Z93.0 Tracheostomy status; Z99.81 Dependence on supplemental oxygen; Z87.891 Personal history of nicotine dependence; Z86.73 Personal history of transient ischemic attack (TIA), and cerebral infarction without residual deficits
CPT/HCPCS: 01991; 64490; 64491 ×2; 72050; J3490

== ENCOUNTER 2019-02-22 23:11 | Inpatient (IN) | payer MEDICARE, SELFPAY ==
[2019-02-21 11:25] VITALS: BMI 23.5
[2019-02-22 23:12] VITALS: BP 171/106; PULSE 104; RESP 20; TEMP 36.8; O2SAT 95; BMI 22.8
--- NOTE | 2019-02-22 23:23 | EKG12_ITS ---
Test Reason : SOB Blood Pressure : / mmHG Vent. Rate : 118 BPM Atrial Rate : 118 BPM P-R Int : 164 ms QRS Dur : 076 ms QT Int : 310 ms P-R-T Axes : 040 -29 029 degrees QTc Int : 434 ms Sinus tachycardia Leftward axis Confirmed by AIRAM BACH, GOLDY ([id number]), film editor supervisor JOSTIN OATES ([id number]) on 02/26/2019 10:17:54 AM Referred By: Evelyne Johnson Confirmed By:GOLDY ALEGRIA MD
--- NOTE | 2019-02-22 23:27 | ED.DCSUM_ITS ---
- ER Visit Summary Date of Service: 02/22/19 Chief Complaint: Increased secretions History of Present Illness: The patient is a 78 M presenting due to cough and increased secretions. Patient was transferred from TCU for further evaluation. He was beginning to desaturate. Respiratory therapy attempted to suction his tracheostomy. He has had increased sputum production. They were concerned about possible aspiration. 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 History is limited by his aphasia. Physical Examination: Vitals are stable. Patient is afebrile. Alert no acute distress. Agitated HEENT exam unremarkable Neck is supple. Tracheostomy Lungs are wheezing bilaterally. Heart is regular and tachycardic Abdomen is soft nontender nondistended. Extremities are unremarkable. Skin is warm and dry. Remainder of exam is unremarkable. Emergency Department Course and Treatment: Patient was given DuoNeb aerosol. Patient was given IV fluids, Ativan. CBC shows white count 13.0, hemoglobin 12.7. Chemistries show glucose 180. Troponin was negative. Lactic acid 3.7. Blood cultures were sent. Chest x-ray shows left midlung base pneumonia, increased in prominence compared to prior imaging. He was given HCAP antibiotics with penicillin allergy, he was given Levaquin, aztreonam, vancomycin. Discussed with hospitalist for admission. Disposition: Admission Impression: HCAP This note was generated with [employer] dictation software. It may contain incorrect words, spelling, and punctuation that were not noted in review of the chart prior to signing ED Disposition - Plan for ED Patient: Referrals: Alvarado Dunlap MD [Primary Care Provider] -
[2019-02-22] MEDS: Ipratropium/Albuterol Sulfate 3 ML AMPUL.NEB INHALATION (23:30)
[2019-02-22] MEDS: LORazepam 2 MG/ML Syringe 0.5 MG IV (23:54)
[2019-02-23] VITALS (13 sets, daily range): BP systolic 113–168; BP diastolic 78–99; PULSE 77–128; RESP 14–24; TEMP 36.6–37.4; O2SAT 94–97; BMI 22.8; BMI 22.9
[2019-02-23 00:17] LABS: Absolute Lymphocyte Count 1.04 X10^3/uL (0.83-4.51); Absolute Neutrophil Count 11.3 X10^3/uL (2.0-7.7); Basophil# 0.01 X10^3/uL; Basophil% 0.1 % (0-1); Hematocrit 38.8 % (40-54); Hemoglobin 12.7 g/dL (13.0-16.5); Lymphocyte # 1.04 X10^3/ul (4.0); Mean Corp Hgb Conc 32.7 g/dL (32-36); Mean Corpuscular Hgb 30.2 pg (27.0-32.0); Mean Corpuscular Volume 92.4 fL (80-94); Mean Platelet Vol. 9.3 fl (6.2-12.0); Monocyte# 0.63 X10^3/uL; Monocyte% 4.8 % (0-10); NRBC Flagged by Analyzer 0 % (0-5); Neutrophil % 86.7 % (47-70); Platelet Count 325 K/mm3 (150-450); RBC Distribution Width CV 14.6 % (11.6-14.6); RBC Distribution Width SD 48.6 fl (35.1-43.9)
[2019-02-23 00:23] LABS: Anion Gap 7 (5-15); BUN 16 mg/dL (7-18); BUN/Creat Ratio 17.3 RATIO (10-20); Calcium,Total 9.2 mg/dL (8.5-10.1); Chloride 106 mmol/L (98-107); Creatinine, Serum 0.92 mg/dL (0.70-1.30); EST Glomerular Filtration Rate 84 mL/min (>60); Est Glom Filt Rate - Afr Amer 102 mL/min (>60); Estimated Creatinine Clearance 64.83 ml/min; Glucose 180 mg/dL (74-106); Potassium 3.5 mmol/L (3.5-5.1); Sodium Level 141 mmol/L (136-145)
[2019-02-23 00:31] LABS: Lactic Acid 3.7 mmol/L (0.4-1.9)
[2019-02-23] MEDS: 0.9% Normal Saline 1,000 ML 999 ML IV (00:51)
[2019-02-23] MEDS: levoFLOXacin IV 750 MG/150 ML BAG 100 MG IV (02:04)
--- NOTE | 2019-02-23 02:08 | HP.PCM_ITS ---
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, [employer] (posterior cerebral artery) Status: Chronic (4) Hypertension Status: Chronic Qualifiers: Hypertension type: essential hypertension Qualified Code(s): I10 - Essential (primary) hypertension (5) Hyperlipidemia Status: Chronic Qualifiers: Hyperlipidemia type: unspecified Qualified Code(s): E78.5 - Hyperlipidemia, unspecified History of Present Illness Date of Admission: 02/23/19 Chief Complaint: Copious discharge from tracheostomy, hypoxia The patient is a 78 year old M with PMHx of acute left occipital and bilateral cerebellar stroke, status post PEG tube, hypertension, hyperlipidemia,who was recently discharged to TCU after hospitalization for agitation and found to have a new left occipital stroke. During the last hospitalization, patient had copious amount of tracheal aspirate and was managed as Corynebacterium tracheobronchitis. Subsequently he was discharged to TCU. Patient was said to have had copious amount of tracheal discharge as well as some concerns for worsening hypoxia. A chest x-ray was done in the TCU that showed new left-sided pneumonia. Patient was transferred to the emergency department. Patient is confused, remains the same at baseline. No reported history of fever. Vitals in the ED showed temp 98.3F, HR 104, BP 171/106, RR 20, Spo2 95% on 35% trach collar. WBC 13.0, Hb 12.7, Plt 325, BMP is unremarkable. Lactic acid was 3.7. Recent chest x-ray done in TCU showed left mid lung base pneumonia. 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) Hypertension (Chronic) Hyperlipidemia (Chronic) Muscle spasm (Chronic) Allergies Penicillins Allergy (Unknown, Verified 02/22/19 23:19) Unknown cyclobenzaprine [From Flexeril] Adverse Reaction (Verified 02/22/19 23:19) Rash Home Medications: Ambulatory Orders Medication Instructions Recorded Acetaminophen Liquid [Tylenol 160 mg GT Q6H PRN PRN 01/31/19 Liquid] Atorvastatin Calcium 40 mg GT QHS 01/31/19 Bisacodyl 10 mg GA DAILY PRN 01/31/19 Docusate Sodium [Docu Liquid] 50 mg GT BID PRN PRN 01/31/19 Enoxaparin [Lovenox] 40 mg SUBCUT DAILY@0600 01/31/19 Famotidine [Pepcid] 20 mg GT BID 01/31/19 Ipratropium/Albuterol Sulfate 3 ml INHALATION Q4H PRN PRN 01/31/19 [Iprat-Albut 0.5-3(2.5) mg/3 ml] Melatonin 5 mg GT QHS 01/31/19 Polyethylene Glycol 3350 [Miralax] 17 gm GT DAILY PRN 01/31/19 Sodium Chloride 3% 3 ml INHALATION Q4H PRN PRN 01/31/19 Aspirin [Aspirin, Baby] 81 mg GT DAILY 02/10/19 Cefdinir Susp [Omnicef Susp] 300 mg PO Q12 02/10/19 Clopidogrel Bisulfate [Plavix] 75 mg GT DAILY 02/10/19 Lidocaine [Lidoderm Patch] 2 patch TOPICAL DAILY 02/10/19 Quetiapine Fumarate [Seroquel] 50 mg GT BID 02/10/19 Surgical History: appendectomy, herniorrhaphy, - - Tracheostomy, PEG tube, Suboccipital craniectomy, Cervical discectomy, carpal tunnel, shoulder surgery. Psychiatric History: No pertinent psych hx Lives: Intermediate Smoking Status: Former smoker Tobacco Use: Non-smoker Alcohol: None Drugs: None - *Family History Maternal History Items: - - History was taken from patient son who denies any disease in any of his siblings (children of patient). Patient son did not know maternal or paternal medical history. Paternal History Items: - - History was taken from patient son who denies any disease in any of his siblings (children of patient). Patient son did not know maternal or paternal medical history. Review of Systems Unable to obtain accurate/complete ROS d/t: on account of patient being confused VTE Information - Inpt Only VTE Present on Admission: No VTE Pharm Prophylaxis ordered?: Yes - Physical Exam Vitals/I&O's: Vital Signs Temp Pulse Resp BP Pulse Ox 98.3 F 109 H 14 113/79 94 02/22/19 23:12 02/23/19 01:11 02/23/19 01:11 02/23/19 01:11 02/23/19 01:11 Oxygen Delivery Method Trach Collar Weight: 70.4 kg Body Mass Index (BMI) 22.8 Finger Stick Blood Glucose 132 General: Cooperative, Confused, - - restless, not following commands HEENT: Atraumatic, PERRLA, EOMI, Normocephalic, - - trach collar in place, Fi02 35%, copious purulent tracheo Oral: Dry Mucosa Neck: Supple Lungs: Diminished Cardiovascular: Regular rate, Regular Rhythm, Normal S1, Normal S2, Tachycardic Abdomen: Bowel Sounds Present, Soft, Non Tender, Non-Distended, No Hepato- splenomegaly, - - abdominal binder on, PEG tube in situ Extremities: No edema Skin: No rashes, No breakdown Musculoskeletal: No Tenderness to Palpation of Joints or Extremities Lymphatic: No Cervical, Supraclavicular, or Inguinal Adenopathy Neurological: Cranial nerves II-XII grossly intact, - - unable to do a full exam on account of confusion Psych/Mental Status: Anxious, Restless Laboratory Results 02/22/19 23:55: WBC 13.0 H, RBC 4.20 L, Hgb 12.7 L, Hct 38.8 L, MCV 92.4, MCH 30.2, MCHC 32.7, RDW Std Deviation 48.6 H, RDW Coeff of Dereck 14.6, Plt Count 325, MPV 9.3, Immature Gran % (Auto) 0.400, Neut % (Auto) 86.7 H, Lymph % (Auto) 8.0 L, Plumas % (Auto) 4.8, Eos % (Auto) 0.0, Baso % (Auto) 0.1, Absolute Neuts (auto) 11.3 H, Absolute Lymphs (auto) 1.04, Nucleated RBC % 0 02/22/19 23:55: Sodium 141, Potassium 3.5, Chloride 106, Carbon Dioxide 28.0, Anion Gap 7, BUN 16, Creatinine 0.92, Estim Creat Clear Calc 64.83, Est GFR (MDRD) Af Amer 102, Est GFR (MDRD) Non-Af 84, BUN/Creatinine Ratio 17.3, Glucose 180 H, Calcium 9.2, Troponin I < 0.015 02/22/19 23:55: Lactic Acid 3.7 H* Current Medications Levofloxacin (Levaquin Iv) 750 mg in 150 mls @ 100 mls/hr IV X1 ONE Stop: 02/23/19 02:58 Last Admin: 02/23/19 02:04 Dose: 100 mls/hr Documented by: Vancomycin HCl (Vancomycin) 1,000 mg in 200 mls @ 200 mls/hr IV X1 ONE Stop: 02/23/19 02:34 Assessment/Plan All Active Problems Hospital-acquired pneumonia (Resolved) Status post emergency tracheotomy for assistance in breathing (Ruled-out) Psychosis (Acute) Agitation (Acute) Tracheobronchitis (Acute) 78 year old M with PMHx of acute left occipital and bilateral cerebellar stroke, status post PEG tube, hypertension, hyperlipidemia,who was recently discharged comes in from the TCU with concerns of copious tracheal aspirate and hypoxia 1. Severe sepsis secondary to Acute pneumonia, new infiltrates seen in the left lower lung base in CXR taken in TCU Lactic acid is 3.7, WBC count is 13.0,Tachycardic Sputum culture sent recent hospital admission was positive for Corynebacterium for which patient completed antibiotics with cefdinir Started on vancomycin, aztreonam and Levaquin Will continue only on Levaquin Pulmonology consult Aggressive tracheostomy toileting/suction, continue with a saline/mist aerosols, Duoneb Q4 On IV fluids at 150 mls/hr 2. Delirium, ongoing, remains the same, status post strokes Patient is on Seroquel, will add Haldol as needed Seroquel may be increased to avoid use of Haldol prn so that patient can be discharged soon back to the TCU Recommend monitoring of QTC was on Levaquin and Haldol 3. Recent acute left occipital and bilateral cerebellar stroke, Continue on aspirin, statin, Plavix via PEG tube 4. Neck pain, on Lidoderm patches, tylenol prn 5. DVT PPx- Lovenox SC 6. Code status - DNR-CCA Code Visit Inpatient E&M: 94704 Init Hosp L3
[2019-02-23] MEDS: Haloperidol Lactate 5 MG/ML Vial 2 MG IV ×3 (02:40→12:55)
[2019-02-23 04:00] LABS: Reflex Lactate? Y
[2019-02-23] MEDS: Vancomycin IV 1,000 MG/200 ML BAG 200 MG IV (04:32)
[2019-02-23] MEDS: 0.9% Normal Saline 1,000 ML 100 ML IV ×2 (04:34→21:57)
[2019-02-23] MEDS: Enoxaparin 40 MG/0.4 ML Syringe SC (05:11)
[2019-02-23 05:16] LABS: Lactic Acid 1.5 mmol/L (0.4-1.9)
[2019-02-23 06:16] LABS: Absolute Lymphocyte Count 0.67 X10^3/uL (0.83-4.51); Absolute Neutrophil Count 10.3 X10^3/uL (2.0-7.7); Basophil# 0.01 X10^3/uL; Basophil% 0.1 % (0-1); Hemoglobin 11.7 g/dL (13.0-16.5); Lymphocyte # 0.67 X10^3/ul (4.0); Lymphocyte % 5.7 % (19-41); Mean Corp Hgb Conc 33.4 g/dL (32-36); Mean Corpuscular Hgb 30.5 pg (27.0-32.0); Mean Corpuscular Volume 91.1 fL (80-94); Mean Platelet Vol. 9.1 fl (6.2-12.0); Monocyte# 0.79 X10^3/uL; Monocyte% 6.7 % (0-10); NRBC Flagged by Analyzer 0 % (0-5); Neutrophil # 10.33 X10^3/uL (2.7-7.7); Neutrophil % 87.1 % (47-70); Platelet Count 246 K/mm3 (150-450); RBC Distribution Width CV 14.6 % (11.6-14.6); Red Blood Count 3.84 M/mm3 (4.6-6.2); White Blood Count 11.9 K/mm3 (4.4-11.0)
[2019-02-23 06:43] LABS: ALB/GLOB Ratio 0.7 RATIO (0.9-2.4); AST(SGOT) 26 U/L (15-37); Alanine Aminotransfer ALT/SGPT 28 U/L (16-61); Albumin, Serum 2.9 g/dL (3.2-5.0); Alkaline Phosphatase 95 U/L (45-117); Anion Gap 7 (5-15); BUN 15 mg/dL (7-18); BUN/Creat Ratio 19.3 RATIO (10-20); Calcium,Total 8.5 mg/dL (8.5-10.1); Chloride 110 mmol/L (98-107); Creatinine, Serum 0.78 mg/dL (0.70-1.30); EST Glomerular Filtration Rate 102 mL/min (>60); Est Glom Filt Rate - Afr Amer 124 mL/min (>60); Estimated Creatinine Clearance 59.64 ml/min; Globulin 4.1 g/dL (2.2-4.2); Glucose 130 mg/dL (74-106); Potassium 3.6 mmol/L (3.5-5.1); Sodium Level 141 mmol/L (136-145)
--- NOTE | 2019-02-23 07:17 | NURSING ---
attempted to call contact yamileth [phone] to make sure he was aware the pt has been moved to MS3 room 309. No answer.
--- NOTE | 2019-02-23 09:15 | CASEMGMT ---
Social Work Note Pt came from TCU. Pt has history of dementia. ANTWON met with pt and pt's Paula present in room. ANTWON introduced self and role at [facility]. Paula confirms that pt is from TCU and the plan is for PT to return once medically cleared. ANTWON placed a call to Jacquie in TCU confirming pt is from TCU and is able to return once medically cleared. However, pt must be Haldol free and sitter free for 24 hours before being able to return to TCU. Green sheet on chart. Plan: TCU once medically cleared. Pt will need to be Haldol free and sitter free for 24 hours before being able to return to TCU. Anju Ram JOINTER MACHINE, CAR CLEANING SUPERVISOR
[2019-02-23] MEDS: QUEtiapine 25 MG Tablet 50 MG GT ×2 (10:44→21:27)
[2019-02-23] MEDS: Famotidine 20 MG Tablet GT ×2 (10:44→21:27)
[2019-02-23] MEDS: Aspirin 81 MG TAB.CHEW GT (10:44)
[2019-02-23] MEDS: Clopidogrel Bisulfate 75 MG Tablet GT (10:44)
[2019-02-23] MEDS: Lidocaine 5% Patch 2 PATCH TOPICAL (10:44)
[2019-02-23] MEDS: 0.9% Saline Lock 10 ML Syringe IV ×2 (11:12→17:28)
--- NOTE | 2019-02-23 14:56 | PCM.CONS.PUL ---
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 (5) Hypertension Status: Chronic Qualifiers: Hypertension type: essential hypertension Qualified Code(s): I10 - Essential (primary) hypertension (6) Hyperlipidemia Status: Chronic Qualifiers: Hyperlipidemia type: unspecified Qualified Code(s): E78.5 - Hyperlipidemia, unspecified (7) Psychosis Status: Acute (8) Agitation Status: Acute (9) Tracheobronchitis Status: Acute Reason for Consult Date of Consultation: 02/23/19 Reason for Consultation: Increased tracheal secretions History of Present Illness: The patient is a 78 year old M, with past medical history listed below and known to me from a previous hospitalization in January who presented to the ER on 02/22/2019 from the TCU secondary to increased tracheal secretions. Patient reportedly had had some desaturation despite respiratory therapies attempts at suctioning. There was some concern about possible aspiration. Patient does have a history of cerebellar stroke with hemorrhagic conversion following TPA. Patient is unable to provide any history secondary to his neurologic deficits and states I think he was doing fine yesterday. In the ER, patient was noted to be agitated and have an elevated lactate at 3.7. Blood cultures have been sent. Chest x-ray showed a possible left midlung infiltrate that was worse compared to prior. Patient was given Levaquin, aztreonam and vancomycin and admitted to the hospital for further evaluation. On my evaluation, patient was unable to provide history and patient's was relatively unhelpful on history. She did not think that he was changed in mental status over the last 2 days. She did report that he had coughed up more secretions. Upon leaving the room, patient's did report that he has had ESBL in the past. Patient's does not have a medical background. 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) Hemorrhagic stroke (Chronic) Dissecting hemorrhage of left vertebral artery (Chronic) Hypertension (Chronic) Hyperlipidemia (Chronic) Muscle spasm (Chronic) Allergies Penicillins Allergy (Unknown, Verified 02/22/19 23:19) Unknown cyclobenzaprine [From Flexeril] Adverse Reaction (Verified 02/22/19 23:19) Rash Home Medications: Ambulatory Orders Medication Instructions Recorded Acetaminophen Liquid [Tylenol 160 mg GT Q6H PRN PRN 01/31/19 Liquid] Atorvastatin Calcium 40 mg GT QHS 01/31/19 Bisacodyl 10 mg TN DAILY PRN 01/31/19 Docusate Sodium [Docu Liquid] 50 mg GT BID PRN PRN 01/31/19 Enoxaparin [Lovenox] 40 mg SUBCUT DAILY@0600 01/31/19 Famotidine [Pepcid] 20 mg GT BID 01/31/19 Ipratropium/Albuterol Sulfate 3 ml INHALATION Q4H PRN PRN 01/31/19 [Iprat-Albut 0.5-3(2.5) mg/3 ml] Melatonin 5 mg GT QHS 01/31/19 Polyethylene Glycol 3350 [Miralax] 17 gm GT DAILY PRN 01/31/19 Sodium Chloride 3% 3 ml INHALATION Q4H PRN PRN 01/31/19 Aspirin [Aspirin, Baby] 81 mg GT DAILY 02/10/19 Cefdinir Susp [Omnicef Susp] 300 mg PO Q12 02/10/19 Clopidogrel Bisulfate [Plavix] 75 mg GT DAILY 02/10/19 Lidocaine [Lidoderm Patch] 2 patch TOPICAL DAILY 02/10/19 Quetiapine Fumarate [Seroquel] 50 mg GT BID 02/10/19 Surgical History: appendectomy, herniorrhaphy, - - Tracheostomy, PEG tube, Suboccipital craniectomy, Cervical discectomy, carpal tunnel, shoulder surgery. Psychiatric History: No pertinent psych hx Lives: [facility] Smoking Status: Former smoker Tobacco Use: Non-smoker Alcohol: None Drugs: None - *Family History Maternal History Items: - - History was taken from patient son who denies any disease in any of his siblings (children of patient). Patient son did not know maternal or paternal medical history. Paternal History Items: - - History was taken from patient son who denies any disease in any of his siblings (children of patient). Patient son did not know maternal or paternal medical history. Review of Systems Unable to obtain accurate/complete ROS d/t: Previous stroke Objective: Chest x-ray was personally reviewed and I agree with formal interpretation - Physical Exam Vitals/I&O's: Vital Signs Temp Pulse Resp BP Pulse Ox 36.9 C 111 H 18 144/78 H 97 02/23/19 10:15 02/23/19 12:55 02/23/19 10:15 02/23/19 10:15 02/23/19 10:15 Oxygen Flow Rate (L/min) 7 Oxygen Delivery Method Trach Collar Weight: 70.4 kg Body Mass Index (BMI) 22.8 Finger Stick Blood Glucose 132 Intake and Output for Last 24 Hours 02/21/19 02/22/19 02/23/19 23:59 23:59 23:59 Intake Total 1510 / 1510 Balance 1510 / 1510 General: Alert, Confused, Disoriented, Non-Cooperative, - - Moving all extremities in the bed, but not following commands. HEENT: Atraumatic, Normocephalic, - - Right-sided ptosis with vision deviation medially and caudally. Oral: Moist Mucosa, No Gingival or Mucosal Lesions/ Ulcerations Neck: Supple, No JVD, No Nodes, Trachea Midline, - - Significant yellow secretions noted around the trach. Lungs: No wheeze, No rales, Diminished, Rhonchi Cardiovascular: Normal S1, Normal S2, No murmurs, No rub noted, No Gallop, Tachycardic Abdomen: Bowel Sounds Present, Soft, Non Tender, Non-Distended, - - Abdominal binder in place Extremities: No clubbing, No cyanosis, No edema, Capillary Refill Less than 3 Seconds Skin: No rashes, No breakdown Musculoskeletal: No Tenderness to Palpation of Joints or Extremities Lymphatic: No Cervical, Supraclavicular, or Inguinal Adenopathy Neurological: - - Not cooperative with exam. Aphasic. Not following commands. Eye exam as described above. Positive cough reflex. Psych/Mental Status: Impulsive, Restless Laboratory Results 02/22/19 23:55: WBC 13.0 H, RBC 4.20 L, Hgb 12.7 L, Hct 38.8 L, MCV 92.4, MCH 30.2, MCHC 32.7, RDW Std Deviation 48.6 H, RDW Coeff of Dereck 14.6, Plt Count 325, MPV 9.3, Immature Gran % (Auto) 0.400, Neut % (Auto) 86.7 H, Lymph % (Auto) 8.0 L, Josephine % (Auto) 4.8, Eos % (Auto) 0.0, Baso % (Auto) 0.1, Absolute Neuts (auto) 11.3 H, Absolute Lymphs (auto) 1.04, Nucleated RBC % 0 02/22/19 23:55: Sodium 141, Potassium 3.5, Chloride 106, Carbon Dioxide 28.0, Anion Gap 7, BUN 16, Creatinine 0.92, Estim Creat Clear Calc 64.83, Est GFR (MDRD) Af Amer 102, Est GFR (MDRD) Non-Af 84, BUN/Creatinine Ratio 17.3, Glucose 180 H, Calcium 9.2, Troponin I < 0.015 02/22/19 23:55: Lactic Acid 3.7 H* 02/23/19 04:30: Lactic Acid 1.5 02/23/19 06:06: WBC 11.9 H, RBC 3.84 L, Hgb 11.7 L, Hct 35.0 L, MCV 91.1, MCH 30.5, MCHC 33.4, RDW Std Deviation 48.0 H, RDW Coeff of Dereck 14.6, Plt Count 246, MPV 9.1, Immature Gran % (Auto) 0.400, Neut % (Auto) 87.1 H, Lymph % (Auto) 5.7 L, Josephine % (Auto) 6.7, Eos % (Auto) 0.0, Baso % (Auto) 0.1, Absolute Neuts (auto) 10.3 H, Absolute Lymphs (auto) 0.67 L, Nucleated RBC % 0 02/23/19 06:06: Sodium 141, Potassium 3.6, Chloride 110 H, Carbon Dioxide 24.0, Anion Gap 7, BUN 15, Creatinine 0.78, Estim Creat Clear Calc 59.64, Est GFR (MDRD) Af Amer 124, Est GFR (MDRD) Non-Af 102, BUN/Creatinine Ratio 19.3, Glucose 130 H, Calcium 8.5, Total Bilirubin 0.40, AST 26, ALT 28, Alkaline Phosphatase 95, Total Protein 7.0, Albumin 2.9 L, Globulin 4.1, Albumin/Globulin Ratio 0.7 L Current Medications Acetaminophen (Tylenol Liquid) 160 mg GT Q6H PRN PRN PRN Reason: Pain or Fever Albuterol/Ipratropium (Duoneb) 3 ml INHALATION Q4H PRN PRN PRN Reason: Breathing Aspirin ([facility], [facility]) [facility] Admin: 02/23/19 10:44 Dose: 81 mg Documented by: Atorvastatin Calcium (Lipitor) 40 mg GT QHS [facility] Bisacodyl (Dulcolax) 10 mg RECTAL DAILY PRN PRN Reason: Constipation Clopidogrel Bisulfate (Plavix) 75 mg GT DAILY [facility] Last Admin: 02/23/19 10:44 Dose: 75 mg Documented by: Docusate Sodium (Colace Syrup) 50 mg GT BID PRN PRN PRN Reason: Constipation Enoxaparin Sodium (Lovenox) 40 mg SC DAILY@0600 [facility] Last Admin: 02/23/19 05:11 Dose: 40 mg Documented by: Famotidine (Pepcid) 20 mg GT BID [facility] Last Admin: 02/23/19 10:44 Dose: 20 mg Documented by: Haloperidol Lactate (Haldol) 2 mg IV Q6H PRN PRN PRN Reason: AGITATION Last Admin: 02/23/19 12:55 Dose: 2 mg Documented by: Sodium Chloride () 1,000 mls @ 150 mls/hr IV .Q6H40M [facility] Stop: 02/23/19 17:04 Last Admin: 02/23/19 04:34 Dose: 100 mls/hr Documented by: Lidocaine (Lidoderm Patch) 2 patch TOPICAL DAILY [facility]; Protocol Last Admin: 02/23/19 10:44 Dose: 2 patch Documented by: Melatonin (Melatonin) 5 mg GT QHS [facility] Polyethylene Glycol (Miralax) 17 gm GT DAILY PRN PRN Reason: Constipation Quetiapine Fumarate (Seroquel) 50 mg GT BID [facility] Last Admin: 02/23/19 10:44 Dose: 50 mg Documented by: Sodium Chloride () 10 - 40 ml IV UD PRN PRN Reason: SALINE FLUSH Last Admin: 02/23/19 11:12 Dose: 20 ml Documented by: Sodium Chloride (Sodium Chloride 3%) 3 ml INHALATION Q4H PRN PRN PRN Reason: Breathing treatment Assessment/Plan All Active Problems Hospital-acquired pneumonia (Resolved) Status post emergency tracheotomy for assistance in breathing (Ruled-out) Psychosis (Acute) Agitation (Acute) Tracheobronchitis (Acute) RECOMMENDATIONS: 1. Consider empiric antibiotics. Patient has tolerated meropenem in the past. 2. Wean supplemental oxygen to maintain saturations at or above 90%. 3. Continue aggressive bronchopulmonary hygiene including vest therapy. 4. Management of delirium per hospitalist 5. Consider contact precautions until previous culture results can be confirmed. IMPRESSIONS: 1. Possible healthcare associated pneumonia with tracheostomy Patient has been treated for Corynebacterium tracheobronchitis in the past with good response. Patient's is reporting a history of ESBL, but this cannot be confirmed in our computer. Will defer to infection control on whether contact precautions need to be initiated in the interim. Sputum culture from January showed only Corynebacterium. Sputum culture is currently pending. Will initiate vest therapy to help with pulmonary toileting. 2. Previous CVA with hemorrhagic transformation requiring tracheostomy Patient is unable to provide much history at this time. Patient does have a tracheostomy in place and has had increased secretions noted. Oxygen saturations appear to be controlled on current settings. Patient is not able to voluntarily assist in pulmonary toileting. Will add vest therapy. 3. Encephalopathy MRI apparently demonstrated findings of a new infarction during last hospitalization. Potential pulmonary infectious process is also likely contributing. Defer management to primary team. Consider increasing Seroquel as necessary to avoid PRN Haldol. Code Visit Inpatient E&M: 91201 Init Hosp L3
[2019-02-23] MEDS: LORazepam 2 MG/ML Syringe 0.5 MG IV (17:28)
[2019-02-23] MEDS: Atorvastatin Calcium 40 MG Tablet GT (21:27)
[2019-02-23] MEDS: MELATONIN 10 MG TABLET 5 MG GT (21:27)
[2019-02-24] VITALS (14 sets, daily range): BP systolic 135–179; BP diastolic 75–89; PULSE 61–79; RESP 15–18; TEMP 36.4–37.4; O2SAT 93–100
[2019-02-24] MEDS: Enoxaparin 40 MG/0.4 ML Syringe SC (05:37)
--- NOTE | 2019-02-24 07:30 | PN_ITS ---
Subjective: Patient did okay overnight. No acute issues were reported. Patient continues to have a sitter at the bedside. Respiratory continues to report moderate thick yellow sputum. Patient unable to provide more history. - Physical Exam Vitals/I&O's: Vital Signs Temp Pulse Resp BP Pulse Ox 36.4 C L 64 16 159/75 H 100 02/24/19 02:52 02/24/19 03:59 02/24/19 02:52 02/24/19 02:52 02/24/19 02:52 Oxygen Flow Rate (L/min) 7 Oxygen Delivery Method Trach Collar Weight: 70.4 kg Body Mass Index (BMI) 22.8 Finger Stick Blood Glucose 132 Intake and Output for Last 24 Hours 02/22/19 02/23/19 02/24/19 23:59 23:59 23:59 Intake Total 2570.00 / 2570.00 1066.92 / 1066.92 Balance 2570.00 / 2570.00 1066.92 / 1066.92 General: No apparent distress, Confused, Disoriented, Non-Cooperative, - - Resting comfortably in the right decubitus position HEENT: Atraumatic, PERRLA, Normocephalic, - - No scleral icterus or injection noted Oral: Moist Mucosa, No Gingival or Mucosal Lesions/ Ulcerations Neck: Supple, No JVD, No Nodes, Trachea Midline, - - Size 6 Shiley trach noted Lungs: No wheeze, No rales, Diminished, Rhonchi - Right sided Cardiovascular: Regular rate, Regular Rhythm, Normal S1, Normal S2, No murmurs, No rub noted, No Gallop Abdomen: Bowel Sounds Present, Soft, Non Tender, Non-Distended, - - Abdominal binder in place Extremities: No clubbing, No cyanosis, No edema, Capillary Refill Less than 3 Seconds Skin: No rashes, No breakdown Musculoskeletal: No Tenderness to Palpation of Joints or Extremities Lymphatic: No Cervical, Supraclavicular, or Inguinal Adenopathy Neurological: - - Unchanged from previous Psych/Mental Status: Flat Affect - Resting comfortably Microbiology Past 72 Hours 02/23/19 11:15 Sputum, Tracheal Aspirate Gram Stain - Final Current Medications Acetaminophen (Tylenol Liquid) 160 mg GT Q6H PRN PRN PRN Reason: Pain or Fever Albuterol/Ipratropium (Duoneb) 3 ml INHALATION Q4H PRN PRN PRN Reason: Breathing Aspirin (Aspirin, Baby) 81 mg GT DAILYCM [facility] Last Admin: 02/23/19 10:44 Dose: 81 mg Documented by: Atorvastatin Calcium (Lipitor) 40 mg GT QHS [facility] Last Admin: 02/23/19 21:27 Dose: 40 mg Documented by: Bisacodyl (Dulcolax) 10 mg RECTAL DAILY PRN PRN Reason: Constipation Clopidogrel Bisulfate (Plavix) 75 mg GT DAILY [facility] Last Admin: 02/23/19 10:44 Dose: 75 mg Documented by: Docusate Sodium (Colace Syrup) 50 mg GT BID PRN PRN PRN Reason: Constipation Enoxaparin Sodium (Lovenox) 40 mg SC DAILY@0600 [facility] Last Admin: 02/24/19 05:37 Dose: 40 mg Documented by: Famotidine (Pepcid) 20 mg GT BID [facility] Last Admin: 02/23/19 21:27 Dose: 20 mg Documented by: Haloperidol Lactate (Haldol) 2 mg IV Q6H PRN PRN PRN Reason: AGITATION Last Admin: 02/23/19 12:55 Dose: 2 mg Documented by: Meropenem 1 gm/ Sodium (Chloride) 120 mls @ 33 mls/hr IV Q8 [facility] Last Admin: 02/24/19 05:37 Dose: 33 mls/hr Documented by: Sodium Chloride () 250 mls @ 15 mls/hr IV .[id number] PRN PRN Reason: Saline Flush Last Infusion: 02/24/19 05:39 Dose: 0 mls/hr Documented by: Lidocaine (Lidoderm Patch) 2 patch TOPICAL DAILY [facility]; Protocol Last Admin: 02/23/19 10:44 Dose: 2 patch Documented by: Melatonin (Melatonin) 5 mg GT QHS [facility] Last Admin: 02/23/19 21:27 Dose: 5 mg Documented by: Polyethylene Glycol (Miralax) 17 gm GT DAILY PRN PRN Reason: Constipation Quetiapine Fumarate (Seroquel) 50 mg GT BID [facility] Last Admin: 02/23/19 21:27 Dose: 50 mg Documented by: Sodium Chloride () 10 - 40 ml IV UD PRN PRN Reason: SALINE FLUSH Last Admin: 02/23/19 17:28 Dose: 20 ml Documented by: Sodium Chloride (Sodium Chloride 3%) 3 ml INHALATION Q4H PRN PRN PRN Reason: Breathing treatment Medical Necessity - Tobacco Use Smoking Status: Former smoker Tobacco Use: Non-smoker Assessment/Plan All Active Problems Hospital-acquired pneumonia (Resolved) Status post emergency tracheotomy for assistance in breathing (Ruled-out) Psychosis (Acute) Agitation (Acute) Tracheobronchitis (Acute) RECOMMENDATIONS: 1. Continue empiric antibiotics. Await sputum culture 2. Wean supplemental oxygen to maintain saturations at or above 90%. 3. Continue aggressive bronchopulmonary hygiene including vest therapy or IPPV. 4. Management of delirium per hospitalist 5. Continue contact precautions until cultures resulted. IMPRESSIONS: 1. Possible healthcare associated pneumonia with tracheostomy Patient has been treated for Corynebacterium tracheobronchitis in the past with good response. Patient's is reporting a history of ESBL, but this cannot be confirmed in our computer. Patient is on contact precautions until sputum culture can be resulted. Patient has had an improvement in leukocytosis. Continue aggressive pulmonary toileting with vest. If patient unable to tolerate, IPPV can be initiated. 2. Previous CVA with hemorrhagic transformation requiring tracheostomy Patient is unable to provide much history at this time. Patient does have a tracheostomy in place and has had increased secretions noted. Oxygen saturations appear to be controlled on current settings. Patient is not able to voluntarily assist in pulmonary toileting. IPPV or vest would be appropriate. 3. Encephalopathy MRI apparently demonstrated findings of a new infarction during last hospitalization. Potential pulmonary infectious process is also likely contributing. Defer management to primary team. Consider increasing Seroquel as necessary to avoid PRN Haldol. Code Visit Inpatient E&M: 39630 Subs Hosp L2
[2019-02-24 07:59] LABS: Absolute Lymphocyte Count 0.77 X10^3/uL (0.83-4.51); Absolute Neutrophil Count 4.3 X10^3/uL (2.0-7.7); Basophil# 0.02 X10^3/uL; Basophil% 0.4 % (0-1); Eosinophil# 0.01 X10^3/uL; Eosinophils% 0.2 % (0-5); Hematocrit 34.4 % (40-54); Hemoglobin 11.1 g/dL (13.0-16.5); Lymphocyte # 0.77 X10^3/ul (4.0); Lymphocyte % 13.6 % (19-41); Mean Corp Hgb Conc 32.3 g/dL (32-36); Mean Corpuscular Hgb 29.8 pg (27.0-32.0); Mean Corpuscular Volume 92.2 fL (80-94); Mean Platelet Vol. 9.1 fl (6.2-12.0); Monocyte# 0.56 X10^3/uL; Monocyte% 9.9 % (0-10); NRBC Flagged by Analyzer 0 % (0-5); Neutrophil # 4.28 X10^3/uL (2.7-7.7); Neutrophil % 75.7 % (47-70); Platelet Count 229 K/mm3 (150-450); RBC Distribution Width CV 14.5 % (11.6-14.6); RBC Distribution Width SD 48.1 fl (35.1-43.9); Red Blood Count 3.73 M/mm3 (4.6-6.2); White Blood Count 5.7 K/mm3 (4.4-11.0)
[2019-02-24 08:14] LABS: Anion Gap 5 (5-15); BUN 12 mg/dL (7-18); BUN/Creat Ratio 20.6 RATIO (10-20); Calcium,Total 8.3 mg/dL (8.5-10.1); Chloride 110 mmol/L (98-107); Creatinine, Serum 0.58 mg/dL (0.70-1.30); EST Glomerular Filtration Rate 143 mL/min (>60); Est Glom Filt Rate - Afr Amer 172 mL/min (>60); Estimated Creatinine Clearance 59.64 ml/min; Glucose 86 mg/dL (74-106); Sodium Level 139 mmol/L (136-145)
[2019-02-24] MEDS: Aspirin 81 MG TAB.CHEW GT (09:22)
[2019-02-24] MEDS: QUEtiapine 25 MG Tablet 50 MG GT ×2 (09:22→20:00)
[2019-02-24] MEDS: Famotidine 20 MG Tablet GT ×2 (09:23→20:00)
[2019-02-24] MEDS: Lidocaine 5% Patch 2 PATCH TOPICAL (09:23)
[2019-02-24] MEDS: Clopidogrel Bisulfate 75 MG Tablet GT (09:24)
[2019-02-24] MEDS: Ipratropium/Albuterol Sulfate 3 ML AMPUL.NEB INHALATION (12:13)
--- NOTE | 2019-02-24 12:40 | PN_ITS ---
Subjective: Unable to provide much history, seems to be doing well he was resting comfortably in bed Vitals/I&O's: Vital Signs Temp Pulse Resp BP Pulse Ox 97.8 F 62 15 179/89 H 99 02/24/19 08:52 02/24/19 12:22 02/24/19 12:22 02/24/19 08:52 02/24/19 12:22 Oxygen Flow Rate (L/min) 8 Oxygen Delivery Method Venturi Mask Weight: 155 lb 3.287 oz Body Mass Index (BMI) 22.8 Finger Stick Blood Glucose 132 Intake and Output for Last 24 Hours 02/22/19 02/23/19 02/24/19 23:59 23:59 23:59 Intake Total 2570.00 / 2570.00 1246.92 / 1246.92 Balance 2570.00 / 2570.00 1246.92 / 1246.92 General: No apparent distress, Confused, Disoriented, - - Trach mask in place HEENT: Atraumatic, PERRLA, EOMI, Normocephalic Oral: Moist Mucosa Neck: Supple, No JVD, - - Trach mask in place Lungs: Normal air movement, No wheeze, No rales, Diminished, Rhonchi Cardiovascular: Regular rate, Regular Rhythm, Normal S1, Normal S2, No murmurs Abdomen: Soft, Non Tender, Non-Distended, No Hepato-splenomegaly Extremities: No edema, Capillary Refill Less than 3 Seconds Skin: No rashes, No breakdown Neurological: - - I may unable to perform much of an exam given his confusion and his aphasia Psych/Mental Status: - - Resting comfortably at the moment Microbiology Past 72 Hours 02/23/19 11:15 Sputum, Tracheal Aspirate Gram Stain - Final Laboratory Results 02/24/19 07:43: WBC 5.7, RBC 3.73 L, Hgb 11.1 L, Hct 34.4 L, MCV 92.2, MCH 29.8, MCHC 32.3, RDW Std Deviation 48.1 H, RDW Coeff of Dereck 14.5, Plt Count 229, MPV 9.1, Immature Gran % (Auto) 0.200, Neut % (Auto) 75.7 H, Lymph % (Auto) 13.6 L, [place] % (Auto) 9.9, Eos % (Auto) 0.2, Baso % (Auto) 0.4, Absolute Neuts (auto) 4.3, Absolute Lymphs (auto) 0.77 L, Nucleated RBC % 0 02/24/19 07:43: Sodium 139, Potassium 4.0, Chloride 110 H, Carbon Dioxide 24.0, Anion Gap 5, BUN 12, Creatinine 0.58 L, Estim Creat Clear Calc 59.64, Est GFR (MDRD) Af Amer 172, Est GFR (MDRD) Non-Af 143, BUN/Creatinine Ratio 20.6 H, Glucose 86, Calcium 8.3 L Current Medications Acetaminophen (Tylenol Liquid) 160 mg GT Q6H PRN PRN PRN Reason: Pain or Fever Albuterol/Ipratropium (Duoneb) 3 ml INHALATION Q4H PRN PRN PRN Reason: Breathing Last Admin: 02/24/19 12:13 Dose: 3 ml Documented by: [facility] Last Admin: 02/24/19 09:22 Dose: 81 mg Documented by: Atorvastatin Calcium (Lipitor) 40 mg GT QHS [facility] Last Admin: 02/23/19 21:27 Dose: 40 mg Documented by: Bisacodyl (Dulcolax) 10 mg RECTAL DAILY PRN PRN Reason: Constipation Clopidogrel Bisulfate (Plavix) 75 mg GT DAILY [facility] Last Admin: 02/24/19 09:24 Dose: 75 mg Documented by: Docusate Sodium (Colace Syrup) 50 mg GT BID PRN PRN PRN Reason: Constipation Enoxaparin Sodium (Lovenox) 40 mg SC DAILY@0600 [facility] Last Admin: 02/24/19 05:37 Dose: 40 mg Documented by: Famotidine (Pepcid) 20 mg GT BID [facility] Last Admin: 02/24/19 09:23 Dose: 20 mg Documented by: Haloperidol Lactate (Haldol) 2 mg IV Q6H PRN PRN PRN Reason: AGITATION Last Admin: 02/23/19 12:55 Dose: 2 mg Documented by: Meropenem 1 gm/ Sodium (Chloride) 120 mls @ 33 mls/hr IV Q8 [facility] Last Infusion: 02/24/19 09:16 Dose: Infused Documented by: Sodium Chloride () 250 mls @ 15 mls/hr IV .[id number] PRN PRN Reason: Saline Flush Last Infusion: 02/24/19 05:39 Dose: 0 mls/hr Documented by: Enteral Nutritional Formula (Jevity 1.5) 1,000 mls @ 25 mls/hr GT .Q40H [facility] Stop: 02/25/19 10:00 Lidocaine (Lidoderm Patch) 2 patch TOPICAL DAILY [facility]; Protocol Last Admin: 02/24/19 09:23 Dose: 2 patch Documented by: Melatonin (Melatonin) 5 mg GT QHS [facility] Last Admin: 02/23/19 21:27 Dose: 5 mg Documented by: Polyethylene Glycol (Miralax) 17 gm GT DAILY PRN PRN Reason: Constipation Quetiapine Fumarate (Seroquel) 50 mg GT BID [facility] Last Admin: 02/24/19 09:22 Dose: 50 mg Documented by: Sodium Chloride () 10 - 40 ml IV UD PRN PRN Reason: SALINE FLUSH Last Admin: 02/23/19 17:28 Dose: 20 ml Documented by: Sodium Chloride (Sodium Chloride 3%) 3 ml INHALATION Q4H PRN PRN PRN Reason: Breathing treatment STROKE Vital Signs/Narrative: Vital Signs Temp Pulse Resp BP Pulse Ox 02/24/19 12:22 62 15 99 02/24/19 09:00 16 100 02/24/19 08:52 97.8 F 67 18 179/89 H 100 Medical Necessity - Tobacco Use Smoking Status: Former smoker Tobacco Use: Non-smoker Assessment/Plan All Active Problems Hospital-acquired pneumonia (Resolved) Status post emergency tracheotomy for assistance in breathing (Ruled-out) Psychosis (Acute) Agitation (Acute) Tracheobronchitis (Acute) 1. Sepsis secondary to acute left lower lobe pneumonia/encephalopathy -There is some report that he may have had ESBL in the past therefore we will start him on meropenem -He does have a trach and was having thick yellowish sputum from it appreciate pulmonology input, continue duo nebs -Sepsis has resolved -Cultures are pending -He did receive vancomycin, aztreonam, and Levaquin in the ER -His encephalopathy is likely multifactorial from the fact that he has had recent strokes, and his infection and therefore likely metabolic -We will continue with tube feeds, appreciate dietary input -We will continue with the Seroquel and can increase as necessary to limit the amount of Haldol used 2. HTN/HLD/history of CVA -Systolic blood pressures are in the 150s to 170s -He does not appear to be on any blood pressure medications, can provide Norvasc through the G-tube -Continue with aspirin and Plavix as well as Lipitor DVT: Lovenox Code Visit Inpatient E&M: 11637 Subs Hosp L2
[2019-02-24] MEDS: Acetaminophen 160 MG/5 ML UDC GT (19:58)
[2019-02-24] MEDS: Jevity 1.5 1,000 ML 25 ML GT (19:59)
[2019-02-24] MEDS: MELATONIN 10 MG TABLET 5 MG GT (19:59)
[2019-02-24] MEDS: Atorvastatin Calcium 40 MG Tablet GT (20:02)
[2019-02-25] VITALS (14 sets, daily range): BP systolic 138–150; BP diastolic 76–107; PULSE 57–112; RESP 16–18; TEMP 36.6–37.2; O2SAT 92–98
[2019-02-25] MEDS: Acetaminophen 160 MG/5 ML UDC GT ×3 (02:04→18:38)
[2019-02-25] MEDS: Menthol/Lanolin/Calamine/Znox 113 GM Tube 1 APPLIC TOPICAL ×3 (05:12→20:14)
[2019-02-25] MEDS: Enoxaparin 40 MG/0.4 ML Syringe SC (05:12)
--- NOTE | 2019-02-25 07:31 | PCM.PN.PUL ---
Subjective: Patient did okay overnight. No acute issues were reported. There is no sitter at the bedside. Patient is not really interactive, but is playing with his blankets and not attempting to get out of bed. Respiratory reports patient is done well on trach collar overnight. - Physical Exam Vitals/I&O's: Vital Signs Temp Pulse Resp BP Pulse Ox 36.6 C 57 L 18 150/88 H 97 02/25/19 02:27 02/25/19 03:45 02/25/19 02:27 02/25/19 02:27 02/25/19 02:27 Oxygen Flow Rate (L/min) 8 Oxygen Delivery Method Trach Collar Weight: 70.4 kg Body Mass Index (BMI) 22.8 Finger Stick Blood Glucose 132 Intake and Output for Last 24 Hours 02/23/19 02/24/19 02/25/19 23:59 23:59 23:59 Intake Total 2570.00 / 2570.00 1801.92 / 1801.92 834 / 834 Balance 2570.00 / 2570.00 1801.92 / 1801.92 834 / 834 General: Alert, Confused, Disoriented, Non-Cooperative HEENT: Atraumatic, PERRLA, EOMI, Normocephalic, - - No scleral icterus or injection noted. Oral: Moist Mucosa, No Gingival or Mucosal Lesions/ Ulcerations Neck: Supple, No JVD, No Nodes, Trachea Midline, - - Trach is clean, dry and intact Lungs: Clear to auscultation, Normal air movement, No rhonchi, No wheeze, No rales, - - Symmetric expansion. No dullness to percussion. Cardiovascular: Regular rate, Regular Rhythm, Normal S1, Normal S2, No murmurs, No rub noted, No Gallop Abdomen: Bowel Sounds Present, Soft, Non Tender, Non-Distended, - - Abdominal binder in place Extremities: No clubbing, No cyanosis, No edema Skin: No rashes, No breakdown Musculoskeletal: No Tenderness to Palpation of Joints or Extremities Lymphatic: No Cervical, Supraclavicular, or Inguinal Adenopathy Neurological: - - Grossly unchanged compared to previous Psych/Mental Status: Impulsive, Restless Microbiology Past 72 Hours 02/23/19 11:15 Sputum, Tracheal Aspirate Gram Stain - Final Laboratory Results 02/24/19 07:43: WBC 5.7, RBC 3.73 L, Hgb 11.1 L, Hct 34.4 L, MCV 92.2, MCH 29.8, MCHC 32.3, RDW Std Deviation 48.1 H, RDW Coeff of Dereck 14.5, Plt Count 229, MPV 9.1, Immature Gran % (Auto) 0.200, Neut % (Auto) 75.7 H, Lymph % (Auto) 13.6 L, [place] % (Auto) 9.9, Eos % (Auto) 0.2, Baso % (Auto) 0.4, Absolute Neuts (auto) 4.3, Absolute Lymphs (auto) 0.77 L, Nucleated RBC % 0 02/24/19 07:43: Sodium 139, Potassium 4.0, Chloride 110 H, Carbon Dioxide 24.0, Anion Gap 5, BUN 12, Creatinine 0.58 L, Estim Creat Clear Calc 59.64, Est GFR (MDRD) Af Amer 172, Est GFR (MDRD) Non-Af 143, BUN/Creatinine Ratio 20.6 H, Glucose 86, Calcium 8.3 L Current Medications Acetaminophen (Tylenol Liquid) 160 mg GT Q6H PRN PRN PRN Reason: Pain or Fever Last Admin: 02/25/19 02:04 Dose: 160 mg Documented by: Albuterol/Ipratropium (Duoneb) 3 ml INHALATION Q4H PRN PRN PRN Reason: Breathing Last Admin: 02/24/19 12:13 Dose: 3 ml Documented by: Amlodipine Besylate (Norvasc) 10 mg GT DAILY [facility], [facility]) [facility] Last Admin: 02/24/19 09:22 Dose: 81 mg Documented by: Atorvastatin Calcium (Lipitor) 40 mg GT QHS [facility] Last Admin: 02/24/19 20:02 Dose: 40 mg Documented by: Bisacodyl (Dulcolax) 10 mg RECTAL DAILY PRN PRN Reason: Constipation Calamine/Phenol (Calmoseptine Ointment) 1 applic TOPICAL TID [facility]; Protocol Last Admin: 02/25/19 05:12 Dose: 1 applicatio Documented by: Clopidogrel Bisulfate (Plavix) 75 mg GT DAILY [facility] Last Admin: 02/24/19 09:24 Dose: 75 mg Documented by: Docusate Sodium (Colace Syrup) 50 mg GT BID PRN PRN PRN Reason: Constipation Enoxaparin Sodium (Lovenox) 40 mg SC DAILY@0600 [facility] Last Admin: 02/25/19 05:12 Dose: 40 mg Documented by: Famotidine (Pepcid) 20 mg GT BID [facility] Last Admin: 02/24/19 20:00 Dose: 20 mg Documented by: Haloperidol Lactate (Haldol) 2 mg IV Q6H PRN PRN PRN Reason: AGITATION Last Admin: 02/23/19 12:55 Dose: 2 mg Documented by: Meropenem 1 gm/ Sodium (Chloride) 120 mls @ 33 mls/hr IV Q8 [facility] Last Admin: 02/25/19 05:12 Dose: 33 mls/hr Documented by: Sodium Chloride () 250 mls @ 15 mls/hr IV .[id number] PRN PRN Reason: Saline Flush Last Infusion: 02/25/19 05:12 Dose: 0 mls/hr Documented by: Enteral Nutritional Formula (Jevity 1.5) 1,000 mls @ 25 mls/hr GT .Q40H [facility] Stop: 02/25/19 10:00 Last Admin: 02/24/19 19:59 Dose: 25 mls/hr Documented by: Lidocaine (Lidoderm Patch) 2 patch TOPICAL DAILY [facility]; Protocol Last Admin: 02/24/19 09:23 Dose: 2 patch Documented by: Melatonin (Melatonin) 5 mg GT QHS [facility] Last Admin: 02/24/19 19:59 Dose: 5 mg Documented by: Polyethylene Glycol (Miralax) 17 gm GT DAILY PRN PRN Reason: Constipation Quetiapine Fumarate (Seroquel) 50 mg GT BID [facility] Last Admin: 02/24/19 20:00 Dose: 50 mg Documented by: Sodium Chloride () 10 - 40 ml IV UD PRN PRN Reason: SALINE FLUSH Last Admin: 02/23/19 17:28 Dose: 20 ml Documented by: Sodium Chloride (Sodium Chloride 3%) 3 ml INHALATION Q4H PRN PRN PRN Reason: Breathing treatment Medical Necessity - Tobacco Use Smoking Status: Former smoker Tobacco Use: Non-smoker Assessment/Plan All Active Problems Hospital-acquired pneumonia (Resolved) Status post emergency tracheotomy for assistance in breathing (Ruled-out) Psychosis (Acute) Agitation (Acute) Tracheobronchitis (Acute) RECOMMENDATIONS: 1. Continue empiric antibiotics. If sputum culture negative, can likely be discharged from a pulmonary perspective 2. Wean supplemental oxygen to maintain saturations at or above 90%. 3. Continue aggressive bronchopulmonary hygiene including vest therapy 4. Management of delirium per hospitalist 5. Continue contact precautions until cultures resulted. IMPRESSIONS: 1. Possible healthcare associated pneumonia with tracheostomy Patient has been treated for Corynebacterium tracheobronchitis in the past with good response. Patient's is reporting a history of ESBL, but this cannot be confirmed in our computer. Patient is on contact precautions until sputum culture can be resulted. Patient appears to have responded well to aggressive pulmonary toileting. Lungs are clear at this time. No fevers been reported. Sputum culture showed rare cells, so decompensation may be secondary to pulmonary toileting more than acute illness. If culture is negative at 48 hours, patient can likely be sent [facility] [place] [facility] with aggressive pulmonary toileting with vest therapy to be completed twice daily. Antibiotics can likely be discontinued. 2. Previous CVA with hemorrhagic transformation requiring tracheostomy Patient is unable to provide much history at this time. Patient does have a tracheostomy in place and has had increased secretions noted. Oxygen saturations appear to be controlled on current settings. Patient is not able to voluntarily assist in pulmonary toileting. IPPV or vest would be appropriate. 3. Encephalopathy MRI apparently demonstrated findings of a new infarction during last hospitalization. Potential pulmonary infectious process or retained secretions are also likely contributing. Defer management to primary team. Consider increasing Seroquel as necessary to avoid PRN Haldol. Code Visit Inpatient E&M: 24977 Subs Hosp L2
[2019-02-25] MEDS: Ipratropium/Albuterol Sulfate 3 ML AMPUL.NEB INHALATION ×2 (07:39→14:17)
--- NOTE | 2019-02-25 07:39 | CPS ---
liter flow increased to 8lpm per saddle and harness maker instructions for 30% cool aerosol.
--- NOTE | 2019-02-25 07:39 | CPS ---
Called for PRN aerosol by night RN. Vest therapy not done at this time, patient still getting tube feed.
--- NOTE | 2019-02-25 09:43 | PCM.PN.HOSP ---
Subjective: No issues overnight, doing much better today since pulmonary toileting started with percussion vest Vitals/I&O's: Vital Signs Temp Pulse Resp BP Pulse Ox 97.9 F 57 L 18 150/88 H 97 02/25/19 02:27 02/25/19 03:45 02/25/19 02:27 02/25/19 02:27 02/25/19 02:27 Oxygen Flow Rate (L/min) 8 Oxygen Delivery Method Trach Collar Weight: 155 lb 3.287 oz Body Mass Index (BMI) 22.8 Finger Stick Blood Glucose 132 Intake and Output for Last 24 Hours 02/23/19 02/24/19 02/25/19 23:59 23:59 23:59 Intake Total 2570.00 / 2570.00 1801.92 / 1801.92 954 / 954 Balance 2570.00 / 2570.00 1801.92 / 1801.92 954 / 954 General: No apparent distress, Confused, Disoriented, - - Trach mask in place HEENT: Atraumatic, PERRLA, EOMI, Normocephalic Oral: Moist Mucosa Neck: Supple, No JVD, - - Trach mask in place Lungs: Normal air movement, No wheeze, No rales, Diminished, Rhonchi Cardiovascular: Regular rate, Regular Rhythm, Normal S1, Normal S2, No murmurs Abdomen: Soft, Non Tender, Non-Distended, No Hepato-splenomegaly Extremities: No edema, Capillary Refill Less than 3 Seconds Skin: No rashes, No breakdown Neurological: - - I may unable to perform much of an exam given his confusion and his aphasia Psych/Mental Status: - - Resting comfortably at the moment Microbiology Past 72 Hours 02/23/19 11:15 Sputum, Tracheal Aspirate Gram Stain - Final Current Medications Acetaminophen (Tylenol Liquid) 160 mg GT Q6H PRN PRN PRN Reason: Pain or Fever Last Admin: 02/25/19 02:04 Dose: 160 mg Documented by: Albuterol/Ipratropium (Duoneb) 3 ml INHALATION Q4H PRN PRN PRN Reason: Breathing Last Admin: 02/25/19 07:39 Dose: 3 ml Documented by: Amlodipine Besylate (Norvasc) 10 mg GT DAILY [facility] Aspirin (Aspirin, Baby) 81 mg GT DAILY [facility] Last Admin: 02/24/19 09:22 Dose: 81 mg Documented by: Atorvastatin Calcium (Lipitor) 40 mg GT QHS [facility] Last Admin: 02/24/19 20:02 Dose: 40 mg Documented by: Bisacodyl (Dulcolax) 10 mg RECTAL DAILY PRN PRN Reason: Constipation Calamine/Phenol (Calmoseptine Ointment) 1 applic TOPICAL TID [facility]; Protocol Last Admin: 02/25/19 05:12 Dose: 1 applicatio Documented by: Clopidogrel Bisulfate (Plavix) 75 mg GT DAILY [facility] Last Admin: 02/24/19 09:24 Dose: 75 mg Documented by: Docusate Sodium (Colace Syrup) 50 mg GT BID PRN PRN PRN Reason: Constipation Enoxaparin Sodium (Lovenox) 40 mg SC DAILY@0600 [facility] Last Admin: 02/25/19 05:12 Dose: 40 mg Documented by: Famotidine (Pepcid) 20 mg GT BID [facility] Last Admin: 02/24/19 20:00 Dose: 20 mg Documented by: Haloperidol Lactate (Haldol) 2 mg IV Q6H PRN PRN PRN Reason: AGITATION Last Admin: 02/23/19 12:55 Dose: 2 mg Documented by: Meropenem 1 gm/ Sodium (Chloride) 120 mls @ 33 mls/hr IV Q8 [facility] Last Infusion: 02/25/19 09:04 Dose: Infused Documented by: Sodium Chloride () 250 mls @ 15 mls/hr IV .[id number] PRN PRN Reason: Saline Flush Last Infusion: 02/25/19 05:12 Dose: 0 mls/hr Documented by: Enteral Nutritional Formula (Jevity 1.5) 1,000 mls @ 25 mls/hr GT .Q40H [facility] Stop: 02/25/19 10:00 Last Admin: 02/24/19 19:59 Dose: 25 mls/hr Documented by: Lidocaine (Lidoderm Patch) 2 patch TOPICAL DAILY [facility]; Protocol Last Admin: 02/24/19 09:23 Dose: 2 patch Documented by: Melatonin (Melatonin) 5 mg GT QHS [facility] Last Admin: 02/24/19 19:59 Dose: 5 mg Documented by: Polyethylene Glycol (Miralax) 17 gm GT DAILY PRN PRN Reason: Constipation Quetiapine Fumarate (Seroquel) 50 mg GT BID [facility] Last Admin: 02/24/19 20:00 Dose: 50 mg Documented by: Sodium Chloride () 10 - 40 ml IV UD PRN PRN Reason: SALINE FLUSH Last Admin: 02/23/19 17:28 Dose: 20 ml Documented by: Sodium Chloride (Sodium Chloride 3%) 3 ml INHALATION Q4H PRN PRN PRN Reason: Breathing treatment Medical Necessity - Tobacco Use Smoking Status: Former smoker Tobacco Use: Non-smoker Assessment/Plan All Active Problems Hospital-acquired pneumonia (Resolved) Status post emergency tracheotomy for assistance in breathing (Ruled-out) Psychosis (Acute) Agitation (Acute) Tracheobronchitis (Acute) 1. Sepsis secondary to acute left lower lobe pneumonia/encephalopathy -There is some report that he may have had ESBL in the past therefore we will start him on meropenem -He does have a trach and was having thick yellowish sputum from it appreciate pulmonology input, continue duo nebs -Sepsis has resolved -Cultures are pending, if negative can stop meropenem and discharged back to TCU -He did receive vancomycin, aztreonam, and Levaquin in the ER -His encephalopathy is likely multifactorial from the fact that he has had recent strokes, and his infection and therefore likely metabolic -We will continue with tube feeds, appreciate dietary input -We will continue with the Seroquel and can increase as necessary to limit the amount of Haldol used 2. HTN/HLD/history of CVA -Systolic blood pressures are in the 150s to 170s -He does not appear to be on any blood pressure medications, can provide Norvasc through the G-tube -Continue with aspirin and Plavix as well as Lipitor DVT: Lovenox Code Visit Inpatient E&M: 95650 Subs Hosp L2
[2019-02-25] MEDS: Lidocaine 5% Patch 2 PATCH TOPICAL (10:20)
[2019-02-25] MEDS: Aspirin 81 MG TAB.CHEW GT (10:22)
[2019-02-25] MEDS: Clopidogrel Bisulfate 75 MG Tablet GT (10:22)
[2019-02-25] MEDS: QUEtiapine 25 MG Tablet 50 MG GT ×2 (10:22→20:12)
[2019-02-25] MEDS: amLODIPine 10 MG Tablet GT (10:22)
[2019-02-25] MEDS: Famotidine 20 MG Tablet GT ×2 (10:22→20:13)
--- NOTE | 2019-02-25 11:00 | CPS ---
Water bottle changed for Cool Aerosol, decreased FiO2 to 28% and flow of 6, RN aware.
[2019-02-25] MEDS: MELATONIN 10 MG TABLET 5 MG GT (20:12)
[2019-02-25] MEDS: Atorvastatin Calcium 40 MG Tablet GT (20:12)
[2019-02-25] MEDS: Jevity 1.5 1,000 ML 75 ML GT (20:13)
[2019-02-26] MEDS: oxyCODONE 5 MG Tablet 2.5 MG GT ×2 (00:46→06:42)
[2019-02-26] MEDS: Acetaminophen 650 MG/20 ML UDC GT ×2 (00:49→06:41)
[2019-02-26 03:50] VITALS: PULSE 80
[2019-02-26] MEDS: Enoxaparin 40 MG/0.4 ML Syringe SC (05:08)
[2019-02-26] MEDS: Menthol/Lanolin/Calamine/Znox 113 GM Tube 1 APPLIC TOPICAL (05:09)
[2019-02-26 05:17] VITALS: BP 144/85; PULSE 105; RESP 18; TEMP 36.8; O2SAT 95
[2019-02-26 06:04] LABS: Absolute Lymphocyte Count 0.98 X10^3/uL (0.83-4.51); Absolute Neutrophil Count 5.2 X10^3/uL (2.0-7.7); Basophil# 0.02 X10^3/uL; Basophil% 0.3 % (0-1); Eosinophil# 0.36 X10^3/uL; Eosinophils% 4.9 % (0-5); Hematocrit 38.5 % (40-54); Hemoglobin 12.7 g/dL (13.0-16.5); Lymphocyte # 0.98 X10^3/ul (4.0); Lymphocyte % 13.4 % (19-41); Mean Corpuscular Volume 90.8 fL (80-94); Monocyte# 0.73 X10^3/uL; NRBC Flagged by Analyzer 0 % (0-5); Neutrophil # 5.22 X10^3/uL (2.7-7.7); Neutrophil % 71.1 % (47-70); Platelet Count 262 K/mm3 (150-450); RBC Distribution Width CV 14.6 % (11.6-14.6); RBC Distribution Width SD 47.8 fl (35.1-43.9); Red Blood Count 4.24 M/mm3 (4.6-6.2); White Blood Count 7.3 K/mm3 (4.4-11.0)
[2019-02-26 06:20] LABS: Anion Gap 5 (5-15); BUN 15 mg/dL (7-18); BUN/Creat Ratio 22.5 RATIO (10-20); Calcium,Total 8.5 mg/dL (8.5-10.1); Chloride 104 mmol/L (98-107); Creatinine, Serum 0.67 mg/dL (0.70-1.30); EST Glomerular Filtration Rate 122 mL/min (>60); Est Glom Filt Rate - Afr Amer 148 mL/min (>60); Estimated Creatinine Clearance 59.64 ml/min; Glucose 130 mg/dL (74-106); Potassium 3.7 mmol/L (3.5-5.1); Sodium Level 137 mmol/L (136-145)
--- NOTE | 2019-02-26 08:45 | PCM.TXEXTCAR ---
- Routine Orders/Code Status O2 Frequency: Continuous Keep PO Greater than or Equal to (%): 90 Code Status: DNRCC-A - Therapies Physical Therapy: Eval and Treat Occupational Therapy: Eval and Treat - Allergies/Procedures Done in Hospital Allergies/Adverse Reactions: Allergies Penicillins Allergy (Unknown, Verified 02/22/19 23:19) Unknown cyclobenzaprine [From Flexeril] Adverse Reaction (Verified 02/22/19 23:19) Rash - Type of Care/Length of Stay Estimated LOS: Convalescent Care Less Than 30 days Type of Care Needed: Skilled Rehab Potential: Fair Prognosis: Fair - Additional Orders/Day of Discharge Day of Discharge: 02/26/19 - Dietary and Speech Recommendations Dietitian Recommendations/Changes: 1.) Rec Jevity 1.5 at 75mL/hour for 16 hours (6 PM to 10 AM) with 150 ml free water flush Q 4 hours to provide 1800 gerhard/ 76 gm pro/ 1812 cc free water/day. On first night, Start TF rate @ 25 ml/hr and increase by 25 ml/hr every 4-6 hrs as pt tolerates until goal rate of 75 ml/hr achieved. TF at goal rate will meet~100% of estimated nutrition needs as pt does not take food by mouth. 2.) Weigh daily. - Follow Up Care Primary Care Physician: Alvarado Dunlap MD [Primary Care Provider] -
--- NOTE | 2019-02-26 08:47 | PN_ITS ---
Subjective: The patient was seen and examined at the bedside this morning. Events from the last 24 hours have been reviewed. The patient is currently afebrile, hemodynamically stable and maintaining appropriate oxygen saturations on 28% trach collar. Objective: The patient's most recent lab work, culture data and imaging studies have all been personally reviewed. Sputum culture was positive for Corynebacterium stratum. - Physical Exam Vitals/I&O's: Vital Signs Temp Pulse Resp BP Pulse Ox 98.3 F 105 H 18 144/85 H 95 02/26/19 05:17 02/26/19 05:17 02/26/19 05:17 02/26/19 05:17 02/26/19 05:17 Oxygen Flow Rate (L/min) 6 Oxygen Delivery Method Trach Collar Weight: 155 lb 3.287 oz Body Mass Index (BMI) 22.8 Finger Stick Blood Glucose 132 Intake and Output for Last 24 Hours 02/24/19 02/25/19 02/26/19 23:59 23:59 23:59 Intake Total 1801.92 / 1801.92 1874 / 1874 1320 / 1320 Balance 1801.92 / 1801.92 1874 / 1874 1320 / 1320 General: Alert, No apparent distress HEENT: Atraumatic, Normocephalic Oral: No Gingival or Mucosal Lesions/ Ulcerations Neck: Supple, No Nodes, Trachea Midline, - - Trach site is C/D/I Lungs: No rhonchi, No wheeze, No rales Cardiovascular: Regular rate, Regular Rhythm, Normal S1, Normal S2, No murmurs Abdomen: Bowel Sounds Present, Soft, Non Tender Extremities: No clubbing, No cyanosis, No edema Skin: No breakdown Musculoskeletal: No Tenderness to Palpation of Joints or Extremities Lymphatic: No Cervical, Supraclavicular, or Inguinal Adenopathy Neurological: - - Baseline neurological status. Aphasic. Labs (Last 48 Hours) 02/26/19 02/26/19 05:40 05:40 WBC 7.3 RBC 4.24 L Hgb 12.7 L Hct 38.5 L MCV 90.8 MCH 30.0 MCHC 33.0 RDW Std Deviation 47.8 H RDW Coeff of Dereck 14.6 Plt Count 262 MPV 9.0 Immature Gran % (Auto) 0.300 Neut % (Auto) 71.1 H Lymph % (Auto) 13.4 L Hernando % (Auto) 10.0 Eos % (Auto) 4.9 Baso % (Auto) 0.3 Absolute Neuts (auto) 5.2 Absolute Lymphs (auto) 0.98 Nucleated RBC % 0 Sodium 137 Potassium 3.7 Chloride 104 Carbon Dioxide 28.0 Anion Gap 5 BUN 15 Creatinine 0.67 L Estim Creat Clear Calc 59.64 Est GFR (MDRD) Af Amer 148 Est GFR (MDRD) Non-Af 122 BUN/Creatinine Ratio 22.5 H Glucose 130 H Calcium 8.5 Microbiology 02/23/19 11:15 Sputum, Tracheal Aspirate Gram Stain - Final 02/23/19 11:15 Sputum, Tracheal Aspirate Respiratory Culture - Final Corynebacterium striatum 02/22/19 23:50 Blood Culture (Wb) - Anticubital Right Blood Culture - Preliminary No growth in 48 hours. 02/22/19 23:55 Blood Culture (Wb) - Anticubital Left Blood Culture - Preliminary No growth in 48 hours. Current Medications Acetaminophen (Tylenol Liquid) 650 mg GT Q6H PRN PRN PRN Reason: Pain () or Fever Last Admin: 02/26/19 06:41 Dose: 650 mg Documented by: Albuterol/Ipratropium (Duoneb) 3 ml INHALATION Q4H PRN PRN PRN Reason: Breathing Last Admin: 02/25/19 14:17 Dose: 3 ml Documented by: Amlodipine Besylate (Norvasc) 10 mg GT DAILY [facility] Last Admin: 02/25/19 10:22 Dose: 10 mg Documented by: [facility]ir[facility] ([facility], Baby) [facility] Last Admin: 02/25/19 10:22 Dose: 81 mg Documented by: Atorvastatin Calcium (Lipitor) 40 mg GT QHS [facility] Last Admin: 02/25/19 20:12 Dose: 40 mg Documented by: Bisacodyl (Dulcolax) 10 mg RECTAL DAILY PRN PRN Reason: Constipation Calamine/Phenol (Calmoseptine Ointment) 1 applic TOPICAL TID [facility]; Protocol Last Admin: 02/26/19 05:09 Dose: 1 applicatio Documented by: Clopidogrel Bisulfate (Plavix) 75 mg GT DAILY [facility] Last Admin: 02/25/19 10:22 Dose: 75 mg Documented by: Docusate Sodium (Colace Syrup) 50 mg GT BID PRN PRN PRN Reason: Constipation Enoxaparin Sodium (Lovenox) 40 mg SC DAILY@0600 [facility] Last Admin: 02/26/19 05:08 Dose: 40 mg Documented by: Famotidine (Pepcid) 20 mg GT BID [facility] Last Admin: 02/25/19 20:13 Dose: 20 mg Documented by: Haloperidol Lactate (Haldol) 2 mg IV Q6H PRN PRN PRN Reason: AGITATION Last Admin: 02/23/19 12:55 Dose: 2 mg Documented by: Meropenem 1 gm/ Sodium (Chloride) 120 mls @ 33 mls/hr IV Q8 [facility] Last Admin: 02/26/19 05:08 Dose: 33 mls/hr Documented by: Sodium Chloride () 250 mls @ 15 mls/hr IV .[id number] PRN PRN Reason: Saline Flush Last Infusion: 02/26/19 05:09 Dose: 0 mls/hr Documented by: Enteral Nutritional Formula (Jevity 1.5) 1,000 mls @ 75 mls/hr GT .[id number] [facility] Last Admin: 02/25/19 20:13 Dose: 75 mls/hr Documented by: Lidocaine (Lidoderm Patch) 2 patch TOPICAL DAILY [facility]; Protocol Last Admin: 02/25/19 10:20 Dose: 2 patch Documented by: Lorazepam (Ativan Intensol) 2 mg GT Q8H PRN PRN PRN Reason: ANXIETY Melatonin (Melatonin) 5 mg GT QHS [facility] Last Admin: 02/25/19 20:12 Dose: 5 mg Documented by: Oxycodone HCl (Oxyir) 2.5 mg GT Q6H PRN PRN PRN Reason: Pain Score 6-10/10 Last Admin: 02/26/19 06:42 Dose: 2.5 mg Documented by: Polyethylene Glycol (Miralax) 17 gm GT DAILY PRN PRN Reason: Constipation Quetiapine Fumarate (Seroquel) 50 mg GT BID [facility] Last Admin: 02/25/19 20:12 Dose: 50 mg Documented by: Sodium Chloride () 10 - 40 ml IV UD PRN PRN Reason: SALINE FLUSH Last Admin: 02/23/19 17:28 Dose: 20 ml Documented by: Sodium Chloride (Sodium Chloride 3%) 3 ml INHALATION Q4H PRN PRN PRN Reason: Breathing treatment Medical Necessity - Tobacco Use Smoking Status: Former smoker Tobacco Use: Non-smoker Assessment/Plan All Active Problems Hospital-acquired pneumonia (Resolved) Status post emergency tracheotomy for assistance in breathing (Ruled-out) Psychosis (Acute) Agitation (Acute) Tracheobronchitis (Acute) RECOMMENDATIONS: 1. Continue empiric antibiotics. 2. Wean supplemental oxygen to maintain saturations at or above 90%. 3. Continue aggressive bronchopulmonary hygiene including vest therapy 4. Management of delirium per hospitalist IMPRESSIONS: 1. Possible healthcare associated pneumonia with tracheostomy Patient has been treated for Corynebacterium tracheobronchitis in the past with good response. Plan to continue empiric antimicrobials, as the patient appears to be positive once again for Corynebacterium. Continue aggressive bronchopulmonary hygiene. Wean supplemental oxygen to maintain saturations at or above 90%. 2. Previous CVA with hemorrhagic transformation requiring tracheostomy Patient is unable to provide much history at this time. Patient does have a tracheostomy in place and has had increased secretions noted. Oxygen saturations appear to be controlled on current settings. Patient is not able to voluntarily assist in pulmonary toileting. IPPV or vest would be appropriate. 3. Encephalopathy MRI apparently demonstrated findings of a new infarction during last hospitalization. Potential pulmonary infectious process or retained secretions are also likely contributing. Defer management to primary team. Consider inc reasing Seroquel as necessary to avoid PRN Haldol. This note was generated with [employer] dictation software. It may contain incorrect words, spelling, and punctuation that were not noted in checking the note before signing. Code Visit Inpatient E&M: 47894 Subs Hosp L2
--- NOTE | 2019-02-26 08:47 | PCM.DC.SUM ---
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 02/22/19 23:55 Blood Culture (Wb) - Anticubital Left Blood Culture - Preliminary No growth in 48 hours. Operations: None Summary of Care Provided: Marilin is a 78-year-old gentleman with past medical history significant for occipital and bilateral cerebellar stroke with subsequent trach and PEG admitted from the transitional care unit with severe sepsis 1. Severe sepsis secondary to combination of acute left lower lobe pneumonia as well as corynebacteria tracheobronchitis. Patient was reported to have history of ESBL managed with meropenem condition did improve. Tracheal aspirate culture came back positive for bacterial species. [facility] with erythromycin 500 mg p.o. 3 times daily for 14 days 2. Acute metabolic encephalopathy secondary to patient's severe sepsis 3. History of occipital and bilateral cerebellar stroke status post trach and PEG placement 4. Essential hypertension blood pressure did remain stable 8. Dyslipidemia ; did continue on Lipitor did continue 6. Generalized anxiety disorder ?On Ativan 7. DVT prophylaxis Lovenox Objective: GENERAL: anxious HEENT: Atraumatic; EYES; Anicteric, Normal Conjunctiva NECK; Trach collar in place RESPIRATORY: Diminished to auscultation CARDIOVASCULAR: Regular S1 S2, PSYCH; Flat affect - Physical Exam Vitals/I&O's: Vital Signs Temp Pulse Resp BP Pulse Ox 98.3 F 105 H 18 144/85 H 95 02/26/19 05:17 02/26/19 05:17 02/26/19 05:17 02/26/19 05:17 02/26/19 05:17 Oxygen Flow Rate (L/min) 6 Oxygen Delivery Method Trach Collar Weight: 70.4 kg Body Mass Index (BMI) 22.8 Finger Stick Blood Glucose 132 Intake and Output for Last 24 Hours 02/24/19 02/25/19 02/26/19 23:59 23:59 23:59 Intake Total 1801.92 / 1801.92 1874 / 1874 1320 / 1320 Balance 1801.92 / 1801.92 1874 / 1874 1320 / 1320 Microbiology Past 72 Hours 02/23/19 11:15 Sputum, Tracheal Aspirate Gram Stain - Final 02/23/19 11:15 Sputum, Tracheal Aspirate Respiratory Culture - Final Corynebacterium striatum 02/22/19 23:50 Blood Culture (Wb) - Anticubital Right Blood Culture - Preliminary No growth in 48 hours. 02/22/19 23:55 Blood Culture (Wb) - Anticubital Left Blood Culture - Preliminary No growth in 48 hours. Laboratory Results 02/26/19 05:40: WBC 7.3, RBC 4.24 L, Hgb 12.7 L, Hct 38.5 L, MCV 90.8, MCH 30.0, MCHC 33.0, RDW Std Deviation 47.8 H, RDW Coeff of Dereck 14.6, Plt Count 262, MPV 9.0, Immature Gran % (Auto) 0.300, Neut % (Auto) 71.1 H, Lymph % (Auto) 13.4 L, Bracken % (Auto) 10.0, Eos % (Auto) 4.9, Baso % (Auto) 0.3, Absolute Neuts (auto) 5.2, Absolute Lymphs (auto) 0.98, Nucleated RBC % 0 02/26/19 05:40: Sodium 137, Potassium 3.7, Chloride 104, Carbon Dioxide 28.0, Anion Gap 5, BUN 15, Creatinine 0.67 L, Estim Creat Clear Calc 59.64, Est GFR (MDRD) Af Amer 148, Est GFR (MDRD) Non-Af 122, BUN/Creatinine Ratio 22.5 H, Glucose 130 H, Calcium 8.5 Current Medications Acetaminophen (Tylenol Liquid) 650 mg GT Q6H PRN PRN PRN Reason: Pain (1-11/23) or Fever Last Admin: 02/26/19 06:41 Dose: 650 mg Documented by: Albuterol/Ipratropium (Duoneb) 3 ml INHALATION Q4H PRN PRN PRN Reason: Breathing Last Admin: 02/25/19 14:17 Dose: 3 ml Documented by: Amlodipine Besylate (Norvasc) 10 mg GT DAILY [facility] Last Admin: 02/25/19 10:22 Dose: 10 mg Documented by: Aspirin (Aspirin, Baby) 81 mg GT DAILYCM [facility] Last Admin: 02/25/19 10:22 Dose: 81 mg Documented by: Atorvastatin Calcium (Lipitor) 40 mg GT QHS [facility] Last Admin: 02/25/19 20:12 Dose: 40 mg Documented by: Bisacodyl (Dulcolax) 10 mg RECTAL DAILY PRN PRN Reason: Constipation Calamine/Phenol (Calmoseptine Ointment) 1 applic TOPICAL TID [facility]; Protocol Last Admin: 02/26/19 05:09 Dose: 1 applicatio Documented by: Clopidogrel Bisulfate (Plavix) 75 mg GT DAILY [facility] Last Admin: 02/25/19 10:22 Dose: 75 mg Documented by: Docusate Sodium (Colace Syrup) 50 mg GT BID PRN PRN PRN Reason: Constipation Enoxaparin Sodium (Lovenox) 40 mg SC DAILY@0600 [facility] Last Admin: 02/26/19 05:08 Dose: 40 mg Documented by: Famotidine (Pepcid) 20 mg GT BID [facility] Last Admin: 02/25/19 20:13 Dose: 20 mg Documented by: Haloperidol Lactate (Haldol) 2 mg IV Q6H PRN PRN PRN Reason: AGITATION Last Admin: 02/23/19 12:55 Dose: 2 mg Documented by: Meropenem 1 gm/ Sodium (Chloride) 120 mls @ 33 mls/hr IV Q8 [facility] Last Admin: 02/26/19 05:08 Dose: 33 mls/hr Documented by: Sodium Chloride () 250 mls @ 15 mls/hr IV .[id number] PRN PRN Reason: Saline Flush Last Infusion: 02/26/19 05:09 Dose: 0 mls/hr Documented by: Enteral Nutritional Formula (Jevity 1.5) 1,000 mls @ 75 mls/hr GT .[id number] [facility] Last Admin: 02/25/19 20:13 Dose: 75 mls/hr Documented by: Lidocaine (Lidoderm Patch) 2 patch TOPICAL DAILY [facility]; Protocol Last Admin: 02/25/19 10:20 Dose: 2 patch Documented by: Lorazepam (Ativan Intensol) 2 mg GT Q8H PRN PRN PRN Reason: ANXIETY Melatonin (Melatonin) 5 mg GT QHS [facility] Last Admin: 02/25/19 20:12 Dose: 5 mg Documented by: Oxycodone HCl (Oxyir) 2.5 mg GT Q6H PRN PRN PRN Reason: Pain Score 6-10/10 Last Admin: 02/26/19 06:42 Dose: 2.5 mg Documented by: Polyethylene Glycol (Miralax) 17 gm GT DAILY PRN PRN Reason: Constipation Quetiapine Fumarate (Seroquel) 50 mg GT BID [facility] Last Admin: 02/25/19 20:12 Dose: 50 mg Documented by: Sodium Chloride () 10 - 40 ml IV UD PRN PRN Reason: SALINE FLUSH Last Admin: 02/23/19 17:28 Dose: 20 ml Documented by: Sodium Chloride (Sodium Chloride 3%) 3 ml INHALATION Q4H PRN PRN PRN Reason: Breathing treatment Discharge Diet: - - Via G-tube Home Medications: Medications to take at Discharge Atorvastatin Calcium 40 mg GT QHS 01/31/19 Bisacodyl 10 mg [place] DAILY PRN 01/31/19 Docusate Sodium [Docu Liquid] 50 mg GT BID PRN PRN 01/31/19 Enoxaparin [Lovenox] 40 mg SUBCUT DAILY@0600 01/31/19 Famotidine [Pepcid] 20 mg GT BID 01/31/19 Ipratropium/Albuterol Sulfate [Iprat-Albut 0.5-3(2.5) mg/3 ml] 3 ml INHALATION Q4H PRN PRN 01/31/19 Melatonin 5 mg GT QHS 01/31/19 Polyethylene Glycol 3350 [Miralax] 17 gm GT DAILY PRN 01/31/19 Sodium Chloride 3% 3 ml INHALATION Q4H PRN PRN 01/31/19 Aspirin [Aspirin, Baby] 81 mg GT DAILY 02/10/19 Clopidogrel Bisulfate [Plavix] 75 mg GT DAILY 02/10/19 Lidocaine [Lidoderm Patch] 2 patch TOPICAL DAILY 02/10/19 Quetiapine Fumarate [Seroquel] 50 mg GT BID 02/10/19 Acetaminophen Liquid [Tylenol Liquid] 1,000 mg GT Q6H 02/25/19 Amlodipine [Norvasc] 10 mg GT DAILY tab 02/26/19 Cefdinir Susp [Omnicef Susp] 300 mg PO Q12 #10 po.syringe 02/26/19 Erythromycin Base [Erythromycin] 500 mg GT 4X/DAY #56 tab 02/26/19 Lorazepam [Ativan] 2 mg GT TID PRN PRN #12 tab 02/26/19 Menthol/Lanolin/Calamine/Znox [Calmoseptine Ointment] 1 applic TOPICAL TID tube 02/26/19 Oxycodone [Oxyir] 2.5 mg GT Q4H PRN PRN #12 tab 02/26/19 Following Prescrptions Were Given to Patient: Lorazepam [Ativan] 2 mg GT TID PRN PRN #12 tab PRN Reason: Anxiety Prescription Printed Erythromycin Base [Erythromycin] 500 mg GT 4X/DAY #56 tab Prescription Printed Cefdinir Susp [Omnicef Susp] 300 mg PO Q12 #10 po.syringe Prescription Printed Oxycodone [Oxyir] 2.5 mg GT Q4H PRN PRN #12 tab PRN Reason: Pain Score 1-10/10 Prescription Printed Primary Care Physician: Alvarado Dunlap MD [Primary Care Provider] - Disposition: [facility] facility Minutes spent on discharge:: 40 Patient Condition:: Stable Medical Necessity - Tobacco Use Smoking Status: Former smoker Tobacco Use: Non-smoker Meaningful Use Info Meaningful Use Diagnoses (Choose all that apply): None applicable Code Visit Inpatient E&M: 93282 Disch Hosp
--- NOTE | 2019-02-26 09:32 | CASEMGMT ---
Social Work Note Pt has a discharge in. ANTWON spoke with RN who states pt has been Haldol free and sitter free for 24 hours and will be discharged today. ANTWON placed a call to Jacquie in TCU and updated her on this information. Jacquie states is able to accept pt today. Plan: TCU today Anju Ram BOILER ATTENDANT, GEOLOGICAL SAMPLE TESTER
[2019-02-26 09:36] VITALS: PULSE 102
[2019-02-26 10:09] VITALS: BP 154/86; PULSE 93; RESP 18; TEMP 36.7; O2SAT 96
[2019-02-26] MEDS: Aspirin 81 MG TAB.CHEW GT (10:10)
[2019-02-26] MEDS: amLODIPine 10 MG Tablet GT (10:10)
[2019-02-26] MEDS: QUEtiapine 25 MG Tablet 50 MG GT (10:11)
[2019-02-26] MEDS: Famotidine 20 MG Tablet GT (10:11)
[2019-02-26] MEDS: Lidocaine 5% Patch 2 PATCH TOPICAL (10:11)
[2019-02-26] MEDS: Clopidogrel Bisulfate 75 MG Tablet GT (10:11)
[2019-02-26 11:21] VITALS: PULSE 92; RESP 20; O2SAT 95
[2019-02-26] MEDS: Ipratropium/Albuterol Sulfate 3 ML AMPUL.NEB INHALATION (11:21)
== END 2019-02-26 13:29 | disposition skilled nursing facility (03) | DRG 871 ==
LOC: ED 02-23 01:59 → MS3 02-23 02:14
PROVIDERS: Family Medicine; Admitting Provider Internal Medicine; Emergency Provider Emergency Medicine; Family Provider Family Medicine; PCP Family Medicine; Referring Provider Internal Medicine; Visit Provider Internal Medicine
DX: A41.9 Sepsis, unspecified organism (principal); J18.9 Pneumonia, unspecified organism; G93.41 Metabolic encephalopathy; J40 Bronchitis, not specified as acute or chronic; R65.20 Severe sepsis without septic shock; Y95 Nosocomial condition; B96.89 Other specified bacterial agents as the cause of diseases classified elsewhere; I10 Essential (primary) hypertension; E78.5 Hyperlipidemia, unspecified; M62.838 Other muscle spasm; R54 Age-related physical debility; F41.1 Generalized anxiety disorder; M96.1 Postlaminectomy syndrome, not elsewhere classified; M53.82 Other specified dorsopathies, cervical region; M47.812 Spondylosis without myelopathy or radiculopathy, cervical region; M48.02 Spinal stenosis, cervical region; G89.29 Other chronic pain; E78.00 Pure hypercholesterolemia, unspecified; K21.9 Gastro-esophageal reflux disease without esophagitis; Z66 Do not resuscitate; Z93.0 Tracheostomy status; Z93.1 Gastrostomy status; Z88.0 Allergy status to penicillin; Z79.02 Long term (current) use of antithrombotics/antiplatelets; Z79.82 Long term (current) use of aspirin; Z99.81 Dependence on supplemental oxygen; Z79.899 Other long term (current) drug therapy; Z87.891 Personal history of nicotine dependence; Z86.73 Personal history of transient ischemic attack (TIA), and cerebral infarction without residual deficits
CPT/HCPCS: 31720; 36415; 64490; 72050; 80048; 80053; 83605; 84484; 85025; 87040; 87070; 87077; 87205; 93005; 94640; 94667; 94668; 97802; 97803; 99251; 99285; J2185; J7030; J7050; A4216; G0463; J3490

== ENCOUNTER 2019-02-26 13:46 | Inpatient (IN) | payer MEDICARE, SELFPAY ==
[2019-02-23 03:11] VITALS: BMI 22.8
[2019-02-26 14:01] VITALS: BP 145/79; PULSE 93; RESP 20; TEMP 36.4; O2SAT 92; BMI 23.0
--- NOTE | 2019-02-26 14:51 | NURSING ---
Patient previously had a cardiac heart monitor that he wore at all times. However he ran out of monitor strips and his has not brought anymore in for the monitor to be worn.
[2019-02-26 15:24] VITALS: BP 132/81; PULSE 109; RESP 18; TEMP 36.9; O2SAT 93
--- NOTE | 2019-02-26 17:26 | NURSING ---
Entered pt room for medication administration and pt was increasingly agitated. Pulse ox take 85% Heart rate increased at 113. insisting he needed to use the urnial and would not take the urinal away from patient for this nurse to further asses. This nurse exited the room and informed charge nurse. RT also in room. still insisting pt needs to urinate and use the urinal. This nurse suggested we needed to let the urinal go and allow RT to business support liaison o2 to the pt. agreed. Pt now on 10l at 35% and pulse ox reading 97% HR 95.
[2019-02-26] MEDS: Jevity 1.5 1,000 ML 75 ML GT (17:32)
[2019-02-26] MEDS: Famotidine 20 MG Tablet GT (17:33)
[2019-02-26] MEDS: QUEtiapine 25 MG Tablet 50 MG GT (17:33)
[2019-02-26] MEDS: Acetaminophen 650 MG/20 ML UDC 1000 MG GT (17:34)
[2019-02-26] MEDS: LORazepam 1 MG Tablet 2 MG GT (20:11)
[2019-02-26] MEDS: Cefdinir Susp 125 MG/5 ML PO.SYRINGE 300 MG GT (20:12)
[2019-02-26] MEDS: oxyCODONE 5 MG Tablet 2.5 MG GT (20:15)
[2019-02-26] MEDS: MELATONIN 10 MG TABLET 5 MG PO (20:16)
[2019-02-26] MEDS: Atorvastatin Calcium 40 MG Tablet GT (20:16)
[2019-02-26] MEDS: Menthol/Lanolin/Calamine/Znox 113 GM Tube 1 APPLIC TOPICAL (20:23)
[2019-02-26 20:30] VITALS: O2SAT 93
--- NOTE | 2019-02-26 21:10 | HP.PCM_ITS ---
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 The patient is a 78 year old Male with below past medical history significant for recent stroke. TCU resident recovering from acute cerebellar, left occipital stroke. 02/22/2019 Presented to [facility] with increased secretions. 02/22/2019 Chest X-ray Tracheostomy present, left midlung base pneumonia. 02/22/2019 EKG sinus tachycardia, leftward axis. Desaturations, Respiratory Therapy suctioned tracheostomy, Increased sputum production. Concern with aspiration, patient agitated. Duoneb, IV Fluids, Lorazepam given. Troponin negative, Lactic acid 3.7, Blood cultures sent. Levaquin, Aztreonam, Vancomycin given for Hospital Acquired pneumonia. 02/23/2019 Admit to Hospital. Levaquin for Hospital acquired pneumonia. Aggressive pulmonary toilet. Seroquel for agitation. 02/23/2019 Dr. Chamberlain consider Meropenem for broad spectrum coverage. Wean oxygen, continue VEST therapy. Blood cultures negative to date. Sputum culture grew Corynebacterium Striatum. Improved with Meropenem. Finish treatment with Cefdinir. 02/26/2019 Admit to TCU with debility, here for rehabilitation, strengthening, prior to disposition determination. 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) Hypertension (Chronic) Hyperlipidemia (Chronic) Muscle spasm (Chronic) Expressive aphasia (Chronic) GERD (gastroesophageal reflux disease) (Chronic) Insomnia (Chronic) Allergies Penicillins Allergy (Unknown, Verified 02/22/19 23:19) Unknown cyclobenzaprine [From Flexeril] Adverse Reaction (Verified 02/22/19 23:19) Rash Home Medications: Ambulatory Orders Medication Instructions Recorded Atorvastatin Calcium 40 mg GT QHS 01/31/19 Bisacodyl 10 mg GA DAILY PRN 01/31/19 Docusate Sodium [Docu Liquid] 50 mg GT BID PRN PRN 01/31/19 Enoxaparin [Lovenox] 40 mg SUBCUT DAILY@0600 01/31/19 Famotidine [Pepcid] 20 mg GT BID 01/31/19 Ipratropium/Albuterol Sulfate 3 ml INHALATION Q4H PRN PRN 01/31/19 [Iprat-Albut 0.5-3(2.5) mg/3 ml] Melatonin 5 mg GT QHS 01/31/19 Polyethylene Glycol 3350 [Miralax] 17 gm GT DAILY PRN 01/31/19 Sodium Chloride 3% 3 ml INHALATION Q4H PRN PRN 01/31/19 Aspirin [Aspirin, Baby] 81 mg GT DAILY 02/10/19 Clopidogrel Bisulfate [Plavix] 75 mg GT DAILY 02/10/19 Lidocaine [Lidoderm Patch] 2 patch TOPICAL DAILY 02/10/19 Quetiapine Fumarate [Seroquel] 50 mg GT BID 02/10/19 Acetaminophen Liquid [Tylenol 1,000 mg GT Q6H 02/25/19 Liquid] Amlodipine [Norvasc] 10 mg GT DAILY 02/26/19 Cefdinir Susp [Omnicef Susp] 300 mg PO Q12 #10 po.syringe 02/26/19 Erythromycin Base [Erythromycin] 500 mg GT 4X/DAY 02/26/19 Lorazepam [Ativan] 2 mg GT TID PRN PRN #12 tab 02/26/19 Menthol/Lanolin/Calamine/Znox 1 applic TOPICAL TID 02/26/19 [Calmoseptine Ointment] Oxycodone [Oxyir] 2.5 mg GT Q4H PRN PRN #12 tab 02/26/19 Surgical History: appendectomy, herniorrhaphy, - - Tracheostomy, PEG tube, Suboccipital craniectomy, Cervical discectomy, carpal tunnel, shoulder surgery. Psychiatric History: No pertinent psych hx Lives: Spouse/ Significant Other Smoking Status: Former smoker Tobacco Use: Non-smoker Alcohol: None Drugs: None - *Family History Maternal History Items: - - History was taken from patient son who denies any disease in any of his siblings (children of patient). Patient son did not know maternal or paternal medical history. Paternal History Items: - - History was taken from patient son who denies any disease in any of his siblings (children of patient). Patient son did not know maternal or paternal medical history. Review of Systems Constitutional: Denies: Chills, Fever, Weight Change HEENT: Denies: Head Aches, Sinus Congestion, Sinus Drainage Cardiovascular: Denies: Chest Pain, Palpitations Respiratory: Denies: Cough, Shortness of breath at rest, Sputum production Gastrointestinal: Denies: Abdominal Pain, Nausea, Vomiting Genitourinary: Denies: Dysuria Musculoskeletal: Denies: Joint Pain, Joint Tenderness Skin: Denies: Rash, Wounds Neurological: Denies: Numbness, Tingling, Focal weakness Psychiatric: Denies: Anxiety, Depression, Homicidal Ideations, Suicidal Ideations Hematologic/ Lymphatic: Denies: Easy Bruising, Easy Bleeding VTE Information - Inpt Only VTE Present on Admission: No VTE Mechan Device Prophylaxis: Knee High JENNIFER Hose VTE Pharm Prophylaxis ordered?: Yes Patient Problems: Active and Suspected Problems Severe sepsis (Acute) - Physical Exam Vitals/I&O's: Vital Signs Temp Pulse Resp BP Pulse Ox 98.4 F 109 H 18 132/81 H 93 02/26/19 15:24 02/26/19 15:24 02/26/19 15:24 02/26/19 15:24 02/26/19 15:24 Oxygen Flow Rate (L/min) 10 Oxygen Delivery Method Trach Collar Weight: 68.719 kg Body Mass Index (BMI) 23.0 Finger Stick Blood Glucose 132 General: Alert, Oriented x3, Cooperative HEENT: Atraumatic, PERRLA, EOMI, Normocephalic Neck: Supple, No JVD, Negative Carotid Bruits, - - Tracheostomy. Lungs: Clear to auscultation, Normal air movement Cardiovascular: Regular rate, No murmurs Abdomen: Bowel Sounds Present, Soft, Non Tender, - - PEG tube. Extremities: No edema, Capillary Refill Less than 3 Seconds Skin: No rashes, No breakdown Musculoskeletal: No Tenderness to Palpation of Joints or Extremities Neurological: Cranial nerves II-XII grossly intact, - - Right hemiparesis. Psych/Mental Status: Normal Affect, Appropriate Current Medications Acetaminophen (Tylenol Liquid) 1,000 mg GT Q6 [facility] Last Admin: 02/26/19 17:34 Dose: 1,000 mg Documented by: Albuterol/Ipratropium (Duoneb) 3 ml INHALATION Q4H PRN PRN PRN Reason: Breathing Amlodipine Besylate (Norvasc) 10 mg GT DAILY [facility] Aspirin (Aspirin, Baby) 81 mg GT DAILY [facility] Atorvastatin Calcium (Lipitor) 40 mg GT QHS [facility] Last Admin: 02/26/19 20:16 Dose: 40 mg Documented by: Calamine/Phenol (Calmoseptine Ointment) 1 applic TOPICAL TID [facility]; Protocol Last Admin: 02/26/19 20:23 Dose: 1 applicatio Documented by: Cefdinir (Omnicef Susp) 300 mg GT Q12 [facility] Stop: 03/03/19 06:01 Last Admin: 02/26/19 20:12 Dose: 300 mg Documented by: Clopidogrel Bisulfate (Plavix) 75 mg GT DAILY [facility] Docusate Sodium (Colace Syrup) 50 mg GT BID PRN PRN PRN Reason: Constipation Enoxaparin Sodium (Lovenox) 40 mg SC DAILY@0600 [facility] Famotidine (Pepcid) 20 mg GT BID [facility] Last Admin: 02/26/19 17:33 Dose: 20 mg Documented by: Enteral Nutritional Formula (Jevity 1.5) 1,000 mls @ 75 mls/hr GT .[id number] [facility] Last Admin: 02/26/19 17:32 Dose: 75 mls/hr Documented by: Lidocaine (Lidoderm Patch) 2 patch TOPICAL DAILY [facility]; Protocol Lorazepam (Ativan) 2 mg GT TID PRN PRN PRN Reason: ANXIETY Last Admin: 02/26/19 20:11 Dose: 2 mg Documented by: Melatonin (Melatonin) 5 mg PO QHS [facility] Last Admin: 02/26/19 20:16 Dose: 5 mg Documented by: Oxycodone HCl (Oxyir) 2.5 mg GT Q4H PRN PRN PRN Reason: Pain Score 1-10/10 Last Admin: 02/26/19 20:15 Dose: 2.5 mg Documented by: Polyethylene Glycol (Miralax) 17 gm GT DAILY PRN PRN PRN Reason: Constipation Quetiapine Fumarate (Seroquel) 50 mg GT BID [facility] Last Admin: 02/26/19 17:33 Dose: 50 mg Documented by: Sodium Chloride (Sodium Chloride 3%) 3 ml INHALATION Q4H PRN PRN PRN Reason: Breathing treatment Tuberculin PPD (Tubersol, Aplisol, Ppd) 5 tu ID X1 ONE Stop: 02/27/19 10:01 Tuberculin PPD (Tubersol, Aplisol, Ppd) 5 tu ID X1 ONE Stop: 03/06/19 10:01 Assessment/Plan All Active Problems Debility (Acute) Hospital-acquired pneumonia (Acute) Status post emergency tracheotomy for assistance in breathing (Ruled-out) Psychosis (Acute) Agitation (Acute) Tracheobronchitis (Acute) Severe sepsis (Acute) 78 year old male with below past medical history hospitalized for Corynebacterium hospital acquired pneumonia, admitted to TCU with debility, here for rehabilitation, strengthening, prior to disposition determination. * Debility - PT/OT. * Pain - Tylenol 1000MG Q6H, Oxycodone 2.5MG Q4H PRN pain (1-10), Lidoderm patch 2 patches daily. * Bowel - Miralax 17GM daily PRN, Colace 50MG BID PRN. * Adult immunization - Administer Prevnar 13, Pneumovax 23, Fluzone as appropriate. * DVT prophylaxis - Lovenox 40MG SC daily. * Hypertension - Amlodipine 10MG daily. * Stroke - Aspirin 81MG daily, Plavix 75MG daily. * Hyperlipidemia - Atorvastatin 40MG QHS. * C. Bacterium hospital acquired pneumonia - Cefdinir 300MG Q12H thru 03/03/2019. * GERD - Famotidine 20MG twice daily. * Shortness of breath Duoneb 3ML Q4H PRN, Sodium Chloride 3% 3ML Q4H PRN. * Nutrition - Jevity 1.5 75ML/hour via PEG. * Agitation - Seroquel 50MG BID, Lorazepam 2MG TID PRN. * Insomnia - Melatonin 5MG QHS. * Skin irritation - Calmoseptine TID.
[2019-02-26 22:00] VITALS: O2SAT 93
[2019-02-27] MEDS: Acetaminophen 650 MG/20 ML UDC 1000 MG GT ×4 (00:14→17:36)
[2019-02-27] MEDS: Cefdinir Susp 125 MG/5 ML PO.SYRINGE 300 MG GT ×2 (04:18→17:42)
[2019-02-27] MEDS: Aspirin 81 MG TAB.CHEW GT (04:20)
[2019-02-27] MEDS: amLODIPine 10 MG Tablet GT (04:20)
[2019-02-27] MEDS: Clopidogrel Bisulfate 75 MG Tablet GT (04:20)
[2019-02-27] MEDS: Enoxaparin 40 MG/0.4 ML Syringe SC (04:20)
[2019-02-27] MEDS: Famotidine 20 MG Tablet GT ×2 (04:20→17:37)
[2019-02-27] MEDS: QUEtiapine 25 MG Tablet 50 MG GT ×2 (04:21→17:37)
[2019-02-27] MEDS: Menthol/Lanolin/Calamine/Znox 113 GM Tube 1 APPLIC TOPICAL ×3 (04:37→19:56)
[2019-02-27] MEDS: Lidocaine 5% Patch 2 PATCH TOPICAL (05:47)
[2019-02-27 06:38] LABS: Absolute Lymphocyte Count 0.84 X10^3/uL (0.83-4.51); Absolute Neutrophil Count 3.8 X10^3/uL (2.0-7.7); Basophil# 0.02 X10^3/uL; Basophil% 0.4 % (0-1); Eosinophil# 0.45 X10^3/uL; Eosinophils% 7.9 % (0-5); Hematocrit 35.1 % (40-54); Hemoglobin 11.5 g/dL (13.0-16.5); Lymphocyte # 0.84 X10^3/ul (4.0); Lymphocyte % 14.8 % (19-41); Mean Corp Hgb Conc 32.8 g/dL (32-36); Mean Corpuscular Hgb 29.9 pg (27.0-32.0); Mean Corpuscular Volume 91.4 fL (80-94); Mean Platelet Vol. 9.1 fl (6.2-12.0); Monocyte# 0.57 X10^3/uL; Monocyte% 10.1 % (0-10); NRBC Flagged by Analyzer 0 % (0-5); Neutrophil # 3.77 X10^3/uL (2.7-7.7); Neutrophil % 66.4 % (47-70); Platelet Count 235 K/mm3 (150-450); RBC Distribution Width CV 14.7 % (11.6-14.6); RBC Distribution Width SD 49.3 fl (35.1-43.9); Red Blood Count 3.84 M/mm3 (4.6-6.2); White Blood Count 5.7 K/mm3 (4.4-11.0)
[2019-02-27 06:57] LABS: Anion Gap 4 (5-15); BUN 19 mg/dL (7-18); BUN/Creat Ratio 35.3 RATIO (10-20); Calcium,Total 8.4 mg/dL (8.5-10.1); Chloride 103 mmol/L (98-107); Creatinine, Serum 0.54 mg/dL (0.70-1.30); EST Glomerular Filtration Rate 156 mL/min (>60); Est Glom Filt Rate - Afr Amer 189 mL/min (>60); Estimated Creatinine Clearance 57.95 ml/min; Glucose 130 mg/dL (74-106); Potassium 3.8 mmol/L (3.5-5.1); Sodium Level 136 mmol/L (136-145)
--- NOTE | 2019-02-27 10:06 | RAD_ITS ---
STUDY: X-RAY CHEST REASON FOR EXAM: Male, 78 years old. SOB, HAS TRACHE STOMY TECHNIQUE: Single AP portable view of the chest. COMPARISON: 02/22/2019 FINDINGS: Stable appearance of a tracheostomy tube The lungs are clear and expanded. There is no demonstrated pleural abnormality. Normal size heart. Normal mediastinum and zainab. Normal visualized pulmonary arteries. Normal visualized aortic arch and descending thoracic aorta. There are diffuse degenerative changes of the visualized thoracic spine. Normal visualized ribs, clavicles, and shoulders. There is no demonstrated abnormality of the visualized soft tissue structures of the upper abdomen. RAD/Chest 1 View (Portable) IMPRESSION: No acute pulmonary process Electronically Signed: Zana Givens MD at 12:38 EST , Service support ,
--- NOTE | 2019-02-27 10:07 | NURSING ---
Increased secretions from tracheostomy. Concerns for aspiration of tube feed. Dr Fierro aware and orders for CXR given.
--- NOTE | 2019-02-27 12:18 | NURSING ---
pt found with copious amounts of secretions littered with tube feed in trach mask and on chest this AM. trach care performed, pt cleaned, repositioned, tube feed stopped, MD, family, can doffer, and respiratory therapy notified. VSS, WNL. CXR obtained, will monitor
--- NOTE | 2019-02-27 12:37 | NURSING ---
Addendum entered by Hoda Can 02/27/19 12:39: Will update Dr Fierro. Resident has been resting with eyes closed. No response from resident during assessment. declined ST to work with resident earlier today. Original Note: New strips came for heart monitor. at bedside and does not want us to put heart monitor on resident at this time.
--- NOTE | 2019-02-27 14:05 | NS ---
Per ASPEN guidelines, patients who are unable to effectively clear airway secretions require additional aspiration precautions: -sedative medications should be minimized -feeding tube placement and GI tolerance should be assessed every 4 hours -bolus feedings should be avoided -endotracheal cuff pressures should be maintained at appropriate levels, secretions above cuff should be cleared before deflation -head of bed at 30-45 degrees or upright in chair if possible; if head of bed elevation is contraindicated, reverse trendelenburg position should be considered Recommend continuous tube feeds via PEG- recommend Jevity 1.5 at goal rate of 50mL/hour w/ 150mL H2O flush every 4 hours to provide 1800 calories, 76 g protein, and 1812mL total fluid/day. Would start tube feeds at 20mL/hour and increase by 10mL every 8 hours as res tolerates until goal rate achieved. Recommend prokinetic agent (reglan) Recommend daily wts Maintain HOB 30-45 degrees or sit pt upright in chair when possible; reverse trendelenburg position should be considered if HOB elevation is contraindicated per ASPEN guidelines Please call clinical dietitian w/ further questions at [phone]. A. Yvette MS, RDN, LD
--- NOTE | 2019-02-27 14:19 | CASEMGMT ---
Social Work Met with and DIL about possible hospice referral for pt. spoke with nursing about hospice services. stated son had spoken with [facility] to inquire about services, and family was meeting tonight about final decision. Spoke with son via conference call to answer questions and explain services. Explained if pt/family would like hospice services, hospice can treat pt at home and for PNA if diagnosed and provide all equipment needed. Family would like SW to make referral and, after family meeting, will notify SW when to schedule admit/discharge. Referral made to [facility]. Will continue to follow. Kelly Olivas, MAK PABONW
[2019-02-27 15:10] VITALS: O2SAT 94
[2019-02-27] MEDS: oxyCODONE 5 MG Tablet 2.5 MG GT (15:10)
--- NOTE | 2019-02-27 15:42 | NURSING ---
More awake and able to stand with therapy. Complains of neck pain. Oxyir was given via PEG tube.
[2019-02-27 16:00] VITALS: BP 143/88; PULSE 91; RESP 19; TEMP 36.6; O2SAT 98
[2019-02-27 19:50] VITALS: O2SAT 95
[2019-02-27] MEDS: LORazepam 1 MG Tablet 2 MG GT (19:52)
[2019-02-27] MEDS: MELATONIN 10 MG TABLET 5 MG PO (19:53)
[2019-02-27] MEDS: Atorvastatin Calcium 40 MG Tablet GT (19:54)
[2019-02-27] MEDS: Jevity 1.5 1,000 ML 20 ML GT (20:00)
[2019-02-27] MEDS: 0.9% Saline Lock 10 ML Syringe IV (20:19)
[2019-02-28] MEDS: Acetaminophen 650 MG/20 ML UDC 1000 MG GT ×4 (00:27→17:09)
[2019-02-28 04:02] VITALS: BP 142/81; PULSE 64; RESP 16; O2SAT 97
[2019-02-28] MEDS: amLODIPine 10 MG Tablet GT (04:07)
[2019-02-28] MEDS: Enoxaparin 40 MG/0.4 ML Syringe SC (04:08)
[2019-02-28] MEDS: Famotidine 20 MG Tablet GT ×2 (04:08→17:09)
[2019-02-28] MEDS: Aspirin 81 MG TAB.CHEW GT (04:08)
[2019-02-28] MEDS: Clopidogrel Bisulfate 75 MG Tablet GT (04:08)
[2019-02-28] MEDS: Cefdinir Susp 125 MG/5 ML PO.SYRINGE 300 MG GT ×2 (04:10→17:14)
[2019-02-28] MEDS: Lidocaine 5% Patch 2 PATCH TOPICAL (04:34)
[2019-02-28] MEDS: QUEtiapine 25 MG Tablet 50 MG GT ×2 (04:56→17:08)
[2019-02-28] MEDS: Menthol/Lanolin/Calamine/Znox 113 GM Tube 1 APPLIC TOPICAL ×3 (04:59→21:22)
--- NOTE | 2019-02-28 05:03 | NURSING ---
Addendum entered by Barbie Salguero 02/28/19 05:20: Patient straight cathed at this time for 700 cc of yellow, cloudy, strong smelling urine. Patient tolerated procedure well. Original Note: In to give patient medications this morning. Patient has been running on 20cc/hr Jevity for 2029 till 429. Patient has had 0 residuals noted. Per orders patient orders patient's Jevity increased to 30 cc/hr. Patient's head of bed has remained elevated per policy at 45 all night. It is also noted that patient has been a no void all night long. Patient bladder scanned for 643. Dr. Fierro notified. Per Dr. Fierro straight brown patiet till empty. Patient deep suctioned at this time as well. Patient with thick green mucous. Patient also clearing out copious amounts of think green mucous. Trache area cleaned at this time. Trache dressing changed at this time.
--- NOTE | 2019-02-28 08:40 | CPS ---
Cool aerosol trach collar on, FiO2 set at 28% decreased flow from 10 to 6lpm per manufacturers guidelines.
--- NOTE | 2019-02-28 08:40 | NURSING ---
Peg tube feeding checked, with 30 ml residual. Family in room and stated they no longer want the patient to wear the heart monitor We don't see the point in it, They also stated that they do not want his tube feeding to be increased above 40 ml/hr until tomorrow. Will make Dr. Fierro aware. pt repositioned in bed and resting comfortably.
--- NOTE | 2019-02-28 09:45 | NURSING ---
Family in room and stated they do not want patient to receive more than 40ml/hr of tube feeding until tomorrow.
[2019-02-28] MEDS: NYSTATIN 500,000 UNIT/5 ML UDC 500000 UNIT PO ×3 (11:44→21:21)
--- NOTE | 2019-02-28 12:10 | CASEMGMT ---
Social Work Met with pt's two sons about plans. Family has decided for pt to continue therapy and nursing care in TCU. Their goal for pt to return home is for trach to be pulled and be able to walk with a FWW. Discussed if those goals were attainable - family understandable if pt does not improve, they would take him home and learn how to manage trach with either HHC or hospice assistance. Educated on HHC services vs hospice services and financial liability. Sons understand. Answered questions and addressed concerns from family.Family very appreciative of TCU staff. Will continue to follow. Kelly Olivas, MANUFACTURING DESIGN ENGINEER [employer] SCRUB NURSE
--- NOTE | 2019-02-28 12:33 | NURSING ---
Received return call from Dr. Fierro, received order for Tamsulosin 0.4 mg daily, and indwelling negro. Order repeated back, will add orders.
[2019-02-28 13:55] VITALS: O2SAT 96
--- NOTE | 2019-02-28 14:40 | PHA.CONS_ITS ---
<AlconJason cisnerosi - Last Filed: 02/28/19 14:40> Progress Note - Pharmacy Subjective: TCU Admission Objective: Allergies Penicillins Allergy (Unknown, Verified 02/22/19 23:19) Unknown cyclobenzaprine [From Flexeril] Adverse Reaction (Verified 02/22/19 23:19) Rash Current Medications Generic Name Dose Route Start Last Admin Trade Name Freq PRN Reason Stop Dose Admin Acetaminophen 1,000 mg 02/26/19 18:00 02/28/19 11:44 Tylenol Liquid GT 1,000 mg Q6 HARIS Administration Albuterol/Ipratropium 3 ml 02/26/19 14:09 Duoneb INHALATION Q4H PRN PRN Breathing Amlodipine Besylate 10 mg 02/27/19 06:00 02/28/19 04:07 Norvasc GT 10 mg DAILY HARIS Administration Aspirin 81 mg 02/27/19 06:00 02/28/19 04:08 Aspirin, Baby GT 81 mg DAILY HARIS Administration Atorvastatin Calcium 40 mg 02/26/19 22:00 02/27/19 19:54 Lipitor GT 40 mg QHS HARIS Administration Bisacodyl 10 mg 02/27/19 01:30 Dulcolax RECTAL DAILY PRN CONSTIPATION Calamine/Phenol 1 applic 02/26/19 22:00 02/28/19 04:59 Calmoseptine Ointment TOPICAL 1 applicatio TID HARIS Administration Protocol Cefdinir 300 mg 02/26/19 18:00 02/28/19 04:10 Omnicef Susp GT 03/03/19 06:01 300 mg Q12 HARIS Administration Clopidogrel Bisulfate 75 mg 02/27/19 06:00 02/28/19 04:08 Plavix GT 75 mg DAILY HARIS Administration Docusate Sodium 50 mg 02/26/19 14:09 Colace Syrup GT BID PRN PRN Constipation Enoxaparin Sodium 40 mg 02/27/19 06:00 02/28/19 04:08 Lovenox SC 40 mg DAILY@0600 HARIS Administration Famotidine 20 mg 02/26/19 18:00 02/28/19 04:08 Pepcid GT 20 mg BID HARIS Administration Enteral Nutritional Formula 1,000 mls @ 50 mls/hr 02/27/19 19:35 02/27/19 20:00 Jevity 1.5 GT 20 mls/hr .Q20H HARIS Administration Lactobacillus Acidophilus 1 tablet 02/27/19 18:00 02/28/19 04:07 Acidophilus PO 1 tablet BID HARIS Administration Lidocaine 2 patch 02/27/19 06:00 02/28/19 04:34 Lidoderm Patch TOPICAL 2 patch DAILY HARIS Administration Protocol Lorazepam 2 mg 02/26/19 14:40 02/27/19 19:52 Ativan GT 2 mg TID PRN PRN Administration ANXIETY Melatonin 5 mg 02/26/19 22:00 02/27/19 19:53 Melatonin PO 5 mg QHS HARIS Administration Nystatin 500,000 unit 02/28/19 12:00 02/28/19 11:44 Nystatin PO 03/10/19 12:01 500,000 unit 4X/DAY HARIS Administration Oxycodone HCl 2.5 mg 02/26/19 14:09 02/27/19 15:10 Oxyir GT 2.5 mg Q4H PRN PRN Administration Pain Score 1-10/10 Polyethylene Glycol 17 gm 02/26/19 14:09 Miralax GT DAILY PRN PRN Constipation Quetiapine Fumarate 50 mg 02/26/19 18:00 02/28/19 04:56 Seroquel GT 50 mg BID HARIS Administration Sodium Chloride 3 ml 02/26/19 14:09 Sodium Chloride 3% INHALATION Q4H PRN PRN Breathing treatment Sodium Chloride 10 - 40 ml 02/27/19 08:07 02/27/19 20:19 IV 10 ml UD PRN Administration SALINE FLUSH Tamsulosin HCl 0.4 mg 02/28/19 17:30 Flomax PO DAILY@1730 [facility] Tuberculin PPD 5 tu 03/06/19 10:00 Tubersol, Aplisol, Ppd ID 03/06/19 10:01 X1 ONE Problem List Severe sepsis (Acute) Expressive aphasia (Chronic) GERD (gastroesophageal reflux disease) (Chronic) Insomnia (Chronic) Vital Signs Temp Pulse Resp BP Pulse Ox 97.8 F 64 16 142/81 H 97 02/27/19 16:00 02/28/19 04:02 02/28/19 04:02 02/28/19 04:02 02/28/19 04:02 Oxygen Flow Rate (L/min) 6 Oxygen Delivery Method Trach Collar Weight: 68.719 kg Body Mass Index (BMI) 23.0 Finger Stick Blood Glucose 132 Sodium 136 mmol/L (136-145) 02/27/19 06:18 Potassium 3.8 mmol/L (3.5-5.1) 02/27/19 06:18 Chloride 103 mmol/L (98-107) 02/27/19 06:18 Carbon Dioxide 29.0 mmol/L (21.0-32.0) 02/27/19 06:18 Anion Gap 4 (5-15) L 02/27/19 06:18 BUN 19 mg/dL (7-18) H 02/27/19 06:18 Creatinine 0.54 mg/dL (0.70-1.30) L 02/27/19 06:18 Est GFR (MDRD) Af Amer 189 mL/min (>60) 02/27/19 06:18 Est GFR (MDRD) Non-Af 156 mL/min (>60) 02/27/19 06:18 BUN/Creatinine Ratio 35.3 RATIO (10-20) H 02/27/19 06:18 Glucose 130 mg/dL (74-106) H 02/27/19 06:18 Assessment/Plan: 1. Pain: acetaminophen liquid 1000mg GT Q6H, oxycodone 2.5mg GT Q4H PRN pain (1- 10), lidocaine 5% patch 2 patches topically to the posterior neck daily. Please continue to monitor for increased pain and PRN usage. 2. C bacterium hospital acquired pneumonia: cefdinir suspension 300mg GT Q12H thru 03/03/2019. Please continue to monitor for S/S of infection and diarrhea. 3. DVT prophylaxis: enoxaparin 40mg SC daily. Please continue to monitor for S/S of bleeding/DVT, renal function and platelets. 4. Hypertension: amlodipine 10mg GT daily. Please continue to monitor BP. 5. Stroke: aspirin 81mg GT DAILYCM and clopidogrel 75mg GT daily. Please continue to monitor for S/S of bleeding. 6. Hyperlipidemia: atorvastatin 40mg GT QHS. Recent lipid and panel LFT on file and appropriate for continued use. Please continue to monitor for muscle pain. 7. GERD: famotidine 20mg GT BID. Please continue to monitor for S/S of GERD and renal function. *8. Shortness of breath: ipratropium/albuterol 3mL inhalation Q4H PRN breathing and sodium chloride 3% inhalation Q4H PRN breathing treatment. Please consider adding label instructions to indicated which inhalation should be given first line versus second line. Thanks. 9. Insomnia: melatonin 5mg PO QHS. Please continue to monitor for insomnia and confusion. Psychotropic Medications: 1. Agitation: quetiapine 50mg GT BID and lorazepam 2mg GT TID PRN agitation. Please see physician note regarding GDR. Please continue to monitor for agitation. *Unnecessary Medications: tamsulosin 0.4mg PO daily. I spoke to the patient's nurse regarding this medication. It is not recommended to be given down a G-tube because the granules may adhere to the sides of the tube which may cause a blockage and/or decreased dose. Patient now has a negro to facilitate urination. Please consider D/C if clinically appropriate. Bowel Regimen: Miralax 17gm GT daily PRN constipation, docusate liquid 50mg GT BID PRN constipation, and bisacodyl 10mg MO daily PRN constipation. Please continue to monitor for constipation. Date of Note:: 02/28/19 - Provider Comments Provider responsibility: Provider responsible to enter orders to implement recommendations <Gordon Fierro Chi - Last Filed: 02/28/19 17:16> Progress Note - Pharmacy Subjective: [] Objective: Allergies Penicillins Allergy (Unknown, Verified 02/22/19 23:19) Unknown cyclobenzaprine [From Flexeril] Adverse Reaction (Verified 02/22/19 23:19) Rash Current Medications Generic Name Dose Route Start Last Admin Trade Name Freq PRN Reason Stop Dose Admin Acetaminophen 1,000 mg 02/26/19 18:00 02/28/19 11:44 Tylenol Liquid GT 1,000 mg Q6 HARIS Administration Albuterol/Ipratropium 3 ml 02/26/19 14:09 Duoneb INHALATION Q4H PRN PRN Breathing Amlodipine Besylate 10 mg 02/27/19 06:00 02/28/19 04:07 Norvasc GT 10 mg DAILY HARIS Administration Aspirin 81 mg 02/27/19 06:00 02/28/19 04:08 Aspirin, Baby GT 81 mg DAILY HARIS Administration Atorvastatin Calcium 40 mg 02/26/19 22:00 02/27/19 19:54 Lipitor GT 40 mg QHS HARIS Administration Bisacodyl 10 mg 02/27/19 01:30 Dulcolax RECTAL DAILY PRN CONSTIPATION Calamine/Phenol 1 applic 02/26/19 22:00 02/28/19 04:59 Calmoseptine Ointment TOPICAL 1 applicatio TID HARIS Administration Protocol Cefdinir 300 mg 02/26/19 18:00 02/28/19 04:10 Omnicef Susp GT 03/03/19 06:01 300 mg Q12 HARIS Administration Clopidogrel Bisulfate 75 mg 02/27/19 06:00 02/28/19 04:08 Plavix GT 75 mg DAILY HARIS Administration Docusate Sodium 50 mg 02/26/19 14:09 Colace Syrup GT BID PRN PRN Constipation Enoxaparin Sodium 40 mg 02/27/19 06:00 02/28/19 04:08 Lovenox SC 40 mg DAILY@0600 HARIS Administration Famotidine 20 mg 02/26/19 18:00 02/28/19 04:08 Pepcid GT 20 mg BID HARIS Administration Enteral Nutritional Formula 1,000 mls @ 50 mls/hr 02/27/19 19:35 02/27/19 20:00 Jevity 1.5 GT 20 mls/hr .Q20H HARIS Administration Lactobacillus Acidophilus 1 tablet 02/27/19 18:00 02/28/19 04:07 Acidophilus PO 1 tablet BID HARIS Administration Lidocaine 2 patch 02/27/19 06:00 02/28/19 04:34 Lidoderm Patch TOPICAL 2 patch DAILY [facility] Administration Protocol Lorazepam 2 mg 02/26/19 14:40 02/27/19 19:52 Ativan GT 2 mg TID PRN PRN Administration ANXIETY Melatonin 5 mg 02/26/19 22:00 02/27/19 19:53 Melatonin PO 5 mg QHS HARIS Administration Nystatin 500,000 unit 02/28/19 12:00 02/28/19 11:44 Nystatin PO 03/10/19 12:01 500,000 unit 4X/DAY HARIS Administration Oxycodone HCl 2.5 mg 02/26/19 14:09 02/27/19 15:10 Oxyir GT 2.5 mg Q4H PRN PRN Administration Pain Score 1-10/10 Polyethylene Glycol 17 gm 02/26/19 14:09 Miralax GT DAILY PRN PRN Constipation Quetiapine Fumarate 50 mg 02/26/19 18:00 02/28/19 04:56 Seroquel GT 50 mg BID HARSI Administration Sodium Chloride 3 ml 02/26/19 14:09 Sodium Chloride 3% INHALATION Q4H PRN PRN Breathing treatment Sodium Chloride 10 - 40 ml 02/27/19 08:07 02/27/19 20:19 IV 10 ml UD PRN Administration SALINE FLUSH Tamsulosin HCl 0.4 mg 02/28/19 17:30 Flomax PO DAILY@1730 HARIS Tuberculin PPD 5 tu 03/06/19 10:00 Tubersol, Aplisol, Ppd ID 03/06/19 10:01 X1 ONE Problem List Severe sepsis (Acute) Expressive aphasia (Chronic) GERD (gastroesophageal reflux disease) (Chronic) Insomnia (Chronic) Vital Signs Temp Pulse Resp BP Pulse Ox 97.8 F 64 16 142/81 H 96 02/27/19 16:00 02/28/19 04:02 02/28/19 04:02 02/28/19 04:02 02/28/19 13:55 Oxygen Flow Rate (L/min) 6 Oxygen Delivery Method Trach Collar Weight: 68.719 kg Body Mass Index (BMI) 23.0 Finger Stick Blood Glucose 132 Sodium 136 mmol/L (136-145) 02/27/19 06:18 Potassium 3.8 mmol/L (3.5-5.1) 02/27/19 06:18 Chloride 103 mmol/L (98-107) 02/27/19 06:18 Carbon Dioxide 29.0 mmol/L (21.0-32.0) 02/27/19 06:18 Anion Gap 4 (5-15) L 02/27/19 06:18 BUN 19 mg/dL (7-18) H 02/27/19 06:18 Creatinine 0.54 mg/dL (0.70-1.30) L 02/27/19 06:18 Est GFR (MDRD) Af Amer 189 mL/min (>60) 02/27/19 06:18 Est GFR (MDRD) Non-Af 156 mL/min (>60) 02/27/19 06:18 BUN/Creatinine Ratio 35.3 RATIO (10-20) H 02/27/19 06:18 Glucose 130 mg/dL (74-106) H 02/27/19 06:18 Assessment/Plan: Psychotropic Medications: Unnecessary Medications: Bowel Regimen: - Provider Comments Provider responsibility: Provider responsible to enter orders to implement recommendations Provider Comments to Recommendations by Pharmacy: Agree
[2019-02-28 16:00] VITALS: BP 162/75; PULSE 91; RESP 19; TEMP 36.9; O2SAT 95
[2019-02-28] MEDS: 0.9% Saline Lock 10 ML Syringe IV (17:10)
[2019-02-28 17:45] VITALS: O2SAT 96
[2019-02-28] MEDS: LORazepam 1 MG Tablet 2 MG GT (19:03)
[2019-02-28] MEDS: Atorvastatin Calcium 40 MG Tablet GT (21:21)
[2019-02-28] MEDS: MELATONIN 10 MG TABLET 5 MG PO (21:22)
[2019-02-28 21:44] VITALS: O2SAT 28
[2019-03-01] MEDS: Acetaminophen 650 MG/20 ML UDC 1000 MG GT ×4 (00:28→17:23)
[2019-03-01] MEDS: oxyCODONE 5 MG Tablet 2.5 MG GT (01:44)
[2019-03-01] MEDS: LORazepam 1 MG Tablet 2 MG GT ×2 (02:47→16:36)
[2019-03-01] MEDS: Cefdinir Susp 125 MG/5 ML PO.SYRINGE 300 MG GT ×2 (05:01→17:27)
[2019-03-01] MEDS: Famotidine 20 MG Tablet GT ×2 (05:02→17:23)
[2019-03-01] MEDS: Aspirin 81 MG TAB.CHEW GT (05:02)
[2019-03-01] MEDS: QUEtiapine 25 MG Tablet 50 MG GT ×2 (05:03→17:23)
[2019-03-01] MEDS: amLODIPine 10 MG Tablet GT (05:03)
[2019-03-01] MEDS: Enoxaparin 40 MG/0.4 ML Syringe SC (05:03)
[2019-03-01] MEDS: Menthol/Lanolin/Calamine/Znox 113 GM Tube 1 APPLIC TOPICAL ×3 (05:04→22:27)
[2019-03-01] MEDS: Clopidogrel Bisulfate 75 MG Tablet GT (05:04)
--- NOTE | 2019-03-01 05:21 | NURSING ---
Pt noted to be pulling at catheter numerous times throughout the night. This nurse into give AM meds. Pt with catheter tubing wrapped about his fingers asleep. Catheter tubing adjusted. Immediate return of bright red blood in tubing with small clots. Will update Dr. Fierro.
[2019-03-01] MEDS: Lidocaine 5% Patch 2 PATCH TOPICAL (06:37)
[2019-03-01] MEDS: NYSTATIN 500,000 UNIT/5 ML UDC 500000 UNIT PO ×4 (06:40→22:14)
[2019-03-01 10:00] VITALS: PULSE 84; RESP 20; O2SAT 28
--- NOTE | 2019-03-01 13:42 | NURSING ---
Addendum entered by Lili Sharma 03/01/19 17:44: Jevity to 40 ml/hr at 's request, states her children things it should not be higher then 40ml/hr since Jevity came out of trach at one time. Original Note: Jevity increase to 50 ml/hr, pt tolerated well at this time
[2019-03-01 16:00] VITALS: BP 154/105; PULSE 101; RESP 28; TEMP 36.8; O2SAT 93
[2019-03-01] MEDS: Jevity 1.5 1,000 ML 40 ML GT (17:22)
[2019-03-01] MEDS: MELATONIN 10 MG TABLET PO (22:14)
[2019-03-01] MEDS: Atorvastatin Calcium 40 MG Tablet GT (22:14)
[2019-03-01 22:28] VITALS: O2SAT 97
[2019-03-02] MEDS: Acetaminophen 650 MG/20 ML UDC 1000 MG GT ×4 (00:29→17:23)
[2019-03-02] MEDS: oxyCODONE 5 MG Tablet GT ×2 (04:00→22:01)
[2019-03-02] MEDS: Lidocaine 5% Patch 2 PATCH TOPICAL (05:03)
[2019-03-02] MEDS: QUEtiapine 25 MG Tablet 50 MG GT ×2 (05:03→17:11)
[2019-03-02] MEDS: NYSTATIN 500,000 UNIT/5 ML UDC 500000 UNIT PO ×4 (05:04→22:01)
[2019-03-02] MEDS: Aspirin 81 MG TAB.CHEW GT (05:04)
[2019-03-02] MEDS: Clopidogrel Bisulfate 75 MG Tablet GT (05:04)
[2019-03-02] MEDS: Famotidine 20 MG Tablet GT ×2 (05:04→17:10)
[2019-03-02] MEDS: amLODIPine 10 MG Tablet GT (05:04)
[2019-03-02] MEDS: Enoxaparin 40 MG/0.4 ML Syringe SC (05:04)
[2019-03-02] MEDS: Cefdinir Susp 125 MG/5 ML PO.SYRINGE 300 MG GT ×2 (05:04→17:51)
[2019-03-02] MEDS: Menthol/Lanolin/Calamine/Znox 113 GM Tube 1 APPLIC TOPICAL ×3 (05:05→22:19)
[2019-03-02] MEDS: Polyethylene Glycol 3350 17 GM PACKET GT (05:13)
[2019-03-02 05:28] VITALS: O2SAT 95
--- NOTE | 2019-03-02 11:10 | NURSING ---
Enclosed all iterms to heart monitor in shipping box that was provided by [employer] sent back to [employer] services per instruction manual. Gave to Melecio in Materials management to ship via [employer] today. Shipping label copied and given to patients in case of any questions or lost item.
--- NOTE | 2019-03-02 14:40 | CASEMGMT ---
Social Work Patient has Medicare Primary insurance and no secondary insurance to cover copays. Spoke with [facility] about [facility] covering copays - they are not able to. Spoke with son on above and that patient is currently on day 22 - son is aware and able to pay privately for copays. Kelly Olivas, FIXTURE REPAIRER FABRICATOR POWER BENDER OPERATOR
[2019-03-02 16:00] VITALS: BP 153/89; PULSE 104; RESP 24; TEMP 36.9; O2SAT 96
[2019-03-02] MEDS: LORazepam 1 MG Tablet 2 MG GT ×2 (17:05→22:01)
[2019-03-02] MEDS: Bisacodyl 10 MG Suppository RECTAL (17:05)
[2019-03-02] MEDS: Jevity 1.5 1,000 ML 40 ML GT (18:02)
--- NOTE | 2019-03-02 18:13 | NURSING ---
Family at bedside and is requesting that current PEG tube feeding rate remain at 40ml/hr at least through the night tonight. They said they will consider increasing it tomorrow.
[2019-03-02] MEDS: MELATONIN 10 MG TABLET PO (22:01)
[2019-03-02] MEDS: Docusate Sodium 100 MG/10 ML UDC 50 MG GT (22:01)
[2019-03-02] MEDS: Atorvastatin Calcium 40 MG Tablet GT (22:01)
--- NOTE | 2019-03-02 23:50 | NURSING ---
2200- pt restless moaning/grimacing and agitated trying to climb OOB. pt repositioned, checked for incontinence and was clean. PRN oxyIR and ativan administered. Pt is alert, unable to determine orientation. Occasional productive cough. trach suctioned for small amount thick yellow sputum.
[2019-03-03] MEDS: Acetaminophen 650 MG/20 ML UDC 1000 MG GT ×5 (00:17→23:24)
[2019-03-03 00:55] VITALS: PULSE 89; O2SAT 97
[2019-03-03] MEDS: NYSTATIN 500,000 UNIT/5 ML UDC 500000 UNIT PO ×4 (05:11→20:05)
[2019-03-03] MEDS: QUEtiapine 25 MG Tablet 50 MG GT ×2 (05:11→17:50)
[2019-03-03] MEDS: Cefdinir Susp 125 MG/5 ML PO.SYRINGE 300 MG GT (05:11)
[2019-03-03] MEDS: Enoxaparin 40 MG/0.4 ML Syringe SC (05:11)
[2019-03-03] MEDS: Lidocaine 5% Patch 2 PATCH TOPICAL (05:12)
[2019-03-03] MEDS: Menthol/Lanolin/Calamine/Znox 113 GM Tube 1 APPLIC TOPICAL ×3 (05:12→20:04)
[2019-03-03] MEDS: amLODIPine 10 MG Tablet GT (05:12)
[2019-03-03] MEDS: Aspirin 81 MG TAB.CHEW GT (05:12)
[2019-03-03] MEDS: Famotidine 20 MG Tablet GT ×2 (05:12→17:51)
[2019-03-03] MEDS: Clopidogrel Bisulfate 75 MG Tablet GT (05:12)
--- NOTE | 2019-03-03 06:43 | NURSING ---
0510- trach care done and inner cannula and dressing changed. dressing to PEG site changed and area cleansed. Pt coughing up thick, white sputum through trach and was suctioned. Pt had large, loose BM and incontinence care provided. Pt restless during care pulling at PEG site/abdominal binder. Resting quietly after care completed and pt repositioned. No residual noted in PEG prior to medication administration. Jevity continues to run at 40mL/hr per family's wishes with a goal rate of 50mL/hr.
[2019-03-03] MEDS: LORazepam 1 MG Tablet 2 MG GT ×3 (07:24→19:48)
[2019-03-03] MEDS: oxyCODONE 5 MG Tablet GT ×4 (07:24→23:21)
--- NOTE | 2019-03-03 07:25 | NURSING ---
0725- pt agitated pulling at trach and negro/PEG tubes. Unable to redirect. Pt moaning/grimacing & muscles tense. PRN ativan and OxyIR administered per PEG at pt repositioned in bed.
[2019-03-03 08:00] VITALS: O2SAT 89
--- NOTE | 2019-03-03 08:53 | CPS ---
Found pt w/Cool Aerosol mask off, room air Sat=89%. R.T. placed 28% Cool Aerosol Trach collar on, pt is not cooperative with keeping trach collar on d/t mental status.
[2019-03-03 11:56] VITALS: O2SAT 95
--- NOTE | 2019-03-03 12:20 | NURSING ---
, Paula, asking about tube feed rate when this nurse was providing trach care and administering medications. This nurse explained that the goal rate is 50mls/hr, pt's currently receiving 40mls/hr, per their request. Residual checked and explained. agreeable to see how pt does receiving 50 mls/hr this afternoon. Feed increased to ordered rate of 50cc/hr, reported to DOYLE Anderson. Cont to monitor.
[2019-03-03 13:50] VITALS: O2SAT 94
[2019-03-03 15:58] VITALS: BP 168/80; PULSE 83; RESP 19; TEMP 37; O2SAT 94
[2019-03-03] MEDS: MELATONIN 10 MG TABLET PO (19:49)
[2019-03-03] MEDS: Atorvastatin Calcium 40 MG Tablet GT (19:49)
--- NOTE | 2019-03-03 20:06 | NURSING ---
Addendum entered by Marilin Medina 03/04/19 07:09: 0645- gunsmith apprentice reported leaking at PEG site during AM care. Digested tube feed noted to be in PEG tubing. Residual checked and was 20mL. Flushed with 60mL sterile water and tube feed restarted. Site secured under abdominal binder. Pt pulling at negro causing small amount of blood in tubing. Pt repositioned and resting quietly with eyes open at completion of care. Safety interventions maintained. Addendum entered by Marilin Medina 03/04/19 05:05: 0345- pt coughed up large amount of thick/white sputum. Trach suctioned and dressing changed. Pt restless/agitated and combative with care. Attempting to get OOB unassisted and pull on TC, PEG and negro. 2:1 care given to change inner cannula and administer PRN ativan and morning medications per PEG. Pt checked for incontinence and was clean. Repositioned in bed. Safety interventions maintained. Addendum entered by Marilin Medina 03/03/19 21:42: 2140- Pt pulled tube feed tubing out of PEG, reinserted and re-secured with abdominal binder and NAYELI wrap. Trach suctioned and oral care provided. Pt cooperative with care at this time. Addendum entered by Marilin Medina 03/03/19 20:41: 2040- Pt remains restless/reaching for things not seen but no attempts to get OOB noted at this time. Pt pulling on negro and catheter resecured. Will continue to monitor. Original Note: 1999- Pt extremely restless/agitated. Reaching out/pointing to things in room that staff cannot see. Pt moaning and trying to get OOB unassisted. Pulling at negro/PEG/TC. Grabbing at and throwing blankets and pillows at staff requiring 2:1 care. PRN ativan administered and pt repositioned/redirected several times. Pt removing abdominal binder and NAYELI wrap applied to protect PEG. Camera remains on in room for increased supervision. Bed alarm on and functioning. High/Low bed in lowest position and mats on floor due to pt impulsivity and high risk of falls.
[2019-03-03] MEDS: Jevity 1.5 1,000 ML 50 ML GT (23:21)
[2019-03-03] MEDS: Docusate Sodium 100 MG/10 ML UDC 50 MG GT (23:24)
[2019-03-04] MEDS: LORazepam 1 MG Tablet 2 MG GT ×2 (03:58→21:33)
[2019-03-04] MEDS: Lidocaine 5% Patch 2 PATCH TOPICAL (03:58)
[2019-03-04] MEDS: NYSTATIN 500,000 UNIT/5 ML UDC 500000 UNIT PO ×4 (03:58→19:36)
[2019-03-04] MEDS: Acetaminophen 650 MG/20 ML UDC 1000 MG GT ×4 (03:58→23:20)
[2019-03-04] MEDS: QUEtiapine 25 MG Tablet 50 MG GT ×2 (03:59→17:34)
[2019-03-04] MEDS: Famotidine 20 MG Tablet GT ×2 (03:59→17:34)
[2019-03-04] MEDS: Clopidogrel Bisulfate 75 MG Tablet GT (03:59)
[2019-03-04] MEDS: Aspirin 81 MG TAB.CHEW GT (03:59)
[2019-03-04] MEDS: amLODIPine 10 MG Tablet GT (03:59)
[2019-03-04] MEDS: Enoxaparin 40 MG/0.4 ML Syringe SC (03:59)
[2019-03-04] MEDS: Menthol/Lanolin/Calamine/Znox 113 GM Tube 1 APPLIC TOPICAL ×3 (03:59→19:37)
[2019-03-04 04:00] VITALS: O2SAT 95
[2019-03-04 11:56] VITALS: O2SAT 93
[2019-03-04 16:00] VITALS: BP 143/78; PULSE 96; RESP 19; TEMP 36.3; O2SAT 94
[2019-03-04 18:04] VITALS: O2SAT 93
[2019-03-04] MEDS: oxyCODONE 5 MG Tablet GT (19:36)
[2019-03-04] MEDS: Atorvastatin Calcium 40 MG Tablet GT (19:37)
[2019-03-04] MEDS: MELATONIN 10 MG TABLET PO (19:37)
[2019-03-04] MEDS: Jevity 1.5 1,000 ML 50 ML GT (19:39)
[2019-03-04 20:09] VITALS: O2SAT 28
[2019-03-04 21:47] VITALS: O2SAT 92
[2019-03-05] MEDS: Clopidogrel Bisulfate 75 MG Tablet GT (05:13)
[2019-03-05] MEDS: NYSTATIN 500,000 UNIT/5 ML UDC 500000 UNIT PO ×3 (05:13→20:34)
[2019-03-05] MEDS: Acetaminophen 650 MG/20 ML UDC 1000 MG GT ×3 (05:13→18:03)
[2019-03-05] MEDS: Enoxaparin 40 MG/0.4 ML Syringe SC (05:13)
[2019-03-05] MEDS: QUEtiapine 25 MG Tablet 50 MG GT ×2 (05:13→18:02)
[2019-03-05] MEDS: Aspirin 81 MG TAB.CHEW GT (05:13)
[2019-03-05] MEDS: Famotidine 20 MG Tablet GT ×2 (05:13→18:03)
[2019-03-05] MEDS: Menthol/Lanolin/Calamine/Znox 113 GM Tube 1 APPLIC TOPICAL ×3 (05:14→20:36)
[2019-03-05] MEDS: amLODIPine 10 MG Tablet GT (05:14)
[2019-03-05] MEDS: Lidocaine 5% Patch 2 PATCH TOPICAL (06:16)
[2019-03-05 10:00] VITALS: PULSE 66; RESP 18; O2SAT 95
--- NOTE | 2019-03-05 15:32 | NURSING ---
pt was suctioned before speech therapy and trach care given, pt lethargic and sleepy, was not himself per therapy. Pt sat in w/c for 2.5 hrs with without demonstration agitation or impulsiveness, feed tube was stopped for therapy and while in w/c .
[2019-03-05 16:00] VITALS: BP 137/86; PULSE 102; RESP 19; TEMP 36.8; O2SAT 92
[2019-03-05] MEDS: Atorvastatin Calcium 40 MG Tablet GT (20:34)
[2019-03-05] MEDS: MELATONIN 10 MG TABLET PO (20:34)
[2019-03-05] MEDS: oxyCODONE 5 MG Tablet GT (20:35)
[2019-03-05 20:38] VITALS: O2SAT 94
[2019-03-05] MEDS: LORazepam 1 MG Tablet 2 MG GT (22:19)
[2019-03-05] MEDS: Jevity 1.5 1,000 ML 50 ML GT (23:35)
[2019-03-06] MEDS: Acetaminophen 650 MG/20 ML UDC 1000 MG GT ×3 (00:54→13:48)
[2019-03-06] MEDS: QUEtiapine 25 MG Tablet 50 MG GT ×2 (05:15→18:12)
[2019-03-06] MEDS: Clopidogrel Bisulfate 75 MG Tablet GT (05:15)
[2019-03-06] MEDS: amLODIPine 10 MG Tablet GT (05:15)
[2019-03-06] MEDS: Enoxaparin 40 MG/0.4 ML Syringe SC (05:15)
[2019-03-06] MEDS: Aspirin 81 MG TAB.CHEW GT (05:15)
[2019-03-06] MEDS: NYSTATIN 500,000 UNIT/5 ML UDC 500000 UNIT PO ×4 (05:15→20:51)
[2019-03-06] MEDS: Menthol/Lanolin/Calamine/Znox 113 GM Tube 1 APPLIC TOPICAL ×3 (05:16→21:02)
[2019-03-06] MEDS: Famotidine 20 MG Tablet GT ×2 (05:16→18:12)
[2019-03-06] MEDS: Lidocaine 5% Patch 2 PATCH TOPICAL (05:16)
[2019-03-06] MEDS: Docusate Sodium 100 MG/10 ML UDC 50 MG GT (05:26)
[2019-03-06 05:38] VITALS: O2SAT 94
[2019-03-06 05:57] LABS: Absolute Lymphocyte Count 0.77 X10^3/uL (0.83-4.51); Absolute Neutrophil Count 8.3 X10^3/uL (2.0-7.7); Basophil# 0.02 X10^3/uL; Basophil% 0.2 % (0-1); Eosinophil# 0.09 X10^3/uL; Eosinophils% 0.9 % (0-5); Hematocrit 34.3 % (40-54); Hemoglobin 11.5 g/dL (13.0-16.5); Lymphocyte # 0.77 X10^3/ul (4.0); Lymphocyte % 7.8 % (19-41); Mean Corp Hgb Conc 33.5 g/dL (32-36); Mean Corpuscular Hgb 30.4 pg (27.0-32.0); Mean Corpuscular Volume 90.7 fL (80-94); Mean Platelet Vol. 9.9 fl (6.2-12.0); Monocyte# 0.61 X10^3/uL; Monocyte% 6.2 % (0-10); NRBC Flagged by Analyzer 0 % (0-5); Neutrophil # 8.28 X10^3/uL (2.7-7.7); Neutrophil % 84.5 % (47-70); Platelet Count 208 K/mm3 (150-450); RBC Distribution Width CV 14.2 % (11.6-14.6); Red Blood Count 3.78 M/mm3 (4.6-6.2); White Blood Count 9.8 K/mm3 (4.4-11.0)
[2019-03-06 06:22] LABS: Anion Gap 6 (5-15); BUN 15 mg/dL (7-18); BUN/Creat Ratio 23.9 RATIO (10-20); Calcium,Total 8.7 mg/dL (8.5-10.1); Chloride 105 mmol/L (98-107); Creatinine, Serum 0.63 mg/dL (0.70-1.30); EST Glomerular Filtration Rate 131 mL/min (>60); Est Glom Filt Rate - Afr Amer 159 mL/min (>60); Estimated Creatinine Clearance 51.68 ml/min; Glucose 129 mg/dL (74-106); Potassium 3.8 mmol/L (3.5-5.1); Sodium Level 141 mmol/L (136-145)
[2019-03-06 07:26] VITALS: O2SAT 94
[2019-03-06] MEDS: Tuberculin,Purif.prot.deriv. 50 TU/ML Vial 5 ML ID (11:29)
--- NOTE | 2019-03-06 14:51 | NURSING ---
Up in wheelchair. Speaking valve remains in place. Spo2 92% and does not appear to be in any distress. family at bedside and attempts to communicate with him.
[2019-03-06 15:14] VITALS: BP 136/76; PULSE 91; RESP 24; TEMP 36.4; O2SAT 95
[2019-03-06] MEDS: Acetaminophen 650 MG/20 ML UDC GT ×2 (18:12→23:17)
[2019-03-06] MEDS: MELATONIN 10 MG TABLET PO (20:51)
[2019-03-06] MEDS: Jevity 1.5 1,000 ML 50 ML GT (20:51)
[2019-03-06] MEDS: Atorvastatin Calcium 40 MG Tablet GT (20:51)
[2019-03-06] MEDS: LORazepam 1 MG Tablet 2 MG GT (20:51)
[2019-03-06] MEDS: Polyethylene Glycol 3350 17 GM PACKET GT (20:52)
[2019-03-06 21:00] VITALS: PULSE 74; O2SAT 28
[2019-03-07] MEDS: NYSTATIN 500,000 UNIT/5 ML UDC 500000 UNIT PO ×4 (04:55→20:03)
[2019-03-07] MEDS: Polyethylene Glycol 3350 17 GM PACKET GT (04:55)
[2019-03-07] MEDS: amLODIPine 10 MG Tablet GT (04:55)
[2019-03-07] MEDS: Aspirin 81 MG TAB.CHEW GT (04:55)
[2019-03-07] MEDS: Lidocaine 5% Patch 2 PATCH TOPICAL (04:55)
[2019-03-07] MEDS: QUEtiapine 25 MG Tablet 50 MG GT ×2 (04:55→17:20)
[2019-03-07] MEDS: Bisacodyl 10 MG Suppository RECTAL (04:55)
[2019-03-07] MEDS: Famotidine 20 MG Tablet GT ×2 (04:55→17:20)
[2019-03-07] MEDS: Clopidogrel Bisulfate 75 MG Tablet GT (04:56)
[2019-03-07] MEDS: Enoxaparin 40 MG/0.4 ML Syringe SC (05:00)
[2019-03-07] MEDS: Menthol/Lanolin/Calamine/Znox 113 GM Tube 1 APPLIC TOPICAL ×3 (05:00→20:03)
[2019-03-07] MEDS: Acetaminophen 650 MG/20 ML UDC GT ×4 (05:01→23:25)
[2019-03-07 06:55] VITALS: O2SAT 92
--- NOTE | 2019-03-07 07:07 | NURSING ---
Pt stayed last HS to see how pt did throughout the night. Pt received PRN Ativan at 2052 d/t being restless, climbing out of bed and pulling at trach. Pt questioning how often he gets the Ativan. This nurse explained that he has got it the last three night in the evening d/t being restless. Pt stating that it really helps him sleep so he has good days. Pt wanting Dr. Fierro updated that medication helps in the evenings and she would like him to have it every HS if possible. Pt thanked this nurse numerous times. Pt resting in bed with eyes closed, trach collar 28% 6L O2 94%. PA on, bed in lowest position, and call light in reach.
--- NOTE | 2019-03-07 09:45 | CASEMGMT ---
Social Work IDT met with , two sons and dtr for care plan meeting. Discussed patient's progress in therapy. Pt is dependent with all ADLS, max assist for bed mobility, walking wall rail 20 ft modx1 with w/c follow. PT/OT/ST co-treating pt. ST trailing speaking valve and pt tolerated 5 hrs on the previous date with O2 increase to 8LPM. Pt is struggling managing his own secretions and following commands for swallowing exercises. Pt on tube feed continuously and tolerating well. ST will continue to work on speaking valve and speech intelligibility. Family realistic to pt's progress and can take pt home when pt plateau's. Explained Medicare coverage and family private paying for copays. Will continue to follow. MAK HillW
[2019-03-07 16:00] VITALS: BP 124/82; PULSE 106; RESP 19; TEMP 36.9; O2SAT 100
[2019-03-07] MEDS: Jevity 1.5 1,000 ML 50 ML GT (17:32)
[2019-03-07] MEDS: MELATONIN 10 MG TABLET PO (20:03)
[2019-03-07] MEDS: Atorvastatin Calcium 40 MG Tablet GT (20:03)
[2019-03-07] MEDS: LORazepam 1 MG Tablet 2 MG GT (20:03)
--- NOTE | 2019-03-07 20:19 | NURSING ---
Addendum entered by Marilin Medina 03/08/19 05:09: 0420-pt restless swinging legs OOB and pulling at negro. Yelling out unintelligibly. Pt incontinent of stool, cleansed and bed bath done. Trach inner cannula changed and care completed. Dressings changed to trach and PEG. Pt continues to be restless and PRN ativan administered with AM medications. Original Note: 1999- Pt with increased agitation, pulling at negro and PEG tubes. tubes secured and PRN ativan administered. Bed bath given and pt repositioned to right side. Safety precautions maintained.
[2019-03-08] MEDS: Lidocaine 5% Patch 2 PATCH TOPICAL (04:26)
[2019-03-08] MEDS: LORazepam 1 MG Tablet 2 MG GT ×2 (04:26→20:05)
[2019-03-08] MEDS: Acetaminophen 650 MG/20 ML UDC GT ×3 (04:26→17:09)
[2019-03-08] MEDS: QUEtiapine 25 MG Tablet 50 MG GT ×2 (04:27→17:08)
[2019-03-08] MEDS: Clopidogrel Bisulfate 75 MG Tablet GT (04:27)
[2019-03-08] MEDS: NYSTATIN 500,000 UNIT/5 ML UDC 500000 UNIT PO ×4 (04:27→20:04)
[2019-03-08] MEDS: Aspirin 81 MG TAB.CHEW GT (04:27)
[2019-03-08] MEDS: Famotidine 20 MG Tablet GT ×2 (04:27→17:08)
[2019-03-08] MEDS: amLODIPine 10 MG Tablet GT (04:27)
[2019-03-08] MEDS: Menthol/Lanolin/Calamine/Znox 113 GM Tube 1 APPLIC TOPICAL ×3 (04:28→20:05)
[2019-03-08] MEDS: Enoxaparin 40 MG/0.4 ML Syringe SC (04:28)
--- NOTE | 2019-03-08 09:04 | MDS.RN ---
Information for the mds was obtained from review of the clinical record, interview of resident, staff, and direct observation of resident's care.
[2019-03-08 14:31] VITALS: O2SAT 90
[2019-03-08 15:00] VITALS: O2SAT 94
[2019-03-08 16:00] VITALS: BP 134/84; PULSE 76; RESP 19; TEMP 37.1; O2SAT 95
[2019-03-08] MEDS: Jevity 1.5 1,000 ML 50 ML GT (18:51)
[2019-03-08] MEDS: Atorvastatin Calcium 40 MG Tablet GT (20:04)
[2019-03-08] MEDS: MELATONIN 10 MG TABLET PO (20:05)
[2019-03-08 20:28] VITALS: PULSE 93; O2SAT 93
[2019-03-09] MEDS: Acetaminophen 650 MG/20 ML UDC GT ×2 (00:21→04:58)
[2019-03-09] MEDS: Lidocaine 5% Patch 2 PATCH TOPICAL (04:57)
[2019-03-09] MEDS: Aspirin 81 MG TAB.CHEW GT (04:57)
[2019-03-09] MEDS: Clopidogrel Bisulfate 75 MG Tablet GT (04:57)
[2019-03-09] MEDS: Famotidine 20 MG Tablet GT ×2 (04:57→17:40)
[2019-03-09] MEDS: amLODIPine 10 MG Tablet GT (04:57)
[2019-03-09] MEDS: QUEtiapine 25 MG Tablet 50 MG GT ×2 (04:57→17:40)
[2019-03-09] MEDS: Enoxaparin 40 MG/0.4 ML Syringe SC (04:57)
[2019-03-09] MEDS: NYSTATIN 500,000 UNIT/5 ML UDC 500000 UNIT PO ×4 (04:58→22:43)
[2019-03-09] MEDS: Menthol/Lanolin/Calamine/Znox 113 GM Tube 1 APPLIC TOPICAL ×3 (04:58→23:00)
[2019-03-09 05:14] VITALS: O2SAT 93
--- NOTE | 2019-03-09 08:22 | NURSING ---
Speaking valve placed on pt, oxygen at 6 liters or 28% fio2 pt sleeping, resp even and unlabored sat 93%
--- NOTE | 2019-03-09 10:54 | NURSING ---
health information tech was recommending reglan to assist with bowel motility, dr holland updated but unable d/t interaction w/seroquel. new order for colace BID scheduled.
[2019-03-09] MEDS: Acetaminophen 650 MG/20 ML UDC 1000 MG GT (13:24)
[2019-03-09 15:20] VITALS: BP 118/72; PULSE 87; RESP 20; TEMP 36.8; O2SAT 92
[2019-03-09] MEDS: Docusate Sodium 100 MG/10 ML UDC 50 MG GT (17:38)
[2019-03-09 20:45] VITALS: O2SAT 91
[2019-03-09] MEDS: LORazepam 1 MG Tablet 2 MG GT (21:43)
--- NOTE | 2019-03-09 21:54 | CPS ---
Speaking valve placed in container and water bottle filled on cool aerosol setup.
--- NOTE | 2019-03-09 22:10 | NURSING ---
Dr Fierro notified that patient has pulled out PEG tube. Orders given to insert Hunt into site and consult General surgery. Dr. Fierro also notified that patient did not receive Ativan through PEG tube and that patient is getting very restless. Orders given for Ativan 2mg IM.
[2019-03-09] MEDS: LORazepam 2 MG/ML Syringe IM (22:40)
--- NOTE | 2019-03-09 23:05 | RAD_ITS ---
HISTORY: PEG tube placement. Comparison studies dishonored 2018. Findings: Single image. A catheter is present superimposed over the stomach. Contrast fills the stomach and the duodenum. There is no evidence of extravasation of contrast outside of the tube. There is no preliminary radiographs demonstrate absence of contrast prior to the injection of contrast. Tracheostomy tube. Bowel gas pattern is normal. Lungs are clear. RAD/Abdomen Single View (Portable) IMPRESSION: The contrast injected through the gastric tube appears to be within the lumen of the stomach at 0350 Reported and signed by: Luan Nelson MD Electronically Signed: Luan Nelson MD at 3:49 EST Tel , Service support ,
--- NOTE | 2019-03-09 23:15 | NURSING ---
Addendum entered by Barbie Salguero 03/09/19 23:31: Dr. Donaldson called, negro is in right place, ok to give medications and tube feed. Will be in tomorrow to put in PEG. Original Note: Dr. Donaldson called for general surgeon consult. Gave orders to do gastrogram for placement of negro in PEG Site. States if negro is in right place then she will be up tomorrow to reinsert PEG tube.
--- NOTE | 2019-03-10 01:59 | NURSING ---
Addendum entered by Gracie Grewal 03/10/19 04:04: This RN just noticed that the 03/09 2139 Ativan 2 mg GT administration was not marked not given like the Melatonin and Lipitor. (See below) This Ativan was not given since the patient pulled out his PEG tube. The Ativan in question was wasted with DOYLE Valentin, and placed in the Rx destroyer. Ativan 2 mg was given IM. Original Note: 03/09/192144 This RN was ready to give meds through Toni Pardo's PEG tube. Meds were crushed and drawn up in sterile water. Found patient had pulled out his PEG tube. Hunt was placed in PEG site to keep hole from closing. DOYLE Valentin, called Dr. Fierro. He said to do same. Dr. Fierro said to contact general surgery. DOYLE Valentin, contacted the on-call general surgery physician, Dr. Sosa. Dr. Sosa ordered an Xray. After the Xray was taken, Dr. Sosa called back to say the Hunt was in the correct place, the stomach. Dr. Sosa said she will place a new PEG in the morning on March 10.
[2019-03-10] MEDS: Acetaminophen 650 MG/20 ML UDC 1000 MG GT ×3 (04:28→20:06)
[2019-03-10] MEDS: NYSTATIN 500,000 UNIT/5 ML UDC 500000 UNIT PO ×2 (04:28→13:59)
[2019-03-10] MEDS: Clopidogrel Bisulfate 75 MG Tablet GT (04:29)
[2019-03-10] MEDS: amLODIPine 10 MG Tablet GT (04:29)
[2019-03-10] MEDS: Famotidine 20 MG Tablet GT ×2 (04:29→18:06)
[2019-03-10] MEDS: QUEtiapine 25 MG Tablet 50 MG GT ×2 (04:29→18:07)
[2019-03-10] MEDS: Lidocaine 5% Patch 2 PATCH TOPICAL (04:46)
[2019-03-10] MEDS: Enoxaparin 40 MG/0.4 ML Syringe SC (04:50)
[2019-03-10] MEDS: Menthol/Lanolin/Calamine/Znox 113 GM Tube 1 APPLIC TOPICAL ×3 (05:00→20:06)
[2019-03-10] MEDS: LORazepam 1 MG Tablet 2 MG GT ×2 (05:02→20:04)
[2019-03-10 05:10] VITALS: BP 148/76; PULSE 97; RESP 20; O2SAT 96
[2019-03-10] MEDS: Aspirin 81 MG TAB.CHEW GT (07:43)
--- NOTE | 2019-03-10 08:12 | CON.PCM_ITS ---
Reason for Consult Date of Consultation: 03/10/19 History of Present Illness: The patient is a 78 year old M in the TCU status post stroke for rehab. Patient does get agitated and has pulled out his previously placed PEG tube. The nurses were able to put a Hunt catheter and last night compartment was in the stomach with some contrast and KUB. Patient is lethargic this morning as he did get some Ativan due to the agitation. Nursing states that he is usually confused at baseline. 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) Hypertension (Chronic) Hyperlipidemia (Chronic) Muscle spasm (Chronic) Expressive aphasia (Chronic) GERD (gastroesophageal reflux disease) (Chronic) Insomnia (Chronic) Allergies Penicillins Allergy (Unknown, Verified 02/22/19 23:19) Unknown cyclobenzaprine [From Flexeril] Adverse Reaction (Verified 02/22/19 23:19) Rash Home Medications: Ambulatory Orders Medication Instructions Recorded Atorvastatin Calcium 40 mg GT QHS 01/31/19 Bisacodyl 10 mg [place] DAILY PRN 01/31/19 Docusate Sodium [Docu Liquid] 50 mg GT BID PRN PRN 01/31/19 Enoxaparin [Lovenox] 40 mg SUBCUT DAILY@0600 01/31/19 Famotidine [Pepcid] 20 mg GT BID 01/31/19 Ipratropium/Albuterol Sulfate 3 ml INHALATION Q4H PRN PRN 01/31/19 [Iprat-Albut 0.5-3(2.5) mg/3 ml] Melatonin 5 mg GT QHS 01/31/19 Polyethylene Glycol 3350 [Miralax] 17 gm GT DAILY PRN 01/31/19 Sodium Chloride 3% 3 ml INHALATION Q4H PRN PRN 01/31/19 Aspirin [Aspirin, Baby] 81 mg GT DAILY 02/10/19 Clopidogrel Bisulfate [Plavix] 75 mg GT DAILY 02/10/19 Lidocaine [Lidoderm Patch] 2 patch TOPICAL DAILY 02/10/19 Quetiapine Fumarate [Seroquel] 50 mg GT BID 02/10/19 Acetaminophen Liquid [Tylenol 1,000 mg GT Q6H 02/25/19 Liquid] Amlodipine [Norvasc] 10 mg GT DAILY 02/26/19 Cefdinir Susp [Omnicef Susp] 300 mg PO Q12 #10 po.syringe 02/26/19 Erythromycin Base [Erythromycin] 500 mg GT 4X/DAY 02/26/19 Lorazepam [Ativan] 2 mg GT TID PRN PRN #12 tab 02/26/19 Menthol/Lanolin/Calamine/Znox 1 applic TOPICAL TID 02/26/19 [Calmoseptine Ointment] Oxycodone [Oxyir] 2.5 mg GT Q4H PRN PRN #12 tab 02/26/19 Surgical History: appendectomy, herniorrhaphy, - - Tracheostomy, PEG tube, Suboccipital craniectomy, Cervical discectomy, carpal tunnel, shoulder surgery. Psychiatric History: No pertinent psych hx Lives: Spouse/ Significant Other Smoking Status: Former smoker Tobacco Use: Non-smoker Alcohol: None Drugs: None - *Family History Maternal History Items: - - History was taken from patient son who denies any disease in any of his siblings (children of patient). Patient son did not know maternal or paternal medical history. Paternal History Items: - - History was taken from patient son who denies any disease in any of his siblings (children of patient). Patient son did not know maternal or paternal medical history. Review of Systems Unable to obtain accurate/complete ROS d/t: Patient is lethargic and confused at baseline Patient Problems: Active and Suspected Problems Severe sepsis (Acute) - Physical Exam Vitals/I&O's: Vital Signs Temp Pulse Resp BP Pulse Ox 98.2 F 97 20 H 148/76 H 96 03/09/19 15:20 03/10/19 05:10 03/10/19 05:10 03/10/19 05:10 03/10/19 05:10 Oxygen Flow Rate (L/min) 6 Oxygen Delivery Method Trach Collar Weight: 146 lb 4 oz Body Mass Index (BMI) 23.0 Finger Stick Blood Glucose 132 Intake and Output for Last 24 Hours 03/08/19 03/09/19 03/10/19 23:59 23:59 23:59 Intake Total 2410 / 2410 1444 / 1444 Output Total 1125 / 1125 2350 / 2350 Balance 1285 / 1285 -906 / -906 Current Medications Acetaminophen (Tylenol Liquid) 1,000 mg GT TID [facility] Last Admin: 03/10/19 04:28 Dose: 1,000 mg Documented by: Albuterol/Ipratropium (Duoneb) 3 ml INHALATION Q4H PRN PRN PRN Reason: SHORTNESS OF BREATH Amlodipine Besylate (Norvasc) 10 mg GT DAILY [facility] Last Admin: 03/10/19 04:29 Dose: 10 mg Documented by: Aspirin (Aspirin, Baby) 81 mg GT DAILY [facility] Last Admin: 03/10/19 07:43 Dose: 81 mg Documented by: Atorvastatin Calcium (Lipitor) 40 mg GT QHS [facility] Last Admin: 03/09/19 21:43 Dose: Not Given Documented by: Bisacodyl (Dulcolax) 10 mg RECTAL DAILY PRN PRN Reason: CONSTIPATION Last Admin: 03/07/19 04:55 Dose: 10 mg Documented by: Calamine/Phenol (Calmoseptine Ointment) 1 applic TOPICAL TID [facility]; Protocol Last Admin: 03/10/19 05:00 Dose: 1 applicatio Documented by: Clopidogrel Bisulfate (Plavix) 75 mg GT DAILY [facility] Last Admin: 03/10/19 04:29 Dose: 75 mg Documented by: Docusate Sodium (Colace Syrup) 50 mg GT BID [facility] Last Admin: 03/10/19 04:37 Dose: Not Given Documented by: Enoxaparin Sodium (Lovenox) 40 mg SC DAILY@0600 [facility] Last Admin: 03/10/19 04:50 Dose: 40 mg Documented by: Famotidine (Pepcid) 20 mg GT BID [facility] Last Admin: 03/10/19 04:29 Dose: 20 mg Documented by: Enteral Nutritional Formula (Jevity 1.5) 1,000 mls @ 50 mls/hr GT .Q20H [facility] Last Admin: 03/10/19 00:33 Dose: Not Given Documented by: Lactobacillus Acidophilus (Acidophilus) 1 tablet PO BID [facility] Last Admin: 03/09/19 17:39 Dose: 1 tablet Documented by: Lidocaine (Lidoderm Patch) 2 patch TOPICAL DAILY [facility]; Protocol Last Admin: 03/10/19 04:46 Dose: 2 patch Documented by: Lorazepam (Ativan) 2 mg GT TID PRN PRN PRN Reason: ANXIETY Last Admin: 03/10/19 05:02 Dose: 2 mg Documented by: Melatonin (Melatonin) 10 mg PO QHS [facility] Last Admin: 03/09/19 21:43 Dose: Not Given Documented by: Nystatin (Nystatin) 500,000 unit PO 4X/DAY [facility] Stop: 03/10/19 12:01 Last Admin: 03/10/19 04:28 Dose: 500,000 unit Documented by: Oxycodone HCl (Oxyir) 5 mg GT Q4H PRN PRN PRN Reason: Pain Score 1-10/10 Last Admin: 03/05/19 20:35 Dose: 5 mg Documented by: Polyethylene Glycol (Miralax) 17 gm GT DAILY PRN PRN PRN Reason: Constipation Last Admin: 03/07/19 04:55 Dose: 17 gm Documented by: Quetiapine Fumarate (Seroquel) 50 mg GT BID [facility] Last Admin: 03/10/19 04:29 Dose: 50 mg Documented by: Sodium Chloride (Sodium Chloride 3%) 3 ml INHALATION Q4H PRN PRN PRN Reason: CONGESTION Sodium Chloride () 10 - 40 ml IV UD PRN PRN Reason: SALINE FLUSH Last Admin: 02/28/19 17:10 Dose: 10 ml Documented by: Assessment/Plan All Active Problems Debility (Acute) Hospital-acquired pneumonia (Acute) Status post emergency tracheotomy for assistance in breathing (Ruled-out) Psychosis (Acute) Agitation (Acute) Tracheobronchitis (Acute) Severe sepsis (Acute) 78-year-old male malnutrition, history of stroke 1. Patient's previously placed Hunt catheter in the PEG site was removed. 20 English gastrostomy tube was placed went in easily. G-tube is at 3 at the skin which is where his PEG was previously placed as well. The balloon was blown up with 5 cc of saline. Patient tolerated procedure well. Will place Gastrografin in the tube and check a KUB. To confirm location, once location confirmed okay to resume normal tube feeding schedule. Addendum: KUB shows the G tube in correct place- ok to resume TF previous schedule. Mayra Donaldson M.D. Pager: [phone] [facility] [address] [place] [address], [facility], [address] [place] [address] Office: [phone] Code Visit Inpatient E&M: 49071 Init Hosp L2 Multi Select Codes - Digestive Digestive CPT Codes: 15614 Rplc gtube no revj trc
--- NOTE | 2019-03-10 08:23 | RAD_ITS ---
STUDY: X-RAY - ABDOMEN/PELVIS REASON FOR EXAM: Male, 78 years old. peg tube placement TECHNIQUE: Single AP view of the abdomen / pelvis. COMPARISON: None. FINDINGS: Normal visualized lung bases. Single view demonstrates contrast outlining of the gastric mucosa consistent with properly placed PEG tube. There is no demonstrated free abdominal air. The visualized liver, spleen and kidneys are grossly normal in size and morphology. Normal soft tissue structures. Normal visualized osseous structures. RAD/Abdomen Single View (Portable) IMPRESSION: Contrast outlining gastric mucosa consistent with probably placed PEG tube. Electronically Signed: Tyrel Weller DO at 10:32 EST , Service support ,
--- NOTE | 2019-03-10 08:31 | NURSING ---
Notified patient's spouse that he pulled out his PEG tube and that it had been replaced. Spouse aware that patient is currently resting in bed without distress.
[2019-03-10] MEDS: Jevity 1.5 1,000 ML 50 ML GT ×2 (11:42→11:53)
[2019-03-10] MEDS: oxyCODONE 5 MG Tablet GT ×2 (11:57→18:07)
--- NOTE | 2019-03-10 12:45 | NURSING ---
Pt cleared to resume use of PEG tube via phone call from Dr. Donaldson at [phone].
[2019-03-10 14:27] VITALS: BP 135/80; PULSE 95; RESP 20; TEMP 37.1; O2SAT 95
[2019-03-10 15:13] VITALS: O2SAT 99
[2019-03-10] MEDS: Docusate Sodium 100 MG/10 ML UDC 50 MG GT (18:06)
[2019-03-10] MEDS: MELATONIN 10 MG TABLET PO (20:06)
[2019-03-10] MEDS: Atorvastatin Calcium 40 MG Tablet GT (20:06)
--- NOTE | 2019-03-10 20:16 | NURSING ---
2000- pt restless moaning/pulling at negro and trying to get OOB. PRN ativan administered and pt repositioned in bed. Oral care done.
[2019-03-11] MEDS: Aspirin 81 MG TAB.CHEW GT (04:04)
[2019-03-11] MEDS: Clopidogrel Bisulfate 75 MG Tablet GT (04:04)
[2019-03-11] MEDS: Famotidine 20 MG Tablet GT ×2 (04:04→18:29)
[2019-03-11] MEDS: amLODIPine 10 MG Tablet GT (04:04)
[2019-03-11] MEDS: LORazepam 1 MG Tablet 2 MG GT ×2 (04:04→20:20)
[2019-03-11] MEDS: Enoxaparin 40 MG/0.4 ML Syringe SC (04:04)
[2019-03-11] MEDS: QUEtiapine 25 MG Tablet 50 MG GT ×2 (04:04→18:29)
[2019-03-11] MEDS: Docusate Sodium 100 MG/10 ML UDC 50 MG GT ×2 (04:05→18:29)
[2019-03-11] MEDS: Acetaminophen 650 MG/20 ML UDC 1000 MG GT ×3 (04:06→20:20)
[2019-03-11] MEDS: Menthol/Lanolin/Calamine/Znox 113 GM Tube 1 APPLIC TOPICAL ×3 (04:57→20:20)
[2019-03-11] MEDS: Lidocaine 5% Patch 2 PATCH TOPICAL (04:59)
--- NOTE | 2019-03-11 05:07 | NURSING ---
0400- Pt with only scant amount of urine in negro bag. tubing and patient repositioned several times and checked for kinks but was WNL. Abdomen slightly distended. Bladder scan showing >531mL New negro inserted with sterile condition and immediately draining 450mL clear yellow urine. Prior to care pt was anxious pulling at trach collar and negro. Incontinence care provided and pt repositioned. Mouth care done. Pt repositioned and PRN ativan administered.
[2019-03-11] MEDS: Jevity 1.5 1,000 ML 50 ML GT (12:27)
[2019-03-11 15:44] VITALS: BP 112/60; PULSE 84; RESP 21; TEMP 37.2; O2SAT 92
[2019-03-11 17:15] VITALS: O2SAT 87
[2019-03-11 17:29] VITALS: O2SAT 97
--- NOTE | 2019-03-11 17:29 | CPS ---
arrived to pt room. sats 87% on 28% CA. increased CA to 40% and DOYLE Melendrez was suctioning trach. moderate amounts of secretions obtained. sats increased to 9&% on 40% CA.
[2019-03-11] MEDS: MELATONIN 10 MG TABLET PO (20:20)
[2019-03-11] MEDS: Atorvastatin Calcium 40 MG Tablet GT (20:20)
[2019-03-12] MEDS: LORazepam 1 MG Tablet 2 MG GT ×2 (03:45→20:01)
[2019-03-12] MEDS: Clopidogrel Bisulfate 75 MG Tablet GT (03:46)
[2019-03-12] MEDS: Famotidine 20 MG Tablet GT ×2 (03:46→17:07)
[2019-03-12] MEDS: Aspirin 81 MG TAB.CHEW GT (03:46)
[2019-03-12] MEDS: QUEtiapine 25 MG Tablet 50 MG GT ×2 (03:46→17:07)
[2019-03-12] MEDS: Enoxaparin 40 MG/0.4 ML Syringe SC (03:47)
[2019-03-12] MEDS: Menthol/Lanolin/Calamine/Znox 113 GM Tube 1 APPLIC TOPICAL ×3 (03:48→20:01)
[2019-03-12] MEDS: amLODIPine 10 MG Tablet GT (03:50)
[2019-03-12] MEDS: Acetaminophen 650 MG/20 ML UDC 1000 MG GT ×3 (03:51→20:00)
[2019-03-12] MEDS: Lidocaine 5% Patch 2 PATCH TOPICAL (04:27)
[2019-03-12 07:25] VITALS: O2SAT 97
--- NOTE | 2019-03-12 10:40 | RAD_ITS ---
STUDY: X-RAY CHEST REASON FOR EXAM: Male, 78 years old. Sob; pneumonia TECHNIQUE: PA and lateral views of the chest. COMPARISON: Comparison is made with prior examination dated February 27, 2019. FINDINGS: The tip of the tracheostomy tube is at 5.2 cm proximal to the lenny. Stable minimal increased markings at the lung bases suggestive of scarring. There is no demonstrated pleural abnormality. There is mild cardiac enlargement. Normal mediastinum and zainab. Normal visualized pulmonary arteries. There is atherosclerotic tortuosity of the aortic arch and descending thoracic aorta. Normal visualized thoracic spine. There is degenerative osteoarthritis of the bilateral shoulders. There is no demonstrated abnormality of the visualized soft tissue structures of the upper abdomen. RAD/Chest PA and Lateral IMPRESSION: Stable mild increased markings at the lung bases suggestive of mild basilar scarring. Electronically Signed: Rubén Ibrahim, at 12:47 EST , Service support ,
--- NOTE | 2019-03-12 11:02 | NURSING ---
pt up in chair. pa present . family at bedside
[2019-03-12] MEDS: Jevity 1.5 1,000 ML 50 ML GT (11:24)
--- NOTE | 2019-03-12 12:03 | NURSING ---
talking valve placed on pt.
[2019-03-12 16:00] VITALS: BP 121/69; PULSE 96; RESP 19; TEMP 36.9; O2SAT 91
[2019-03-12] MEDS: Atorvastatin Calcium 40 MG Tablet GT (20:01)
[2019-03-12] MEDS: MELATONIN 10 MG TABLET PO (20:01)
[2019-03-13] MEDS: Lidocaine 5% Patch 2 PATCH TOPICAL (03:17)
[2019-03-13] MEDS: Clopidogrel Bisulfate 75 MG Tablet GT ×2 (03:21→03:22)
[2019-03-13] MEDS: Enoxaparin 40 MG/0.4 ML Syringe SC (03:21)
[2019-03-13] MEDS: Docusate Sodium 100 MG/10 ML UDC 50 MG GT ×2 (03:22→16:33)
[2019-03-13] MEDS: QUEtiapine 25 MG Tablet 50 MG GT ×2 (03:22→16:33)
[2019-03-13] MEDS: Aspirin 81 MG TAB.CHEW GT (03:22)
[2019-03-13] MEDS: amLODIPine 10 MG Tablet GT (03:22)
[2019-03-13] MEDS: Menthol/Lanolin/Calamine/Znox 113 GM Tube 1 APPLIC TOPICAL ×3 (03:23→22:02)
[2019-03-13] MEDS: Acetaminophen 650 MG/20 ML UDC 1000 MG GT ×3 (03:24→21:59)
[2019-03-13] MEDS: Famotidine 20 MG Tablet GT ×2 (03:26→16:33)
[2019-03-13] MEDS: LORazepam 1 MG Tablet 2 MG GT ×2 (04:08→21:59)
[2019-03-13 05:35] LABS: Absolute Neutrophil Count 3.2 X10^3/uL (2.0-7.7); Basophil# 0.02 X10^3/uL; Basophil% 0.4 % (0-1); Eosinophil# 0.14 X10^3/uL; Eosinophils% 3.1 % (0-5); Hematocrit 32.9 % (40-54); Hemoglobin 10.9 g/dL (13.0-16.5); Lymphocyte % 13.5 % (19-41); Mean Corp Hgb Conc 33.1 g/dL (32-36); Mean Corpuscular Hgb 30.4 pg (27.0-32.0); Mean Corpuscular Volume 91.6 fL (80-94); Mean Platelet Vol. 9.2 fl (6.2-12.0); Monocyte# 0.45 X10^3/uL; Monocyte% 10.1 % (0-10); NRBC Flagged by Analyzer 0 % (0-5); Neutrophil # 3.23 X10^3/uL (2.7-7.7); Neutrophil % 72.7 % (47-70); POSITIVE DIFFERENTIAL YES; Platelet Count 216 K/mm3 (150-450); RBC Distribution Width CV 14.4 % (11.6-14.6); RBC Distribution Width SD 47.7 fl (35.1-43.9); Red Blood Count 3.59 M/mm3 (4.6-6.2); White Blood Count 4.5 K/mm3 (4.4-11.0)
[2019-03-13 05:37] LABS: Differential Indicated SCAN CRITERIA MET
[2019-03-13 05:51] LABS: Anion Gap 5 (5-15); BUN 17 mg/dL (7-18); BUN/Creat Ratio 28.2 RATIO (10-20); Calcium,Total 8.4 mg/dL (8.5-10.1); Chloride 103 mmol/L (98-107); EST Glomerular Filtration Rate 137 mL/min (>60); Est Glom Filt Rate - Afr Amer 166 mL/min (>60); Estimated Creatinine Clearance 56.64 ml/min; Glucose 121 mg/dL (74-106); Potassium 3.2 mmol/L (3.5-5.1); Sodium Level 140 mmol/L (136-145)
[2019-03-13 06:43] VITALS: O2SAT 96
--- NOTE | 2019-03-13 07:06 | NURSING ---
0400 trac suctioned at this time. Thick yellow/white mucous noted. Peg tube with no residual noted. Dressing changed to peg. Abdominal binder in place.
--- NOTE | 2019-03-13 07:09 | NURSING ---
1999 trac care done suctioned for thick yellow mucous. Charo to mouth secretions. Mouth care performed.
--- NOTE | 2019-03-13 08:02 | NURSING ---
pt sleeping, resp even and labored. speaking valve placed on Trach per order.
[2019-03-13] MEDS: Jevity 1.5 1,000 ML 50 ML GT (11:58)
[2019-03-13 16:00] VITALS: BP 131/91; PULSE 92; RESP 19; TEMP 36.9; O2SAT 97
--- NOTE | 2019-03-13 16:37 | NURSING ---
PER SPEECH THERAPY, PT IS TO HAVE ORAL CARE 4 TIMES A DAY. REPORTED TO DOYLE SARABIA
[2019-03-13 21:26] VITALS: PULSE 106; O2SAT 97
[2019-03-13] MEDS: MELATONIN 10 MG TABLET PO (21:58)
[2019-03-13] MEDS: Atorvastatin Calcium 40 MG Tablet GT (21:59)
[2019-03-14] MEDS: Docusate Sodium 100 MG/10 ML UDC 50 MG GT ×2 (05:15→17:19)
[2019-03-14] MEDS: Famotidine 20 MG Tablet GT ×2 (05:16→17:19)
[2019-03-14] MEDS: amLODIPine 10 MG Tablet GT (05:16)
[2019-03-14] MEDS: Aspirin 81 MG TAB.CHEW GT (05:16)
[2019-03-14] MEDS: QUEtiapine 25 MG Tablet 50 MG GT ×2 (05:16→17:19)
[2019-03-14] MEDS: LORazepam 1 MG Tablet 2 MG GT (05:20)
[2019-03-14 05:21] VITALS: O2SAT 99
[2019-03-14] MEDS: Menthol/Lanolin/Calamine/Znox 113 GM Tube 1 APPLIC TOPICAL ×2 (05:21→13:52)
[2019-03-14] MEDS: Enoxaparin 40 MG/0.4 ML Syringe SC (05:22)
[2019-03-14] MEDS: Lidocaine 5% Patch 2 PATCH TOPICAL (05:22)
[2019-03-14] MEDS: Acetaminophen 650 MG/20 ML UDC 1000 MG GT ×2 (05:23→14:42)
--- NOTE | 2019-03-14 05:36 | NURSING ---
Patient noted to pulling on catheter earlier this shift. Catheter resecured into clamp. Hunt now draining dark blood tinged urine. RN Serena Notified. Per RN, Will update Dr. Fierro. HOB at 30 degrees. Jevity 1.5 running at 50 mL/hr. Will continue to monitor.
--- NOTE | 2019-03-14 11:30 | NURSING ---
Patient's negro not draining, attempted to flush without results. Bladder scan was 283ml. Negro removed and found large clot blocking the tip of tube at drain site. New negro inserted and immediate return of urine observed.
[2019-03-14] MEDS: Jevity 1.5 1,000 ML 50 ML GT (12:07)
--- NOTE | 2019-03-14 12:10 | NURSING ---
Trach care provided and inner canula changed.
[2019-03-14] MEDS: oxyCODONE 5 MG Tablet GT (13:51)
[2019-03-14 14:16] VITALS: O2SAT 95
--- NOTE | 2019-03-14 14:50 | PCA ---
After getting vitals notified Nurse Fraire of low BP.
[2019-03-14 15:17] VITALS: BP 120/50; PULSE 112; RESP 20; TEMP 36.6; O2SAT 93
[2019-03-14 16:00] VITALS: BP 65/38; PULSE 99; RESP 22; TEMP 37.1; O2SAT 87
--- NOTE | 2019-03-14 18:03 | NURSING ---
pt desat, o2 increased, speaking valve removed and pt suctioned sats recovered. N/O for CXR PA & LAT
--- NOTE | 2019-03-14 19:07 | RAD_ITS ---
STUDY: X-RAY CHEST REASON FOR EXAM: Male, 78 years old. Shortness of breath TECHNIQUE: Frontal and lateral views of the chest COMPARISON: 03/12/2019 FINDINGS: Again noted is a tracheostomy tube. The lungs are clear. There are no pleural effusions. There is no pneumothorax. The heart is normal in size. The visualized osseous structures are within normal limits. RAD/Chest PA and Lateral IMPRESSION: No acute thoracic pathology. Electronically Signed: Gigi Hannon, at 19:26 EST Tel , Service support ,
--- NOTE | 2019-03-14 20:38 | NURSING ---
Addendum entered by Jazmin Grissom 03/14/19 23:18: Call from nurse in the ER. and son at bedside and staff is calling in hospice. Pt may come back to the unit later tonight. Original Note: This nurse into do rounds. Pt pale and diaphoretic. Pt barely opening eyes when sternum rub conducted. Temp 100.1 RR 24. Manual BP in Left arm 68/40. Rt arm via machine 92/47. o2 95% 8L 40% via trach mask. Dr. Fierro updated on CXR and new order to send pt to the ER. Juan son contacted and wants notified if anything changes. report called to Celso in the ER.
--- NOTE | 2019-03-15 08:13 | DCINST_ITS ---
Weight Bearing Status: Weight bearing as tolerated Call your doctor if you observe: Fever of 101 or Higher, Inability to urinate, Inability to have a bowel movement, Shortness of breath, Chest pain, Uncontrolled pain Allergies/Adverse Reactions: Allergies Penicillins Allergy (Unknown, Verified 03/14/19 20:51) Unknown cyclobenzaprine [From Flexeril] Adverse Reaction (Verified 03/14/19 20:51) Rash Medications to take at Discharge Atorvastatin Calcium 40 mg GT QHS 01/31/19 Bisacodyl 10 mg [place] DAILY PRN 01/31/19 Docusate Sodium [Docu Liquid] 50 mg GT BID PRN PRN 01/31/19 Enoxaparin [Lovenox] 40 mg SUBCUT DAILY@0600 01/31/19 Famotidine [Pepcid] 20 mg GT BID 01/31/19 Ipratropium/Albuterol Sulfate [Iprat-Albut 0.5-3(2.5) mg/3 ml] 3 ml INHALATION Q4H PRN PRN 01/31/19 Melatonin 10 mg GT QHS 01/31/19 Polyethylene Glycol 3350 [Miralax] 17 gm GT DAILY PRN 01/31/19 Sodium Chloride 3% 3 ml INHALATION Q4H PRN PRN 01/31/19 Aspirin [Aspirin, Baby] 81 mg GT DAILY 02/10/19 Clopidogrel Bisulfate [Plavix] 75 mg GT DAILY 02/10/19 Lidocaine [Lidoderm Patch] 2 patch TOPICAL DAILY 02/10/19 Quetiapine Fumarate [Seroquel] 50 mg GT BID 02/10/19 Acetaminophen Liquid [Tylenol Liquid] 1,000 mg GT Q6H 02/25/19 Amlodipine [Norvasc] 10 mg GT DAILY 02/26/19 Lorazepam [Ativan] 2 mg GT TID PRN PRN #12 tab 02/26/19 Menthol/Lanolin/Calamine/Znox [Calmoseptine Ointment] 1 applic TOPICAL TID 02/26/19 Oxycodone [Oxyir] 2.5 mg GT Q4H PRN PRN #12 tab 02/26/19 Jevity 1.5 1,000 ml GT DAILY 03/14/19 Lactobacillus Acidophilus [Acidophilus] 1 ea GT DAILY 03/14/19 Potassium Chloride 20 meq GT DAILY 03/14/19 Primary Care Physician: Alvarado Dunlap MD [Primary Care Provider] - Please follow up with your Primary Care Physician in: As needed. Test Results: Test results from this visit will be discussed in further detail at your follow- up appointment, if applicable. Proposed Discharge Date: 03/14/19
--- NOTE | 2019-03-15 08:15 | DS.PCM_ITS ---
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 03/14/2019 Resident became hypotensive, tachycardic, tachypneic, increasingly hypoxic. Chest X-ray negative, recent UA negative. Discharge to [facility] Emergency Department, subsequently to Inpatient Hospice Facility. - Physical Exam Vitals/I&O's: Vital Signs Temp Pulse Resp BP Pulse Ox 98.7 F 99 22 H 65/38 L 87 03/14/19 16:00 03/14/19 16:00 03/14/19 16:00 03/14/19 16:00 03/14/19 16:00 Oxygen Flow Rate (L/min) 6 Oxygen Delivery Method Nasal Cannula Weight: 65.499 kg Body Mass Index (BMI) 23.0 Finger Stick Blood Glucose 132 Intake and Output for Last 24 Hours 03/13/19 03/14/19 03/15/19 23:59 23:59 23:59 Intake Total 320 / 320 30 / 30 Output Total 1650 / 1650 1250 / 1250 Balance -1330 / -1330 -1220 / -1220 Weight Bearing Status: Weight bearing as tolerated Call your doctor if you observe: Fever of 101 or Higher, Inability to urinate, Inability to have a bowel movement, Shortness of breath, Chest pain, Uncontr olled pain Home Medications: Medications to take at Discharge Atorvastatin Calcium 40 mg GT QHS 01/31/19 Bisacodyl 10 mg LA DAILY PRN 01/31/19 Docusate Sodium [Docu Liquid] 50 mg GT BID PRN PRN 01/31/19 Enoxaparin [Lovenox] 40 mg SUBCUT DAILY@0600 01/31/19 Famotidine [Pepcid] 20 mg GT BID 01/31/19 Ipratropium/Albuterol Sulfate [Iprat-Albut 0.5-3(2.5) mg/3 ml] 3 ml INHALATION Q4H PRN PRN 01/31/19 Melatonin 10 mg GT QHS 01/31/19 Polyethylene Glycol 3350 [Miralax] 17 gm GT DAILY PRN 01/31/19 Sodium Chloride 3% 3 ml INHALATION Q4H PRN PRN 01/31/19 Aspirin [Aspirin, Baby] 81 mg GT DAILY 02/10/19 Clopidogrel Bisulfate [Plavix] 75 mg GT DAILY 02/10/19 Lidocaine [Lidoderm Patch] 2 patch TOPICAL DAILY 02/10/19 Quetiapine Fumarate [Seroquel] 50 mg GT BID 02/10/19 Acetaminophen Liquid [Tylenol Liquid] 1,000 mg GT Q6H 02/25/19 Amlodipine [Norvasc] 10 mg GT DAILY 02/26/19 Lorazepam [Ativan] 2 mg GT TID PRN PRN #12 tab 02/26/19 Menthol/Lanolin/Calamine/Znox [Calmoseptine Ointment] 1 applic TOPICAL TID 02/26/19 Oxycodone [Oxyir] 2.5 mg GT Q4H PRN PRN #12 tab 02/26/19 Jevity 1.5 1,000 ml GT DAILY 03/14/19 Lactobacillus Acidophilus [Acidophilus] 1 ea GT DAILY 03/14/19 Potassium Chloride 20 meq GT DAILY 03/14/19 Primary Care Physician: Alvarado Dunlap MD [Primary Care Provider] - Please follow up with your Primary Care Physician in: As needed. Disposition: Hospice Medical Facility Minutes spent on discharge:: 30 Patient Condition:: Poor Medical Necessity - Tobacco Use Smoking Status: Former smoker Tobacco Use: Non-smoker Meaningful Use Info Meaningful Use Diagnoses (Choose all that apply): None applicable
--- NOTE | 2019-03-16 10:18 | CASEMGMT ---
Social Work Reviewed and agreed with social work documentation on this date. Kelly Olivas, [employer]PING ENGINEER
== END 2019-03-15 03:34 | disposition short-term general hospital (02) | DRG 179 ==
PROVIDERS: Admitting Provider Family Medicine Geriatric Medicine; Family Provider Family Medicine; PCP Family Medicine; Referring Provider Family Medicine Geriatric Medicine; Visit Provider Family Medicine Geriatric Medicine
DX: J15.8 Pneumonia due to other specified bacteria (principal); I10 Essential (primary) hypertension; K21.9 Gastro-esophageal reflux disease without esophagitis; E78.5 Hyperlipidemia, unspecified; R45.1 Restlessness and agitation; Z86.73 Personal history of transient ischemic attack (TIA), and cerebral infarction without residual deficits; Y95 Nosocomial condition; Z93.0 Tracheostomy status; Z87.891 Personal history of nicotine dependence; R09.02 Hypoxemia
CPT/HCPCS: 31720; 36415; 71045; 71046; 74018; 80048; 85025; 92507; 92526; 92610; 94667; 97110; 97116; 97162; 97166; 97530; 97535; 97802; 97803; A4216

== ENCOUNTER 2019-03-14 20:44 | Emergency (ER) | payer MEDICARE, SELFPAY ==
[2019-02-26 14:01] VITALS: BMI 23.0
[2019-03-14] VITALS (8 sets, daily range): BP systolic 54–96; BP diastolic 40–51; PULSE 98–115; RESP 20–26; TEMP 38.3; O2SAT 94–96; BMI 21.2
--- NOTE | 2019-03-14 20:59 | EKG12_ITS ---
Test Reason : DYSRYTHMIA Blood Pressure : / mmHG Vent. Rate : 113 BPM Atrial Rate : 113 BPM P-R Int : 170 ms QRS Dur : 068 ms QT Int : 314 ms P-R-T Axes : 037 -28 046 degrees QTc Int : 430 ms Sinus tachycardia Otherwise normal ECG Confirmed by GENNY BACH, MAX ([id number]), news video editor ANDREA ANDRADE ([id number]) on 03/16/2019 1:14:23 PM Referred By: AYESHA Confirmed By:FOUZIA ROYAL MD
[2019-03-14] MEDS: 0.9% Normal Saline 1,000 ML 999 ML IV ×3 (21:00→22:00)
[2019-03-14 21:14] LABS: Absolute Neutrophil Count 15.3 X10^3/uL (2.0-7.7); Basophil# 0.04 X10^3/uL; Basophil% 0.3 % (0-1); Eosinophil# 0.02 X10^3/uL; Eosinophils% 0.1 % (0-5); Hematocrit 38.6 % (40-54); Hemoglobin 12.7 g/dL (13.0-16.5); Lymphocyte % 1.3 % (19-41); Mean Corp Hgb Conc 32.9 g/dL (32-36); Mean Corpuscular Hgb 30.8 pg (27.0-32.0); Mean Corpuscular Volume 93.5 fL (80-94); Mean Platelet Vol. 9.9 fl (6.2-12.0); Monocyte# 0.18 X10^3/uL; Monocyte% 1.1 % (0-10); NRBC Flagged by Analyzer 0 % (0-5); Neutrophil # 15.31 X10^3/uL (2.7-7.7); Neutrophil % 95.8 % (47-70); POSITIVE DIFFERENTIAL YES; POSITIVE MORPHOLOGY YES; Platelet Count 170 K/mm3 (150-450); RBC Distribution Width CV 15.4 % (11.6-14.6); RBC Distribution Width SD 52.3 fl (35.1-43.9); Red Blood Count 4.13 M/mm3 (4.6-6.2)
[2019-03-14 21:18] LABS: Differential Indicated SCAN CRITERIA MET
[2019-03-14 21:21] LABS: International Normalized Ratio 1.3; Prothrombin Time (Protime)PT. 15.6 SECONDS (11.7-14.9)
[2019-03-14 21:23] LABS: Mucous, Urine 0 SEEN /hpf (<or=2+); Squamous Epithelial Cells - UA 0 SEEN /hpf (0-5)
[2019-03-14] MEDS: levoFLOXacin IV 750 MG/150 ML BAG 100 MG IV (21:28)
[2019-03-14 21:32] LABS: ALB/GLOB Ratio 0.7 RATIO (0.9-2.4); AST(SGOT) 52 U/L (15-37); Alanine Aminotransfer ALT/SGPT 62 U/L (16-61); Albumin, Serum 2.7 g/dL (3.2-5.0); Alkaline Phosphatase 144 U/L (45-117); Anion Gap 11 (5-15); BUN 32 mg/dL (7-18); BUN/Creat Ratio 16.5 RATIO (10-20); Chloride 105 mmol/L (98-107); Creatinine, Serum 1.94 mg/dL (0.70-1.30); EST Glomerular Filtration Rate 36 mL/min (>60); Est Glom Filt Rate - Afr Amer 43 mL/min (>60); Estimated Creatinine Clearance 29.39 ml/min; Globulin 3.8 g/dL (2.2-4.2); Glucose 128 mg/dL (74-106); Potassium 3.4 mmol/L (3.5-5.1); Protein, Total 6.5 g/dL (6.4-8.2); Sodium Level 141 mmol/L (136-145)
[2019-03-14 21:33] LABS: Lactic Acid 7.5 mmol/L (0.4-1.9)
[2019-03-14 21:39] LABS: Differential Comment SCANNED
[2019-03-14 21:40] LABS: Color, Urine Red (Yellow); Glucose, Dipstick Normal (Normal); Ketone-Dipstick 5 mg/dl (Negative); Leukocyte Esterase-Dipstick 500 /ul (Negative); Nitrite-Dipstick Negative (Negative); Occult Blood-Urine 250 /ul (Negative); Protein-Dipstick 100 mg/dl (Negative); Urine Bilirubin Dipstick Negative (Negative); Urine Clarity Cloudy (Clear); Urine Urobilinogen 1 mg/dl (Normal)
--- NOTE | 2019-03-14 21:42 | ED.VIS.GEN ---
History of Present Illness Chief Complaint: Fever Detail of Chief Complaint: Blood pressure, decreased responsiveness and fever Informant: - - Nursing staff from the TCU Onset: Today Context: Sudden Onset Timing: Continuous Quality: Patient is nonverbal Worsened by: Unknown Relieved by: Nothing Associated Symptoms: Unable to determine Narrative: Patient is an elderly male who had a significant stroke. He was in the TCU unit. He is nonverbal with a GCS of 3. Prior similar symptoms: Yes Recent Illness/Hospitalization: Yes - Past Medical History (1) GERD (gastroesophageal reflux disease) Status: Chronic (2) Debility Status: Acute (3) Hospital-acquired pneumonia Status: Acute (4) Psychosis Status: Acute (5) Cerebellar stroke Status: Chronic (6) Dissecting hemorrhage of left vertebral artery Status: Chronic (7) Hyperlipidemia Status: Chronic (8) Hypertension Status: Chronic (9) Status post emergency tracheotomy for assistance in breathing Status: Ruled-out Past Medical History - Allergies and Home Meds Allergies/Adverse Reactions: Allergies Penicillins Allergy (Unknown, Verified 03/14/19 20:51) Unknown cyclobenzaprine [From Flexeril] Adverse Reaction (Verified 03/14/19 20:51) Rash Primary Care Physician: Alvarado Dunlap MD [Primary Care Provider] - Prior records reviewed: Yes Surgical History: appendectomy, herniorrhaphy, - - Tracheostomy, PEG tube, Suboccipital craniectomy, Cervical discectomy, carpal tunnel, shoulder surgery. Lives: [place] Smoking Status: Former smoker - Family History Maternal Family History: Reports: - - History was taken from patient son who denies any disease in any of his siblings (children of patient). Patient son did not know maternal or paternal medical history. Paternal Family History: Reports: - - History was taken from patient son who denies any disease in any of his siblings (children of patient). Patient son did not know maternal or paternal medical history. Review of Systems ROS: Unable to Obtain - Nonverbal General: Reports: Fever Respiratory: Reports: Dyspnea Physical Exam Vital Signs/Narrative: Vital Signs Temp Pulse Resp BP Pulse Ox 03/14/19 21:06 114 H 24 H 83/47 L 96 03/14/19 20:46 100.9 F H 115 H 26 H 96/51 L 96 Inital Vital Signs reviewed: Yes General: Well developed, Acute Distress Head: Normocephalic, Atraumatic Eyes: Perrl, EOMI, Pale conjunctiva. Negative for: Scleral icterus ENT: No rhinorrhea, TM's clear, Dry mucous membranes Neck: Supple, Nontender, No lymphadenopathy Cardiovascular: Regular rhythm, No murmurs, Normal S1, Normal S2, Tachycardia Respiratory: Rales - Rales posteriorly at the base only, Decreased Air Movement Abdomen: Soft, Nontender, Nondistended, Normal bowel sounds Rectal: Deferred : - - Only fully with bloody urine Skin: No rash, Pallor. Negative for: Cyanosis Neurological: Negative for: Alert, Oriented x3, Cranial nerves II-XII grossly intact, Normal Strength, Normal Sensation, Normal DTR Diagnostic/Tx/Re-eval Laboratory Results 03/14/19 03/14/19 03/14/19 20:56 20:56 20:56 WBC 16.0 H RBC 4.13 L Hgb 12.7 L Hct 38.6 L MCV 93.5 MCH 30.8 MCHC 32.9 RDW Std Deviation 52.3 H RDW Coeff of Dereck 15.4 H Plt Count 170 MPV 9.9 Immature Gran % (Auto) 1.400 H Neut % (Auto) 95.8 H Lymph % (Auto) 1.3 L Washburn % (Auto) 1.1 Eos % (Auto) 0.1 Baso % (Auto) 0.3 Absolute Neuts (auto) 15.3 H Absolute Lymphs (auto) 0.20 L Nucleated RBC % 0 Differential Comment SCANNED PT 15.6 H INR 1.3 APTT 38.0 H Sodium 141 Potassium 3.4 L Chloride 105 Carbon Dioxide 25.0 Anion Gap 11 BUN 32 H Creatinine 1.94 H Estim Creat Clear Calc 29.39 Est GFR (MDRD) Af Amer 43 L Est GFR (MDRD) Non-Af 36 L BUN/Creatinine Ratio 16.5 Glucose 128 H Lactic Acid Calcium 9.0 Total Bilirubin 1.10 H AST 52 H ALT 62 H Alkaline Phosphatase 144 H Total Protein 6.5 Albumin 2.7 L Globulin 3.8 Albumin/Globulin Ratio 0.7 L Urine Color Urine Clarity Urine pH Ur Specific Mammoth Urine Protein Urine Glucose (UA) Urine Ketones Urine Occult Blood Urine Nitrite Urine Bilirubin Urine Urobilinogen Ur Leukocyte Esterase Urine RBC Urine WBC Ur Squamous Epith Cells Urine Bacteria Urine Mucus 03/14/19 03/14/19 20:56 21:20 WBC RBC Hgb Hct MCV MCH MCHC RDW Std Deviation RDW Coeff of Dereck Plt Count MPV Immature Gran % (Auto) Neut % (Auto) Lymph % (Auto) Washburn % (Auto) Eos % (Auto) Baso % (Auto) Absolute Neuts (auto) Absolute Lymphs (auto) Nucleated RBC % Differential Comment PT INR APTT Sodium Potassium Chloride Carbon Dioxide Anion Gap BUN Creatinine Estim Creat Clear Calc Est GFR (MDRD) Af Amer Est GFR (MDRD) Non-Af BUN/Creatinine Ratio Glucose Lactic Acid 7.5 H* Calcium Total Bilirubin AST ALT Alkaline Phosphatase Total Protein Albumin Globulin Albumin/Globulin Ratio Urine Color Red Urine Clarity Cloudy Urine pH 6.0 Ur Specific Mammoth 1.010 Urine Protein 100 H Urine Glucose (UA) Normal Urine Ketones 5 H Urine Occult Blood 250 H Urine Nitrite Negative Urine Bilirubin Negative Urine Urobilinogen 1 H Ur Leukocyte Esterase 500 H Urine RBC > 100 SEEN Urine WBC >100 SEEN Ur Squamous Epith Cells 0 SEEN Urine Bacteria 3+ Urine Mucus 0 SEEN Source of patient's infection is urine. - Medical Decision Making With tachycardia, tachypnea, fever and mean arterial pressure less than 65 he received a 30 cc/kg bolus of normal saline. He had a chest x-ray performed prior to arrival that revealed no evidence of pneumonia. Reportedly his urine was not infected. Since his source is not known antibiotics were chosen for unknown source. He was treated with Floxin, tobramycin and vancomycin. He has beta-lactam allergy. Spoke with son, Juan, regarding CODE STATUS. He is no CPR and no intubation. He wished to come to the hospital before determining whether central line and pressors would be appropriate. He was informed that his father is critically ill. Son did present to the emergency department. He was informed of his father's critical condition. was present as well. They would like to speak to family in the waiting room. At this time will start levo fed peripherally. If they request full measures short of intubation CPR will place central line. They understand his prognosis is poor. Plan is admission to ICU versus hospice Son informed me that the and family have decided no further treatment. Patient was made DNR comfort care. The state DNR identification form was completed and signed by me. The hospice nurse was contacted. Will discontinue levo fed. - Critical Care Time Critical care time (excluding procedures): 30-74 minutes, Discussing w/Patient &/or Family/Manager Performance, Discussing w/Consultants, Arranging Admission or Transfer ED Disposition - Plan for ED Patient: Disposition: Acute Care Hospital - Other Diagnosis: Septic shock, Urinary tract infection, Acute kidney injury Referrals: Alvarado Dunlap MD [Primary Care Provider] -
[2019-03-14] MEDS: Vancomycin IV 1,000 MG/200 ML BAG 250 MG IV (21:44)
[2019-03-14 21:46] LABS: Red Blood Cells-Urine > 100 SEEN /hpf (0-5); White Blood Cells >100 SEEN /hpf (0-5)
[2019-03-14 21:47] LABS: Bacteria 3+ /hpf (None Seen)
[2019-03-15 01:11] LABS: Reflex Lactate? Y
[2019-03-15 02:21] VITALS: BP 66/40; PULSE 103; RESP 28; O2SAT 96
--- NOTE | 2019-03-15 02:35 | ED.DEP ---
ED Disposition - Plan for ED Patient: Disposition: Acute Care Hospital - Other Diagnosis: Septic shock, Urinary tract infection, Acute kidney injury Instructions: Starting Hospice Referrals: Alvarado Dunlap MD [Primary Care Provider] -
[2019-03-15 02:39] VITALS: BP 66/40; PULSE 102; RESP 30; O2SAT 98
--- NOTE | 2019-03-15 02:41 | ED.RN ---
D/C INSTRUCTIONS GIVEN TO AMBULANCE CREW. PER HOSPICE REQUEST, IVS LEFT IN
--- NOTE | 2019-03-15 06:58 | ED.RN ---
message left with hospice reguarding abnormal labs on this pt.Advised them to call and speak to charge nurse to obtain results.
== END 2019-03-15 02:42 | disposition home or self-care (01) ==
PROVIDERS: Emergency Provider Emergency Medicine; PCP Family Medicine
DX: A41.9 Sepsis, unspecified organism (principal); N39.0 Urinary tract infection, site not specified; R65.21 Severe sepsis with septic shock; N17.9 Acute kidney failure, unspecified; K21.9 Gastro-esophageal reflux disease without esophagitis; I10 Essential (primary) hypertension; E78.5 Hyperlipidemia, unspecified; Z66 Do not resuscitate; Z79.82 Long term (current) use of aspirin; Z79.02 Long term (current) use of antithrombotics/antiplatelets; Z87.891 Personal history of nicotine dependence; Z86.73 Personal history of transient ischemic attack (TIA), and cerebral infarction without residual deficits
CPT/HCPCS: 80053; 81001; 83605; 85025; 85610; 85730; 87040; 87077; 87086; 87088; 87186; 93005; 96365; 96367; 99285; J7030; J7040; J7050; A4216